=== PATIENT | male | born 1955 | race Caucasian/White ===

== ENCOUNTER → 2025-04-22 | Outpatient (CLI) | payer MEDICARE, OTHER, SELFPAY ==
--- NOTE | 2025-04-22 08:57 | RAD_ITS ---
PROCEDURE: ABDOMEN SINGLE VIEW 04/22/2025 REASON FOR EXAM: CALCULUS OF URETER TECHNIQUE: ABDOMEN SINGLE VIEW COMPARISON: No FINDINGS: Multiple pelvic calcifications favoring phleboliths. Lumbar spine degeneration. Status post left THR. Nondistended bowel. No definite renal stones. RAD/Abdomen Single View IMPRESSION: No definite renal or ureteral stones. Reading Location: [place] [address]
== END | disposition home or self-care (01) ==
PROVIDERS: Referring Provider Urology; Visit Provider Urology
DX: N20.1 Calculus of ureter (principal)
CPT/HCPCS: 74018

== ENCOUNTER 2025-05-07 09:14 | Day surgery (SDC) | payer MEDICARE, OTHER, SELFPAY ==
--- NOTE | 2025-04-25 18:10 | PAT.ANESEVAL ---
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 When Was Last Pacemaker Check QUESTION #4 FULL TEXT: You/Your Family Experience fever (hyperthermia) with Anesthesia Last Oral Intake Last Oral intake: Last Oral Intake NPO since Meds taken in AM with sips of water? Meds patient instructed to take am of surgery PONV PONV - belt loop machine operator: PONV - belt loop machine operator Female No 04/23/25 11:09 HX of Motion Sickness No 04/23/25 11:09 HX of N/V After Surgery No 04/23/25 11:09 Non-Smoker Yes 04/23/25 11:09 Duration of Surgery greater Yes 04/23/25 11:09 than 60 minutes Number of Risk Factors 2 04/23/25 11:09 PONV Score Moderate Risk 04/23/25 11:09 Respiratory Assessment Respiratory Assessment - belt loop machine operator: Respiratory Tract Infection Hx - belt loop machine operator Hx Respiratory Tract Infection No 04/23/25 11:09 STOP Sleep Apnea STOP Sleep Apnea - belt loop machine operator: STOP Sleep Apnea - belt loop machine operator Hx Hypertension Yes: CONTROLLED WITH MED 04/23/25 11:09 Hx Sleep Apnea Yes 04/23/25 11:09 CPAP Yes 04/23/25 11:09 BIPAP No 04/23/25 11:09 Do you snore loudly (louder than talking or can be heard Do you often feel tired/ fatigued/ sleepy during daytime? Has anyone observed you stop breathing during sleep? STOP Results Positive 04/23/25 11:09 QUESTION #5 FULL TEXT : Do you snore loudly (louder than talking or can be heard through closed doors)? 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 Specify any problems Hx of Preganancy in last 3 N/A 04/23/25 11:09 Months Nurse Filling Out Transfusion DSCHRIBER 04/23/25 11:09 & Questions: Date: 04/23/25 04/23/25 11:09 Time: 11:11 04/23/25 11:09 Patient unable to answer at this time (ie. confused, unrespo /Reproduction History /Reproductive History - belt loop machine operator: /Reproductive Hx- belt loop machine operator Hx Now No 04/23/25 11:09 Gestational Age (in weeks): EDC: Hx Hx Para Hx Section SAB No 04/23/25 11:09 PFSH Medical History (Updated 04/23/25 @ 11:25 by Kayla Henley) Wears glasses Cancer Depression Anxiety Alcohol use Arthritis Back pain History of diverticulitis CPAP (continuous positive airway pressure) dependence Shortness of breath on exertion Non-smoker History of pain when walking History of edema Non-Hodgkin lymphoma History of stress test Cardiology follow-up encounter Hypertension Home Medications ?Medication ?Instructions ?Recorded ?Last Taken ?Type furosemide 20 mg tablet 20 mg PO DAILY PRN edema 04/23/25 Unknown History ketorolac 10 mg tablet 10 mg PO Q8H PRN PRN pain 04/23/25 Unknown History metoprolol succinate 50 mg 50 mg PO QHS 04/23/25 Unknown History tablet,extended release 24 hr semaglutide 0.25 mg or 0.5 mg (2 0.25 mg subcut TU 04/23/25 04/15/25 History mg/1.5 mL) subcutaneous pen injector (Ozempic) simvastatin 40 mg tablet 40 mg PO QHS 04/23/25 Unknown History tamsulosin 0.4 mg capsule 0.4 mg PO QHS 04/23/25 Unknown History Allergy/AdvReac Type Severity Reaction Status Date / Time chlorhexidine Allergy Intermediate Rash Verified 04/23/25 11:03 meperidine (From Demerol) AdvReac Severe Nausea Verified 04/23/25 11:03 lisinopril AdvReac Intermediate COUGH Verified 04/23/25 11:03 Surgical History (Updated 04/23/25 @ 11:25 by Kayla Henley) Hx of oral surgery Hx of eye surgery Hx of colonoscopy History of surgery on wrist History of orchiectomy, unilateral Hx of total hip arthroplasty History of ankle surgery History of ankle surgery Social History Smoking Status: Never smoker Audit: Pertinent Findings Pertinent Findings EKG Perinent findings: May 09, 2023. Sinus rhythm?frequent ectopic ventricular beats. Stress test pertinent findings: 12/14/2022. 1. EKG normal with frequent PVCs and runs of nonsustained ventricular tachycardia during the exercise. 2. No chest pain with exercise. 3. No ST segment changes of significance at the heart rate were achieved. 4. Patient achieved a METS of 6.9. Echo (EF%) pertinent findings: 03/17/2022. Limited study for LV function due to poor quality. LV probably of normal size and contractility. Consult pertinent findings: 05/09/2023. Dr. Crenshaw. 1. Ventricular ectopy?multiforme, asymptomatic. 39% burden on Holter in December 2021. Improved with institution of treatment for sleep apnea and beta-blockade. Continuing to improve symptomatically. No change in medical treatment. 2. Hypertension?chronic. 3. Morbid obesity and sleep apnea-on treatment. Additional pertinent findings: Holter monitor. December 2021. PVC burden of 39%. Recommendation Anesthesia Recommendation Anesthesia recommendation: OPTIMIZED for anesthesia
[2025-05-07] VITALS (8 sets, daily range): BP systolic 132–157; BP diastolic 67–77; PULSE 51–65; RESP 12–20; TEMP 36–36.6; O2SAT 91–99; BMI 52.2
--- NOTE | 2025-05-07 09:27 | PCM.PRE.AN2 ---
ASA Classification* ASA Classification ASA Classification: 2 Assessment & Plan Anesthesia* Anesthesia Assessment Anesthesia Assessment: Discussed sedation and/or anesthesia options, risks, benefits, and alternatives with patient/parents/legal guardian/POA. Questions invited. The patient/parents/legal guardian/POA seems to understand and agrees to proceed with anesthesia plan. Reviewed the physical assessment, medical history, allergy history and patient home medications list prior to surgery/procedure/anesthetic and documented any changes. Performed airway and anesthesia risk assessments. 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 When Was Last Pacemaker Check QUESTION #4 FULL TEXT: You/Your Family Experience fever (hyperthermia) with Anesthesia Last Oral Intake Last Oral intake: Last Oral Intake NPO since Meds taken in AM with sips of water? 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 - fabrication inspector Female No 04/23/25 11:09 HX of Motion Sickness No 04/23/25 11:09 HX of N/V After Surgery No 04/23/25 11:09 Non-Smoker Yes 04/23/25 11:09 Duration of Surgery greater Yes 04/23/25 11:09 than 60 minutes Number of Risk Factors 2 04/23/25 11:09 PONV Score Moderate Risk 04/23/25 11:09 Respiratory Assessment Respiratory Assessment - fabrication inspector: Respiratory Tract Infection Hx - fabrication inspector Hx Respiratory Tract Infection No 04/23/25 11:09 STOP Sleep Apnea STOP Sleep Apnea - fabrication inspector: STOP Sleep Apnea - fabrication inspector Hx Hypertension Yes: CONTROLLED WITH MED 04/23/25 11:09 Hx Sleep Apnea Yes 04/23/25 11:09 CPAP Yes 04/23/25 11:09 BIPAP No 04/23/25 11:09 Do you snore loudly (louder than talking or can be heard Do you often feel tired/ fatigued/ sleepy during daytime? Has anyone observed you stop breathing during sleep? STOP Results Positive 04/23/25 11:09 QUESTION #5 FULL TEXT : Do you snore loudly (louder than talking or can be heard through closed doors)? 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 Specify any problems Hx of Preganancy in last 3 N/A 04/23/25 11:09 Months Nurse Filling Out Transfusion DSCHRIBER 04/23/25 11:09 & Questions: Date: 04/23/25 04/23/25 11:09 Time: 11:11 04/23/25 11:09 Patient unable to answer at this time (ie. confused, unrespo /Reproduction History /Reproductive History - fabrication inspector: /Reproductive Hx- fabrication inspector Hx Now No 04/23/25 11:09 Gestational Age (in weeks): EDC: Hx Hx Para Hx Section SAB No 04/23/25 11:09 Active Medications Active Medications: Current Medications Generic Name Dose Route Start Last Admin Trade Name Freq PRN Reason Stop Dose Admin Cefazolin Sodium 2 gm/ Sodium 110 mls @ 200 mls/hr 05/07/25 15:15 Chloride IV 05/07/25 15:47 INTRAOP ONE Lactated Ringer's 1,000 mls @ 15 mls/hr 05/07/25 09:30 IV .Q48H FRANK PFSH Medical History Wears glasses Cancer Depression Anxiety Alcohol use Arthritis Back pain History of diverticulitis CPAP (continuous positive airway pressure) dependence Shortness of breath on exertion Non-smoker History of pain when walking History of edema Non-Hodgkin lymphoma History of stress test Cardiology follow-up encounter Hypertension Home Medications ?Medication ?Instructions ?Recorded ?Last Taken ?Type furosemide 20 mg tablet 20 mg PO DAILY PRN edema 04/23/25 Unknown History ketorolac 10 mg tablet 10 mg PO Q8H PRN PRN pain 04/23/25 Unknown History metoprolol succinate 50 mg 50 mg PO QHS 04/23/25 Unknown History tablet,extended release 24 hr semaglutide 0.25 mg or 0.5 mg (2 0.25 mg subcut TU 04/23/25 04/15/25 History mg/1.5 mL) subcutaneous pen injector ([employer]) simvastatin 40 mg tablet 40 mg PO QHS 04/23/25 Unknown History tamsulosin 0.4 mg capsule 0.4 mg PO QHS 04/23/25 Unknown History Allergy/AdvReac Type Severity Reaction Status Date / Time chlorhexidine Allergy Intermediate Rash Verified 04/23/25 11:03 meperidine (From Demerol) AdvReac Severe Nausea Verified 04/23/25 11:03 lisinopril AdvReac Intermediate COUGH Verified 04/23/25 11:03 Surgical History Hx of oral surgery Hx of eye surgery Hx of colonoscopy History of surgery on wrist History of orchiectomy, unilateral Hx of total hip arthroplasty History of ankle surgery History of ankle surgery Social History Smoking Status: Never smoker Review of Systems (Anesthesia) ROS Narrative System reviewed and no additional complaints, except as documented.
[2025-05-07] MEDS: Lactated Ringers 1,000 ML 15 ML IV (09:52)
--- NOTE | 2025-05-07 10:43 | PCM.DC ---
Discharge Instructions DC O2, CPAP, BIPAP needs Home O2 Discharge instructions: No Dressing / Incision Discharge Activity: Return to Normal Activity and May Not Drive (while taking narcotic pain medications.) Dressing / Incision Call your doctor if you observe: Fever of 101 or Higher Follow Up Care Please Follow Up With: Jaxson Justin MD When: Call [phone] for an appointment Test Results: Test results from this visit will be discussed in further detail at your follow-up appointment, if applicable. Discharge Plan Admission Primary Reason for Your Visit: laser stone and stent Attending Provider: Jaxson Justin Primary Care Provider: FRANCISCO RUTHERFORD Instructions Print Language: Citizen Of [place] Discharge Orders/Prescriptions Prescriptions: New oxycodone 5 mg tablet 5 mg PO Q6H PRN (Reason: pain) 7 Days Qty: 20 0RF ciprofloxacin HCl 500 mg tablet 500 mg PO BID Qty: 6 0RF Continued metoprolol succinate 50 mg tablet extended release 24 hr 50 mg PO QHS simvastatin 40 mg tablet 40 mg PO QHS Ozempic 0.25 mg or 0.5 mg(2 mg/1.5 mL) pen injector 0.25 mg subcut TU Rx Instructions: for 4 weeks furosemide 20 mg tablet 20 mg PO DAILY PRN (Reason: edema) tamsulosin 0.4 mg capsule 0.4 mg PO QHS ketorolac 10 mg tablet 10 mg PO Q8H PRN PRN (Reason: pain) Referrals / Follow Up: FRANCISCO RUTHERFORD [Other] Jaxson Justin MD [Med Staff - Active Staff] - Disposition Disposition (needs filled in before D/C Order can be placed): Home, Self Care
[2025-05-07] MEDS: Lactated Ringers 1,000 ML 1000 ML IV (10:53)
[2025-05-07] MEDS: Midazolam 2 MG/2 ML Syringe IV (10:53)
--- NOTE | 2025-05-07 10:57 | RAD_ITS ---
EXAM: Fluoroscopy for ureteral stent placement. CLINICAL HISTORY: Cystoscopy for left stent placement. COMPARISON: None TECHNIQUE: Intraoperative fluoroscopy was performed for left ureteral stent placement. One fluoroscopic image was obtained. Fluoroscopy time: 12.4 seconds. Dose: 8.43 mGy. RAD/O.R. Fluoro for C-Arm IMPRESSION: Intraoperative fluoroscopy was performed for left ureteral stent placement. On e fluoroscopic image was obtained. Reading Location: [place] [address]
[2025-05-07] MEDS: Lidocaine 1% (30 ml sdv) 30 ML Vial 50 ML IV (11:00)
[2025-05-07] MEDS: Cefazolin 1 GM/5 ML Vial 2 GM IV (11:00)
[2025-05-07] MEDS: fentaNYL 100 MCG/2 ML Ampul IV (11:00)
--- NOTE | 2025-05-07 11:33 | OP.PCM_ITS ---
Operative Report (Standard) Operative Information Date of Procedure: 05/07/25 Pre-Operative Diagnosis: Obstructing left ureteral calculus Post-Operative Diagnosis: The same Surgery/Procedure Performed: Cystoscopy, balloon dilation of left ureter, left ureteroscopy laser lithotripsy of stone and stent, left retrograde pyelogram pot fluxer: No Type of Anesthesia: General RN Documented Start/Stop Times: Operation Date: 05/07/25 15:15 Case Time Into Pre-Op 05/07/25 09:21 Procedure Start Time: 11:08 Procedure Stop Time: 11:33 Select all DRAINS/GRAFTS/IMPLANTS that apply: Drains Drain details: 6 Ukrainian by 26 cm stent Estimated Blood Loss: 0 Specimen collected: No Description of surgery: This is a patient who presents to the hospital for treatment for an obstructing ureter calculi. I discussed with the patient how the surgery would be performed and we reviewed the risks and benefits of the surgery. The risk and benefits in clude the risk of failure to remove the stone completely and that the patient may need multiple procedures. We discussed the risk of an infection, the risk of bleeding. We discussed the very rare risk of serious complicated injury to the ureter. The patient understands that if the stone is not able to be removed safely that we may abort the procedure and place a stent. After full discussion and all questions address with the patient the consent form was signed the side was marked appropriately and the patient was taken back to the operating room for the procedure. The patient was taken back to the operating room. After induction of anesthesia by the anesthesiology team the patient was placed in dorsolithotomy position. The genitals were prepped and draped in usual sterile fashion. I went into the bladder with a 21 Ukrainian rigid cystourethroscope through the urethra. Upon entering the bladder I inspected the trigone the left and right ureteral orifice and the bladder itself. I then cannulated the left ureteral orifice and advanced a 0.038 Glidewire up into the kidney. Then over the Glidewire I advanced a 5 Fr Ureteral catheter and performed a retrograde pyelogram with abou t 10cc of contrast, to delineate the anatomy and identify the stone location. Then a ureteral balloon dilator was advanced over the wire and the distal ureter was balloon dilated with a 12 Fr x 5cm balloon dilator. After 3 minutes of dilating the ureter the balloon was backloaded off the 0.038 glidewire over the 0.038 guidewire I went in with the flexible 7.5fr ureteroscope. I was able to go inside with the 7.5Fr utereroscope and I pulled out the guidewire and then through the ureteroscope I engage the stone with laser lithotripsy using a 270miron laser fiber with energy setting of 6 Hertz and 0.6 J until the stone was lasered into tiny little pieces that should pass on their own. A retrograde pyelogram was performed with 10cc of contrast and no extravasation of contrast or perforation was identified in the ureter there was some mild irritation of the ureter where the stone was located. I then backed out of the ureter left the wire in place and then over the 0.038 guidewire I placed a double coiled pigtail ureteral stent. The ureteral stent was advanced over the 0.038 guidewire under direct fluoroscopic guidance and direct cystoscopic visual guidance, once the stent was in good position I pulled the wire and the stent coiled in the kidney and bladder in good position. I then drained the patient's bladder and the cystoscope was removed and the patient was taken back to the recovery room in good position. The patient was given discharge instructions to call the office for instructions on when to come to the office to have the stent removed. Surgical Findings: Stone lasered completely Complications Complications: No Admit VTE Documentation VTE Present on Admission: No VTE Mechan Device Prophylaxis: SCD's VTE Pharm Prophylaxis ordered?: No
--- NOTE | 2025-05-07 11:47 | PCM.POST.ANE ---
Anesthesia: Postop Eval I Current Vital Signs Temperature: 96.8 F Pulse Rate: 64 Blood Pressure: 132/67 Respiratory Rate: 16 Pulse Ox: 98 Oxygen Delivery Method: Nasal Cannula Oxygen Flow Rate (L/min): 2 Assessment Airway patent: Yes Spontaneous unlabored respirations: Yes Mental status: Awake and Calm nausea: No Vomiting: No Anesthesia Complication: No Fluid Hydration Crystalloid volume administer (ml): 500 Total IV fluid infused: 500 Progress Note Anesthesia document: Postop Eval 1 completed: Yes
--- NOTE | 2025-05-07 14:48 | POSTOPAN2_ITS ---
Anesthesia Postop Eval I Sum Postop Eval Completion status Anesthesia document: Postop Eval 1 completed: Yes Anesthesia Postop Eval I Summary Anesthesia Postop Eval I Summary: Anesthesia Postop Eval I: Assessment Summary Airway patent Yes 05/07/25 11:48 [email or web address] Spontaneous unlabored Yes 05/07/25 11:48 [email or web address] [email or web address] respirations Mental status Awake,Calm 05/07/25 11:48 [email or web address] nausea No 05/07/25 11:48 [email or web address] Vomiting No 05/07/25 11:48 [email or web address] [email or web address] Anesthesia Postop Eval I: Fluid Summary Crystalloid volume administer 500 05/07/25 11:48 [email or web address] (ml) Colloids volume administered ( ml) Blood Product volume administered (ml) Total IV fluid infused 500 05/07/25 11:48 [email or web address] [email or web address] Anesthesia Postop Eval I: Summary Notes Anesthesia Complication No 05/07/25 11:48 [email or web address] Anesthesia Complication Comment: Post-operative progress note Anesthesia: Postop Eval II Evaluation Mental status: Awake Pain Level: 0 nausea: No Vomiting: No
--- NOTE | 2025-05-07 14:48 | PCM.POSTANE2 ---
Anesthesia Postop Eval I Sum Postop Eval Completion status Anesthesia document: Postop Eval 1 completed: Yes Anesthesia Postop Eval I Summary Anesthesia Postop Eval I Summary: Anesthesia Postop Eval I: Assessment Summary Airway patent Yes 05/07/25 11:48 ADVERTISING [email or web address] Spontaneous unlabored Yes 05/07/25 11:48 ADVERTISING VICE PRESIDENT.[email or web address] respirations Mental status Awake,Calm 05/07/25 11:48 ADVERTISING VICE [email or web address].[email or web address] nausea No 05/07/25 11:48 ADVERTISING VICE PRESIDENT.[email or web address] Vomiting No 05/07/25 11:48 ADVERTISING VICE PRESIDENT.[email or web address] Anesthesia Postop Eval I: Fluid Summary Crystalloid volume administer 500 05/07/25 11:48 ADVERTISING VICE [email or web address].[email or web address] (ml) Colloids volume administered ( ml) Blood Product volume administered (ml) Total IV fluid infused 500 05/07/25 11:48 ADVERTISING VICE [email or web address].[email or web address] Anesthesia Postop Eval I: Summary Notes Anesthesia Complication No 05/07/25 11:48 ADVERTISING VICE PRESIDENT.[email or web address] Anesthesia Complication Comment: Post-operative progress note Anesthesia: Postop Eval II Evaluation Mental status: Awake Pain Level: 0 nausea: No Vomiting: No
== END 2025-05-07 12:57 | disposition home or self-care (01) ==
LOC: SDC 09:15 → AC 09:17
PROVIDERS: Referring Provider Urology; Visit Provider Urology
PROC: 0TJ98ZZ Inspection of Ureter, Via Natural or Artificial Opening Endoscopic (ICD-10-PCS; CPT 52352; principal; 2025-05-07 15:05)
DX: N20.1 Calculus of ureter (principal)
CPT/HCPCS: 52356; 00918; 76000; C1769; C2617; J2405

== ENCOUNTER 2025-08-23 11:01 | Emergency (ER) | payer MEDICARE, OTHER, SELFPAY ==
[2025-08-23 11:02] VITALS: BP 126/73; PULSE 73; RESP 14; TEMP 36.3; O2SAT 98; BMI 51.0
--- OUTSIDE RECORDS SUMMARY | 2025-08-23 11:36 | XMS RPT_ITS | CCD ---
Author Organization [facility]iniSyak Care Team Providers Care Food Safety Technician Name Role Phone ECONOMOUS, RAVI Unavailable WONNER, FRANCHESCA Unavailable WONNER, FRANCHESCA Unavailable WONNER, FRANCHESCA Unavailable WONNER, FRANCHESCA Unavailable ECONOMOUS, RAVI Unavailable BRYCE, BRIDGET (STATIONARY BOILER FIREMAN) Unavailable Unavailable BRYCE, BRIDGET (STATIONARY BOILER FIREMAN) Unavailable Unavailable BRYCE, BRIDGET (STATIONARY BOILER FIREMAN) Unavailable Unavailable BRYCE, BRIDGET (STATIONARY BOILER FIREMAN) Unavailable Unavailable BRYCE, BRIDGET (STATIONARY BOILER FIREMAN) Unavailable Unavailable BRYCE, BRIDGET (STATIONARY BOILER FIREMAN) Unavailable Unavailable BRYCE, BRIDGET (STATIONARY BOILER FIREMAN) Unavailable Unavailable BRYCE, BRIDGET Unavailable Unavailable BRYCE, BRIDGET Unavailable Unavailable BRYCE, BRIDGET Unavailable Unavailable BRYCE, BRIDGET Unavailable Unavailable BRYCE, BRIDGET Unavailable Unavailable IMCA Unavailable Unavailable IMCA Unavailable Unavailable BRYCE, BRIDGET Unavailable Unavailable BRYCE, BRIDGET Unavailable Unavailable IMCA Unavailable Unavailable BRYCE, BRIDGET Unavailable Unavailable BRYCE, BRIDGET Unavailable Unavailable IMCA Unavailable Unavailable BRYCE, BRIDGET Unavailable Unavailable BRYCE, BRIDGET Unavailable Unavailable OLEGARIO TOUSSAINT Unavailable Unavailable ECONOMOUS, RAVI Unavailable Unavailab le Necci, Andrew Unavailable Unavailable Necci, Andrew Unavailable Unavailable Mungo, Alissa V. Unavailable Unavailable Mungo, Alissa V. Unavailable Unavailable Mungo, Alissa V. Unavailable Unavailable [facility], [facility] Unavailable Unavail able Judy Singh Unavailable Unavailable Economous, Favio Unavailable Unavailabl e Rajat Rose Unavailable Unavailable Economous, Favio Unavailable UnavailJoie Earl Unavailable Joie Harp Primary Care Provider [phone] Joie Harp Primary Care Provider [phone] Bradley Zuñiga Primary Care Provider Bradley Zuñiga MD Primary Care Provider Katty Zuñiga MDilimarielle Primary Care Provider Katty Zuñiga MDilimarielle Primary Care Provider Yogesh HARRINGTON, Kattyilimarielle Primary Care Provider Boom Webb MD Unavailable Bradley Zuñiga MD Primary Care Provider Edmund Orozco Unavailable Bradley Zuñiga MD Primary Care Provider HILARY CRENSHAW Referring Unavailable YOGESH, VASILIKI Primary Care Unavailable YOGESH, VASILIKI Primary Care Unavailable BOOM BEE Referring Unavailable Bradley Zuñiga MD Primary Care Provider [phone] ALFONSO ADORNO Attending Unavailable ALFONSO ADORNO Attending Unavailable ALFONSO ADORNO Attending Unavailable ALFONSO ADORNO Attending Unavailable Boom Webb MD Unavailable Bradley Zuñiga MD Primary Care Provider Edmund Orozco MD Unavailable Broderick ABREU, Little Unavailable Rhonda Reyna Unavailable CORIN CARVER Admitting Unavailable CORIN CARVER Primary Care Unavailable CORIN CARVER Attending Unavailable ASIA AVILES MD Admitting Unavailable ASIA AVILES MD Primary Care Unavailable ASIA AVILES MD Attending Unavailable ASIA AVILES MD Admitting Unavailable ASIA AVILES MD Primary Care Unavailable ASIA AVILES MD Attending Unavailable COVERDANENO MIRANDA MD Admitting Unavailable COVERNENO CARBAJAL MD Primary Care Unavailable COVERDARUBEN, NENO HARRINGTON Attending Unavailable YOGESH, VASILIKI A Consulting Unavailable VAKATIA, VASILIKI A Referring Unavailable PROVIDER, UNKNOWN Consulting Unavailable YOGESH, VASILIKI Primary Care Provider Margoth HARRINGTON, Dr. Jaxson Dee Attending Provider Dr. Jaxson Justin MD Referring Provider BARB CHEN Primary Care Unavailable Jaxson Justin Attending Unavailable Jaxson Justin Referring Unavailable BARBCHEN Primary Care Unavailable Jaxson Justin Attending Unavailable Jaxson Justin Referring Unavailable NINGEGOWDA, GEORGE B Attending Unavailable NINGEGOWDA, GEORGE B Admitting Unavailable VAMVAKIS VASILIKI Primary Care Unavailable VAMVAKIS VASILIKI Primary Care Unavailable NINGEGOWDA, GEORGE B Referring Unavailable NINGEGOWDA, GEORGE B Attending Unavailable Allergies Allergy Classification Reported Allergen(s) Allergy Type Date of Onset Reaction(s) Facility Chlorhexidine / Ethanol (9 sources) Chlorhexidine / Ethanol Drug Allergy 0 Photosensitivit y, Rash [facility] Work Phone: Opioid Agonists (9 sources) Meperidine Drug Allergy 8 Nausea Only [facility] Work Phone: (4 sources) meperidine; Translations: [Demerol] Drug Allergy Nausea/Vomiting [facility] (12 sources) meperidine; Translations: [MEPERIDINE (PF)] Drug Allergy 6 GI Upset [facility] Other [place] [facility] (1 source) Meperidine Drug Allergy 8 [facility] Repository (2 sources) Meperidine Drug Allergy 7 [facility] ([place]) Repository (20 sources) Meperidine Drug Allergy 8 Nausea Only [place], [place] (13 sources) Chlorhexidine / Ethanol Drug Allergy 0 Photosensitivit y, Rash [place], [place] (11 sources) Lisinopril Drug Allergy 1 [facility] [employer] Work Phone: (12 sources) Chlorhexidine Drug Allergy 1 Rash [facility] Work Phone: (1 source) Chlorhexidine Drug Allergy 5 [facility] Repository (1 source) Lisinopril Drug Allergy [facility] Repository Medications Current Medications Medication Drug Class(es) Dates Sig (Normalized) Sig (Original) Acetaminophen (10 sources) Start: 02-25-2020 acetaminophen (TYLENOL) tablet 650 mg End: 03-16-2021 take 1 tablet by mouth every six hours as needed for pain acetaminophen (TYLENOL) 500 MG tablet Take 500 mg by mouth every 6 hours as needed for Pain 0 03/16/2021 Discontinued acetaminophen 325 mg / HYDROcodone bitartrate 5 mg oral tablet (6 sources) Opioid Agonist Start: 03-17-2021 End: 03-24-2021 HYDROcodone-acetaminophen (NORCO) 5-325 MG per tablet Indications: Post-op pain Take 1 tablet by mouth every 6 hours as needed for Pain for up to 7 days. Intended supply: 3 days. Take lowest dose possible to manage pain 28 tablet 0 03/17/2021 03/24/2021 Active Start: 02-26-2020 End: 03-04-2020 take 1 tablet by mouth every four hours as needed for pain HYDROcodone-acetaminophen (NORCO) 5-325 MG per tablet Indications: Testicular mass Take 1 tablet by mouth every 4 hours as needed for Pain for up to 10 doses. 10 tablet 0 02/26/2020 03/04/2020 Active End: 12-14-2015 take 1 tablet by mouth every six hours as needed hydrocodone-acetaminophen Oral 1 tablet( s) Every 6 hours PRN as need for pain as need for pain By Mouth Dec 14, 2015 Discontinued Course Completed acetaminophen 325 mg / oxyCODONE hydrochloride 5 mg oral tablet (5 sources) Opioid Agonist Start: 03-17-2021 End: 03-17-2021 oxyCODONE-acetaminophen (PERCOCET) 5-325 MG per tablet 1 tablet take 1 tablet by paul th every six hours as needed Acetaminophen 325 MG / Oxycodone Hydrochloride 5 MG Oral Tablet [Percocet] 1 tablet(s) 4 Times A Day PRN Orally Active acyclovir 400 mg oral tablet (9 sources) Herpesvirus Nucleoside Analog DNA Polymerase Inhibitor, Herpes Simplex Virus Nucleoside Analog DNA Polymerase Inhibitor, Herpes Zoster Virus Nucleoside Analog DNA Polymerase Inhibitor Start: 09-07-2021 take 1 tablet by mouth every twelve hours acyclovir (ZOVIRAX) 400 mg tablet Indications: Diffuse large B-cell lymphoma of lymph nodes of multiple regions (HCC) Take 1 tablet by mouth q 12 HR. 60 tablet 2 09/07/2021 Active Comment on above: Take 1 tablet by paul th q 12 HR. allopurinol 100 mg oral tablet (2 sources) Xanthine Oxidase Inhibitor take 1 tablet by mouth once daily allopurinol (ZYLOPRIM) 100 MG tablet Take 100 mg by mouth daily 0 Active amLODIPine 5 mg oral tablet (15 sources) Dihydropyridine Calcium Channel Magnus Start: 09-07-2021 take 1 tablet by mouth once daily amLODIPine (NORVASC) 5 mg tablet Take 1 tablet by mouth once daily. Hold until instructed to resume by your outpatient team. 09/07/2021 Active Start: 03-18-2021 End: 09-07-2021 take 1 tablet by mouth once daily amLODIPine (NORVASC) 5 MG tablet Indications: Essential hypertension Take 1 tablet by mouth daily 90 tablet 1 04/27/2021 Active Comment on above: Take 1 tablet by paul th once daily. Hold until instructed to resume by your outpatient team. amoxicillin 875 mg / clavulanate 125 mg oral tablet (1 source) Penicillin-class Antibacterial Start: 02-18-20 End: 02-23-20 21 take 1 tablet by mouth twice daily amoxicillin-clavulan ate (AUGMENTIN) 875-125 MG per tablet Take 1 tablet by mouth 2 times daily for 5 days 10 tablet 0 02/17/2021 02/22/2021 Active Aspirin-Acetaminophen -Caffeine (EXCEDRIN MIGRAINE PO) (4 sources) Aspirin-Acetamin ophe n-Caffeine (EXCEDRIN MIGRAINE PO) Take by mouth 0 Active atorvastatin 20 mg oral tablet (1 source) HMG-CoA Reductase Inhibitor Start: 02-26-20 20 atorvastatin (LIPITOR) tablet 20 mg baclofen 10 mg oral tablet (3 sources) gamma-Aminobutyric Acid-ergic Agonist Start: 06-02-20 take 1 tablet by mouth once daily as needed for muscle spasms baclofen (LIORESAL) 10 MG tablet Indications: Acute bilateral low back pain, unspecified whether sciatica present Take 1 tablet by mouth daily as needed (muscle spasm) 90 tablet 1 06/02/2022 Active Start: 01-27-2022 take 1 tablet by paul th once daily as needed for muscle spasms baclofen (LIORESAL) 10 MG tablet Indications: Acute bilateral low back pain, unspecified whether sciatica present Take 1 tablet by mouth daily as needed (muscle spasm) 90 tablet 1 01/27/2022 Active betamethasone 0.5 mg/ml / clotrimazole 10 mg/ml topical cream (2 sources) Azole Antifungal, Corticosteroid clotrimazole-betamet hasone (LOTRISONE) 1-0.05 % cream Apply 1 g topically 2 times daily Apply topically 2 times daily. Active ciprofloxacin 500 mg oral tablet (1 source) Quinolone Antimicrobial Star t: 0803-21 take 1 tablet by mouth twice daily Ciprofloxacin Hcl 500 mg tablet Active 500 mg PO TWICE A DAY May 07, 2025 12:00am 0.4 ml enoxaparin sodium 100 mg/ml prefilled syringe (1 source) Low Molecular Weight Heparin Star t: 01-31 inject 40 mg by subcutaneous injection once daily 40 mg, Subcutaneous, DAILY, First dose on Mon02/25/20 at 1515 ergocalciferol 1.25 mg oral capsule (1 source) Provitamin D2 Compound Star t: 08-03 take 1 capsule by mouth every week vitamin D (ERGOCALCIFEROL) 1.25 MG (03351 UT) CAPS capsule Indications: Vitamin D deficiency, unspecified Take 1 capsule by mouth once a week 12 capsule 08/29/2022 Active famotidine 20 mg oral tablet (2 sources) Histamine-2 Receptor Antagonist Star t: 10-21 take 1 tablet by mouth once daily in the evening famotidine (PEPCID) 20 MG tablet Indications: Gastroesophageal reflux disease, unspecified whether esophagitis present Take 1 tablet by mouth every evening 90 tablet 1 06/02/2022 Active Start: 01-27-2022 take 1 tablet by paul th once daily in the evening famotidine (PEPCID) 20 MG tablet Indications: Gastroesophageal reflux disease, unspecified whether esophagitis present Take 1 tablet by mouth every evening 90 tablet 1 01/27/2022 Active furosemide 20 mg oral tablet (8 sources) Loop Diuretic Start: 06-18-2025 take 1 tablet by mouth once daily furosemide (LASIX) 20 MG tablet Indications: Leg swelling Take 1 tablet by mouth daily 90 tablet 1 06/18/2025 Active Start: 04-23-2025 take 1 tablet by paul th once daily as needed for edema Furosemide 20 mg tablet Active 20 mg PO DAILY as needed for edema April 23, 2025 12:00am Start: 06-28-2023 take 1 tablet by paul th once daily furosemide (LASIX) 20 MG tablet Take 1 tablet by mouth daily 30 tablet 0 06/28/2023 Active Start: 09-02-2022 take 1 tablet by paul th once daily furosemide (LASIX) 20 MG tablet Indications: Leg swelling , Need for vaccination , Diffuse non-Hodgkin's lymphoma of testis (HCC) Take 1 tablet by mouth daily 7 tablet 0 09/02/2022 Active Start: 06-02-2022 take 1 tablet by paul th once daily furosemide (LASIX) 20 MG tablet Indications: Leg swelling Take 1 tablet by mouth daily 7 tablet 0 06/02/2022 Active Start: 02-15-2022 End: 03-17-2022 take 1 tablet by mouth once daily furosemide (LASIX) 20 MG tablet Indications: Leg swelling Take 1 tablet by mouth daily 7 tablet 0 02/15/2022 03/17/2022 Discontinued (ERROR) 1 ml hydrALAZINE hydrochloride 20 mg/ml injection (1 source) Arteriolar Vasodilator Start: 03-17-2021 hydrALAZINE (APRESOLINE) injection 5 mg hydroCHLOROthiazide 12.5 mg oral capsule (17 sources) Thiazide Diuretic Start: 10-05-2021 End: 03-17-2022 take 1 capsule by mouth once daily hydroCHLOROthiazide 12.5 mg capsule Take 1 capsule by mouth once daily. 10/05/2021 Active Start: 03-18-2021 End: 09-07-2021 take 1 capsule by mouth once daily hydroCHLOROthiazide (MICROZIDE) 12.5 MG capsule Indications: Essential hypertension Take 1 capsule by mouth daily 90 capsule 1 04/27/2021 Active Comment on above: Take 1 capsule by [facility] once daily. 1 ml HYDROmorphone hydrochloride 1 mg/ml cartridge (2 sources) Opioid Agonist Start: 03-17-2021 HYDROmorphone (DILAUDID) injection 0.5 mg Start: 03-17-2021 HYDROmorphone (DILAUDID) injection 0.25 mg ketorolac tromethamine 10 mg oral tablet (2 sources) Nonsteroidal Anti-inflammatory Drug, Cyclooxygenase Inhibitor Start: 04-23-2025 take 1 tablet by mouth every eight hours as needed for pain Ketorolac 10 mg tablet Active 10 mg PO EVERY 8 HOURS NEEDED as needed for pain April 23, 2025 12:00am labetalol hydrochloride 5 mg/ml injectable solution (1 source) beta-Adrenergic Magnus Start: 03-17-2021 labetalol (NORMODYNE;DA SILVA DATE) injection 5 mg meloxicam 7.5 mg oral tablet (20 sources) Nonsteroidal Anti-inflammatory Drug Start: 02-25-2020 take 15 mg by mouth once daily 15 mg, Oral, DAILY, First dose on Mon02/25/20 at 1530 Start: 08-27-2019 take 1 tablet by paul th once daily meloxicam (MOBIC) 15 MG tablet Take 1 tablet by mouth daily 90 tablet 3 08/27/2019 Active Start: 02-19-2019 take 1 tablet by paul th once daily meloxicam (MOBIC) 15 MG tablet Take 1 tablet by mouth daily 90 tablet 3 02/19/2019 Active Mobic Every day stopped taking stopped taking Oral Active 1 ml meperidine hydrochloride 25 mg/ml cartridge (1 source) Opioid Agonist Start: 03-17-2021 meperidine (DEMEROL) injection 12.5 mg 24 hr metoprolol succinate 50 mg extended release oral tablet (8 sources) beta-Adrenergic Magnus Start: 06-18-2025 take 1 tablet by mouth once daily metoprolol succinate (TOPROL XL) 50 MG extended release tablet Indications: Essential hypertension Take 1 tablet by mouth daily 90 tablet 1 06/18/2025 Active Start: 04-23-2025 take 1 tablet by paul th every twenty-four hours at bedtime Metoprolol Succinate 50 mg tablet extended release 24 hr Active 50 mg PO AT BEDTIME April 23, 2025 12:00am Start: 01-16-2024 take 1 tablet by mouth once da lilliana metoprolol succinate (TOPROL XL) 50 MG extended release tablet Indications: Essential hypertension Take 1 tablet by mouth daily 90 tablet 1 01/16/2024 Active Start: 12-05-2022 take 1 tablet by mouth once da [place]illiana metoprolol succinate (TOPROL XL) 50 MG extended release tablet Indications: Essential hypertension Take 1 tablet by mouth daily 90 tablet 0 12/05/2022 Active Start: 06-02-2022 take 1 tablet by mouth once da [place]illiana metoprolol succinate (TOPROL XL) 50 MG extended release tablet Indications: Essential hypertension Take 1 tablet by mouth daily 90 tablet 1 06/02/2022 Active Start: 02-16-2022 take 1 tablet by mouth once da lilliana metoprolol succinate (TOPROL XL) 25 MG extended release tablet Take 1 tablet by mouth daily 30 tablet 5 02/16/2022 Active oxyCODONE hydrochloride 5 mg oral tablet (1 source) Opioid Agonist Start: 05-07-2025 take 1 tablet by mouth every six hours as needed for pain Oxycodone 5 mg tablet Active 5 mg PO EVERY 6 HOURS as needed for pain 20 7 0 May 07, 2025 Calculus of kidney Calculus of kidney Start: 05-07-2025 take 1 tablet by paul th every six hours as needed for pain Oxycodone 5 mg tablet Active 5 mg PO EVERY 6 HOURS as needed for pain 20 7 0 May 07, 2025 Calculus of kidney Calculus of kidney pantoprazole 20 mg delayed release oral tablet (20 sources) Proton Pump Inhibitor Start: 10-05-2021 take 1 tablet by mouth once daily pantoprazole DR (PROTONIX) 20 mg tablet Take 1 tablet by mouth once daily. 30 tablet 10/05/2021 Active End: 09-22-2020 take 1 tablet by mouth once daily pantoprazole (PROTONIX) 40 MG tablet Take 40 mg by mouth daily 0 09/22/2020 Discontinued (Therapy completed) Comment on above: Take 1 tablet by paul th once daily. polyethylene glycol 3350 [id number] mg powder for oral solution (1 source) Osmotic Laxative Start: 02-25-2020 17 g, Oral, DAILY PRN, Constipation, Starting Mon02/25/20 at 1515 First line therapy for constipation 1 ml promethazine hydrochloride 25 mg/ml injection (2 sources) Phenothiazine Start: 03-17-2021 End: 03-17-2021 promethazine (PHENERGAN) injection 6.25 mg Start: 02-25-2020 promethazine ( PHENERGAN) tablet 12.5 mg 0.25 mg, 0.5 mg dose 1.5 ml semaglutide 1.34 mg/ml pen injector (2 sources) Start: 04-23-2025 Semaglutide (O zempic) 0.25 mg or 0.5 mg(2 mg/1.5 mL) pen injector Active 0.25 mg SC TU April 23, 2025 12:00am for 4 weeks Semaglutide, 1 MG/DOSE, (OZEMPIC) 4 MG/3ML SOPN sc injection (2 sources) Start: 07-01-2025 Semaglutide, 1 MG/DOSE, (OZEMPIC) 4 MG/3ML SOPN sc injection Indications: Prediabetes , TERRANCE on CPAP Inject 1 mg into the skin every 7 days 3 mL 3 07/01/2025 Active simvastatin 40 mg oral tablet (20 sources) HMG-CoA Reductase Inhibitor Start: 06-18-2025 take 1 tablet by mouth once daily simvastatin (ZOCOR) 40 MG tablet Indications: Hyperlipidemia, unspecified hyperlipidemia type Take 1 tablet by mouth nightly 90 tablet 1 06/18/2025 Active Start: 04-23-2025 take 1 tablet by paul th at bedtime Simvastatin 40 mg tablet Active 40 mg PO AT BEDTIME April 23, 2025 12:00am Start: 01-16-2024 take 1 tablet by paul th once daily simvastatin (ZOCOR) 40 MG tablet Indications: Hyperlipidemia, unspecified hyperlipidemia type Take 1 tablet by mouth nightly 90 tablet 1 01/16/2024 Active Start: 12-05-2022 take 1 tablet by paul th once daily simvastatin (ZOCOR) 40 MG tablet Indications: Hyperlipidemia, unspecified hyperlipidemia type Take 1 tablet by mouth nightly 90 tablet 0 12/05/2022 Active Start: 06-02-2022 take 1 tablet by paul th once daily simvastatin (ZOCOR) 40 MG tablet Indications: Hyperlipidemia, unspecified hyperlipidemia type Take 1 tablet by mouth nightly 90 tablet 1 06/02/2022 Active Start: 01-27-2022 take 1 tablet by paul th once daily simvastatin (ZOCOR) 40 MG tablet Indications: Hyperlipidemia, unspecified hyperlipidemia type Take 1 tablet by mouth nightly 90 tablet 1 01/27/2022 Active Start: 12-23-2021 take 1 tablet by paul th once daily simvastatin (ZOCOR) 40 MG tablet Indications: Hyperlipidemia, unspecified hyperlipidemia type Take 1 tablet by mouth nightly 90 tablet 0 12/23/2021 Active Start: 04-27-2021 take 1 tablet by paul th once daily simvastatin (ZOCOR) 40 MG tablet Indications: Hyperlipidemia, unspecified hyperlipidemia type Take 1 tablet by mouth nightly 90 tablet 1 04/27/2021 Active Start: 11-23-2020 take 1 tablet by paul th once daily simvastatin (ZOCOR) 40 MG tablet Take 1 tablet by mouth nightly 90 tablet 1 11/23/2020 Active Start: 08-27-2019 End: 07-17-2020 simvastatin (ZOCOR) 40 MG ta blet TAKE 1 TABLET NIGHTLY 90 tablet 0 09/05/2019 Active Start: 07-15-2019 simvastatin (Z OCOR) 40 MG tablet TAKE 1 TABLET NIGHTLY 90 tablet 0 07/15/2019 Active take 1 tablet by paul th once daily at bedtime simvastatin (ZOCOR) 20 mg tablet Take 20 mg by mouth daily at bedtime. Active Comment on above: Take 20 mg by mouth daily at bedtime. 5 ml sodium chloride 9 mg/ml injection (14 sources) Start: 03-17-2022 sodium chloride flush 0.9 % injection 10 mL Start: 07-19-2021 End: 10-05-2021 inject 10 mL intravenously once daily sodium chloride 0.9 %, flush, (BD POSIFLUSH) syringe Inject 10 mL intravenously once daily. BMT Patient. Flush each lumen daily. 500 mL 1 07/19/2021 10/05/2021 Discontinued Start: 07-06-2021 End: 10-05-2022 sodium chloride 0.9 % (flush ) 10 mL (BD POSIFLUSH) Start: 04-21-2021 sodium chlorid e flush 0.9 % injection 5-40 mL Start: 03-17-2021 0.9 % sodium c hloride infusion Start: 03-17-2021 sodium chlorid e flush 0.9 % injection 5-40 mL Start: 02-12-2021 0.9 % sodium c hloride infusion Start: 01-01-2021 sodium chlorid e flush 0.9 % injection 10 mL Start: 02-25-2020 10 mL, Intrave nous, EVERY 12 HOURS SCHEDULED (2 times per day), First dose on Mon02/25/20 at 2100 Start: 02-25-2020 take 10 mL intraveno us route once as needed 10 mL, Intravenous, PRN, Line Care, After every IV line use, Starting 5/26/20 at 1530 Start: 02-25-2020 sodium chlorid e flush 0.9 % injection 10 mL tamsulosin hydrochloride 0.4 mg oral capsule (2 sources) alpha-Adrenergic Magnus Start: 04-23-2025 take 1 capsule by mouth at bedtime Tamsulosin 0.4 mg capsule Active 0.4 mg PO AT BEDTIME April 23, 2025 12:00am Completed/Discontinued Medications Medication Drug Class(es) Dates Sig (Normalized) Sig (Original) Adderall (4 sources) Central Nervous System Stimulant take 25 mg by mouth every twenty-four hours Adderall 25 mg Every day stopped taking stopped taking Oral Active bacitracin 0.5 unt/mg / polymyxin b 10 unt/mg topical ointment (4 sources) Polymyxin-class Antibacterial End: 09-28-2014 bacitracin-polymyx in B Topical apply to affected area withdressing changes Sep 28, 2014 Discontinued Course Completed cephalexin 500 mg oral capsule (4 sources) Cephalosporin Antibacterial End: 12-14-2015 take 1 capsule by mouth every six hours cephalexin Oral 1 capsule(s) Every 6 hours Orally Dec 14, 2015 Discontinued Course Completed CPAP Machine MISC (20 sources) End: 02-09-2021 CPAP Machine MISC by Does not apply route 0 02/09/2021 Discontinued CPAP Machine MIS C by Does not apply route 0 Active 2 ml fentaNYL 0.05 mg/ml injection (1 source) Opioid Agonist Start: 02-26-2020 End: 02-26-2020 fentaNYL (SUBLIMAZE) injection 50 mcg 0.8 ml filgrastim-sndz 0.6 mg/ml prefilled syringe (1 source) Leukocyte Growth Factor Start: 08-06-2021 End: 09-07-2021 filgrastim biosimilar (ZARXIO) 480 mcg/0.8 mL injection Indications: Diffuse large B-cell lymphoma of lymph nodes of multiple regions (HCC) Inject 3 syringes (1,440 mcg) subcutaneously once daily for 1 day for Stem Cell Mobilization 2.4 mL 08/06/2021 09/07/2021 Discontinued fludeoxyglucose F 18 injection 15 millicurie (3 sources) Start: 06-28-2021 End: 06-28-2021 fludeoxyglucose F 18 injection 15 millicurie Start: 04-23-2021 End: 04-23-2021 fludeoxyglucose F 18 injecti on 15 millicurie Start: 03-18-2020 End: 03-18-2020 fludeoxyglucose F 18 injecti on 15 millicurie fluticasone propionate 0.05 mg/actuat metered dose nasal spray (4 sources) Corticosteroid Start: 02-10-2021 End: 03-16-2021 fluticasone (FLONASE) 50 MCG/ACT nasal spray Indications: Right acute serous otitis media, recurrence not specified 1 spray by Nasal route daily 1 Bottle 0 02/10/2021 03/16/2021 Discontinued (LIST CLEANUP) gadobenate dimeglumine (MULTIHANCE) injection 20 mL (1 source) Start: 04-21-2021 End: 04-21-2021 gadobenate dimeglumine (MULTIHANCE) injection 20 mL gadoteridol (PROHANCE) injection 20 mL (1 source) Start: 03-11-2021 End: 03-11-2021 gadoteridol (PROHANCE) injection 20 mL Handicap Placard MISC (5 sources) Start: 11-10-2020 End: 02-09-2021 Handicap Placard MISC Indications: Chronic pain of left knee by Does not apply route Patient cannot walk 200 ft without stopping to rest. Expiration 11/10/2025 1 each 0 11/10/2020 02/09/2021 Discontinued Start: 11-10-[address] MISC Indications: Chronic pain of left knee by Does not apply route Patient cannot walk 200 ft without stopping to rest. Expiration 11/10/2025 1 each 0 11/10/2020 Active hydroCHLOROthiazide 12.5 mg / lisinopril 20 mg oral tablet (9 sources) Thiazide Diuretic, Angiotensin Converting Enzyme Inhibitor Start: 01-05-2021 End: 03-16-2021 take 1 tablet by mouth once daily lisinopril-hydroCHLOROthiazide (PRINZIDE;ZESTORETIC) 20-12.5 MG per tablet Indications: Essential hypertension Take 1 tablet by mouth daily 90 tablet 1 01/05/2021 03/16/2021 Discontinued (LIST CLEANUP) Start: 12-09-2020 take 1 tablet by paul th once daily lisinopril-hydroCHLOROthiazide (PRINZIDE;ZESTORETIC) 20-12.5 MG per tablet Indications: Essential hypertension Take 1 tablet by mouth daily 30 tablet 0 12/09/2020 Active iohexol (OMNIPAQUE 240) injection 50 mL (1 source) Start: 01-01-2021 End: 01-01-2021 iohexol (OMNIPAQUE 240) injection 50 mL iopamidol (ISOVUE-370) 76 % injection 100 mL (1 source) Start: 02-25-2020 End: 02-25-2020 iopamidol (ISOVUE-370) 76 % injection 100 mL iopamidol (ISOVUE-370) 76 % injection 125 mL (1 source) Start: 01-01-2021 End: 01-01-2021 iopamidol (ISOVUE-370) 76 % injection 125 mL iopamidol (ISOVUE-370) 76 % injection 75 mL (1 source) Start: 02-17-2021 End: 02-17-2021 iopamidol (ISOVUE-370) 76 % injection 75 mL iopamidol (ISOVUE-370) 76 % injection 80 mL (1 source) Start: 04-16-2020 End: 04-16-2020 iopamidol (ISOVUE-370) 76 % injection 80 mL magnesium oxide 400 mg oral tablet (1 source) Start: 03-10-2022 End: 03-17-2022 take 1 tablet by mouth once daily magnesium oxide (MAG-OX) 400 MG tablet Take 1 tablet by mouth daily 90 tablet 3 03/10/2022 03/17/2022 Discontinued (ERROR) MEDICAL SUPPLY (1 source) Start: 07-19-2021 End: 09-07-2021 MEDICAL SUPPLY BMT Patient. Change dressing and caps weekly. Patient and caregiver to wear mask during dressing changes. 2 Each 1 07/19/2021 09/07/2021 Discontinued Sheridan-3 Fatty Acids (OMEGA-3 CF PO) (4 sources) End: 07-17-2020 Sheridan-3 Fatty Acids (OMEGA-3 CF PO) Take by mouth 0 07/17/2020 Discontinued (Therapy completed) Sheridan-3 Fatty Ac ids (OMEGA-3 CF PO) Take by mouth 0 Active ondansetron 8 mg oral tablet (20 sources) Serotonin-3 Receptor Antagonist End: 09-22-2020 take 1 tablet by mouth every eight hours as needed for nausea ondansetron (ZOFRAN) 8 MG tablet Take 8 mg by mouth every 8 hours as needed for Nausea or Vomiting 0 09/22/2020 Discontinued (Therapy completed) take 1 tablet by paul th every eight hours Ondansetron 4 MG Disintegrating Oral Tab let [Zofran] 1 tablet(s) 3 Times A Day By Mouth Active perflutren lipid microsphere s (DEFINITY) injection 1.65 mg (2 sources) Start: 03-17-2022 End: 03-17-2022 perflutren lipid microsphere s (DEFINITY) injection 1.65 mg Start: 02-14-2022 End: 03-17-2022 perflutren lipid microsphere s (DEFINITY) injection 1.65 mg perflutren lipid microspheres 1.3 mL in NaCl (PF) 0.9% 10 mL injection (DEFINITY) (3 sources) Start: 07-06-2021 End: 10-05-2022 perflutren lipid microspheres 1.3 mL in NaCl (PF) 0.9% 10 mL injection (DEFINITY) microencapsulated potassium chloride 20 meq extended release oral tablet (1 source) Start: 02-14-2022 End: 03-17-2022 take 1 tablet by mouth once daily potassium chloride (KLOR-CON M) 20 MEQ extended release tablet Take 1 tablet by mouth daily 30 tablet 5 02/14/2022 03/17/2022 Discontinued (ERROR) Problems Active Problems Problem Classification Problem Date Documented Date Episodic/Chronic Allergic reactions (2 sources) Allergy status to other drugs, medicaments and biological substances status; Translations: [Allergy status to narcotic agent status] Onset: 04-17-2025 Episodic Anxiety disorders (20 sources) Post-traumatic stress disorder, unspecified; Translations: [Generalized anxiety disorder] Onset: 07-06-2016 11-10-2020 Chronic Calculus of urinary tract (7 sources) Kidney stone; Translations: [Personal history of urinary calculi] Onset: 04-25-2016 04-25-2016 Episodic Cardiac dysrhythmias (9 sources) Ventricular premature beats; Translations: [Ventricular premature depolarization] Onset: 02-14-2022 Chronic Cardiac dysrhythmias (1 source) Bradycardia; Translations: [Bradycardia, unspecified] Episodic Conditions associated with dizziness or vertigo (1 source) Dizziness; Translations: [Dizziness and giddiness] Episodic Conduction disorders (8 sources) Right bundle branch block; Translations: [Unspecified right bundle-branch block] Onset: 02-14-2022 Chronic Deficiency and other anemia (9 sources) Acquired pancytopenia; Translations: [Antineoplastic chemotherapy induced pancytopenia] Onset: 08-18-2021 09-06-2021 Chronic Diseases of mouth; excluding dental (1 source) Mass of tongue; Translations: [Other diseases of tongue] Episodic Disorders of lipid metabolism (20 sources) Hypercholesterolemia; Translations: [Hyperlipidemia] 06-18-2014 Chronic Disorders of teeth and jaw (2 sources) Gingival abscess; Translations: [Aggressive periodontitis, localized, unspecified severity] Episodic Essential hypertension (20 sources) Essential hypertension; Translations: [Essential (primary) hypertension] Onset: 11-10-2020 11-10-2020 Chronic Genitourinary symptoms and ill-defined conditions (2 sources) Hematuria, unspecified; Translations: [Hematuria, unspecified] Onset: 04-17-2025 Episodic Hodgkin`s disease (1 source) Hodgkin lymphoma, nodular lymphocyte predominance (clinical); 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, 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 Immunizations and screening for infectious disease (2 sources) Vaccination needed; Translations: [Encounter for immunization] Episodic Mood disorders (4 sources) Mood disorders Onset: 12-14-2015 12-14-2015 Non-Hodgkin`s lymphoma (20 sources) Diffuse non-Hodgkin's lymphoma of testis; Translations: [Malignant lymphoma of lymph nodes of inguinal region AND/OR lower limb] Onset: 01-16-2024 07-17-2020 Chronic Osteoarthritis (13 sources) Arthritis; Translations: [Unilateral primary osteoarthritis, left hip] Onset: 09-27-2018 06-18-2014 Chronic Other diseases of kidney and ureters (1 source) Hydronephrosis with renal and ureteral calculous obstruction; Translations: [Hydronephrosis with renal and ureteral calculous obstruction] Onset: 04-17-2025 Episodic Other nervous system disorders (9 sources) Chronic pain; Translations: [Other chronic pain] Onset: 08-18-2021 09-06-2021 Chronic Other nervous system disorders (1 source) Other chronic pain; Translations: [Other chronic pain] Onset: 12-31-2024 Chronic Other nutritional; endocrine; and metabolic disorders (20 sources) Severe obesity; Translations: [Morbid (severe) obesity due to excess calories] Onset: 12-09-2020 12-09-2020 Chronic Other nutritional; endocrine; and metabolic disorders (10 sources) Obesity; Translations: [Obesity, unspecified] 06-23-2021 Chronic Other nutritional; endocrine; and metabolic disorders (2 sources) Body mass index 40+ - severely obese; Translations: [Body mass index (BMI) 50.0-59.9, adult] Onset: 12-11-2024 12-11-2024 Chronic Other screening for suspected conditions (not mental disorders or infectious disease) (2 sources) Electrocardiogram abnormal; Translations: [Abnormal electrocardiogram [ECG] [EKG]] Onset: 12-14-2022 Episodic Other upper respiratory disease (1 source) Mass of head; Translations: [Other diseases of pharynx] Episodic Residual codes; unclassified (20 sources) Sleep apnea; Translations: [Sleep apnea, unspecified] 02-26-2020 Chronic Residual codes; unclassified (5 sources) H/O: tissue/organ recipient; Translations: [Stem cells transplant status] Onset: 09-02-2022 Chronic Residual codes; unclassified (10 sources) Obstructive sleep apnea syndrome; Translations: [Obstructive sleep apnea (adult) (pediatric)] 06-23-2021 Chronic Residual codes; unclassified (18 sources) History of autologous bone marrow transplant; Translations: [Bone marrow transplant status] Onset: 08-18-2021 09-06-2021 Chronic Residual codes; unclassified (1 source) Patient encounter status; Translations: [Pain, unspecified] 07-18-2025 Episodic Residual codes; unclassified (2 sources) Pain, unspecified; Translations: [Pain, unspecified] Onset: 07-18-2025 Episodic Spondylosis; intervertebral disc disorders; other back problems (1 source) Neck pain; Translations: [Cervicalgia] Episodic Superficial injury; contusion (1 source) Abrasion of left forearm; Translations: [Abrasion of left forearm, initial encounter] 04-12-2024 Episodic Unclassified (4 sources) Somatization disorder Onset: 12-14-2015 12-14-2015 Chronic Unclassified (1 source) Unknown / UNK(Unknown) Onset: 07-06-2016 Unclassified (20 sources) Chronic pain of right upper limb; Translations: [Chronic right shoulder pain] Onset: 09-09-2019 09-09-2019 Unclassified (1 source) Long-term (current) use of injectable non-insulin antidiabetic drugs; Translations: [Long-term (current) use of injectable non-insulin antidiabetic drugs] Onset: 04-17-2025 Urinary tract infections (1 source) Cystitis, unspecified with hematuria; Translations: [Cystitis, unspecified with hematuria] Onset: 04-17-2025 Episodic Past or Other Problems Problem Classification Problem Date Documented Da te Episodic/Chronic Abdominal pain (1 source) Abdominal pain; Translations: [Abdominal pain, unspecified abdominal location] Episodic Anal and rectal conditions (9 sources) Rectal pain; Translations: [Other specified diseases of anus and rectum] Onset: 09-03-2021 09-06-2021 Episodic Diabetes mellitus without complication (1 source) Hyperglycemia; Translations: [Hyperglycemia] Episodic Diseases of white blood cells (7 sources) Febrile neutropenia; Translations: [Neutropenia, unspecified] Onset: 09-03-2021 Resolved: 09-06-2021 09-06-2021 Chronic Headache; including migraine (7 sources) Acute posttraumatic headache; Translations: [Acute post-traumatic headache, not intractable] Onset: 09-01-2021 Resolved: 09-02-2021 09-02-2021 Episodic Lymphadenitis (20 sources) Lymphadenopathy; Translations: [Enlarged lymph nodes, unspecified] Resolved: 11-10-2020 02-26-2020 Episodic Mood disorders (20 sources) Major depressive disorder, recurrent, moderate; Translations: [Depressive disorder] Onset: 07-06-2016 Resolved: 02-14-2022 11-10-2020 Chronic Nausea and vomiting (7 sources) Chemotherapy-induced nausea and vomiting; Translations: [Nausea with vomiting, unspecified] Onset: 08-18-2021 Resolved: 09-06-2021 09-06-2021 Episodic Open wounds of extremities (4 sources) Traumatic amputation of fingertip Onset: 09-28-2014 Resolved: 12-14-2015 12-14-2015 Chronic Other connective tissue disease (7 sources) Swelling of lower limb; Translations: [Other specified soft tissue disorders] Onset: 11-17-2021 Resolved: 09-03-2021 09-03-2021 Episodic Other gastrointestinal disorders (1 source) Mass of abdominal cavity structure; Translations: [Intraabdominal mass] Episodic Other gastrointestinal disorders (9 sources) Diarrhea; Translations: [Diarrhea, unspecified] Onset: 09-05-2021 09-06-2021 Episodic Other male genital disorders (20 sources) Testicular mass; Translations: [Other specified disorders of the male genital organs] Onset: 02-25-2020 Resolved: 11-10-2020 02-25-2020 Episodic Other nervous system disorders (14 sources) Postoperative pain ; Translations: [Other acute postprocedural pain] Onset: 03-17-2021 Resolved: 01-27-2022 Episodic Other non-traumatic joint disorders (7 sources) Knee pain; Translations: [Pain in left knee] Onset: 11-10-2020 11-10-2020 Episodic Other non-traumatic joint disorders (18 sources) Chronic pain of right upper limb; Translations: [Pain in right shoulder] Onset: 09-09-2019 Resolved: 04-27-2021 09-09-2019 Episodic Other non-traumatic joint disorders (15 sources) Pain in left knee; Translations: [Pain in joint, lower leg] Onset: 11-10-2020 Resolved: 02-14-2022 11-10-2020 Episodic Other non-traumatic joint disorders (1 source) Pain in right knee; Translations: [Pain in right knee] Onset: 12-31-2024 Episodic Poisoning by other medications and drugs (9 sources) Oral mucositis (ulcerative) due to antineoplastic therapy; Translations: [Mucositis (ulcerative) due to antineoplastic therapy] Onset: 09-02-2021 09-06-2021 Episodic Residual codes; unclassified (9 sources) At risk of healthcare associated infection; Translations: [Other specified personal risk factors, not elsewhere classified] Onset: 08-18-2021 09-06-2021 Episodic Unclassified (4 sources) Laceration of thumb Onset: 06-18-2014 Resolved: 12-14-2015 12-14-2015 Unclassified (7 sources) Onset: 01-16-2024 Resolved: 06-28-2025 01-16-2024 Unclassified (1 source) Patient encounter status 07-18-2025 Results Test Name Value Interpretation Reference Range Facility FLUORO FOR SURGICAL PROCEDUR ESon 07-18-2025 FLUORO FOR SURGICAL PROCEDURES EXAMINATION: SPOT FLUOROSCOPIC IMAGES 07/18/2025 1:38 pm TECHNIQUE: Fluoroscopy was provided by the radiology department for procedure. Radiologist was not present during examination. FLUOROSCOPY DOSE AND TYPE: Radiation Exposure Index: Kerma mGy, 7.24 9 images FLUOROSCOPY TIME: 40.9 seconds COMPARISON: None HISTORY: ORDERING SYSTEM PROVIDED HISTORY: Pain management TECHNOLOGIST PROVIDED HISTORY: Reason for exam:->BILATERAL GENICULAR NERVES BLOCK UNDER FLUOROSCOPIC GUIDANCE ++CHLORHEXIDINE Intraprocedural imaging. FINDINGS: Fluoroscopic support provided to subspecialty service for bilateral genicular nerve block. No obvious complication on the images provided. Please see subspecialty report for full details and interpretation of real time imaging. IMPRESSION: Intraprocedural fluoroscopic spot images as above. See separate procedure report for more information. Interpreted by: Alissa Perez DO Signed by: Alissa Perez DO 07/18/25 Final result Normal [facility] Comment on above: Order Comment: Reaso n for exam:->BILATERAL GENICULAR NERVES BLOCK UNDER FLUOROSCOPIC GUIDANCE ?++CHLORHEXIDINE Guidance-- during surgeryon 07-18-2025 EXAMINATION: SPOT FLUOROSCOPIC IMAGES 07/18/2025 1:38 pm TECHNIQUE: Fluoroscopy was provided by the radiology department for procedure. Radiologist was not present during examination. FLUOROSCOPY DOSE AND TYPE: Radiation Exposure Index: Kerma mGy, 7.24 9 images FLUOROSCOPY TIME: 40.9 seconds COMPARISON: None HISTORY: ORDERING SYSTEM PROVIDED HISTORY: Pain management TECHNOLOGIST PROVIDED HISTORY: Reason for exam:->BILATERAL GENICULAR NERVES BLOCK UNDER FLUOROSCOPIC GUIDANCE ++CHLORHEXIDINE Intraprocedural imaging. FINDINGS: Fluoroscopic support provided to subspecialty service for bilateral genicular nerve block. No obvious complication on the images provided. Please see subspecialty report for full details and interpretation of real time imaging. [facility] Alissa Perez DO - 07/18/2025 EXAMINATION: SPOT FLUOROSCOPIC IMAGES 07/18/2025 1:38 pm TECHNIQUE: Fluoroscopy was provided by the radiology department for procedure. Radiologist was not present during examination. FLUOROSCOPY DOSE AND TYPE: Radiation Exposure Index: Kerma mGy, 7.24 9 images FLUOROSCOPY TIME: 40.9 seconds COMPARISON: None HISTORY: ORDERING SYSTEM PROVIDED HISTORY: Pain management TECHNOLOGIST PROVIDED HISTORY: Reason for exam:->BILATERAL GENICULAR NERVES BLOCK UNDER FLUOROSCOPIC GUIDANCE ++CHLORHEXIDINE Intraprocedural imaging. FINDINGS: Fluoroscopic support provided to subspecialty service for bilateral genicular nerve block. No obvious complication on the images provided. Please see subspecialty report for full details and interpretation of real time imaging. IMPRESSION: Intraprocedural fluoroscopic spot images as above. See separate procedure report for more information. [facility] Radiology Study observation (narrative) [facility] Guidance-- during surgeryOrd ered By: Alissa Perez on 07-18-2025 [facility] Work Phone: CBC with Diffon 07-01-2025 Abs. Basophil 0.05 k/uL Normal 0.00-0.20 [facility] Comment on above: Performed By: #### C P, CBCWD, TSH, VD25, LIPR #### [place] [address] Clinical Trials Specialist: Daniel Dunaway MD Abs.Imm.Granulocyte 0.03 k/uL Normal 0.00-0.58 [facility] Comment on above: Performed By: #### C P, CBCWD, TSH, VD25, LIPR #### [address] [address] Clinical Trials Specialist: Daniel Dunaway MD Abs.Neutrophil (Seg) 5.63 k/uL Normal 1.80-7.30 [facility] Comment on above: Performed By: #### C P, CBCWD, TSH, VD25, LIPR #### [address] [address] Clinical Trials Specialist: Daniel Dunaway MD Basophils/100 WBC (Bld) 1 % Normal 0.0-2.0 [facility] Comment on above: Performed By: #### C P, CBCWD, TSH, VD25, LIPR #### [address] [place] [address] Clinical Trials Specialist: Daniel Dunaway MD Eosinophils (Bld) [#/Vol] 0.16 10*3/uL Normal 0.05-0.50 [facility] Comment on above: Performed By: #### C P, CBCWD, TSH, VD25, LIPR #### [address] [place] [address] Clinical Trials Specialist: Daniel Dunaway MD Eosinophils/100 WBC (Bld) 2 % Normal 0-6 [facility] Comment on above: Performed By: #### C P, CBCWD, TSH, VD25, LIPR #### [address] [place] [address] Clinical Trials Specialist: Daniel Dunaway MD Erythrocyte distribution width (RBC) [Ratio] 13.6 % Normal 11.5-15.0 [facility] Comment on above: Performed By: #### C P, CBCWD, TSH, VD25, LIPR #### [place] [address] Clinical Trials Specialist: Daniel Dunaway MD Hematocrit (Bld) [Volume fraction] 39.8 % Normal 37.0-54.0 [facility] Comment on above: Performed By: #### C P, CBCWD, TSH, VD25, LIPR #### [address] [place] [address] Clinical Trials Specialist: Daniel Dunaway MD Hemoglobin (Bld) [Mass/Vol] 12.4 g/dL Low 12.5-16.5 [facility] Comment on above: Performed By: #### C P, CBCWD, TSH, VD25, LIPR #### [place] [address] Clinical Trials Specialist: Daniel Dunaway MD Immature granulocytes/100 WBC (Bld) 0 % Normal 0.0-5.0 [facility] Comment on above: Performed By: #### C P, CBCWD, TSH, VD25, LIPR #### [place] [address] Clinical Trials Specialist: Daniel Dunaway MD Lymphocytes (Bld) [#/Vol] 1.71 10*3/uL Normal 1.50-4.00 [facility] Comment on above: Performed By: #### C P, CBCWD, TSH, VD25, LIPR #### [place] [address] Clinical Trials Specialist: Daniel Dunaway MD Lymphocytes/100 WBC (Bld) 20 % Normal 20.0-42.0 [facility] Comment on above: Performed By: #### C P, CBCWD, TSH, VD25, LIPR #### [place] [address] Clinical Trials Specialist: Daniel Dunaway MD MCH (RBC) [Entitic mass] 31.3 pg Normal 26.0-35.0 [facility] Comment on above: Performed By: #### C P, CBCWD, TSH, VD25, LIPR #### [place] [address] Clinical Trials Specialist: Daniel Dunaway MD MCHC (RBC) [Mass/Vol] 31.2 g/dL Low 32.0-34.5 [facility] Comment on above: Performed By: #### C P, CBCWD, TSH, VD25, LIPR #### [place] [address] Clinical Trials Specialist: Daniel Dunaway MD MCV (RBC) [Entitic vol] 100.5 fL High 80.0-99.9 [facility] Comment on above: Performed By: #### C P, CBCWD, TSH, VD25, LIPR #### [place] [id number] Clinical Trials Specialist: Daniel Dunaway MD Monocytes (Bld) [#/Vol] 0.79 10*3/uL Normal 0.10-0.95 [facility] Comment on above: Performed By: #### C P, CBCWD, TSH, VD25, LIPR #### [place] [address] Clinical Trials Specialist: Daniel Dunaway MD Monocytes/100 WBC (Bld) 9 % Normal 2.0-12.0 [facility] Comment on above: Performed By: #### C P, CBCWD, TSH, VD25, LIPR #### [place] [address] Clinical Trials Specialist: Daniel Dunaway MD Neutrophil (Seg) 67 % Normal 43.0-80.0 [facility] Comment on above: Performed By: #### C P, CBCWD, TSH, VD25, LIPR #### [place] [address] Clinical Trials Specialist: Daniel Dunaway MD Platelet mean volume (Bld) [Entitic vol] 10.7 fL Normal 7.0-12.0 [facility] Comment on above: Performed By: #### C P, CBCWD, TSH, VD25, LIPR #### [address] [address] Clinical Trials Specialist: Daniel Dunaway MD Platelets (Bld) [#/Vol] 201 10*3/uL Normal 130-450 [facility] Comment on above: Performed By: #### C P, CBCWD, TSH, VD25, LIPR #### [address] [place] [address] Clinical Trials Specialist: Daniel Dunaway MD RBC (Bld) [#/Vol] 3.96 10*6/uL Normal 3.80-5.80 [facility] Comment on above: Performed By: #### C P, CBCWD, TSH, VD25, LIPR #### [address] [place] [address] Clinical Trials Specialist: Daniel Dunaway MD WBC (Bld) [#/Vol] 8.4 10*3/uL Normal 4.5-11.5 [facility] Comment on above: Performed By: #### C P, CBCWD, TSH, VD25, LIPR #### [address] [place] [address] Clinical Trials Specialist: Daniel Dunaway MD Comp Metabolic Profon 2024 Albumin [Mass/Vol] 3.7 g/dL Normal 3.5-5.2 [facility] Comment on above: Performed By: #### C P, CBCWD, TSH, VD25, LIPR #### [address] [place] [address] Clinical Trials Specialist: Daniel Dunaway MD Alkaline Phos 113 U/L Normal 40-129 [facility] Comment on above: Performed By: #### C P, CBCWD, TSH, VD25, LIPR #### [address] [place] [id number] Clinical Trials Specialist: Daniel Dunaway MD ALT [Catalytic activity/Vol] 14 U/L Normal 0-50 [facility] Comment on above: Performed By: #### C P, CBCWD, TSH, VD25, LIPR #### [address] [place] [address] Clinical Trials Specialist: Daniel Dunaway MD Anion gap [Moles/Vol] 13 mmol/L Normal 7-16 [facility] Comment on above: Performed By: #### C P, CBCWD, TSH, VD25, LIPR #### [address] [place] [address] Clinical Trials Specialist: Daniel Dunaway MD AST [Catalytic activity/Vol] 22 U/L Normal 0-50 [facility] Comment on above: Performed By: #### C P, CBCWD, TSH, VD25, LIPR #### [address] [address] Clinical Trials Specialist: Daniel Dunaway MD Bilirubin [Mass/Vol] 0.3 mg/dL Normal 0.0-1.2 [facility] Comment on above: Performed By: #### C P, CBCWD, TSH, VD25, LIPR #### [address] [place] [address] Clinical Trials Specialist: Daniel Dunaway MD Calcium [Mass/Vol] 9.4 mg/dL Normal 8.8-10.2 [facility] Comment on above: Performed By: #### C P, CBCWD, TSH, VD25, LIPR #### [address] [place] [address] Clinical Trials Specialist: Danile Dunaway MD Chloride [Moles/Vol] 107 mmol/L Normal 98-107 [facility] Comment on above: Performed By: #### C P, CBCWD, TSH, VD25, LIPR #### [address] [address] Clinical Trials Specialist: Daniel Dunaway MD CO2 [Moles/Vol] 22 mmol/L Normal 22-29 [facility] Comment on above: Performed By: #### C P, CBCWD, TSH, VD25, LIPR #### [address] [id number] Clinical Trials Specialist: Daniel Dunaway MD Creatinine [Mass/Vol] 0.9 mg/dL Normal 0.7-1.2 [facility] Comment on above: Performed By: #### C P, CBCWD, TSH, VD25, LIPR #### [address] [address] Clinical Trials Specialist: Daniel Dunaway MD GFR/1.73 sq M.predicted among non-blacks MDRD (S/P/Bld) [Vol rate/Area] 88 mL/min/{1.73_m2} Normal >60 [facility] Comment on above: Result Comment: These results are not intended for use in patients <18 years of age. eGFR results are calculated without a race factor using the 2020 CKD-EPI equation. Careful clinical correlation is recommended, particularly when comparing to results calculated using previous equations. The CKD-EPI equation is less accurate in patients with extremes of muscle mass, extra-renal metabolism of creatine, excessive creatine ingestion, or following therapy that affects renal tubular secretion. Performed By: #### C P, CBCWD, TSH, VD25, LIPR #### [place] [address] Clinical Trials Specialist: Daniel Dunaway MD Glucose [Mass/Vol] 95 mg/dL Normal 74-99 [facility] Comment on above: Performed By: #### C P, CBCWD, TSH, VD25, LIPR #### [place] [id number] Clinical Trials Specialist: Daniel Dunaway MD Potassium [Moles/Vol] 4.4 mmol/L Normal 3.5-5.1 [facility] Comment on above: Performed By: #### C P, CBCWD, TSH, VD25, LIPR #### [address] [place] [address] Clinical Trials Specialist: Daniel Dunaway MD Protein [Mass/Vol] 6.7 g/dL Normal 6.4-8.3 [facility] Comment on above: Performed By: #### C P, CBCWD, TSH, VD25, LIPR #### [address] [address] Clinical Trials Specialist: Daniel Dunaway MD Sodium [Moles/Vol] 141 mmol/L Normal 136-145 [facility] Comment on above: Performed By: #### C P, CBCWD, TSH, VD25, LIPR #### [address] [address] Clinical Trials Specialist: Daniel Dunaway MD Urea nitrogen [Mass/Vol] 19 mg/dL Normal 8-23 [facility] Comment on above: Performed By: #### C P, CBCWD, TSH, VD25, LIPR #### [address] [address] Clinical Trials Specialist: Daniel Dunaway MD Hemoglobin A1Con 07-01-2025 HbA1c (Bld) [Mass fraction] 6.0 % High 4.0-5.6 [facility] Comment on above: Performed By: #### G LYHGB #### [address] [address] Clinical Trials Specialist: Daniel Dunaway MD Lipid Profileon 07-01-2025 Cholesterol [Mass/Vol] 206 mg/dL High <200 [facility] Comment on above: Performed By: #### C P, CBCWD, TSH, VD25, LIPR #### [address] [address] Clinical Trials Specialist: Daniel Dunaway MD Cholesterol in HDL [Mass/Vol] 55 mg/dL Normal >40 [facility] Comment on above: Performed By: #### C P, CBCWD, TSH, VD25, LIPR #### [address] [place] [address] Clinical Trials Specialist: Daniel Dunaway MD Cholesterol in LDL [Mass/Vol] 109 mg/dL High <100 [facility] Comment on above: Performed By: #### C P, CBCWD, TSH, VD25, LIPR #### [address] [place] [address] Clinical Trials Specialist: Daniel Dunaway MD Cholesterol in VLDL [Mass/Vol] 42 mg/dL Normal [facility] Comment on above: Result Comment: No n ormal range established. Performed By: #### C P, CBCWD, TSH, VD25, LIPR #### [address] [place] [address] Clinical Trials Specialist: Daniel Dunaway MD Triglyceride [Mass/Vol] 212 mg/dL High <150 [facility] Comment on above: Performed By: #### C P, CBCWD, TSH, VD25, LIPR #### [place] [address] Clinical Trials Specialist: Daniel Dunaway MD Thyroid Stim. Horm.on 2024 Thyroid Stim. Horm. 4.25 uIU/mL High 0.27-4.20 [facility] Comment on above: Performed By: #### C P, CBCWD, TSH, VD25, LIPR #### [address] [place] [address] Clinical Trials Specialist: Daniel Dunaway MD Urinalysis, Routineon 2024 Bilirubin, SemiQt,Ur Negative Normal NEG [facility] Comment on above: Performed By: #### U A #### [address] [place] [address] Clinical Trials Specialist: Daniel Dunaway MD Blood, Urine Negative Normal NEG [facility] Comment on above: Performed By: #### U A #### [address] [place] [address] Clinical Trials Specialist: Daniel Dunaway MD Clarity (U) Clear Normal CLEAR [facility] Comment on above: Performed By: #### U A #### [address] [place] [address] Clinical Trials Specialist: Daniel Dunaway MD Color (U) Yellow Normal YEL [facility] Comment on above: Performed By: #### U A #### [address] [place] [address] Clinical Trials Specialist: Daniel Dunaway MD Comment Microscopic exam not performed based on chemical results unless requested in Normal [facility] Comment on above: Result Comment: orig inal order. Performed By: #### U A #### [address] [place] [address] Clinical Trials Specialist: Daniel Dunaway MD Glucose Ql (U) Negative Normal NEG [facility] Comment on above: Performed By: #### U A #### [address] [place] [address] Clinical Trials Specialist: Daniel Dunaway MD Ketones Ql (U) Negative Normal NEG [facility] Comment on above: Performed By: #### U A #### [address] [place] [address] Clinical Trials Specialist: Daniel Dunaway MD Leukocyte esterase Test strip Ql (U) Negative Normal NEG [facility] Comment on above: Performed By: #### U A #### [address] [address] Clinical Trials Specialist: Daniel Dunaway MD Nitrite,Ur Negative Normal NEG [facility] Comment on above: Performed By: #### U A #### [address] [address] Clinical Trials Specialist: Daniel Dunaway MD PH,Ur 6.0 Normal 5.0-8.0 [facility] Comment on above: Performed By: #### U A #### [address] [address] Clinical Trials Specialist: Daniel Dunaway MD Protein Ql (U) Negative Normal NEG [facility] Comment on above: Performed By: #### U A #### [address] [address] Clinical Trials Specialist: Daniel Dunaway MD Spec. Newell,Ur 1.025 Normal 1.005-1.03 0 [facility] Comment on above: Performed By: #### U A #### [address] [address] Clinical Trials Specialist: Daniel Dunaway MD Urobilinogen,Ur 0.2 EU/dL Normal 0.0-1.0 [facility] Comment on above: Performed By: #### U A #### [address] [address] Clinical Trials Specialist: Daniel Dunaway MD Vitamin D 25 OHon 07-01-2025 Vitamin D 25 OH 22.6 ng/mL Low 30.0-100.0 [facility] Comment on above: Performed By: #### C P, CBCWD, TSH, VD25, LIPR #### [facility] [address] [place] [address] Clinical Trials Specialist: Daniel Dunaway MD Discharge Instructionon 08 Discharge Instruction [facility] Medical Records Department [address] [place] [address] Instructions for Home/Discharge Instructions 05/07/25 1043 MR#: [id number] Acct: [id number] Name: BLAKE GRIMES Rep #: [id number] : 1955 69 From: Jaxson Justin MD PCP: BRADLEY ZUÑIGA Status:REG SDC Discharge Instructions DC O2, CPAP, BIPAP needs Home O2 Discharge instructions: No Dressing / Incision Discharge Activity: Return to Normal Activity and May Not Drive (while taking narcotic pain medications.) Dressing / Incision Call your doctor if you observe: Fever of 101 or Higher Follow Up Care Please Follow Up With: Jaxson Justin MD When: Call [phone] for an appointment Test Results: Test results from this visit will be discussed in further detail at your follow-up appointment, if applicable. Discharge Plan Admission Primary Reason for Your Visit: laser stone and stent Attending Provider: Jaxson Justin Primary Care Provider: BRADLEY ZUÑIGA Instructions Print Language: Filipino Discharge Orders/Prescriptions Prescriptions: New oxycodone 5 mg tablet 5 mg PO Q6H PRN (Reason: pain) 7 Days Qty: 20 0RF ciprofloxacin HCl 500 mg tablet 500 mg PO BID Qty: 6 0RF Continued metoprolol succinate 50 mg tablet extended release 24 hr 50 mg PO QHS simvastatin 40 mg tablet 40 mg PO QHS Ozempic 0.25 mg or 0.5 mg(2 mg/1.5 mL) pen injector 0.25 mg subcut TU Rx Instructions: for 4 weeks furosemide 20 mg tablet 20 mg PO DAILY PRN (Reason: edema) tamsulosin 0.4 mg capsule 0.4 mg PO QHS ketorolac 10 mg tablet 10 mg PO Q8H PRN PRN (Reason: pain) Referrals / Follow Up: BRADLEY ZUÑIGA [Other] Jaxson Justin MD [Med Staff - Active Staff] - Disposition Disposition (needs filled in before D/C Order can be placed): Home, Self Care 05/07/25 1043 Jaxson Justin MD CC: BRADLEY ZUÑIGA Signed [facility] MR/POSTOP.ANEon 05-07-2025 MR/POSTOP.[facility] Medical Records Department [address] [place] [address] Anesthesia Postop Eval I 05/07/25 1147 MR#: [id number] Acct: [id number] Name: BLAKE GRIMES Rep #: [id number] : 1955 69 From: Osei Casanova CRNA PCP: BRADLEY ZUÑIGA Status:REG SDC Y Race: C Location: [place] [address] Anesthesia: Postop Eval I Current Vital Signs Temperature: 96.8 F Pulse Rate: 64 Blood Pressure: 132/67 Respiratory Rate: 16 Pulse Ox: 98 Oxygen Delivery Method: Nasal Cannula Oxygen Flow Rate (L/min): 2 Assessment Airway patent: Yes Spontaneous unlabored respirations: Yes Mental status: Awake and Calm nausea: No Vomiting: No Anesthesia Complication: No Fluid Hydration Crystalloid volume administer (ml): 500 Total IV fluid infused: 500 Progress Note Anesthesia document: Postop Eval 1 completed: Yes 05/07/25 1148 Date Osei Casanova CRNA Cosigner Signature: Date CC: Signed [facility] [id number] 05-07-2025 MR/POSTOPAN2 [facility] Medical Records Department [address] [place] [address] Anesthesia Postop Eval II 05/07/25 1448 MR#: [id number] Acct: [id number] Name: BLAKE GRIMES Rep #: [id number] : 1955 69 From: Saleem Goncalves MD PCP: BRADLEY ZUÑIGA Status:[facility] Y Race: C Location[place] [facility] Anesthesia Postop Eval I Sum Postop Eval Completion status Anesthesia document: Postop Eval 1 completed: Yes Anesthesia Postop Eval I Summary Anesthesia Postop Eval I Summary: Anesthesia Postop Eval I: Assessment Summary Airway patent Yes 05/07/25 11:48 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 Spontaneous unlabored Yes 05/07/25 11:48 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 respirations Mental status Awake,Calm 05/07/25 11:48 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 nausea No 05/07/25 11:48 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 Vomiting No 05/07/25 11:48 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 Anesthesia Postop Eval I: Fluid Summary Crystalloid volume administer 500 05/07/25 11:48 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 (ml) Colloids volume administered ( ml) Blood Product volume administered (ml) Total IV fluid infused 500 05/07/25 11:48 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 Fluoro for C-Олег 08-0 O.R. Fluoro for C-Arm [facility] Imaging Services [address] [place] [id number] O.R. Fluoro for C-Arm MR#: [id number] Acct: [id number] Name: BLAKE GRIMES Rep #: [id number] : 1955 M 69 From: Alissa Bay PCP: BRADLEY ZUÑIGA Status: REG [facility] Study: O.R. Fluoro for C-Arm Date of Exam: 05/07/25 Exam# [id number] Ordering Dr: Jaxson Justin MD EXAM: Fluoroscopy for ureteral stent placement. CLINICAL HISTORY: Cystoscopy for left stent placement. COMPARISON: None TECHNIQUE: Intraoperative fluoroscopy was performed for left ureteral stent placement. One fluoroscopic image was obtained. Fluoroscopy time: 12.4 seconds. Dose: 8.43 mGy. RAD/O.R. Fluoro for C-Arm IMPRESSION: Intraoperative fluoroscopy was performed for left ureteral stent placement. One fluoroscopic image was obtained. Reading Location: [place] [address] CC: Dr. Jaxson Justin MD; BRADLEY ZUÑIGA Client Support Consultant: Signed Normal [facility] Operative Reporton Operative Report [facility] Medical Records Department [address] [place] [address] Operative Report 05/07/25 1133 MR#: [id number] Acct: [id number] Name: BLAKE GRIMES Rep #: [id number] : 1955 69 From: Jaxson Justin MD PCP: BRADLEY ZUÑIGA Status:REG [facility] Location: [place] [address] Operative Report (Standard) Operative Information Date of Procedure: 05/07/25 Pre-Operative Diagnosis: Obstructing left ureteral calculus Post-Operative Diagnosis: The same Surgery/Procedure Performed: Cystoscopy, balloon dilation of left ureter, left ureteroscopy laser lithotripsy of stone and stent, left retrograde pyelogram civil engineering 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 I discussed with the patient how the surgery would be performed and we reviewed the risks and benefits of the surgery. The risk and benefits include the risk of failure to remove the stone completely and that the patient may need multiple procedures. We discussed the risk of an infection, the risk of bleeding. We discussed the very rare risk of serious complicated injury to the ureter. The patient understands that if the stone is not able to be removed safely that we may abort the procedure and place a stent. After full discussion and all questions address with the patient the consent form was signed the side was marked appropriately and the patient was taken back to the operating room for the procedure. The patient was taken back to the operating room. After induction of anesthesia by the anesthesiology team the patient was placed in dorsolithotomy position. The genitals were prepped and draped in usual sterile fashion. I went into the bladder with a 21 Spanish rigid cystourethroscope through the urethra. Upon entering the bladder I inspected the trigone the left and right ureteral orifice and the bladder itself. I then cannulated the left ureteral orifice and advanced a 0.038 Glidewire up into the kidney. Then over the Glidewire I advanced a 5 Fr Ureteral catheter and performed a retrograde pyelogram with about 10cc of contrast, to delineate the anatomy and identify the stone location. Then a ureteral balloon dilator was advanced over the wire and the distal ureter was balloon dilated with a 12 Fr x 5cm balloon dilator. After 3 minutes of dilating the ureter the balloon was backloaded off the 0.038 glidewire over the 0.038 guidewire I went in with the flexible 7.5fr ureteroscope. I was able to go inside with the 7.5Fr utereroscope and I pulled out the guidewire and then through the ureteroscope I engage the stone with laser lithotripsy using a 270miron laser fiber with energy setting of 6 Hertz and 0.6 J until the stone was lasered into tiny little pieces that should pass on their own. A retrograde pyelogram was performed with 10cc of contrast and no extravasation of contrast or perforation was identified in the ureter there was some mild irritation of the ureter where the stone was located. I then backed out of the ureter left the wire in place and then over the 0.038 guidewire I placed a double coiled pigtail ureteral stent. The ureteral stent was advanced over the 0.038 guidewire under direct fluoroscopic guidance and direct cystoscopic visual guidance, once the stent was in good position I pulled the wire and the stent coiled in the kidney and bladder in good position. I then drained the patient's bladder and the cystoscope was removed and the patient was taken back to the recovery room in good position. The patient was given discharge instructions to call the office for instructions on when to come to the office to have the stent removed. Surgical Findings: Stone lasered completely Complications Complications: No Admit VTE Documentation VTE Present on Admission: No VTE Mechan Device Prophylaxis: SCD's VTE Pharm Prophylaxis ordered?: No 05/07/25 1135 Cosigner Signature (if applicable): CC: Dr. 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 When Was Last Pacemaker Check QUESTION #4 FULL TEXT: You/Your Family Experience fever (hyperthermia) with Anesthesia Last Oral Intake Last Oral intake: Last Oral Intake NPO since Meds taken in AM with sips of water? Meds patient instructed to take am of surgery PONV PONV - bench carpenter: PONV - bench carpenter Female No 04/23/25 11:09 HX of Motion Sickness No 04/23/25 11:09 HX of N/V After Surgery No 04/23/25 11:09 Non-Smoker Yes 04/23/25 11:09 Duration of Surgery greater Yes 04/23/25 11:09 than 60 minutes Number of Risk Factors 2 04/23/25 11:09 PONV Score Moderate Risk 04/23/25 11:09 Respiratory Assessment Respiratory Assessment - bench carpenter: Respiratory Tract Infection Hx - bench carpenter Hx Respiratory Tract Infection No 04/23/25 11:09 STOP Sleep Apnea STOP Sleep Apnea - bench carpenter: STOP Sleep Apnea - bench carpenter Hx Hypertension Yes: CONTROLLED WITH MED 04/23/25 11:09 Hx Sleep Apnea Yes 04/23/25 11:09 CPAP Yes 04/23/25 11:09 BIPAP No 04/23/25 11:09 Do you snore loudly (louder than talking or can be heard Do you often feel tired/ fatigued/ sleepy during daytime? Has anyone observed you stop breathing during sleep? STOP Results Positive 04/23/25 11:09 QUESTION #5 FULL TEXT : Do you snore loudly (louder than talking or can be heard through closed doors)? 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 Specify any problems Hx of Preganancy in last 3 N/A 04/23/25 11:09 Months Nurse Filling Out Transfusion DSCHRIBER 04/23/25 11:09 Questions: Date: 04/23/25 04/23/25 11:09 Time: 11:11 04/23/25 11:09 Patient unable to answer at this time (ie. confused, unrespo /Reproduction History /Reproductive History - bench carpenter: /Reproductive Hx- bench carpenter Hx Now No 04/23/25 11:09 Gestational Age (in weeks): EDC: Hx Hx Para Hx Section SAB No 04/23/25 11:09 [facility] Medical History (Updated 04/23/25 @ 11:25 by Kayla Henley) Wears glasses Cancer Depression Anxiety Alcohol use Arthritis Back pain History of diverticulitis CPAP (continuous positive airway pressure) dependence Shortness of breath on exertion Non-smoker History of pain when walking History of edema Non-Hodgkin lymphoma History of stress test Cardiology follow-up encounter Hypertension Home Medications ???Medication ???Instructions ???Recorded ???Last Taken ???Type furosemide 20 mg tablet 20 mg PO DAILY PRN edema 04/23/25 Unknown History ketorolac 10 mg tablet 10 mg PO Q8H PRN PRN pain 04/23/25 Unknown History metoprolol succinate 50 mg 50 mg PO QHS 04/23/25 Unknown Hist ory tablet,extended release 24 hr semaglutide 0.25 mg or 0.5 mg (2 0.25 mg subcut TU 04/23/2504/15/2 5 History mg/1.5 mL) subcutaneous pen injector (Attracta) simvastatin 40 mg tablet 40 mg PO QHS 04/23/25 Unknown Hist ory tamsulosin 0.4 mg capsule 0.4 mg PO QHS 04/23/25 Unknown His tory Allergy/AdvReac Type Severity Coy (more content not included)... Normal [facility] Abdomen Single Viewon 2024 Abdomen Single View [facility] Imaging Services [address] [place] [address] Abdomen Single View MR#: [id number] Acct: [id number] Name: BLAKE GRIMES Rep #: [id number] : 1955 M 69 From: Osei Caballero MD PCP: BRADLEY ZUÑIGA Status: REG CLI Study: Abdomen Single View Date of Exam: 04/22/25 Exam# [id number] Ordering Dr: Jaxson Justin MD PROCEDURE: ABDOMEN SINGLE VIEW 04/22/2025 REASON FOR EXAM: CALCULUS OF URETER TECHNIQUE: ABDOMEN SINGLE VIEW COMPARISON: No FINDINGS: Multiple pelvic calcifications favoring phleboliths. Lumbar spine degeneration. Status post left THR. Nondistended bowel. No definite renal stones. RAD/Abdomen Single View IMPRESSION: No definite renal or ureteral stones. Reading Location: [place] [address] CC: Dr. Jaxson Justin MD; BRADLEY ZUÑIGA Client Support Consultant: Signed Normal [facility] ED MED ADMINISTRATION DETAIL on 04-22-2025 ED MED ADMINISTRATION DETAIL Certified Ophthalmic Assistant Medication Administration Record [address] [place] [address] [id number] 04/17/2025 Patient: BLAKE GRIMES Sex: Male : 1955 Age: 69y MEASUREMENTS: Wt: 152.0 kg, Ht/Dre: 68.0 in, BMI: 50.94 ALLERGIES: Demerol, chlorhexidine, lisinopril Medication Ordered Medication Administration Date/Time IV NS 0.9 % 1000 18:53 04/17 IV NS 0.9 % 1000 mL started in bag#1 1000 mL at Started mL at 125 mL/hr 125 mL/hr via Site# 1. Allergies verified and confirmed 5 rights. Via 18:53 04/17/2025 (NOW x1) IV pump. IV patency established. IV site checked: no pain, redness, Franklyn Coleman, or swelling. IV flushed thoroughly pre-medication administration. R.N. Information reviewed with patient. - 18:53 Franklyn Coleman R.N. Stopped 20:27 04/17/2025 20:27 04/17 Medication Discontinued: bag #1 infused. Total Nerissa Valentin R.N. amount infused: 1000 mL. IV patency established. IV site checked: Scanned no pain, redness, or swelling. IV flushed thoroughly post-medication administration. - 20:27 Nerissa Valentin R.N. KetorOLAC 18:53 04/17 KetorOLAC (Toradol) IVP 15 mg given via Site# 1. Given (Toradol) IVP 15 mg Medication Wastage: 15 mg wasted. - 18:54 Franklyn Coleman R.N. 18:53 04/17/2025 (NOW x1) Franklyn Coleman R.N. Scanned Zofran IVP 4 mg 18:53 04/17 Zofran IVP 4 mg given via Site# 1. Allergies verified Given (NOW x1) and confirmed 5 rights. IV patency established. IV site checked: no 18:53 04/17/2025 pain, redness, or swelling. IV flushed thoroughly pre-medication Franklyn Coleman administration. IVP given by nurse. Information reviewed with Thompson patient. - 18:53 Franklyn Coleman R.N. Scanned 1 of 2 Certified Ophthalmic Assistant Medication Ordered Medication Administration Date/Time cefTRIAXone 20:24 04/17 cefTRIAXone (Rocephin) IVPB 1gm/50ml NS 1 g Started (Rocephin) IVPB started at 100 mL/hr diluted in sodium chloride IVPB 0.9 % 20:24 04/17/2025 1gm/50ml NS 1 g Minibag+ 50 mL over 20 minute(s) via Site# 1. Allergies verified and Nerissa Valentin R.N. diluted in sodium confirmed 5 rights. IV patency established. IV site checked: no pain, Stopped chloride IVPB 0.9 % redness, or swelling. IV flushed thoroughly pre-medication 21:05 04/17/2025 Minibag+ 50 mL at administration. Information reviewed with patient including reason Dennise Calderon R.N. 100 mL/hr (NOW x1) for taking this medication. Verbalizes understanding. Completed per Scanned protocol. - 20:25 Nerissa Valentin R.N. 21:05 04/17 Medication Discontinued: IV infused. Total amount infused: 50 mL. IV patency established. IV site checked: no pain, redness, or swelling. IV flushed thoroughly post-medication administration. - 21:06 Dennise Calderon R.N. Flomax PO 0.4 mg 22:52 04/17 Flomax PO 0.4 mg given. Allergies verified and Given (NOW x1) confirmed 5 rights. Information reviewed with patient including 22:52 04/17/2025 reason for taking this medication, signs of allergic reaction and Dennise Calderon R.N. precautions. Verbalizes understanding. - 22:52 Dennise Calderon R.N. Scanned 2 of 2 Normal [facility] ED NURSES CLINICAL NOTEon ED NURSES CLINICAL NOTE Nurse Narrative Nurse Clinical Narrative [address] [place] [address] [id number] 04/17/2025 17:28:00 [id number] Sex[facility] Male : 1955 Age: 69y Disposition: Discharge to Home Disposition Decision Time: 22:33 04/17/2025 Departure Time: 23:04 04/17/2025 TRIAGE Arrived by private vehicle. Historian: (patient). Accompanied by family. Primary physician (Pari Mas). ( Hx of kidney stones). Triage time: 17:04/17/2025. Acuity: LEVEL 3. Chief Complaint: HEMATURIA. This started today. Onset. (1200). No fever or discomfort with urination. Able to void. SEPSIS SCREEN: NEGATIVE. SIRS criteria negative. No possible sources of infection. -- 17:34 04/17/25 OCTAVIA Gan R.N. 17:04/17/25. BP: 173/77 MAP: 109. HR: 68. RR: 18. O2 saturation: 98% Temperature: 98.4 F. Pain level now 10/10. -- 17:04/17/25 OCTAVIA Gan R.N. Measurements: 17:04/17/25 Wt: 152.0 kg, Ht/Dre: 68.0 in, BMI: 50.94 -- 17:04/17/25 OCTAVIA [place] R.N. Medications: Ozempic 0.25 mg or 0.5 mg (2 mg/3 mL) subcutaneous pen injector: 0.5 mg once a week. -- 17:36 04/17/25 OCTAVIA [place] R.N. 1 of 4 Nurse Narrative 17:04/17/25. Preferred Pharmacy: ([facility] -- 17:34 04/17/25 OCTAVIA [place] R.N. Allergies: lisinopril -- 17:04/17/25 OCTAVIA [place] R.N. chlorhexidine -- 17:04/17/25 OCTAVIA [place] R.N. Demerol -- 17:04/17/25 OCTAVIA [place] R.N. Problems: Osteoarthritis -- 17:04/17/25 OCTAVIA [place] R.N. Non-Hodgkin's lymphoma (clinical) -- 17:04/17/25 OCTAVIA [place] R.N. Hypertension -- 17:04/17/25 OCTAVIA Gan R.N. Edema -- 17:04/17/25 OCTAVIA Gan R.N. PTSD -- 17:04/17/25 OCTAVIA Gan R.N. Anxiety disorder -- 17:04/17/25 OCTAVIA Gan R.N. Depression -- 17:04/17/25 OCTAVIA Gan R.N. Surgeries: Ankle surgery -- 17:04/17/25 OCTAVIA Gan R.N. Wrist sugery -- 17:04/17/25 OCTAVIA Gan R.N. Hip Prosthesis -- 17:04/17/25 OCTAVIA Gan R.N. History 17:04/17/25. SOCIAL HX: Never smoker. No alcohol use or drug use. The patient has not traveled outside the [place] Infectious disease exposure: No infectious disease exposure. ABUSE ASSESSMENT: The patient answered yes to the question(s) Do you feel safe in your home? and no to the question(s) Are you afraid to go home?. SELF HARM ASSESSMENT: Self harm assessment was performed. The patient answered no to the question(s) Have you recently felt down, depressed, or hopeless? and Do you have thoughts of harming or killing yourself?. 2 of 4 Nurse Narrative FALL RISK ASSESSMENT: Fall risk assessment completed. Risk factors identified include severe pain. Fall interventions initiated. Patient placed in wheelchair. Brakes on. -- 17:34 04/17/25 OCTAVIA Gan R.N. Interventions 17:04/17/25. Advanced care plan discussed with patient. Patient does not have advanced directive. (full code). -- 17:34 04/17/25 OCTAVIA Gan R.N. PHYSICAL ASSESSMENT 18:18 04/17/25. ( Pt reports to ED c/o of left flank pain radiating down to lower abdomen. Also has bloody urine. Pt has a hx of kidney stones.). GENERAL / NEURO / PSYCH: Alert. Oriented X 4. Appears in pain. RESPIRATORY: Respirations not labored. Breath sounds within normal limits. CVS: Capillary refill less than 2 seconds. GI / : Abdomen soft. Bowel sounds within normal limits. ( Denies burning with urination.). -- 18:24 04/17/25 EDT Franklyn Coleman R.N. NURSING PROGRESS NOTES 18:23 04/17/25. Site #1 started in the right hand with a 20g angiocath with aseptic technique and good blood return; 2 attempts. Blood drawn: rainbow set tube(s). Labeled in the presence of the patient and sent to the lab. Saline lock flushed with 10 mL saline. -- 18:48 04/17/25 EDT Solomon Gan R.N. 18:25 04/17/25. Call light placed in reach. Side rails up. Bed placed in lowest position. -- 18:25 04/17/25 EDT Franklyn Coleman R.N. 18:53 04/17/25. IV NS 0.9 % 1000 mL started in bag#1 1000 mL at 125 mL/hr via Site# 1. Allergies verified and confirmed 5 rights. Via IV pump. IV patency established. IV site checked: no pain, redness, or swelling. IV flushed thoroughly pre-medication administration. Information reviewed with patient. -- 18:53 04/17/25 EDT Franklyn Coleman R.N. 18:53 04/17/25. Zofran IVP 4 mg given via Site# 1. Allergies verified and confirmed 5 rights. IV patency established. IV site checked: no pain, redness, or swelling. IV flushed thoroughly pre-medication administration. IVP given by nurse. Information reviewed with patient. -- 18:53 04/17/25 EDT Franklyn Coleman R.N. 18:53 04/17/25. KetorOLAC (Toradol) IVP 15 mg given via Site# 1. Medication Wastage: 15 mg wasted. -- 18:54 04/17/25 EDT Franklyn Coleman R.N. 19:22 04/17/25. Care da silva (more content not included)... [facility] ED ORDER SHEET (CPOE ONLY)on 04-22-2025 ED ORDER SHEET (CPOE ONLY) Order Sheet Order Sheet [address] [address] [id number] 04/17/2025 Patient: BLAKE GRIMES Sex: Male : 1955 Age: 69y MEASUREMENTS: Wt: 152.0 kg, Ht/Dre: 68.0 in, BMI: 50.94 ALLERGIES: Demerol, chlorhexidine, lisinopril MEDICATION/IV/DRIP/FLUID ORDERS Order Description Priority Entered Acknowledged Completed IV NS 0.9 %1000 mL at 125 18:34 04/17/2025 18:47 18:53 mL/hr (NOW x1) Neno Reich M.D. 04/17/2025 04/17/2025 Franklyn Cameron, Vinicio.N. R.N. KetorOLAC (Toradol) IVP15 mg 18:34 04/17/2025 18:47 18:54 (NOW x1) Neno Reich M.D. 04/17/2025 04/17/2025 Franklyn Cameron R.N. R.N. Zofran IVP4 mg (NOW x1) 18:34 04/17/2025 18:47 18:53 Neno Reich M.D. 04/17/2025 04/17/2025 Franklyn Cameron R.N. R.N. cefTRIAXone (Rocephin) IVPB 19:36 04/17/2025 20:16 20:25 1gm/50ml NS1 g diluted in Phu Steen.OValentina 04/17/2025 04/17/2025 sodium chloride IVPB 0.9 % Thompson Rojo R.N. Minibag+ 50 mL at 100 mL/hr (NOW x1) 1 of 3 Order Sheet Flomax PO0.4 mg (NOW x1) 22:28 04/17/2025 22:40 22:52 Phu Steen.OValentina 04/17/2025 04/17/2025 Thompson Rojo R.N. LAB ORDERS Order Description Priority Entered Acknowledged Collected Completed Urinalysis Stat Stat 17:43 04/17/2025 18:04 04/17/2025 18:04 04/17/2025 Franklyn Dubois Cameron Yoder, R.N. R.N. R.N. Per Protocol, Auth by: Neno Reich M.D. CBC w Diff Stat Stat 18:34 04/17/2025 18:47 04/17/2025 18:47 04/17/2025 Franklyn Sabillon Cameron Yoder, M.D. R.N. RZulema BMP Stat Stat 18:34 04/17/2025 18:47 04/17/2025 18:47 04/17/2025 Franklyn Sabillon Cameron Yoder, M.D. R.N. RZulema Urine Culture [CCL] Stat Stat 18:34 04/17/2025 18:47 04/17/2025 20:25 04/17/2025 Franklyn Sabillon Anne Rutt, R.N. M.D. R.N. Copy of CT films to go 22:55 04/17/2025 23:06 04/17/2025 with patient Gerardo Steen R.N. Order Comments: 23:06 04/17/2025: Patient did not want to wait for the films. Patient states that they will go through medical records if the film is required. Dennise Calderon R.N. DIAGNOSTIC STUDY ORDERS 2 of 3 Order Sheet Order Description Priority Entered Acknowledged Completed CT ABD/PEL wo Cont Stat Stat 22:03 04/17/2025 22:40 22:40 Alissa Beaulieu D.O. 04/17/2025 04/17/2025 Thompson Rojo R.N. Reason for Study: Abdominal Pain STAFF ORDERS Order Description Priority Entered Acknowledged Collected Completed Urine Strainer 22:32 04/17/2025 22:40 04/17/2025 22:40 04/17/2025 Gerardo Steen R.N. Anne Rutt, R.N. [Electronically signed by Neno Reich M.D. (04/17/2025 18:35 EDT)] [Electronically signed by Alissa Beaulieu D.O. (04/18/2025 03:43 EDT)] 3 of 3 [facility] ED PHYSICIAN CLINICAL REPORT on 04-22-2025 ED PHYSICIAN CLINICAL REPORT Narrative Physician Clinical Narrative [facility] [address] [facility] [place] [address] [phone] 04/17/2025 17:28:00 Patient: BLAKE GRIMES Sex: Male : 1955 Age: 69y Disposition: Discharge to Home Disposition Decision Time: 22:33 04/17/2025 Departure Time: 23:04 04/17/2025 Measurements Wt: 152.0 kg, Ht/Dre: 68.0 in, BMI: 50.94 Initial Vital Sign Measured Time BP MAP HR RR O2Sat ETCO2 Temp Pain GCS RTS 17:31 04/17/2025 173/77 109 68 18 98% 98.4 F 10 Time Seen: 19:16 04/17/2025. Arrived- By private vehicle. Historian- patient. Independent historian- family. HISTORY OF PRESENT ILLNESS Chief Complaint: FLANK PAIN. It is described as sharp and it is described as located in the left flank and radiating to the abdomen. This started today and is still present (better). At its maximum, severity described as 9 / 10. When seen in the E.D., severity described as 2 / 10. The patient has had nausea and vomiting. No loss of appetite or diarrhea. Similar symptoms previously. Patient has had similar symptoms several times. ( Has been treated for kidney stones several times in the past and this feels the same. Most recent kidney stone prior to today was last July. He was on vacation in [place] and treated for kidney stone in an ER down there.). Recent medical care: Not recently seen/assessed. Narrative REVIEW OF SYSTEMS : The patient has had difficulty with urination. No pain with urination or urinary frequency. CONSTITUTIONAL: No fever or chills. The patient has not had weight loss. EYES: No blurred vision. THROAT: No sore throat. CVS: No chest pain. RESPIRATORY: No difficulty breathing or cough. MUSCULOSKELETAL: No joint pain. The patient has had back pain. SKIN: No skin rash. NEUROLOGICAL: No headache. GI: No constipation or black stools. PAST HISTORY See nurses notes. Anxiety disorder Depression Edema Hypertension Non-Hodgkin's lymphoma (clinical) Osteoarthritis PTSD Surgeries: Ankle surgery Hip Prosthesis Wrist sugery Medications: Ozempic 0.25 mg or 0.5 mg (2 mg/3 mL) subcutaneous pen injector: 0.5 mg once a week. Allergies: chlorhexidine Demerol lisinopril SOCIAL HISTORY Never smoker. No alcohol use or drug use. 2 of 22 Narrative ADDITIONAL NOTES The nursing notes have been reviewed. PHYSICAL EXAM Appearance: Alert. Oriented X3. No acute distress. Eyes: Pupils equal, round and reactive to light. ENT: Nose normal. Dry mucous membranes present. Pharynx normal. Neck: Normal inspection. Neck supple. CVS: Normal heart rate and rhythm. Heart sounds normal. Pulses normal. Respiratory: No respiratory distress. Breath sounds normal. Chest nontender. Abdomen: Soft and nontender. Bowel sounds normal. Obese. Back: Normal inspection. Skin: Skin warm and dry. No rash. Extremities: Extremities exhibit normal ROM. No lower extremity edema. Neuro: Oriented X 3. No motor deficit. No sensory deficit. LABS, X-RAYS, AND EKG CT Abdomen - Pelvis: A single urinary calculus is present in the left proximal ureter (8 mm). There is mild obstruction. Mild dilatation of the left ureter. 8 mm obstructing calculus in the left UPJ with some minimal left hydronephrosis. No air or fluid. No dilated. No grossly thickened bowel loops. Mild colonic diverticulosis. No evidence of acute appendicitis. Lung bases are clear. Abdomen - pelvic CT performed without contrast. The study was interpreted by the radiologist. Interpretation time: 22:18 04/17/2025. Laboratory Tests: BMP with eGFR Final LENA: 04/17/2025 18:11:00 EDT MsgRcvd: 04/17/2025 19:02 EDT Lab Test Result Reference Status Received Comments BASIC 04/17/2025 BMP with eGFR Final METABOLIC 19:02 EDT PANEL 3 of 22 Narrative Lab Test Result Reference Status Received Comments 04/17/2025 SODIUM 141 mmol/l 136 - 145 Final 19:02 EDT 04/17/2025 POTASSIUM 3.8 mmol/L 3.5 - 5.1 Final 19:02 EDT 108 mmol/L 04/17/2025 CHLORIDE Above high 98 - 107 Final 19:02 EDT normal 04/17/2025 CO2 25.0 mmol/L 21.0 - 32.0 Final 19:02 EDT 04/17/2025 GLUCOSE 103 mg/dl 74 - 106 Final 19:02 EDT 20 mg/dl 04/17/2025 BUN Above high 7 - 18 Final 19:02 EDT normal 04/17/2025 CREATININE 0.98 mg/dl 0.70 - 1.30 Final 19:02 EDT 04/17/2025 CALCIUM 9.0 mg/dl 8.5 - 10.1 Final 19:02 EDT 04/17/2025 ANION GAP 12 mmol/L 10 - 20 Final 19:02 EDT 04/17/2025 AGE 69 years Final 19:02 EDT 04/17/2025 eGFR >60 ML/MINUTE 60 - 999 Final 19:02 EDT Narrative Lab Test Result Reference Status Received Comments ACCORDING TO THE NATIONAL KIDNEY DISEASE EDUCATION PROGRAM(NKDE), A NORMAL eGFR IS A VALUE GREATER THAN OR EQUAL TO 60 ML/MIN/1.73 SQ METERS. 04/17/2025 CHRON (more content not included)... [facility] ED [facility] 04-22-2025 ED [facility] [address] [place] [address] [phone] 04/17/2025 Patient: BLAKE GRIMES Sex: Male : 1955 Age: 69y Item Facility Professional Category Description Code Code Quantity Fee Total Drugs Normal Saline 647065 1 $0.00 $0.00 1000cc (063154) Nurse/E/M EMERGENCY 240454 1 $0.00 $0.00 DEPARTMENT VISIT HIGH/URGENT SEVERITY (47987-51) Nurse/IV/IM/Infusions Drip/IVPB initial 092529 1 $0.00 $0.00 (89968) Nurse/IV/IM/Infusions Hydration 906600 2 $0.00 $0.00 additional hour (46378) Nurse/IV/IM/Infusions IVP additional 246102 2 $0.00 $0.00 push (98584) Grand Total $0.00 Providers Neno Reich M.D. 1 of 2 [facility] Alissa Beaulieu D.O. Chief Complaints HEMATURIA and LEFT FLANK PAIN. FLANK PAIN. Principal Diagnoses Acute left flank pain Ureterolithiasis (single stone) in the left ureter with hydronephrosis and urinary tract infection. Acute urinary tract infection with cystitis and hematuria. ICD-10 Codes R10.9: Unspecified abdominal pain N30.91: Cystitis, unspecified with hematuria N20.1: Calculus of ureter 2 of 2 [facility] ED VISIT SUMMARYon ED VISIT SUMMARY Visit Overview Visit Overview [address] [place] [address] [phone] 04/17/2025 Patient: BLAKE GRIMES Sex: Male : 1955 Age: 69y 04/22/2025 07:52 AM EDT ED Arrival:17:28 04/17/2025 EDT Status: Recent Travel:no Language:eng Adv Directive:No Isolation Status: Ethnicity:N Fall Risk:risk Infectious Disease Exposure:no Measurements:5'8 / 172.7 Self-Harm Status:risk Sepsis Screen:negative cm 335.0 lb / 152.0 kg Chief Complaint:HEMATURIA, (1200), (Hx of kidney stones), and (Vam Vakis) ALLERGIES chlorhexidine Demerol lisinopril HOME MEDICATIONS Ozempic 0.25 mg or 0.5 mg (2 mg/3 mL) subcutaneous pen injector: 0.5 mg once a week. PAST MEDICAL HISTORY / PROBLEMS 1 of 3 Visit Overview Anxiety disorder Depression Edema Hypertension Non-Hodgkin's lymphoma (clinical) Osteoarthritis PTSD See nurses notes PAST SURGICAL HISTORY Ankle surgery Hip Prosthesis SOCIAL HISTORY Smoking status: No Alcohol use: No Drug use: No ED COURSE MEDICATIONS GIVEN IN EMERGENCY DEPARTMENT 18:53 04/17/25 IV NS 0.9 % 1000 mL 125 mL/hr 18:53 04/17/25 Zofran IVP 4 mg 18:53 04/17/25 KetorOLAC (Toradol) IVP 15 mg cefTRIAXone (Rocephin) IVPB 1gm/50ml NS 1 g diluted in sodium chloride IVPB 0.9 % 20:24 04/17/25 Minibag+ 50 mL 100 mL/hr over 20 minute(s) 22:52 04/17/25 Flomax PO 0.4 mg IV SITE INFORMATION INTAKE OUTPUT REASSESMENT (most recent) 2 of 3 Visit Overview 18:18 04/17/25. ( Pt reports to ED c/o of left flank pain radiating down to lower abdomen. Also has bloody urine. Pt has a hx of kidney stones.). GENERAL / NEURO / PSYCH: Alert. Oriented X 4. Appears in pain. RESPIRATORY: Respirations not labored. Breath sounds within normal limits. CVS: Capillary refill less than 2 seconds. GI / : Abdomen soft. Bowel sounds within normal limits. ( Denies burning with urination.). VITAL SIGNS First Vitals Last Vitals Temp 17:31 04/17/25 98.4 F Temp 23:00 04/17/25 BP 17:31 04/17/25 173/77 BP 23:00 04/17/25 149/81 HR 17:31 04/17/25 68 HR 23:00 04/17/25 71 RR 17:31 04/17/25 18 RR 23:00 04/17/25 O2 Sat 17:31 04/17/25 98% O2 Sat 23:00 04/17/25 Pain 17:31 04/17/25 10 Pain 23:00 04/17/25 ETCO2 17:31 04/17/25 ETCO2 23:00 04/17/25 GCS 17:31 04/17/25 GCS 23:00 04/17/25 RTS 17:31 04/17/25 RTS 23:00 04/17/25 PROCEDURES NURSING INTERVENTIONS LABS / STUDIES LABS / STUDIES ORDERED BMP CBC w Diff Copy of CT films to go with patient CT ABD/PEL wo Cont Urinalysis Urine Culture [CCL] CLINICAL IMPRESSION ACUTE LEFT FLANK PAIN ACUTE URINARY TRACT INFECTION WITH CYSTITIS AND HEMATURIA URETEROLITHIASIS (SINGLE STONE) IN THE LEFT URETER WITH HYDRONEPHROSIS AND URINARY TRACT INFECTION 3 of 3 Normal [facility] ED VITALS FLOW SHEETon 04-22 ED VITALS FLOW SHEET Vitals Vital Sign Flow Sheet [facility] [address] [place] [address] [phone] 04/17/2025 Patient: BLAKE GRIMES [facility]#: [id number] Sex: Male : 1955 Age: 69y Measurements Wt: 152.0 kg, Ht/Dre: 68.0 in, BMI: 50.94 Measured Time BP MAP HR RR O2Sat ETCO2 Temp Pain GCS RTS 23:00 04/17/2025 149/81 96 71 22:59 04/17/2025 71 97% 20:19 04/17/2025 67 97% 20:14 04/17/2025 69 94% 20:09 04/17/2025 66 96% 20:04 04/17/2025 67 92% 19:59 04/17/2025 70 96% 19:56 04/17/2025 140/61 90 66 19:54 04/17/2025 64 94% 19:49 04/17/2025 69 94% 19:44 04/17/2025 69 94% 19:39 04/17/2025 64 94% 19:34 04/17/2025 64 92% 19:29 04/17/2025 67 97% 19:26 04/17/2025 145/65 91 68 1 of 2 Vitals Measured Time BP MAP HR RR O2Sat ETCO2 Temp Pain GCS RTS 19:24 04/17/2025 67 96% 19:19 04/17/2025 71 97% 19:18 04/17/2025 220/89 126 69 19:14 04/17/2025 66 93% 19:09 04/17/2025 65 93% 19:04 04/17/2025 65 96% 19:02 04/17/2025 173/76 108 64 18:59 04/17/2025 56 97% 18:54 04/17/2025 62 98% 18:52 04/17/2025 172/72 105 69 18:49 04/17/2025 66 99% 18:47 04/17/2025 212/84 108 57 18:44 04/17/2025 60 97% 18:39 04/17/2025 60 95% 18:34 04/17/2025 63 97% 18:33 04/17/2025 181/79 94 61 18:29 04/17/2025 71 96% 18:24 04/17/2025 62 95% 17:31 04/17/2025 173/77 109 68 18 98% 98.4 F 10 2 of 2 [facility] URINE CULTURE [CCL]on 2024 Bacteria identified Cx Nom (U) URCUL See Results Below See Below CULTURE, URINE NORMAL UROGENITAL ELIZABETH <10,000 CFU/ml Normal urogenital elizabeth SOURCE: Urine (Nonspecific) [facility] [address] [place] [address] Saeid Truong III, M.D. [id number] SEND TO IC NO [facility] Comment on above: Performed By: #### 2 95289 #### [facility],[address] [place] [address] BMP with eGFRon 04-17-2025 AGE 69 years Normal [facility] Comment on above: Performed By: #### 2 [id number] #### [facility],[address] [place] [address] Anion gap [Moles/Vol] 12 mmol/L Normal 10 - 20 [facility] Comment on above: Performed By: #### 2 47005 #### [facility],[address] [place] [address] BMP with eGFR Normal [facility] Comment on above: Result Comment: BASI C METABOLIC PANEL Performed By: #### 2 80658 #### [facility],[address] [place] [address] Calcium [Mass/Vol] 9.0 mg/dL Normal 8.5 - 10.1 [facility] Comment on above: Performed By: #### 2 94666 #### [facility],[address] [place], [place] [phone] Chloride [Moles/Vol] 108 mmol/L High 98 - 107 [facility] Comment on above: Performed By: #### 2 52424 #### [facility],[address] [place], [place] [phone] CO2 [Moles/Vol] 25.0 mmol/L Normal 21.0 - 32.0 [facility] Comment on above: Performed By: #### 2 66715 #### [facility],[address] [place], [place] [phone] Creatinine [Mass/Vol] 0.98 mg/dL Normal 0.70 - 1.30 [facility] Comment on above: Performed By: #### 2 36528 #### [facility],[address] [place], [place] [address] GFR/1.73 sq M.predicted among non-blacks MDRD (S/P/Bld) [Vol rate/Area] mL/min/{1.73_m2} Normal 60 - 999 [facility] Comment on above: Performed By: #### 2 06250 #### [facility],[address] [place] [address] Result Comment: ACCO RDING TO THE NATIONAL KIDNEY DISEASE EDUCATION PROGRAM(NKDE), A NORMAL eGFR IS A VALUE GREATER THAN OR EQUAL TO 60 ML/MIN/1.73 SQ METERS. CHRONIC KIDNEY DISEASE: <60mL/MIN/1.73 SQ METERS KIDNEY FAILURE: <15mL/MIN/1.73 SQ METERS THIS TEST SHOULD ONLY BE USED FOR PATIENTS 18 YEARS OF AGE AND OLDER. Glucose [Mass/Vol] 103 mg/dL Normal 74 - 106 [facility] Comment on above: Performed By: #### 2 84274 #### [facility],[address] [place], [place] [phone] Potassium [Moles/Vol] 3.8 mmol/L Normal 3.5 - 5.1 [facility] Comment on above: Performed By: #### 2 81936 #### [facility],[address] [place], [place] [phone] Sodium [Moles/Vol] 141 mmol/L Normal 136 - 145 [facility] Comment on above: Performed By: #### 2 25286 #### [facility],[address] [place] [address] Urea nitrogen [Mass/Vol] 20 mg/dL High 7 - 18 [facility] Comment on above: Performed By: #### 2 84139 #### [facility],[address] [place] [address] Bacteria Ur Culton 5 Bacteria identified Cx Nom (U) ORGANISM ID: 1 <10,000 CFU/ml Normal urogenital elizabeth Normal [facility] Comment on above: Performed By: #### 6 30-4 #### [facility] CLIA [id number] [address] [place] [address] [facility] CBC + DIFFon 04-17-2025 Baso # 0.03 x10EE3/UL Normal 0.00 - 0.10 [facility] Comment on above: Performed By: #### 2 12527 #### [facility],[address] [place] [address] Basophils/100 WBC (Bld) 0.3 % Normal 0.0 - 2.0 [facility] Comment on above: Performed By: #### 2 51382 #### [address] [address] CBC + DIFF Normal [facility] Comment on above: Result Comment: CBC- COMPLETE BLOOD COUNT Performed By: #### 2 89294 #### [facility],[address] [place] [address] EO # 0.11 x10EE3/UL Normal 0.00 - 0.50 [facility] Comment on above: Performed By: #### 2 47872 #### [address] [address] Eosinophils/100 WBC (Bld) 1.1 % Normal 0.0 - 7.0 [facility] Comment on above: Performed By: #### 2 55791 #### [address] [address] Erythrocyte distribution width (RBC) [Ratio] 13.7 % Normal 12.0 - 15.6 [facility] Comment on above: Performed By: #### 2 41875 #### [facility],[address] [place] [address] Hematocrit (Bld) [Volume fraction] 39.2 % Low 40.0 - 52.0 [facility] Comment on above: Performed By: #### 2 02618 #### [facility],[address] [place] [address] Hemoglobin (Bld) [Mass/Vol] 13.3 g/dL Normal 13.0 - 17.5 [facility] Comment on above: Performed By: #### 2 14621 #### [facility],[address] [place] [address] Lymph # 1.56 x10EE3/UL Normal 0.80 - 2.80 [facility] Comment on above: Performed By: #### 2 69036 #### [facility],[address] [place] [address] Lymphocytes/100 WBC (Bld) 16.1 % Low 20.0 - 45.0 [facility] Comment on above: Performed By: #### 2 03856 #### [facility],[address] [place] [address] MANUAL DIFF N/A Normal [facility] Comment on above: Performed By: #### 2 79977 #### [facility],[address] [place], [place] [phone] MCH (RBC) [Entitic mass] 32 pg Normal 27 - 33 [facility] Comment on above: Performed By: #### 2 04157 #### [facility],[address] [place], [place] [phone] MCHC 34 X10 3 Normal 32 - 36 [facility] Comment on above: Performed By: #### 2 75879 #### [facility],[address] [place], [place] [phone] MCV (RBC) [Entitic vol] 93 fL Normal 81 - 98 [facility] Comment on above: Performed By: #### 2 72229 #### [facility],[address] [place] [address] [place] # 0.86 x10EE3/UL Normal 0.20 - 1.00 [facility] Comment on above: Performed By: #### 2 15476 #### [facility],[address] [place] [address] MONOS % 8.8 % Normal 0.0 - 10.0 [facility] Comment on above: Performed By: #### 2 76571 #### [facility],[address] [place] [address] Morphology Josr (Bld) [Interp] N/A Normal [facility] Comment on above: Performed By: #### 2 24529 #### [facility],[address] [place] [address] Neut # 7.18 x10EE3/UL High 1.50 - 7.10 [facility] Comment on above: Performed By: #### 2 91601 #### [place] [address] Neutrophils/100 WBC (Bld) 73.7 % Normal 46.0 - 76.0 [facility] Comment on above: Performed By: #### 2 51298 #### [facility],[address] [place] [address] PLATELET 213 x10EE3/UL Normal 150 - 450 [facility] Comment on above: Performed By: #### 2 57395 #### [place] [phone] Platelet mean volume (Bld) [Entitic vol] 7.6 fL Normal 6.4 - 10.5 [facility] Comment on above: Result Comment: AUTO MATED DIFFERENTIAL Performed By: #### 2 11376 #### [address],[place] [address] RBC 4.21 x 10EE6/UL Low 4.50 - 6.00 [facility] Comment on above: Performed By: #### 2 71234 #### [facility],[address] [place] [address] WBC 9.7 x 10EE3/UL Normal 4.5 - 10.8 [facility] Comment on above: Performed By: #### 2 43046 #### [facility],[address] [place] [address] ABDOMEN/PELVIS WO 04-17 CT ABDOMEN/PELVIS [place] [address] Patient: BLAKE GRIMES Phone#: : [phone] Age: 69 Gender: M Pt. Type: ER Account: [id number] Location: [facility] Ordering: ALISSA BEAULIEU Exam Date: 04/17/2025/22:10 Family Phys: JONATHON ZUÑIGA Charge Code: 120477 Physician: [place] Order #: [id number] Dose#: 28.3 mGy PROCEDURE: CT ABDOMEN/PELVIS WITHOUT CONTRAST COMPARISON: None. INDICATIONS: Left side flank pain. TECHNIQUE: CT images were created without intravenous contrast. All CT scans at this facility use dose modulation, iterative reconstruction, and/or weight based dosing when appropriate to reduce radiation dose to as low as reasonably achievable. IV CONTRAST: No IV contrast used,ml TOTAL DOSE: 28.3 CTDIvol(mGy) FINDINGS: Limited evaluation of the solid organs and soft tissues in the absence of intravenous contrast. LIVER: Low-attenuation lesion in the left lobe of the liver measuring 0.8 cm, series 2, image 27, incompletely characterized without contrast. BILIARY: Gallbladder is present. PANCREAS: Unremarkable in contour. There is fatty atrophy of the pancreas. SPLEEN: Unremarkable in contour KIDNEYS: There is an obstructing stone in the right ureteropelvic junction, measuring 0.9 x 0.7 cm, series 2, image 66. There is mild left hydronephrosis. The ureter is decompressed. The distal ureters obscured by artifact from left hip arthroplasty. No right nephrolithiasis or hydronephrosis. The distal ureters obscured by artifact from the left hip arthroplasty. ADRENALS: Normal. No mass or enlargement. AORTA/VASCULAR: No aortic aneurysm. There are scattered atherosclerotic calcifications of the aorta and branch vessels. RETROPERITONEUM: Normal. No mass or adenopathy. BOWEL/MESENTERY: No bowel obstruction or dilatation. No significant stool burden. There are a few diverticula of the descending and sigmoid colon. Portions of the sigmoid colon are obscured by artifact from left hip arthroplasty. Appendix is unremarkable in size. ABDOMINAL WALL: Normal. No mass or hernia. URINARY BLADDER: Partially obscured by left hip arthroplasty. Decompressed Continued Report - Page 2 of 2 Patient: BLAKE GRIMES Phone#: : 1955 Age: 69 Gender: M Pt. Type: ER Account: [id number] Location: [facility] Ordering: ALISSA BEAULIEU Exam Date: 04/17/2025/22:10 Family Phys: JONATHON ZUÑIGA Charge Code: 320154 Physician: Lemhi Order #: [id number] Dose#: 28.3 mGy PELVIC NODES: Normal. No adenopathy. PELVIC ORGANS: Partially obscured by artifact from left hip arthroplasty BONES: Facet arthropathy in the lower lumbar spine. Disc height loss and vacuum disc phenomena L2-3. LUNG BASES: Normal. No visible pulmonary or pleural disease. OTHER: Negative. CONCLUSION: 1. Obstructing stone at the left ureteral pelvic junction resulting in mild left hydronephrosis. Dictated by: Michelle Baxter MD on 04/18/2025 at 12:32 Approved by: Michelle Baxter MD on 04/18/2025 at 12:40 Normal [facility] URINALYSISon 04-17-2025 Amorphous NONE Normal [facility] Comment on above: Performed By: #### 2 06481 #### [facility],[address] [place] [address] Bacteria 3+ Normal [facility] Comment on above: Performed By: #### 2 86329 #### [facility],[address] [place], [place] [id number] Bilirubin Ql (U) Negative Normal NORMAL: NEGATIVE [facility] Comment on above: Performed By: #### 2 98451 #### [facility],[address] [place] [address] Casts NONE Normal [facility] Comment on above: Performed By: #### 2 97766 #### [facility],[address] [place] [address] Clarity (U) bloody Normal NORMAL: CLEAR [facility] Comment on above: Performed By: #### 2 21001 #### [facility],[address] [place] [address] Color (U) orange Normal NORMAL: YELLOW [facility] Comment on above: Performed By: #### 2 43036 #### [facility],[address] [place] [address] Crystals LM Nom (Urine sed) SEE BELOW Normal [facility] Comment on above: Performed By: #### 2 81648 #### [facility],[address] [place], [place] [id number] Epi Cells MANY Normal [facility] Comment on above: Performed By: #### 2 54742 #### [facility],[address] [place] [address] 54054 Glucose Ql (U) NORM Normal NORMAL: NORMAL [facility] Comment on above: Performed By: #### 2 69667 #### [facility],[address] [place] [address] 55961 Hemoglobin Ql (U) 250 Abnormal NORMAL: NEGATIVE [facility] Comment on above: Performed By: #### 2 76793 #### [facility],[address] [place] [address] 06936 Ketone 5 Abnormal NORMAL: NEGATIVE [facility] Comment on above: Performed By: #### 2 65096 #### [facility],[address] [place], [place] [address] Leukocytes 100 Abnormal NORMAL: NEGATIVE [facility] Comment on above: Performed By: #### 2 55496 #### [facility],[address] [place] [address] 13557 Mucous NONE Normal [facility] Comment on above: Performed By: #### 2 94811 #### [facility],[address] [place] [address] 34380 Nitrite Ql (U) Positive Normal NORMAL: NEGATIVE [facility] Comment on above: Performed By: #### 2 54462 #### [facility],[address] [place] [address] pH (U) 5 [pH] Normal NORMAL: 5.0-8.0 [facility] Comment on above: Performed By: #### 2 49579 #### [facility],[address] [place] [address] 65446 Protein Ql (U) 100 Abnormal NORMAL: NEGATIVE [facility] Comment on above: Performed By: #### 2 26364 #### [facility],[address] [place] [address] 65750 Rbc TNTC Normal 0-3/hpf [facility] Comment on above: Performed By: #### 2 83245 #### [facility],[address] [place] [address] 83627 Sp Newell 1.025 Normal NORMAL: 1.010-1.03 0 [facility] Comment on above: Performed By: #### 2 07239 #### [facility],[address] [place] [address] 30887 Specimen Type R Normal [facility] Comment on above: Performed By: #### 2 58025 #### [facility],[address] [place] [address] 86413 Uric Acid 3+ Normal NORMAL: NONE [facility] Comment on above: Performed By: #### 2 28955 #### [facility],[address] [place], [place] [address] Urinalysis dipstick W Reflex Microscopic panel (U) SEE BELOW Normal [facility] Comment on above: Result Comment: MICR OSCOPIC Performed By: #### 2 87365 #### [facility],[address] [place] [address] Urobilinog 1 Abnormal NORMAL: NORMAL [facility] Comment on above: Performed By: #### 2 04408 #### [facility],[address] [place] [address] Wbc 6-10 Normal 0-5/hpf [facility] Comment on above: Performed By: #### 2 73905 #### [facility],[address] [place] [address] Yeast NONE Normal [facility] Comment on above: Performed By: #### 2 89878 #### [facility],[address] [place] [address] XR LUMBAR SPINE (2-3 VIEWS)o n 02-23-2025 XR LUMBAR SPINE (2-3 VIEWS) EXAMINATION: 3 XRAY VIEWS OF THE LUMBAR SPINE 02/13/2025 1:53 pm COMPARISON: None. HISTORY: ORDERING SYSTEM PROVIDED HISTORY: Sciatica, unspecified laterality TECHNOLOGIST PROVIDED HISTORY: Reason for exam:->sciatica x6 weeks FINDINGS: Vertebra are normally aligned. Vertebral bodies are preserved in height. No acute fracture or bone erosion identified. Mild multilevel endplate spurring from degenerative spondylosis is noted. There is mild disc space narrowing at L2-3 and L4-5 from degenerative change. IMPRESSION: Mild degenerative changes of the lumbar spine. Interpreted by: Jared Fisher MD Signed by: Jared Fisher MD 02/23/25 Final result Normal [facility] Comment on above: Order Comment: Reaso n for exam:->sciatica x6 weeks CBC + DIFFon 12-23-2024 Baso # 0.02 x10EE3/UL Normal 0.00 - 0.10 [facility] Comment on above: Performed By: #### 2 96946 #### [facility],[address],[place] [address] Basophils/100 WBC (Bld) 0.4 % Normal 0.0 - 2.0 [facility] Comment on above: Performed By: #### 2 92032 #### [facility],[address] [place] [address] CBC + DIFF Normal [facility] Comment on above: Result Comment: CBC- COMPLETE BLOOD COUNT Performed By: #### 2 99681 #### [facility],[address] [place] [address] EO # 0.20 x10EE3/UL Normal 0.00 - 0.50 [facility] Comment on above: Performed By: #### 2 76685 #### [facility],[address] [place] [address] Eosinophils/100 WBC (Bld) 3.1 % Normal 0.0 - 7.0 [facility] Comment on above: Performed By: #### 2 38637 #### [facility],[address] [place] [address] Erythrocyte distribution width (RBC) [Ratio] 12.9 % Normal 12.0 - 15.6 [facility] Comment on above: Performed By: #### 2 27702 #### [facility],[address] [place] [address] Hematocrit (Bld) [Volume fraction] 38.3 % Low 40.0 - 52.0 [facility] Comment on above: Performed By: #### 2 57226 #### [facility],[address] [place], [place] [address] Hemoglobin (Bld) [Mass/Vol] 13.1 g/dL Normal 13.0 - 17.5 [facility] Comment on above: Performed By: #### 2 19671 #### [facility],[address] [place] [address] Lymph # 1.49 x10EE3/UL Normal 0.80 - 2.80 [facility] Comment on above: Performed By: #### 2 52705 #### [facility],[address] [place] [address] Lymphocytes/100 WBC (Bld) 23.1 % Normal 20.0 - 45.0 [facility] Comment on above: Performed By: #### 2 82800 #### [facility],[address] [place] [address] MANUAL DIFF N/A Normal [facility] Comment on above: Performed By: #### 2 03233 #### [facility],[address] [place] [address] MCH (RBC) [Entitic mass] 32 pg Normal 27 - 33 [facility] Comment on above: Performed By: #### 2 30812 #### [facility],[address] [place] [address] MCHC 34 X10 3 Normal 32 - 36 [facility] Comment on above: Performed By: #### 2 66497 #### [facility],[address] [place] [address] MCV (RBC) [Entitic vol] 95 fL Normal 81 - 98 [facility] Comment on above: Performed By: #### 2 49060 #### [facility],[address] [place] [address] [place] # 0.73 x10EE3/UL Normal 0.20 - 1.00 [facility] Comment on above: Performed By: #### 2 60641 #### [facility],[address] [place] [address] MONOS % 11.3 % High 0.0 - 10.0 [facility] Comment on above: Performed By: #### 2 35846 #### [facility],[address] [place], [place] [address] Morphology Josr (Bld) [Interp] N/A Normal [facility] Comment on above: Performed By: #### 2 52509 #### [facility],[address],[place] [address] Neut # 4.02 x10EE3/UL Normal 1.50 - 7.10 [facility] Comment on above: Performed By: #### 2 48737 #### [facility],[address] [place] [address] 23816 Neutrophils/100 WBC (Bld) 62.2 % Normal 46.0 - 76.0 [facility] Comment on above: Performed By: #### 2 65690 #### [facility],[address] [place] [address] 49976 PLATELET 184 x10EE3/UL Normal 150 - 450 [facility] Comment on above: Performed By: #### 2 35808 #### [facility],[address] [place] [address] 17996 Platelet mean volume (Bld) [Entitic vol] 6.9 fL Normal 6.4 - 10.5 [facility] Comment on above: Result Comment: AUTO MATED DIFFERENTIAL Performed By: #### 2 64788 #### [facility],[address] [place] [address] 26474 RBC 4.05 x 10EE6/UL Low 4.50 - 6.00 [facility] Comment on above: Performed By: #### 2 18652 #### [facility],[address] [place] [address] 27981 WBC 6.5 x 10EE3/UL Normal 4.5 - 10.8 [facility] Comment on above: Performed By: #### 2 17286 #### [facility],[address] [place] [address] 03982 CHEST 2 VIEWSon 12-23-2024 CHEST 2 VIEWS [place] [address] Patient: BLAKE GRIMES Phone#: : 1955 Age: 69 Gender: M Pt. Type: ER Account: [id number] Location: 052 Ordering: DR. BOOM TIRADO Exam Date: 12/23/2024/13:00 Family Phys: Charge Code: 759380 Physician: Lemhi Order #: [id number] Dose#: PROCEDURE: X-RAY CHEST 2 VIEWS COMPARISON: None. INDICATIONS: Cough. FINDINGS: LUNGS: Normal. No significant pulmonary parenchymal abnormalities. VASCULATURE: Normal. Unremarkable pulmonary vasculature. CARDIAC: Normal. No cardiac silhouette abnormality or cardiomegaly. MEDIASTINUM: Normal. No visible mass or adenopathy. PLEURA: Normal. No effusion or pleural thickening. BONES: Normal. No fracture or visible bony lesion. OTHER: Negative. CONCLUSION: No acute disease. Dictated by: Talya Brown MD on 12/23/2024 at 13:05 Approved by: Talya Brown MD on 12/23/2024 at 13:06 Normal [facility] CMP with eGFRon 12-23-2024 AGE 69 years Normal [facility] Comment on above: Performed By: #### 2 08334 ####[facility],[address] [place] [address] 07780 Albumin [Mass/Vol] 3.5 g/dL Normal 3.4 - 5.0 [facility] Comment on above: Performed By: #### 2 88940 ####[facility],[address] [place] [address] 03827 Albumin/Globulin [Mass ratio] 1.0 {ratio} Normal 0.9 - 1.6 [facility] Comment on above: Performed By: #### 2 06536 ####[facility],[address] [place] [address] 74080 ALK PHOS 113 U/L Normal 46 - 116 [facility] Comment on above: Performed By: #### 2 67048 ####[facility],[address] [place] [address] 38688 ALT [Catalytic activity/Vol] 27 U/L Normal 16 - 63 [facility] Comment on above: Performed By: #### 2 53009 ####[facility],[address] [place] [address] 98630 Anion gap [Moles/Vol] 12 mmol/L Normal 10 - 20 [facility] Comment on above: Performed By: #### 2 03277 ####[facility],[address] [place] [address] 38962 AST [Catalytic activity/Vol] 23 U/L Normal 15 - 37 [facility] Comment on above: Performed By: #### 2 22915 ####[facility],[address] [place], [place] [address] B/C RATIO 15 ratio Normal 0 - 30 [facility] Comment on above: Performed By: #### 2 50426 ####[facility],[address] [place] [address] 08155 Bilirubin [Mass/Vol] 0.4 mg/dL Normal 0.2 - 1.0 [facility] Comment on above: Performed By: #### 2 16416 ####[facility],[address] [place] [address] 10350 Calcium [Mass/Vol] 9.1 mg/dL Normal 8.5 - 10.1 [facility] Comment on above: Performed By: #### 2 49975 ####[facility],[address] [place] [address] 85556 Chloride [Moles/Vol] 104 mmol/L Normal 98 - 107 [facility] Comment on above: Performed By: #### 2 47841 ####[facility],[address] [place] [address] 60043 CMP with eGFR Normal [facility] Comment on above: Result Comment: COMP REHENSIVE METABOLIC PANEL Performed By: #### 2 61738 ####[facility],[address] [place] [address] 51321 CO2 [Moles/Vol] 28.7 mmol/L Normal 21.0 - 32.0 [facility] Comment on above: Performed By: #### 2 04958 ####[facility],[address] [place] [address] 52199 Creatinine [Mass/Vol] 1.01 mg/dL Normal 0.70 - 1.30 [facility] Comment on above: Performed By: #### 2 10368 ####[facility],[address] [place] [address] 52194 GFR/1.73 sq M.predicted among non-blacks MDRD (S/P/Bld) [Vol rate/Area] mL/min/{1.73_m2} Normal 60 - 999 [facility] Comment on above: Performed By: #### 2 44521 ####[facility],[address] [place] [address] Result Comment: ACCO RDING TO THE NATIONAL KIDNEY DISEASE EDUCATION PROGRAM(NKDE), A NORMAL eGFR IS A VALUE GREATER THAN OR EQUAL TO 60 ML/MIN/1.73 SQ METERS. CHRONIC KIDNEY DISEASE: <60mL/MIN/1.73 SQ METERS KIDNEY FAILURE: <15mL/MIN/1.73 SQ METERS THIS TEST SHOULD ONLY BE USED FOR PATIENTS 18 YEARS OF AGE AND OLDER. Globulin (S) [Mass/Vol] 3.6 g/dL Normal 1.5 - 3.8 [facility] Comment on above: Performed By: #### 2 62410 ####[facility],[address] [place] [address] 31525 Glucose [Mass/Vol] 98 mg/dL Normal 74 - 106 [facility] Comment on above: Performed By: #### 2 80778 ####[facility],[address] [place] [address] 76340 Potassium [Moles/Vol] 4.0 mmol/L Normal 3.5 - 5.1 [facility] Comment on above: Performed By: #### 2 25011 ####[facility],[address] [place] [address] 38312 Protein [Mass/Vol] 7.1 g/dL Normal 6.4 - 8.2 [facility] Comment on above: Performed By: #### 2 67254 ####[facility],[address] [place] [address] 33206 Sodium [Moles/Vol] 141 mmol/L Normal 136 - 145 [facility] Comment on above: Performed By: #### 2 88739 ####[facility],[address] [place] [address] 05212 Urea nitrogen [Mass/Vol] 15 mg/dL Normal 7 - 18 [facility] Comment on above: Performed By: #### 2 08941 ####[facility],[address] [place] [address] 59501 CORONAVIRUS (SARS) ANTIGEN T ESTon 12-23-2024 EXTERNAL QC DONE? YES Normal [facility] Comment on above: Performed By: #### 2 89233 #### [facility],[address] [place] [address] INTERNAL CONTROL PASS Normal [facility] Comment on above: Performed By: #### 2 04432 #### [facility],[address] [place] [address] 68964 SARS ANTIGEN Negative Normal NORMAL: NEGATIVE [facility] Comment on above: Performed By: #### 2 40584 #### [facility],[address] [place] [address] 94849 SEND TO ? NO Normal [facility] Comment on above: Result Comment: SARS -CoV-2 THIS TEST IS BEING USED UNDER THE FDA EUA PROCEDURE. THIS ASSAY HAS BEEN VALIDATED AT [facility] FOR USE WITH NASAL AND NASOPHARYNGEAL SWAB SPECIMENS. INTERPRETIVE DATA TEST RESULTS SHOULD ALWAYS BE CONSIDERED IN THE CONTEXT OF CLINICAL OBSERVATIONS AND EPIDEMIOLOGICAL DATA IN MAKING FINAL DIAGNOSIS AND PATIENT MANAGEMENT DECISIONS. PATIENT MANAGEMENT SHOULD FOLLOW CURRENT CDC GUIDELINES. THE DIAN SARS ANTIGEN MABLE DOES NOT DIFFERENTIATE BETWEEN SARS-CoV & SARS-CoV-2. A POSITIVE TEST RESULT INDICATES THE PRESENCE OF SARS-CoV-2 NUCLEOCAPSID PROTEIN ANTIGEN, AND THE PATIENT IS INFECTED WITH THE VIRUS AND PRESUMED TO BE CONTAGIOUS. A NEGATIVE TEST RESULT FOR THIS TEST MEANS THAT SARS-CoV-2 NUCLEOCAPSID PROTEIN ANTIGEN WAS NOT PRESENT IN THE SPECIMEN ABOVE THE LIMIT OF DETECTION. HOWEVER, A NEGATIVE RESULT DOES NOT RULE OUT COVID-19 AND SHOULD NOT BE USED THE SOLE BASIS FOR TREATMENT OR PATIENT MANAGEMENT DECISIONS. A NEGATIVE RESULT DOES NOT EXCLUDE THE POSSIBILITY OF COVID-19. NEGATIVE RESULTS, FROM PATIENTS WITH SYMPTOM ONSET BEYOND FIVE DAYS, SHOULD BE TREATED PRESUMPTIVE AND CONFIRMATION WITH A MOLECULAR ASSAY, IF NECESSARY, FOR PATIENT MANAGEMENT, MAY BE PERFORMED. WHEN DIAGNOSTIC TESTING IS NEGATIVE, THE POSSIBLILTY OF A FALSE NEGATIVE RESULT SHOULD BE CONSIDERED IN THE CONTEXT OF A PATIENT'S RECENT EXPOSURES AND THE PRESENCE OF CLINICAL SIGNS AND SYMPTOMS CONSISTENT WITH COVID-19. THE POSSIBILITY OF A FALSE NEGATIVE RESULT SHOULD ESPECIALLY BE CONSIDERED IF THE PATIENT'S RECENT EXPOSURES OR CLINICAL PRESENTATION INDICATE THAT COVID-19 IS LIKELY, AND DIAGNOSTIC TESTS FOR OTHER CAUSES OF ILLNESS (e.g., OTHER RESPIRATORY ILLNESS) ARE NEGATIVE. IF COVID-19 IS STILL SUSPECTED BASED ON EXPOSURE HISTORY TOGETHER WITH OTHER CLINICAL FINDINGS, RE-TESTING SHOULD BE CONSIDERED BY HEALTHCARE PROVIDERS IN CONSULTATION WITH PUBLIC HEALTH AUTHORITIES. Performed By: #### 2 41976 #### [place] [id number] D-DIMER, QUANTITATIVEon 12-01 D-DIMER QUANT 220 ng/ml Normal 0 - 230 [facility] Comment on above: Performed By: #### 2 37180 #### [facility],[address] [place] [address] 11613 D-DIMER, QUANTITATIVE Normal [facility] Comment on above: Result Comment: ERVIN T D-DIMER Performed By: #### 2 02091 #### [facility],[address] [place] [address] 60541 ED MED ADMINISTRATION DETAIL on 12-23-2024 ED MED ADMINISTRATION DETAIL Certified Ophthalmic Assistant [place] [address] [id number] 12/23/2024 [id number] Sex[facility] Male : 1955 Age: 69y MEASUREMENTS: Wt: 154.2 kg, Ht/Dre: 68.0 in, BMI: 51.70 ALLERGIES: Demerol, chlorhexidine, lisinopril Medication Ordered Medication Administration Date/Time Albuterol-Ipratropiu 13:12/23 Albuterol-Ipratropium (DuoNeb) 3mg/0.5mg Neb Tx 3 Given m (DuoNeb) mL given. Given by the respiratory therapist. Allergies verified and 13:12/23/2024 3mg/0.5mg Neb Tx confirmed 5 rights. - 13:07 Gopal Persaud, R.R.T. Gopal Persaud, 3 mL (NOW x1) R.R.T. Scanned 1 of 1 Normal [facility] ED NURSES CLINICAL NOTEon ED NURSES CLINICAL NOTE Nurse Narrative Nurse Clinical Narrative [address] [place] [address] [phone] 12/23/2024 Patient: BLAKE GRIMES Sex: Male : 1955 Age: 69y Primary Insurance: [facility] Policy Number: [id number] Subscriber: Other Secondary Insurance: [employer] MEDICARE SUPPLEMEN Policy Number: [id number] Group Number: . Subscriber: Other Disposition: Discharge to Home Disposition Decision Time: 14:52 12/23/2024 Departure Time: 15:11 12/23/2024 TRIAGE Arrived by private vehicle. Historian: (patient). Patient has a primary care physician. Primary physician (Pari Mas). Triage time: 12:20 12/23/2024. Acuity: LEVEL 4. Chief Complaint: COUGH and SINUS CONGESTION. Alert. Onset. (12/20). ( Side pain). SEPSIS SCREEN: NEGATIVE. SIRS criteria negative. No possible sources of infection. -- 12:12/23/24 EDT Bebo Kim R.N. 12:12/23/24. BP: 171/73 MAP: 106. HR: 82. RR: 18. O2 saturation: 95% on room air. Temperature: 97 F. Pain level now 8/10. -- 12:12/23/24 EDT Bebo Kim R.N. Measurements: 12:12/23/24 Wt: 154.2 kg, Ht/Dre: 68.0 in, BMI: 51.70 -- 12:12/23/24 T Bebo Kim R.N. 1 of 4 Nurse Narrative Medications: unable to obtain home medications -- 12:12/23/24 ARUNT Bebo Kim R.N. simvastatin 40 mg tablet: 1 tablet once a day. -- 12:12/23/24 T Bebo Kim R.N. metoprolol succinate ER 50 mg tablet,extended release 24 hr: 1 tablet once a day. -- 12:12/23/24 T Bebo Kim R.N. furosemide 20 mg tablet: 1 tablet once a day as needed. (Per pt's instructions) -- 12:12/23/24 [facility] Vinicio Mcclelland.N. 12:12/23/24. Preferred Pharmacy: ([facility]). -- 12:12/23/24 [facility] Bebo Kim R.N. Allergies: lisinopril -- 12:12/23/24 [facility] Bebo Kim R.N. chlorhexidine -- 12:12/23/24 T Bebo Kim R.N. Demerol -- 12:12/23/24 EDT Bebo Kim R.N. Problems: Non-Hodgkin's lymphoma (clinical) -- 12:12/23/24 T Bebo Kim R.N. Osteoarthritis -- 12:12/23/24 T Bebo Kim R.N. Hypertension -- 12:12/23/24 T Bebo Kim R.N. Edema -- 12:12/23/24 EDT Bebo Kim R.N. PTSD -- 12:12/23/24 T Bebo Kim R.N. Anxiety disorder -- 12:12/23/24 ARUNT Bebo Kim R.N. Depression -- 12:12/23/24 ARUNT Bebo Kim R.N. ADDITIONAL SURGERIES: Hip Prosthesis -- 12:12/23/24 ARUNT Bebo Kim R.N. Ankle surgery -- 12:12/23/24 ARUNT Bebo Kim R.N. Wrist sugery -- 12:12/23/24 EDT Bebo Kim R.N. History 12:12/23/24. SOCIAL HX: Never smoker. No alcohol use or drug use. The patient has not traveled outside the [place] 2 of 4 Nurse Narrative Infectious disease exposure: No infectious disease exposure. ABUSE ASSESSMENT: The patient answered yes to the question(s) Do you feel safe in your home? and no to the question(s) Are you afraid to go home?. SELF HARM ASSESSMENT: Self harm assessment was performed. The patient answered no to the question(s) Have you recently felt down, depressed, or hopeless? and Do you have thoughts of harming or killing yourself?. FALL RISK ASSESSMENT: Fall risk assessment completed. Risk factors identified include patient age greater than 65 years. Fall interventions initiated. Bed in low position. Brakes on. -- 12:12/23/24 OCTAVIA Kim R.N. Interventions 12:12/23/24. Identification band and allergy band on patient. Advanced care plan (Full Code). -- 12:12/23/24 EDT Bebo Kim R.N. PHYSICAL ASSESSMENT 13:12/23/24. GENERAL / NEURO / PSYCH: Alert. Oriented X 4. Appears in no acute distress. HEENT: Pupils equal, round and reactive to light. Mucous membranes are pink. RESPIRATORY: Mild respiratory distress. Decreased breath sounds. Bilateral wheezes diffusely. CVS: Normal sinus rhythm noted. Capillary refill less than 2 seconds. Pulses within normal limits. GI / : Abdomen soft and nontender and normal bowel sounds. SKIN: Skin intact. Skin is warm and dry. Normal skin turgor. -- 13:12/23/24 EDT Nerissa Valentin R.N. NURSING PROGRESS NOTES 13:12/23/24. Rounding: Pain: assessed pain level. Proximity of possessions / care items: call light within easy reach. Set expectations: advised patient of rounding protocol timing. Two patient identifiers checked. Call light placed in reach. Side rails up x 2. Bed placed in lowest position. Brakes of bed on. -- 13:12/23/24 OCTAVIA Valentin R.N. 13:07 12/23/24. Albuterol-Ipratropium (DuoNeb) 3mg/0.5mg Neb Tx 3 mL given. Given by the respiratory therapist. Allergies verified and confirmed 5 rights. -- 13:07 12/23/24 EDT Gopal Persaud R.R.T. 13:24 12/23/24. Site #1 started via IV in the left hand with a 20g angiocath with aseptic technique and good blood return; 1 attempt. Blood drawn: jayro lindo (more content not included)... [facility] ED ORDER SHEET (CPOE ONLY)on 12-23-2024 ED ORDER SHEET (CPOE ONLY) Order Sheet Order Sheet [address] [place] [address] [id number] 12/23/2024 Patient: BLAKE GRIMES Sex: Male : 1955 Age: 69y MEASUREMENTS: Wt: 154.2 kg, Ht/Dre: 68.0 in, BMI: 51.70 ALLERGIES: Demerol, chlorhexidine, lisinopril MEDICATION/IV/DRIP/FLUID ORDERS Order Description Priority Entered Acknowledged Completed Albuterol-Ipratropium (DuoNeb) 12:42 12/23/2024 13:06 13:07 3mg/0.5mg Neb Tx3 mL (NOW Boom Tirado D.O. 12/23/2024 12/23/2024 x1) Thompson Rojo R.R.T. LAB ORDERS Order Description Priority Entered Acknowledged Collected Completed CBC w Diff Stat Stat 12:42 12/23/2024 13:06 12/23/2024 13:43 12/23/2024 Nerissa Nguyen R.N. Anne Rutt, R.N. D.O. CMP Stat Stat 12:42 12/23/2024 13:06 12/23/2024 13:43 12/23/2024 Nerissa Nguyen R.N. Anne Rutt, R.N. D.OValentina D-Dimer Stat Stat 12:42 12/23/2024 13:06 12/23/2024 13:43 12/23/2024 Nerissa Nguyen R.N. Anne Rutt, R.N. 1 of 3 Order Sheet D.O. Troponin-I Stat Stat 12:42 12/23/2024 13:06 12/23/2024 13:43 12/23/2024 Nerissa Nguyen R.N. Anne Rutt, R.N. D.OValentina COVID PCR Stat Stat 12:45 12/23/2024 13:06 12/23/2024 13:08 12/23/2024 Nerissa Nguyen R.N. Anne Rutt, R.N. D.O. Flu Swab (Influenzae Stat 12:45 12/23/2024 13:06 12/23/2024 13:08 12/23/2024 AAg) Stat Nerissa Nguyen R.N. Anne Rutt, R.N. D.OValentina Rapid COVID (SARS) Stat 13:36 12/23/2024 13:43 12/23/2024 13:43 12/23/2024 ANTIGEN TEST Stat Nerissa Nguyen R.N. Anne Rutt, R.N. D.OValentina DIAGNOSTIC STUDY ORDERS Order Description Priority Entered Acknowledged Completed Chest 2V Stat Stat 12:42 12/23/2024 13:06 13:07 Boom Tirado D.O. 12/23/2024 12/23/2024 Thompson Rojo, R.N. Reason for Study: Cough STAFF ORDERS Order Description Priority Entered Acknowledged Collected Completed IV Saline Lock 12:42 12/23/2024 13:06 12/23/2024 13:43 12/23/2024 Nerissa Nguyen R.N. Anne Rutt, R.N. D.OValentina 2 of 3 Order Sheet [Electronically signed by Boom Tirado D.O. (12/23/2024 18:13 EDT)] 3 of 3 [facility] ED PHYSICIAN CLINICAL REPORT on 12-23-2024 ED PHYSICIAN CLINICAL REPORT Narrative Physician Clinical Narrative [address] [place] [address] [phone] 12/23/2024 [id number] Sex: Male : 1955 Age: 69y Primary Insurance: [facility]IC[facility] Policy Number: [id number] Subscriber: Other Secondary Insurance: [employer] Policy Number: [id number] Group Number: . Subscriber: Other Disposition: Discharge to Home Disposition Decision Time: 14:52 12/23/2024 Departure Time: 15:11 12/23/2024 Measurements Wt: 154.2 kg, Ht/Dre: 68.0 in, BMI: 51.70 Initial Vital Sign Measured Time BP MAP HR RR O2Sat ETCO2 Temp Pain GCS RTS 12:22 12/23/2024 171/73 106 82 18 95% RA 97.0 F 8 Time Seen: 12:27 12/23/2024. Arrived- By private vehicle. Historian- patient. HISTORY OF PRESENT ILLNESS Chief Complaint: COUGH. (this 69-year-old male presents to ER complaining of a nonproductive cough with congestion since last Monday or Monday with symptoms getting worse over time. He also complains of some pain in the right chest area with deep inspiration or cough. Denies any trauma to the area. Patient is a nonsmoker. Not on blood thinners. Denies any vomiting, diarrhea, sore throat, otalgia.). The patient has had a cough, difficulty breathing and nasal congestion. No sputum production, fever, muscle aches, chills or sore throat. No hoarseness, nasal discharge, sinus pressure or sinus drainage. The patient has had chest discomfort (Right rib pain worse with cough or inspiration.). 1 of 14 Narrative Similar symptoms previously. None. Recent medical care: Not recently seen/assessed. REVIEW OF SYSTEMS NEUROLOGICAL: No headache. EYES: No eye discomfort. GI: No nausea, vomiting, diarrhea or abdominal pain. PAST HISTORY Anxiety disorder Depression Edema Hypertension Non-Hodgkin's lymphoma (clinical) Osteoarthritis PTSD Surgeries: Ankle surgery Hip Prosthesis Wrist sugery Medications: unable to obtain home medications Allergies: chlorhexidine Demerol lisinopril SOCIAL HISTORY Never smoker. ADDITIONAL NOTES 2 of 14 Narrative The nursing notes have been reviewed. PHYSICAL EXAM Vital Signs: Have been reviewed. Appearance: Alert. No acute distress. Eyes: Pupils equal, round and reactive to light. Eyes normal inspection. ENT: Ears normal. Nose normal. Pharynx normal. Uvula midline. Neck: Normal inspection. Neck supple. CVS: Normal heart rate and rhythm. Heart sounds normal. Pulses normal. Respiratory: No respiratory distress. Expiratory mild bilateral wheezes present. Rhonchi present. Abdomen: Soft and nontender. No organomegaly. Skin: Skin warm. Normal skin color. No rash. Neuro: Oriented X 3. LABS, X-RAYS, AND EKG Chest X-ray: No acute disease. No infiltrate. Laboratory Tests: CBC + DIFF Final LENA: 12/23/2024 13:23:00 EDT MsgRcvd: 12/23/2024 13:48 EDT Lab Test Result Reference Status Received Comments 12/23/2024 13:48 CBC-COMPLETE CBC + DIFF Final EDT BLOOD COUNT 12/23/2024 13:48 WBC 6.5 x 10/UL 4.5 - 10.8 Final EDT 4.05 x 10/UL 12/23/2024 13:48 RBC 4.50 - 6.00 Final Below low normal EDT 12/23/2024 13:48 HEMOGLOBIN 13.1 g/dl 13.0 - 17.5 Final EDT 3 of 14 Narrative Lab Test Result Reference Status Received Comments 38.3 % 12/23/2024 13:48 HEMATOCRIT 40.0 - 52.0 Final Below low normal EDT 12/23/2024 13:48 MCV 95 fl 81 - 98 Final EDT 12/23/2024 13:48 MCH 32 pg 27 - 33 Final EDT 12/23/2024 13:48 MCHC 34 X10 3 32 - 36 Final EDT 12/23/2024 13:48 RDW/CV 12.9 % 12.0 - 15.6 Final EDT 12/23/2024 13:48 PLATELET 184 x10/UL 150 - 450 Final EDT 12/23/2024 13:48 AUTOMATED MPV 6.9 fl 6.4 - 10.5 Final EDT DIFFERENTIAL 12/23/2024 13:48 NEUT % 62.2 % 46.0 - 76.0 Final EDT 12/23/2024 13:48 LYMPH % 23.1 % 20.0 - 45.0 Final EDT 11.3 % 12/23/2024 13:48 MONOS % 0.0 - 10.0 Final Above high normal EDT 12/23/2024 13:48 EO % 3.1 % 0.0 - 7.0 Final EDT 12/23/2024 13:48 BASO % 0.4 % 0.0 - 2.0 Final EDT 12/23/2024 13:48 Lymph # 1.49 x10/UL 0.80 - 2.80 Final EDT 4 of 14 Narrative Lab Test Result Reference Status Received Comments 12/23/2024 13:48 Neut # 4.02 x10/UL 1.50 - 7.10 Final EDT 12/23/2024 13:48 [place] # 0.73 x10/UL 0.20 - 1.00 Final EDT 12/23/2024 13:48 EO # 0.20 x10/UL 0.00 - 0.50 Final EDT 12/23/2024 13:48 Baso # 0.02 x10/UL 0.00 - 0.10 Final EDT 12/23/2024 13:48 MANUAL DIFF N/A New Order EDT 12/23/2024 13:48 MORPHOLOGY N/A New Order EDT CMP with eGFR Final LENA: 12/23/2024 13:23:00 EDT MsgRcvd: 12/23/2024 14:02 EDT Lab Test Result Reference Status Received Comments COMPREHENSIVE 12/23/2024 CMP with eGFR Final METABOLIC 14:02 EDT PANEL 03/ (more content not included)... [facility] ED SUPER BILLon 12-23-[address] [place] [address] [id number] 12/23/2024 Patient: BLAKE GRIMES Sex: Male : 1955 Age: 69y Item Professional Category Description Facility Code Code Quantity Fee Total Nurse/E/M EMERGENCY 423393 1 $0.00 $0.00 DEPARTMENT VISIT MODERATE SEVERITY (64007-14) Nurse/Procedures Respiratory 380883 1 $0.00 $0.00 therapy - inhalation (27618) Grand Total $0.00 Providers Boom Tirado D.O. Chief Complaint COUGH. Principal Diagnosis 1 of 2 Superbill Acute bacterial bronchitis associated with bronchospasm. Bronchopneumonia. ICD-10 Codes J20.9: Acute bronchitis, unspecified J18.0: Bronchopneumonia, unspecified organism 2 of 2 [facility] ED VISIT SUMMARYon ED VISIT SUMMARY Visit Overview Visit Overview [place] [address] [place] [address] [phone] 12/23/2024 Patient: BLAKE GRIMES Sex: Male : 1955 Age: 69y 12/23/2024 06:13 PM EDT ED Arrival:12:14 12/23/2024 EDT Status: Recent Travel:no Language:eng Adv Directive: Isolation Status: Ethnicity:N Fall Risk:risk Infectious Disease Exposure:no Measurements:5'8 / 172.7 Self-Harm Status:risk Sepsis Screen:negative cm 340.0 lb / 154.2 kg Chief Complaint:COUGH, SINUS CONGESTION, (12/20), (Side pain), and (Vam Vakis) ALLERGIES chlorhexidine Demerol lisinopril HOME MEDICATIONS Unable To Obtain PAST MEDICAL HISTORY / PROBLEMS 1 of 3 Visit Overview Anxiety disorder Depression Edema Hypertension Non-Hodgkin's lymphoma (clinical) Osteoarthritis PTSD PAST SURGICAL HISTORY Ankle surgery Hip Prosthesis SOCIAL HISTORY Smoking status: No Alcohol use: No Drug use: No ED COURSE MEDICATIONS GIVEN IN EMERGENCY DEPARTMENT 13:07 12/23/24 Albuterol-Ipratropium (DuoNeb) 3mg/0.5mg Neb Tx 3 mL IV SITE INFORMATION INTAKE OUTPUT REASSESMENT (most recent) 14:41 12/23/24. ( PATIENT RECIEVED HOME MDI INSTRUCTION WITH SPACER.). VITAL SIGNS First Vitals Last Vitals Temp 12:22 12/23/24 97.0 F Temp 15:07 12/23/24 BP 12:22 12/23/24 171/73 BP 15:07 12/23/24 124/49 HR 12:22 12/23/24 82 HR 15:07 12/23/24 75 2 of 3 Visit Overview First Vitals Last Vitals RR 12:22 12/23/24 18 RR 15:07 12/23/24 O2 Sat 12:12/23/24 95% RA O2 Sat 15:07 12/23/24 Pain 12:22 12/23/24 8 Pain 15:07 12/23/24 ETCO2 12:22 12/23/24 ETCO2 15:07 12/23/24 GCS 12:22 12/23/24 GCS 15:07 12/23/24 RTS 12:22 12/23/24 RTS 15:07 12/23/24 PROCEDURES NURSING INTERVENTIONS Respiratory therapy LABS / STUDIES LABS / STUDIES ORDERED CBC w Diff Chest 2V CMP COVID PCR D-Dimer Flu Swab (Influenzae AAg) Rapid COVID (SARS) ANTIGEN TEST Troponin-I CLINICAL IMPRESSION ACUTE BACTERIAL BRONCHITIS ASSOCIATED WITH BRONCHOSPASM BRONCHOPNEUMONIA 3 of 3 [facility] ED VITALS FLOW SHEETon 12-23 ED VITALS FLOW SHEET Vitals Vital Sign Flow Sheet [address] [address] [id number] 12/23/2024 Patient: BLAKE GRIMES Sex: Male : 1955 Age: 69y Measurements Wt: 154.2 kg, Ht/Dre: 68.0 in, BMI: 51.70 Measured Time BP MAP HR RR O2Sat ETCO2 Temp Pain GCS RTS 15:07 12/23/2024 124/49 84 75 15:05 12/23/2024 74 100% 15:00 12/23/2024 67 98% 14:55 12/23/2024 80 99% 14:50 12/23/2024 84 98% 14:48 12/23/2024 145/57 86 77 14:45 12/23/2024 77 97% 14:40 12/23/2024 79 97% 14:35 12/23/2024 85 95% 14:30 12/23/2024 83 94% 14:28 12/23/2024 136/71 96 87 14:25 12/23/2024 82 97% 14:20 12/23/2024 69 96% 14:15 12/23/2024 72 95% 14:10 12/23/2024 70 95% 1 of 3 Vitals Measured Time BP MAP HR RR O2Sat ETCO2 Temp Pain GCS RTS 14:08 12/23/2024 140/65 90 75 14:05 12/23/2024 70 97% 14:00 12/23/2024 72 96% 13:55 12/23/2024 73 97% 13:50 12/23/2024 75 97% 13:48 12/23/2024 142/64 85 74 13:45 12/23/2024 71 96% 13:40 12/23/2024 76 94% 13:35 12/23/2024 80 96% 13:33 12/23/2024 77/57 63 76 13:30 12/23/2024 76 95% 13:25 12/23/2024 78 96% 13:20 12/23/2024 74 96% 13:15 12/23/2024 80 97% 13:14 12/23/2024 71 18 95% RA 13:10 12/23/2024 73 98% 13:08 12/23/2024 68 18 95% RA 13:05 12/23/2024 73 96% 13:03 12/23/2024 144/62 89 70 12:55 12/23/2024 77 94% 12:50 12/23/2024 77 95% 12:45 12/23/2024 74 95% 12:40 12/23/2024 74 95% 12:35 12/23/2024 83 96% 12:22 12/23/2024 171/73 106 82 18 95% RA 97.0 F 8 2 of 3 Vitals 3 of 3 [facility] INFLUENZA VIRUS RAPID A/Bon 12-23-2024 INFLUENZA VIRUS RAPID A/B INFLUENZA A NEGATIVE INFLUENZA B NEGATIVE INTERNAL NEG QC PASS INTERNAL POS QC PASS EXTERNAL QC DONE? YES SEND TO IC? NO A NEGATIVE TEST RESULT DOES NOT EXCLUDE INFECTION WITH INFLUENZA A OR B. THEREFORE, THE RESULTS OBTAINED FROM THIS FLU TEST SHOULD BE USED IN CONJUCTION WITH CLINICAL FINDINGS TO MAKE AN ACCURATE DIAGNOSIS. A POSITIVE RESULT DOES NOT RULE OUT CO-INFECTIONS WITH OTHER PATHOGENS OR IDENTIFY ANY SPECIFIC INFLUENZA A VIRUS SUBTYPE.CO-INFECTION WITH INFLUENZA A AND B IS RARE. IT IS RECOMMENDED THAT DUAL POSITIVE RESULTS BE CONFIRMED BY VIRAL CULTURE OR AN FDA-CLEARED INFLUENZA A AND B MOLECULAR ASSAY. INDIVIDUALS WHO HAVE RECEIVED NASALLY ADMINISTERED INFLUENZA A VACCINE MAY TEST POSITIVE IN COMMERCIALLY AVAILABLE INFLUENZA RAPID DIAGNOSTIC TESTS FOR UP TO THREE DAYS. RESULT CRITICAL? NO [facility] Comment on above: Performed By: #### [id number] ####[facility],[address] [place] [id number] TROPONINon 12-23-2024 HS TROPONIN 6.6 pg/mL Normal 0.0 - 76.2 [facility] Comment on above: Performed By: #### 2 [id number] #### [facility],[address] [place] [id number] XR HIP 2-3 VW W PELVIS LEFTo n 11-28-2024 XR HIP 2-3 VW W PELVIS LEFT ADDENDUM: The body and impression of the report should state: Total left hip arthroplasty with no gross hardware abnormalities. Electronically Signed by: ALISSA HUSSEIN on MonNov 28, 2024 3:17:33 PM EST EXAMINATION: ONE XRAY VIEW OF THE PELVIS AND TWO XRAY VIEWS LEFT HIP 11/21/2024 3:39 pm COMPARISON: None. HISTORY: ORDERING SYSTEM PROVIDED HISTORY: Left hip pain TECHNOLOGIST PROVIDED HISTORY: Reason for exam:->left hip pain FINDINGS: The hip demonstrates normal alignment. No evidence of acute fracture. No focal osseus lesion. Pelvis is intact. Total left hip arthroplasty with gross hardware abnormalities. IMPRESSION: Total left hip arthroplasty with gross hardware abnormalities. No acute abnormality of the hip. Interpreted by: Alissa Hussein MD Signed by: Alissa Hussein MD 11/28/24 Edited Result - FINAL [facility] Comment on above: Order Comment: Reaso n for exam:->left hip pain XR KNEE RIGHT (MIN 4 VIEWS)o n 10-26-2024 XR KNEE RIGHT (MIN 4 VIEWS) EXAMINATION: XR upright right knee 4 views 10/25/2024 2:14 pm COMPARISON: 12/26/2022 TECHNIQUE: Upright AP and PA views of both knees, upright lateral and sunrise views of right knee HISTORY: ORDERING SYSTEM PROVIDED HISTORY: Primary osteoarthritis of right knee TECHNOLOGIST PROVIDED HISTORY: Reason for exam:->right knee pain and arthritis, FINDINGS: No acute fracture, dislocation, lytic process or periosteal reaction is seen in the visualized bones and joints. No erosive type of arthritis. No periarticular soft tissue calcification. The right knee shows osteoarthritis with severe medial compartment narrowing. No large joint effusion. The left knee is evaluated separately. IMPRESSION: No acute skeletal abnormality is seen. . Severe right knee osteoarthritis. Interpreted by: Festus Smith MD Signed by: Festus Smith MD 10/26/24 Final result [facility] Comment on above: Order Comment: Reaso n for exam:->right knee pain and arthritis XR KNEE LEFT (MIN 4 VIEWS)on 10-25-2024 XR KNEE LEFT (MIN 4 VIEWS) EXAMINATION: FOUR XRAY VIEWS OF THE LEFT KNEE 10/25/2024 2:14 pm COMPARISON: 12/26/2022 HISTORY: ORDERING SYSTEM PROVIDED HISTORY: Primary osteoarthritis of left knee TECHNOLOGIST PROVIDED HISTORY: Reason for exam:->left knee pain and arthritis FINDINGS: No evidence of acute fracture or dislocation. No focal osseous lesion. No evidence of joint effusion. No focal soft tissue abnormality. Tri compartment degenerative changes. IMPRESSION: Tricompartment degenerative changes. Interpreted by: Alissa Hussein MD Signed by: Alissa Hussein MD 10/25/24 Final result [facility] Comment on above: Order Comment: Reaso n for exam:->left knee pain and arthritis XR Radius and Ulna - left 2 Viewson 04-12-2024 No fracture or acute osseous abnormality. No radiopaque foreign body. [facility] EXAMINATION: TWO XRAY VIEWS OF THE LEFT FOREARM 04/12/2024 9:40 am COMPARISON: None. HISTORY: ORDERING SYSTEM PROVIDED HISTORY: lacertaion TECHNOLOGIST PROVIDED HISTORY: Reason for exam:->lacertaion FINDINGS: No fracture or dislocation. No radiopaque foreign body and no suspicious gas collections. Hypertrophic spur of the olecranon process of the ulna at the triceps insertion. [facility] Chucky Hood MD - 04/12/2024 EXAMINATION: TWO XRAY VIEWS OF THE LEFT FOREARM 04/12/2024 9:40 am COMPARISON: None. HISTORY: ORDERING SYSTEM PROVIDED HISTORY: lacertaion TECHNOLOGIST PROVIDED HISTORY: Reason for exam:->lacertaion FINDINGS: No fracture or dislocation. No radiopaque foreign body and no suspicious gas collections. Hypertrophic spur of the olecranon process of the ulna at the triceps insertion. IMPRESSION: No fracture or acute osseous abnormality. No radiopaque foreign body. [facility] Radiology Study observation (narrative) [facility] XR Radius and Ulna - left 2 ViewsOrdered By: Chucky Hood on 04-12-2024 RIMA [employer] Work Phone: CT Abdomen and Pelvis W ольга dickens Soumya 05-25-2023 IMPRESSION: 1. No evidence of splenomegaly or intra-abdominal/intrapel pb lymphadenopathy. 2. Scattered colonic diverticulosis without evidence of diverticulitis. Transcribe Date/Time: May 25 2023 12:06P Dictated by: ISABELLE CHONG MD This examination was interpreted and the report reviewed and electronically signed by: ISABELLE CHONG MD on May 25 2023 12:37PM EST Thank you for allowing us to participate in the care of your patient. Should there be any questions regarding this interpretation, please call [phone]. If you are unable to reach us at the number above, please feel free to contact [facility] at [phone]. DIVISION OF RADIOLOGY * * *Final Report* * * DATE OF EXAM: May 25 2023 11:19AM [facility] 0530 - CT ABD/PEL W IVCON / PROCEDURE REASON: DIFFUSE LG B CELL LYMPHOMA, LYMPH NODES OF MULTI SITES * * * * Physician Interpretation * * * * RESULT: EXAMINATION: CT ABDOMEN AND PELVIS WITH IV CONTRAST CLINICAL HISTORY: Diffuse large B-cell lymphoma follow-up TECHNIQUE: CT of the abdomen and pelvis was performed using standard technique, scanning from just above the dome of the diaphragm to the symphysis pubis. MQ: CTAP_3 Contrast: IV: 100 ml of Omnipaque 350 Oral: 12.5 ml of Omni 240 10-25ml diluted with water CT Radiation dose: Integrated Dose-length product (DLP) for this visit = 1439.94 mGy*cm. CT Dose Reduction Employed: Automated exposure control (AEC) COMPARISON: PET/CT scan dated 09/20/22; CT abdomen/pelvis dated 01/01/21. RESULT: Liver: No mass. Subcentimeter left hepatic cyst (6:32), stable. Biliary: No bile duct dilation. Gallbladder is unremarkable. Spleen: No mass. No splenomegaly. Pancreas: No mass or duct dilation. Adrenals: No mass. Kidneys: 1.3 cm cystic focus in the left kidney, stable. No hydronephrosis or suspicious enhancing renal mass. GI tract: No dilation or wall thickening. Scattered colonic diverticulosis is noted without evidence of diverticulitis. Lymph nodes: No abdominal or pelvic lymphadenopathy. Mesentery/Peritoneum: No ascites or mass. Retroperitoneum: No mass. Vasculature: - Abdominal aorta and iliac arteries: Atherosclerotic calcifications without aneurysm. - Celiac and SMA: Patent without stenosis. - Portal venous system (SMV, splenic vein, portal vein and branches): Patent. - Hepatic veins: Patent. Pelvis: Streak artifact from the left hip arthroplasty of the portions of the urinary bladder and pelvis. Visualized pelvis demonstrates no mass, ascites or fluid collection. Bones/Soft Tissues: Left hip arthroplasty. No new osseous abnormalities. Lower thorax: A chest CT performed will be reported separately. Frame Maker (topogram) images: No additional findings. DIVISION OF RADIOLOGY Provider, [facility] - 05/25/2023 * * *Final Report* * * DATE OF EXAM: May 25 2023 11:19AM [facility] 0530 - CT ABD/PEL W IVCON / PROCEDURE REASON: DIFFUSE LG B CELL LYMPHOMA, LYMPH NODES OF MULTI SITES * * * * Physician Interpretation * * * * RESULT: EXAMINATION: CT ABDOMEN AND PELVIS WITH IV CONTRAST CLINICAL HISTORY: Diffuse large B-cell lymphoma follow-up TECHNIQUE: CT of the abdomen and pelvis was performed using standard technique, scanning from just above the dome of the diaphragm to the symphysis pubis. MQ: CTAP_3 Contrast: IV: 100 ml of Omnipaque 350 Oral: 12.5 ml of Omni 240 10-25ml diluted with water CT Radiation dose: Integrated Dose-length product (DLP) for this visit = 1439.94 mGy*cm. CT Dose Reduction Employed: Automated exposure control (AEC) COMPARISON: PET/CT scan dated 09/20/22; CT abdomen/pelvis dated 01/01/21. RESULT: Liver: No mass. Subcentimeter left hepatic cyst (6:32), stable. Biliary: No bile duct dilation. Gallbladder is unremarkable. Spleen: No mass. No splenomegaly. Pancreas: No mass or duct dilation. Adrenals: No mass. Kidneys: 1.3 cm cystic focus in the left kidney, stable. No hydronephrosis or suspicious enhancing renal mass. GI tract: No dilation or wall thickening. Scattered colonic diverticulosis is noted without evidence of diverticulitis. Lymph nodes: No abdominal or pelvic lymphadenopathy. Mesentery/Peritoneum: No ascites or mass. Retroperitoneum: No mass. Vasculature: - Abdominal aorta and iliac arteries: Atherosclerotic calcifications without aneurysm. - Celiac and SMA: Patent without stenosis. - Portal venous system (SMV, splenic vein, portal vein and branches): Patent. - Hepatic veins: Patent. Pelvis: Streak artifact from the left hip arthroplasty of the portions of the urinary bladder and pelvis. Visualized pelvis demonstrates no mass, ascites or fluid collection. Bones/Soft Tissues: Left hip arthroplasty. No new osseous abnormalities. Lower thorax: A chest CT performed will be reported separately. Frame Maker (topogram) images: No additional findings. IMPRESSION IMPRESSION: 1. No evidence of splenomegaly or intra-abdominal/intrapel pb lymphadenopathy. 2. Scattered colonic diverticulosis without evidence of diverticulitis. Transcribe Date/Time: May 25 2023 12:06P Dictated by: ISABELLE CHONG MD This examination was interpreted and the report reviewed and electronically signed by: ISABELLE CHONG MD on May 25 2023 12:37PM EST Thank you for allowing us to participate in the care of your patient. Should there be any questions regarding this interpretation, please call [phone]. If you are unable to reach us at the number above, please feel free to contact [facility] at [phone]. [facility] CT Abdomen and Pelvis W cont rast IVOrdered By: Ccf Provider on 05-25-2023 [facility] CT CHEST W CONTRASTon 2022 IMPRESSION: 1. No evidence of intrathoracic lymphadenopathy. 2. More conspicuous mild subpleural reticular nodular opacities in the right upper lobe most likely infectious/inflammatory in etiology. Transcribe Date/Time: May 25 2023 11:50A Dictated by: ISABELLE CHONG MD This examination was interpreted and the report reviewed and electronically signed by: ISABELLE CHONG MD on May 25 2023 12:36PM EST Thank you for allowing us to participate in the care of your patient. Should there be any questions regarding this interpretation, please call [phone]. If you are unable to reach us at the number above, please feel free to contact [facility] at [phone]. OTHER * * *Final Report* * * DATE OF EXAM: May 25 2023 11:19AM [facility] 0347 - CT CHEST W IVCON / PROCEDURE REASON: DIFFUSE LG B CELL LYMPHOMA, LYMPH NODES OF MULTI SITES * * * * Physician Interpretation * * * * RESULT: EXAMINATION: CHEST CT WITH CONTRAST Indication: DIFFUSE LG B CELL LYMPHOMA, LYMPH NODES OF MULTI SITES Technique: Spiral CT acquisition of the chest from the thoracic inlet to the upper abdomen following IV contrast. M: CTCW_4 Contrast: 100 mL Omnipaque [address] Dose-Length Product: 1439.94 mGy*cm CT Dose Reduction Employed: Automated exposure control (AEC) Comparison: PET/CT scan dated 09/20/22; CT chest dated 01/01/21 RESULT: Limitations: None. Lines, tubes, and devices: Left-sided Port-A-Cath. Lung parenchyma and pleura: More conspicuous mild subpleural reticulonodular opacities in the right upper lobe (4:75). No pleural effusion. Central airways are patent. Thoracic inlet, heart, and mediastinum: No lymphadenopathy in the axillary, mediastinal, or hilar regions. The thoracic aorta and main pulmonary artery are normal in caliber. The cardiac chambers are normal in size. Atherosclerotic coronary artery calcifications are noted. No pericardial effusion or thickening. Bones and soft tissues: No new osseous abnormalities. Upper abdomen: Please refer to the abdomen CT scan report for the abdomen findings. . OTHER [facility] No Panel Informationon 05-25 Radiology Study observation (narrative) [facility] Exercise stress test studyon 12-14-2022 Chris Bill MD 12/14/2022 2:07 PM [facility] [place] [address] Exercise Stress Study Name: [facility] : 1955 Sex: male Date of Study: 12/14/2022 Height: 5' 8 (172.7 cm) Weight: (!) 302 lb (137 kg) Ordering Provider: Hilary Crenshaw MD PCP: Bradley Zuñiga MD Computer Operations Specialist: none Interpreting Physician: Chris Bill MD Indication: Detecting the presence and location of coronary artery disease Clinical History: Patient has no known history of coronary artery disease. Resting ECG: Normal sinus rhythm and frequent, polymorphic PVCs. Exercise: The patient exercised using a Antonio protocol, completing 4:01 minutes and reaching an estimated work load of 6.9 metabolic equivalents (METS). Resting HR was 83. Peak exercise heart rate was 160 ( 104% of maximum predicted heart rate for age). Baseline BP 142/80. Peak exercise BP 160/70. The blood pressure response to exercise was normal Exercise was terminated due to Dyspnea The patient experienced no chest pain with exercise. Pulse oximetry was used to monitor oxygen saturation during the stress test. The study was performed on Room Air. The resting pulse oximeter was 96%. The post stress O2 saturation seen during exercise was 97 %. Exercise ECG: The patient demonstrated frequent PVCs with runs of non sustained ventricular tachycardia during exercise. With exercise, there were no ST segment changes of significance at the heart rate achieved. Impression: Exercise EKG was normal. Frequent PVCs/ Episodes of NSVT on stress as above. The patient experienced no chest pain with exercise. Luna treadmill score was 4 implying intermediate risk of acute ischemic events. Exercise capacity was below average. Thank you for sending your patient to this [facility] Nationally Accredited Facility. [facility] Exercise stress test studyOr dered By: Chris Bill on 12-14-2022 [employer] Phone: MR Brain WO and W contrast I Ho 11-17-2022 IMPRESSION: 1. Negative contrast enhanced MRI of the brain. No findings to explain clinical symptoms. No evidence for SPIRITUAL CARE COORDINATOR involvement by lymphoma. Transcribe Date/Time: Nov 17 2022 10:01A Dictated by: JUDY BUNN MD This examination was interpreted and the report reviewed and electronically signed by: JUDY BUNN MD on Nov 17 2022 10:06AM EST Thank you for allowing us to participate in the care of your patient. Should there be any questions regarding this interpretation, please call [phone]. If you are unable to reach us at the number above, please feel free to contact [facility] at [phone]. DIVISION OF RADIOLOGY * * *Final Report* * * DATE OF EXAM: Nov 16 2022 6:36PM [facility] 0295 - MRI BRAIN O CONTRAST / PROCEDURE REASON: DIFFUSE LG B CELL LYMPHOMA, LYMPH NODES MULTI SITES * * * * Physician Interpretation * * * * RESULT: MRI BRAIN WITHOUT/WITH INTRAVENOUS CONTRAST COMPARISON: 04/21/2021. HISTORY: Diffuse large B-cell lymphoma. Involuntary mouth movements. TECHNIQUE: Multi-planar, multi-sequential MR images of the brain were obtained prior to and following the intravenous administration of contrast material. MR Contrast: Dotarem/ Contrast Dose (ml): 20 Route of Administration: Intravenous RESULT: Brain volume is age appropriate. The ventricles and basal cisterns are patent and midline. No mass effect or midline shift identified. Negative for extra-axial fluid collection. No restricted diffusion is identified within the brain parenchyma to suggest acute infarction. Gradient echo images show no evidence for intracranial hemorrhage. After the administration of intravenous contrast material, there is no pathologic parenchymal or meningeal enhancement. Normal arterial intracranial flow voids are seen about the [place]. Nonspecific mastoid fluid is noted on the left. No obstruction is seen in the nasopharynx. Mild mucosal thickening bilateral ethmoid sinuses. Orbits unremarkable after bilateral cataract surgery. The extracranial soft tissues are unremarkable. Cerebellar tonsils are normal in position. Calvarial signal is within normal limits. DIVISION OF RADIOLOGY Provider, [facility] - 11/17/2022 * * *Final Report* * * DATE OF EXAM: Nov 16 2022 6:36PM [facility] 0295 - MRI BRAIN [facility] CONTRAST / PROCEDURE REASON: DIFFUSE LG B CELL LYMPHOMA, LYMPH NODES MULTI SITES * * * * Physician Interpretation * * * * RESULT: MRI BRAIN WITHOUT/WITH INTRAVENOUS CONTRAST COMPARISON: 04/21/2021. HISTORY: Diffuse large B-cell lymphoma. Involuntary mouth movements. TECHNIQUE: Multi-planar, multi-sequential MR images of the brain were obtained prior to and following the intravenous administration of contrast material. MR Contrast: Dotarem/ Contrast Dose (ml): 20 Route of Administration: Intravenous RESULT: Brain volume is age appropriate. The ventricles and basal cisterns are patent and midline. No mass effect or midline shift identified. Negative for extra-axial fluid collection. No restricted diffusion is identified within the brain parenchyma to suggest acute infarction. Gradient echo images show no evidence for intracranial hemorrhage. After the administration of intravenous contrast material, there is no pathologic parenchymal or meningeal enhancement. Normal arterial intracranial flow voids are seen about the [place]. Nonspecific mastoid fluid is noted on the left. No obstruction is seen in the nasopharynx. Mild mucosal thickening bilateral ethmoid sinuses. Orbits unremarkable after bilateral cataract surgery. The extracranial soft tissues are unremarkable. Cerebellar tonsils are normal in position. Calvarial signal is within normal limits. IMPRESSION IMPRESSION: 1. Negative contrast enhanced MRI of the brain. No findings to explain clinical symptoms. No evidence for SPIRITUAL CARE COORDINATOR involvement by lymphoma. Transcribe Date/Time: Nov 17 2022 10:01A Dictated by: JUDY BUNN MD This examination was interpreted and the report reviewed and electronically signed by: JUDY BUNN MD on Nov 17 2022 10:06AM EST Thank you for allowing us to participate in the care of your patient. Should there be any questions regarding this interpretation, please call [phone]. If you are unable to reach us at the number above, please feel free to contact [facility] eRadiology at [phone]. [facility] MR Brain WO and W contrast I VOrdered By: Ccf Provider on 11-17-2022 [facility] MR Brain WO and W contrast I Von 11-16-2022 Radiology Study observation (narrative) [facility] PET+CT Guidance for localiza tion of tumor of Skull base to mid-thigh-- W 18F-FDG Soumya 09-20-2022 IMPRESSION: 1. NECK: * No FDG avid neoplastic process. 2. CHEST: * No FDG avid neoplastic process. 3. ABDOMEN/PELVIS: * No FDG avid neoplastic process. 4. EXTREMITIES/SKELETON: * No suspicious FDG avid osseous lesion. Deauville score: Score 1: No uptake above the background Transcribe Date/Time: Sep 20 2022 10:09A Dictated by: SUZI BRAVO MD This examination was interpreted and the report reviewed and electronically signed by: SERGIO PAGE MD on Sep 20 2022 1:03PM EST Thank you for allowing us to participate in the care of your patient. Should there be any questions regarding this interpretation, please call [phone]. If you are unable to reach us at the number above, please feel free to contact [facility] eRadiology at [phone]. 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 INDICATION: Study performed for subsequent treatment strategy. TECHNIQUE: F18-FDG administered IV was followed about 60 minutes later by PET imaging from eyes to proximal thighs. Free breathing low dose CT was performed without contrast for attenuation correction and anatomic localization. FDG radionuclide dose: 19.[address] Dose-Length Product (DLP): 955 mGy*cm. CT Dose Reduction Employed: Yes COMPARISON: PET/CT 03/05/2022 CORRELATION: CT chest, abdomen and pelvis 01/01/2021 RESULT: Frame Maker (topogram) images: Non-diagnostic. - Mediastinum blood pool activity: Max SUV: 2.6 - Background liver activity: Max SUV: 3.7 HEAD AND NECK: Physiologic uptake seen in the visualized brain, extraocular muscles, parapharyngeal soft tissues and salivary glands. No FDG avid cervical lymphadenopathy or mass. No FDG avid thyroid lesion. CHEST: Left chest wall port catheter with tip in the cavoatrial junction. Lungs and tracheobronchial tree: No FDG avid consolidation or FDG avid pulmonary nodule. Note that PET/CT is not sensitive for pulmonary nodules less than 8 mm. Pleura: No FDG avid pleural effusion or pleural mass. Mediastinum and Lymph nodes: No FDG avid mediastinal mass, mediastinal or hilar lymphadenopathy. Heart and great vessels: Physiologic uptake in the heart. Chest wall and axilla: No FDG avid axillary lymphadenopathy. ABDOMEN AND PELVIS: Physiologic uptake seen in the and GI tracts. Liver: No FDG avid lesion. Biliary: Gallbladder is unremarkable. Spleen: No FDG avid lesion. No splenomegaly. Pancreas: No FDG avid lesion. Adrenals: No FDG avid lesion. Kidneys: No stones, hydronephrosis, or FDG avid lesions. GI tract: No dilation or focal suspicious FDG avid lesion. Lymph nodes: No FDG avid abdominal or pelvic lymphadenopathy. Mesentery/Peritoneum: No ascites or FDG avid mass. Vasculature: Vascular patency cannot be assessed due to lack of IV contrast. Atherosclerotic calcifications of the abdominal aorta and iliac vessels without aneurysm. Pelvis: No ascites, fluid collection or FDG avid process. BONES AND EXTREMITIES: No suspicious FDG avid osseous lesion. Left total hip arthroplasty. The imaged portions of the skeleton demonstrates age-related degenerative changes. No destructive osseous lesions. Focal FDG activity near the superior aspect of right iliac crest, likely inflammation related to tendinopathy. 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 INDICATION: Study performed for subsequent treatment strategy. TECHNIQUE: F18-FDG administered IV was followed about 60 minutes later by PET imaging from eyes to proximal thighs. Free breathing low dose CT was performed without contrast for attenuation correction and anatomic localization. FDG radionuclide dose: 19.[address] Dose-Length Product (DLP): 955 mGy*cm. CT Dose Reduction Employed: Yes COMPARISON: PET/CT 03/05/2022 CORRELATION: CT chest, abdomen and pelvis 01/01/2021 RESULT: Frame Maker (topogram) images: Non-diagnostic. - Mediastinum blood pool activity: Max SUV: 2.6 - Background liver activity: Max SUV: 3.7 HEAD AND NECK: Physiologic uptake seen in the visualized brain, extraocular muscles, parapharyngeal soft tissues and salivary glands. No FDG avid cervical lymphadenopathy or mass. No FDG avid thyroid lesion. CHEST: Left chest wall port catheter with tip in the cavoatrial junction. Lungs and tracheobronchial tree: No FDG avid consolidation or FDG avid pulmonary nodule. Note that PET/CT is not sensitive for pulmonary nodules less than 8 mm. Pleura: No FDG avid pleural effusion or pleural mass. Mediastinum and Lymph nodes: No FDG avid mediastinal mass, mediastinal or hilar lymphadenopathy. Heart and great vessels: Physiologic uptake in the heart. Chest wall and axilla: No FDG avid axillary lymphadenopathy. ABDOMEN AND PELVIS: Physiologic uptake seen in the and GI tracts. Liver: No FDG avid lesion. Biliary: Gallbladder is unremarkable. Spleen: No FDG avid lesion. No splenomegaly. Pancreas: No FDG avid lesion. Adrenals: No FDG avid lesion. Kidneys: No stones, hydronephrosis, or FDG avid lesions. GI tract: No dilation or focal suspicious FDG avid lesion. Lymph nodes: No FDG avid abdominal or pelvic lymphadenopathy. Mesentery/Peritoneum: No ascites or FDG avid mass. Vasculature: Vascular patency cannot be assessed due to lack of IV contrast. Atherosclerotic calcifications of the abdominal aorta and iliac vessels without aneurysm. Pelvis: No ascites, fluid collection or FDG avid process. BONES AND EXTREMITIES: No suspicious FDG avid osseous lesion. Left total hip arthroplasty. The imaged portions of the skeleton demonstrates age-related degenerative changes. No destructive osseous lesions. Focal FDG activity near the superior aspect of right iliac crest, likely inflammation related to tendinopathy. IMPRESSION IMPRESSION: 1. NECK: * No FDG avid neoplastic process. 2. CHEST: * No FDG avid neoplastic process. 3. ABDOMEN/PELVIS: * No FDG avid neoplastic process. 4. EXTREMITIES/SKELETON: * No suspicious FDG avid osseous lesion. Deauville score: Score 1: No uptake above the background Transcribe Date/Time: Sep 20 2022 10:09A Dictated by: SUZI BRAVO MD This examination was interpreted and the report reviewed and electronically signed by: SERGIO PAGE MD on Sep 20 2022 1:03PM EST Thank you for allowing us to participate in the care of your patient. Should there be any questions regarding this interpretation, please call [phone]. If you are unable to reach us at the number above, please feel free to contact [facility] eRadiology at [phone]. [facility] Radiology Study observation (narrative) [facility] PET+CT Guidance for localiza tion of tumor of Skull base to mid-thigh-- W 18F-FDG IVOrdered By: Ccf Provider on 09-20-2022 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 Procedure Date Date: 03/17/2022 Start: 10:27 AM Study Location: Echo Lab Technical Quality: Limited visualization due to body habitus. Indications:LV function. Patient Status: Routine Contrast Medium: Definity. Height: 68 inches Weight: 311 pounds BSA: 2.47 m^2 BMI: 47.29 kg/m^2 BP: 140/60 mmHg Findings Left Ventricle Left ventricle was not well visualized. Micro-bubble contrast injected to enhance left ventricular visualization. No evidence of left ventricular mass or thrombus noted. Grossly normal left ventricle size. No gross regional wall motion abnormality. Indeterminate diastolic function. Ejection fraction is visually estimated at 55%. Right Ventricle Normal right ventricle structure and function. Left Atrium Normal left atrium. Right Atrium Normal right atrium. Mitral Valve Structurally normal mitral valve. Tricuspid Valve Normal tricuspid valve structure Aortic Valve Aortic valve opens well. Pulmonic Valve The pulmonic valve was not well visualized. Pericardial Effusion No evidence for hemodynamically significant pericardial effusion. Aorta Aorta was not clearly visualized. Miscellaneous Inferior Vena Cava not well visualized. Conclusions Summary Limited study for LV function poor quality 2-D and Definity study LV probably of normal size and contractility Signature M-Mode/2D Measurements & Calculations LV Diastolic LV Systolic Dimension: 5.1 cm LA Dimension: 5.4 cm Dimension: 7.4 cm LV Volume Diastolic: 166.6 ml LV FS:31.1 % LV Volume Systolic: 69.1 ml LV PW Diastolic: LV EDV/LV EDV Index: 166.6 ml/67 0.7 cm ml/m^2LV ESV/LV ESV Index: 69.1 LV PW Systolic: ml/28ml/ m^2 1.3 cm EF Calculated: 58.5 % Septum Diastolic: LV Mass Index: 93 l/min*m^2 LA volume/Index: 0.7 cm LV Length: 7.9 cm 135.1 ml /55ml/m^2 Septum Systolic: 1.3 cm LV Mass: 230.44 g Doppler Measurements & Calculations MV Peak E-Wave: 1.11 m/s MV Peak A-Wave: 0.63 m/s MV E/A Ratio: 1.77 MV Deceleration Time: 171.3 msec MV E' Septal Velocity: 0.08 m/s MV E' Lateral Velocity: 10 m/s [id number]%3d%3d [facility] Boom Rivera MD - 03/17/2022 Transthoracic Echocardiography Report (TTE) Demographics Patient Name CORNELIO JONES Gender Male P Medical Record [id number] Room Number Number Procedure Date 03/17/2022 Corporate ID Ordering Physician Boom Bee MD Accession Number [id number] Referring Physician Bradley Zuñiga MD Date of 1955 Senior Fire Protection 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 Procedure Date Date: 03/17/2022 Start: 10:27 AM Study Location: Echo Lab Technical Quality: Limited visualization due to body habitus. Indications:LV function. Patient Status: Routine Contrast Medium: Definity. Height: 68 inches Weight: 311 pounds BSA: 2.47 m^2 BMI: 47.29 kg/m^2 BP: 140/60 mmHg Findings Left Ventricle Left ventricle was not well visualized. Micro-bubble contrast injected to enhance left ventricular visualization. No evidence of left ventricular mass or thrombus noted. Grossly normal left ventricle size. No gross regional wall motion abnormality. Indeterminate diastolic function. Ejection fraction is visually estimated at 55%. Right Ventricle Normal right ventricle structure and function. Left Atrium Normal left atrium. Right Atrium Normal right atrium. Mitral Valve Structurally normal mitral valve. Tricuspid Valve Normal tricuspid valve structure Aortic Valve Aortic valve opens well. Pulmonic Valve The pulmonic valve was not well visualized. Pericardial Effusion No evidence for hemodynamically significant pericardial effusion. Aorta Aorta was not clearly visualized. Miscellaneous Inferior Vena Cava not well visualized. Conclusions Summary Limited study for LV function poor quality 2-D and Definity study LV probably of normal size and contractility Signature M-Mode/2D Measurements & Calculations LV Diastolic LV Systolic Dimension: 5.1 cm LA Dimension: 5.4 cm Dimension: 7.4 cm LV Volume Diastolic: 166.6 ml LV FS:31.1 % LV Volume Systolic: 69.1 ml LV PW Diastolic: LV EDV/LV EDV Index: 166.6 ml/67 0.7 cm ml/m^2LV ESV/LV ESV Index: 69.1 LV PW Systolic: ml/28ml/ m^2 1.3 cm EF Calculated: 58.5 % Septum Diastolic: LV Mass Index: 93 l/min*m^2 LA volume/Index: 0.7 cm LV Length: 7.9 cm 135.1 ml /55ml/m^2 Septum Systolic: 1.3 cm LV Mass: 230.44 g Doppler Measurements & Calculations MV Peak E-Wave: 1.11 m/s MV Peak A-Wave: 0.63 m/s MV E/A Ratio: 1.77 MV Deceleration Time: 171.3 msec MV E' Septal Velocity: 0.08 m/s MV E' Lateral Velocity: 10 m/s [id number]%3d%3d [facility] [employer] Phone: [facility] [employer] Phone: PET+CT Guidance for localiza tion of tumor of Skull base to mid-thigh-- W 18F-FDG Soumya 03-07-2022 IMPRESSION: 1. Neck: No suspicious hypermetabolic foci 2. Chest: No evidence of FDG avid neoplastic process 3. Abdomen and pelvis: No evidence of FDG avid neoplastic process 4. Skeleton: No hypermetabolic osseous lesions Deauville criteria score: 1 Transcribe Date/Time: Mar 06 2022 8:09P Dictated by: KASEY RUDD MD This examination was interpreted and the report reviewed and electronically signed by: KASEY RUDD MD on Mar 07 2022 7:25AM EST Thank you for allowing us to participate in the care of your patient. Should there be any questions regarding this interpretation, please call [phone]. If you are unable to reach us at the number above, please feel free to contact [facility] at [phone]. [email or web address] E_DIVISION OF RADIOLOGY * * *Final Report* * * DATE OF EXAM: Mar 05 2022 10:21AM BMN [id number] - NM PET/CT SKULL-THIGH SUBQ / PROCEDURE REASON: DIFFUSE LG B CELL LYMPHOMA, LYMPH NODES OF MULTI SITES * * * * Physician Interpretation * * * * RESULT: FDG PET/CT SCAN: CLINICAL HISTORY: Lymphoma. INDICATION: Subsequent treatment strategy. TECHNIQUE: 20 mCi 18-FDG IV, followed about 1 hour later by PET imaging from base of the skull to proximal femur. Non contrast CT was performed for attenuation correction and anatomic localization purposes. CT Dose-Length Product (DLP): 865 mGy*cm. CT Dose Reduction Employed: Yes Comparison: Prior PET CT dated 06/28/2021. RESULT: Reference mediastinal blood pool SUV 2.6, liver SUV 4 NECK: Likely physiological activity in the oral cavity, tonsillar regions, salivary glands. No suspicious hypermetabolic foci. There is no hypermetabolic cervical lymphadenopathy. CHEST: Left-sided chest port. There is no hypermetabolic hilar or mediastinal lymphadenopathy. There is no hypermetabolic axillary lymphadenopathy. There are no hypermetabolic foci in the lungs. ABDOMEN AND PELVIS: The liver is slightly heterogeneous activity but no focal lesions are identified. There are no hypermetabolic foci in the liver, spleen, adrenals. There is no hypermetabolic abdominal or pelvic lymphadenopathy. Physiologic activity is noted in the liver, renal collecting system, bladder and bowel. Diffuse activity in the colorectal region can be inflammatory. Left hip prosthesis. SKELETON: There are no hypermetabolic osseous lesions. Frame Maker (topogram) images:No additional findings. [email or web address] E_DIVISION OF RADIOLOGY ProviderVaughn - 03/07/2022 * * *Final Report* * * DATE OF EXAM: Mar 05 2022 10:21AM BMN [id number] - NM PET/CT SKULL-THIGH SUBQ / PROCEDURE REASON: DIFFUSE LG B CELL LYMPHOMA, LYMPH NODES OF MULTI SITES * * * * Physician Interpretation * * * * RESULT: FDG PET/CT SCAN: CLINICAL HISTORY: Lymphoma. INDICATION: Subsequent treatment strategy. TECHNIQUE: 20 mCi 18-FDG IV, followed about 1 hour later by PET imaging from base of the skull to proximal femur. Non contrast CT was performed for attenuation correction and anatomic localization purposes. CT Dose-Length Product (DLP): 865 mGy*cm. CT Dose Reduction Employed: Yes Comparison: Prior PET CT dated 06/28/2021. RESULT: Reference mediastinal blood pool SUV 2.6, liver SUV 4 NECK: Likely physiological activity in the oral cavity, tonsillar regions, salivary glands. No suspicious hypermetabolic foci. There is no hypermetabolic cervical lymphadenopathy. CHEST: Left-sided chest port. There is no hypermetabolic hilar or mediastinal lymphadenopathy. There is no hypermetabolic axillary lymphadenopathy. There are no hypermetabolic foci in the lungs. ABDOMEN AND PELVIS: The liver is slightly heterogeneous activity but no focal lesions are identified. There are no hypermetabolic foci in the liver, spleen, adrenals. There is no hypermetabolic abdominal or pelvic lymphadenopathy. Physiologic activity is noted in the liver, renal collecting system, bladder and bowel. Diffuse activity in the colorectal region can be inflammatory. Left hip prosthesis. SKELETON: There are no hypermetabolic osseous lesions. Frame Maker (topogram) images:No additional findings. IMPRESSION IMPRESSION: 1. Neck: No suspicious hypermetabolic foci 2. Chest: No evidence of FDG avid neoplastic process 3. Abdomen and pelvis: No evidence of FDG avid neoplastic process 4. Skeleton: No hypermetabolic osseous lesions Deauville criteria score: 1 Transcribe Date/Time: Mar 06 2022 8:09P Dictated by: KASEY RUDD MD This examination was interpreted and the report reviewed and electronically signed by: KASEY RUDD MD on Mar 07 2022 7:25AM EST Thank you for allowing us to participate in the care of your patient. Should there be any questions regarding this interpretation, please call [phone]. If you are unable to reach us at the number above, please feel free to contact [facility] eRadiology at [phone]. [facility] PET+CT Guidance for localiza tion of tumor of Skull base to mid-thigh-- W 18F-FDG IVOrdered By: Ccf Provider on 03-07-2022 [facility] PET+CT Guidance for localiza tion of tumor of Skull base to mid-thigh-- W 18F-FDG Soumya 03-05-2022 Radiology Study observation (narrative) [facility] Brain Natriuretic Peptideon 01-04-2022 Interpretation and review of laboratory results Abnormal [facility] Natriuretic peptide B (Bld) [Mass/Vol] 544 pg/mL High 0 - 125 pg/mL [facility] CBC with Auto Differentialon 01-04-2022 Basophils (Bld) [#/Vol] 0.04 10*3/uL [facility] Basophils/100 WBC (Bld) 0.6 % 0.0 - 2.0 % [facility] Eosinophils Absolute 0.10 [facility] Eosinophils/100 WBC (Bld) 1.6 % 0.0 - 6.0 % [facility] Hematocrit (Bld) [Volume fraction] 34.8 % Low 37.0 - 54.0 % [facility] Hemoglobin.gastrointest inal spec 1 Ql (Stl) 11.0 g/dL Low 12.5 - 16.5 g/dL [facility] Immature Granulocytes # 0.04 E9/L [facility] Immature granulocytes/100 WBC (Bld) 0.6 % 0.0 - 5.0 % [facility] Lymphocytes Absolute 1.30 Low [facility] Lymphocytes/100 WBC (Bld) 20.8 % 20.0 - 42.0 % [facility] MCH (RBC) [Entitic mass] 29.7 pg 26.0 - 35.0 pg [facility] MCHC (RBC) [Mass/Vol] 31.6 % Low 32.0 - 34.5 % [facility] MCV (RBC) [Entitic vol] 94.1 fL 80.0 - 99.9 fL [facility] Monocytes Absolute 0.95 [facility] Monocytes/100 WBC (Bld) 15.2 % High 2.0 - 12.0 % [facility] Neutrophils Absolute 3.[address] [facility] Neutrophils/100 WBC (Bld) 61.2 % 43.0 - 80.0 % [employer] Platelet distribution width (Bld) [Ratio] 15.3 fL High 11.5 - 15.0 fL [employer] Platelet mean volume (Bld) [Entitic vol] 9.8 fL 7.0 - 12.0 fL [employer] Platelets (Bld) [#/Vol] 214 10*3/uL [employer] RBC (Bld) [#/Vol] 3.70 10*6/uL [facility] WBC (Bld) [#/Vol] 6.2 10*3/uL [employer] Comprehensive Metabolic Pane l w/ Reflex to MGon 01-04-2022 Albumin [Mass/Vol] 3.8 g/dL 3.5 - 5.2 g/dL [employer] ALP (Bld) [Catalytic activity/Vol] 104 U/L 40 - 129 U/L [employer] ALT [Catalytic activity/Vol] 14 U/L 0 - 40 U/L [employer] Anion gap [Moles/Vol] 13 mmol/L 7 - 16 mmol/L [employer] AST [Catalytic activity/Vol] 17 U/L 0 - 39 U/L [employer] Bilirubin [Mass/Vol] 0.2 mg/dL 0.0 - 1 .2 mg/dL [employer] Calcium [Mass/Vol] 9.1 mg/dL 8.6 - 10. 2 mg/dL [employer] Chloride [Moles/Vol] 107 mmol/L 98 - 10 7 mmol/L [employer] CO2 [Moles/Vol] 24 mmol/L 22 - 29 mmol/L [employer] Creatinine [Mass/Vol] 0.9 mg/dL 0.7 - 1.2 mg/dL [employer] Free PSA/Total PSA [Mass fraction] 6.7 g/dL 6.4 - 8.3 g/dL [employer] GFR >60 [employer] GFR Non- >60 >=60 mL/min/1.7 3 [employer] Comment on above: Chronic Kidney Disea se: less than 60 ml/min/1.73 sq.m. Kidney Failure: less than 15 ml/min/1.73 sq.m. Results valid for patients 18 years and older. Glucose [Mass/Vol] 100 mg/dL High 74 - 99 mg/dL [employer] Potassium [Moles/Vol] 3.7 mmol/L 3.5 - 5.0 mmol/L [facility] Sodium [Moles/Vol] 144 mmol/L 132 - 146 mmol/L [facility] Urea nitrogen (BldV) [Mass/Vol] 12 mg/dL 6 - 23 mg/dL [facility] No Panel Informationon 01-04 [facility] Interpretation and review of laboratory results Abnormal [facility] Troponinon 01-04-2022 Troponin, High Sensitivity 11 ng/L 0 - 11 ng/L [facility] Comment on above: High Sensitivity Tro ponin values cannot be compared with other Troponin methodologies. Patients with high levels of Biotin oral intake (i.e. >5 mg/day) may have falsely decreased Troponin levels. Samples collected within 8 hours of biotin intake may require additional information for diagnosis. Urinalysis with Microscopico n 01-04-2022 Bacteria, UA NONE SEEN None Seen /HPF [facility] Bilirubin Urine Negative Negative [facility] Blood, Urine Negative Negative [facility] Clarity, UA Clear Clear [facility] Color, UA Yellow Straw/Cedar ow [facility] Glucose, Ur Negative Negative mg/dL [facility] Interpretation and review of laboratory results Abnormal [facility] Ketones Ql (U) Negative Negative mg/dL [facility] Leukocyte esterase Test strip Ql (U) Negative Negative [facility] Mucus, UA Present Abnormal None Seen /LPF [facility] Nitrite, Urine Negative Negative [facility] th pH, UA 5.5 [facility] Protein, UA Negative Negative mg/dL [facility] RBC (U) [#/Vol] 0 /uL [facility] Specific Newell, UA 1.[address] [facility] Urobilinogen, Urine 0.2 <2.0 E.U./dL [facility] WBC, UA 0-1 [facility] XR CHEST PORTABLEon 01-05-20 No acute process. [facility] EXAMINATION: ONE XRAY VIEW OF THE CHEST 01/04/2022 12:41 pm COMPARISON: None. HISTORY: ORDERING SYSTEM PROVIDED HISTORY: episodic dizziness; episodoic bradycardia TECHNOLOGIST PROVIDED HISTORY: Reason for exam:->episodic dizziness; episodoic bradycardia FINDINGS: The lungs are without acute focal process. There is no effusion or pneumothorax. The cardiomediastinal silhouette is without acute process. The osseous structures are without acute process. [facility] Marr, Dustin N, MD - 01/04/2022 EXAMINATION: ONE XRAY VIEW OF THE CHEST 01/04/2022 12:41 pm COMPARISON: None. HISTORY: ORDERING SYSTEM PROVIDED HISTORY: episodic dizziness; episodoic bradycardia TECHNOLOGIST PROVIDED HISTORY: Reason for exam:->episodic dizziness; episodoic bradycardia FINDINGS: The lungs are without acute focal process. There is no effusion or pneumothorax. The cardiomediastinal silhouette is without acute process. The osseous structures are without acute process. IMPRESSION: No acute process. [employer] Phone: Radiology Study observation (narrative) [employer] Phone: XR CHEST PORTABLEOrdered By: Dustin Marr on 01-04-2022 [employer] Phone: CT Neck W contrast Soumya 11-1 IMPRESSION: Resolution of masslike abnormality involving the right sublingual gland, right mylohyoid and genioglossus muscles as well as likely right lingual tonsillar tissue. No residual mass nor pathologic enhancement. No pathologic adenopathy. Transcribe Date/Time: Aug 18 2021 8:17A Dictated by: BRYCE FIERRO MD This examination was interpreted and the report reviewed and electronically signed by: BRYCE FIERRO MD on Aug 18 2021 9:15AM EST Thank you for allowing us to participate in the care of your patient. Should there be any questions regarding this interpretation, please call [phone]. If you are unable to reach us at the number above, please feel free to contact [facility] eRadiology at [phone]. DIVISION OF RADIOLOGY * * *Final Report* * * DATE OF EXAM: Aug 17 2021 3:14PM [facility] 0013 - CT NECK SOFT TISSUE W IVCON / PROCEDURE REASON: DIFFUSE LARGE B-CELL LYMPHOMA, RELAPSE/REFRACTORY DISEASE * * * * Physician Interpretation * * * * RESULT: EXAMINATION: CT NECK SOFT TISSUE W IVCON HISTORY: Follow-up 2.5 x 2.2 mildly enhancing masslike lesion along the right tongue base. DIFFUSE LARGE B-CELL LYMPHOMA, RELAPSE/REFRACTORY DISEASE Technique: CT of the soft tissues of the neck with IV contrast. A series of contiguous helical scans were performed from the skull base to the aortic arch. M: CTNW_1 Contrast: 100 mL Omnip[address] Dose-Length Product (DLP): 729.08 mGy*cm CT Dose Reduction Employed: Automated exposure control (AEC) COMPARISON: CT soft tissue neck 02/17/2021, report MRI soft tissue neck 04/21/2021 and PET/CT 04/23/2021 RESULT: Postoperative change: None apparent. Suprahyoid Neck: Nasopharynx and oropharynx appear normal. Parapharyngeal tissue planes are preserved. Oral cavity and floor of mouth appear normal within constraints of artifact from dental amalgam. Specifically, previously demonstrated enlargement of the right sublingual gland, masslike enlargement of the right mylohyoid muscle and right genioglossus muscle as well as likely enlargement of right lingual tonsillar tissue have resolved. There are some secretions in the left piriform sinus. Parotid and submandibular spaces are normal. [employer] spaces appear normal. Infrahyoid Neck: Hypopharynx, larynx, and imaged infraglottic trachea appear normal. Imaged upper esophagus is unremarkable. Thyroid gland is homogeneous without evidence of discrete nodule. Lymph Nodes: No cervical lymphadenopathy by size criteria. Carotid Space: No masses. Patent extracranial carotid systems and internal jugular veins bilaterally. Orbits, Face and Skull Base: Orbital soft tissue planes are preserved. . Paranasal sinuses are clear. . Mastoid air cells and middle ear cavities are clear. . No evidence of an osteolytic or osteoblastic process in the skull base. . . Imaged intracranial contents: No enhancement, no mass effect, and no hydrocephalus. Cervical spine and remaining osseous structures: Alignment is normal. No discrete osteolytic or osteoblastic process. Vuzy-ul-hdtxdaio spondylotic changes demonstrated in the visualized spine most notably at C5-6 and C6-7. Lung apices: No mass and no focal consolidation in imaged lung apices. Other: Not applicable. Frame Maker (topogram) images: No additional findings. DIVISION OF RADIOLOGY [facility], [facility] * * *Final Report* * * DATE OF EXAM: Aug 17 2021 3:14PM [facility] 0013 - CT NECK SOFT TISSUE W IVCON / PROCEDURE REASON: DIFFUSE LARGE B-CELL LYMPHOMA, RELAPSE/REFRACTORY DISEASE * * * * Physician Interpretation * * * * RESULT: EXAMINATION: CT NECK SOFT TISSUE W IVCON HISTORY: Follow-up 2.5 x 2.2 mildly enhancing masslike lesion along the right tongue base. DIFFUSE LARGE B-CELL LYMPHOMA, RELAPSE/REFRACTORY DISEASE Technique: CT of the soft tissues of the neck with IV contrast. A series of contiguous helical scans were performed from the skull base to the aortic arch. M: CTNW_1 Contrast: 100 mL Omnipaque [address] Dose-Length Product (DLP): 729.08 mGy*cm CT Dose Reduction Employed: Automated exposure control (AEC) COMPARISON: CT soft tissue neck 02/17/2021, report MRI soft tissue neck 04/21/2021 and PET/CT 04/23/2021 RESULT: Postoperative change: None apparent. Suprahyoid Neck: Nasopharynx and oropharynx appear normal. Parapharyngeal tissue planes are preserved. Oral cavity and floor of mouth appear normal within constraints of artifact from dental amalgam. Specifically, previously demonstrated enlargement of the right sublingual gland, masslike enlargement of the right mylohyoid muscle and right genioglossus muscle as well as likely enlargement of right lingual tonsillar tissue have resolved. There are some secretions in the left piriform sinus. Parotid and submandibular spaces are normal. Geothermal Installer spaces appear normal. Infrahyoid Neck: Hypopharynx, larynx, and imaged infraglottic trachea appear normal. Imaged upper esophagus is unremarkable. Thyroid gland is homogeneous without evidence of discrete nodule. Lymph Nodes: No cervical lymphadenopathy by size criteria. Carotid Space: No masses. Patent extracranial carotid systems and internal jugular veins bilaterally. Orbits, Face and Skull Base: Orbital soft tissue planes are preserved. . Paranasal sinuses are clear. . Mastoid air cells and middle ear cavities are clear. . No evidence of an osteolytic or osteoblastic process in the skull base. . . Imaged intracranial contents: No enhancement, no mass effect, and no hydrocephalus. Cervical spine and remaining osseous structures: Alignment is normal. No discrete osteolytic or osteoblastic process. Vyrc-df-dsfeustu spondylotic changes demonstrated in the visualized spine most notably at C5-6 and C6-7. Lung apices: No mass and no focal consolidation in imaged lung apices. Other: Not applicable. Frame Maker (topogram) images: No additional findings. IMPRESSION IMPRESSION: Resolution of masslike abnormality involving the right sublingual gland, right mylohyoid and genioglossus muscles as well as likely right lingual tonsillar tissue. No residual mass nor pathologic enhancement. No pathologic adenopathy. Transcribe Date/Time: Aug 18 2021 8:17A Dictated by: BRYCE FIERRO MD This examination was interpreted and the report reviewed and electronically signed by: BRYCE FIERRO MD on Aug 18 2021 9:15AM EST Thank you for allowing us to participate in the care of your patient. Should there be any questions regarding this interpretation, please call [phone]. If you are unable to reach us at the number above, please feel free to contact [facility] eRadiology at [phone]. [facility] CT Neck W contrast IVOrdered By: Ccf Provider on 08-18-2021 [facility] CT Neck W contrast Soumya - Radiology Study observation (narrative) [facility] PET CT SKULL BASE TO MID [facility] GHOrdered By: Edmund Orozco on 06-28-2021 Significant reductio n in activity at the floor of the mouth and right submandibular region as compared to prior exam dated 04/23/2021, compatible with at least partial treatment response. Residual activity can be due to post treatment inflammation; residual disease cannot be excluded. Continued attention on follow-up suggested. Diffuse bone marrow activity, which can be seen in the setting of recent chemotherapy, colony-stimulating factor usage, or anemia. [employer] Work Phone: EXAMINATION: Skull b ase to [facility] PET/CT 06/28/2021 TECHNIQUE: Following IV injection of 17.4 mCi of F 18 -FDG, PET tumor imaging was acquired from the base of the skull to the mid thighs. Computed tomography was used for purposes of attenuation correction and anatomic localization. Fusion imaging was utilized for interpretation. Uptake time 60 mins. Glucose level 111 mg/dl. 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 No discrete hypermetabolic adenopathy. Physiologic activity is favored at the vocal cords. CHEST: Port is seen in the left chest wall. Calcification of the thoracic aorta. Small hiatal hernia. Within the mediastinum, no jose activity markedly greater than mediastinal background. No axillary adenopathy. Scattered ground-glass opacity, likely atelectasis. No pneumothorax or pleural effusion. ABDOMEN/PELVIS: Excretion of activity is seen from bilateral kidneys and activity is seen within the urinary bladder. Bowel activity is seen which can be physiologically variable. The discrete prostatic hypermetabolism seen on prior study is not appreciated on current. Streak artifact is seen from left hip arthroplasty. Diverticulosis. Fluid is seen within the right inguinal canal. BONES/SOFT TISSUE: Diffuse activity is seen throughout regional bone marrow. [employer] Work Phone: Alek, y Incoming Radiant Results From [employer] - 06/28/2021 9:41 AM EDT EXAMINATION: Skull base to midthigh PET/CT 06/28/2021 TECHNIQUE: Following IV injection of 17.4 mCi of F 18 -FDG, PET tumor imaging was acquired from the base of the skull to the mid thighs. Computed tomography was used for purposes of attenuation correction and anatomic localization. Fusion imaging was utilized for interpretation. Uptake time 60 mins. Glucose level 111 mg/dl. 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 No discrete hypermetabolic adenopathy. Physiologic activity is favored at the vocal cords. CHEST: Port is seen in the left chest wall. Calcification of the thoracic aorta. Small hiatal hernia. Within the mediastinum, no jose activity markedly greater than mediastinal background. No axillary adenopathy. Scattered ground-glass opacity, likely atelectasis. No pneumothorax or pleural effusion. ABDOMEN/PELVIS: Excretion of activity is seen from bilateral kidneys and activity is seen within the urinary bladder. Bowel activity is seen which can be physiologically variable. The discrete prostatic hypermetabolism seen on prior study is not appreciated on current. Streak artifact is seen from left hip arthroplasty. Diverticulosis. Fluid is seen within the right inguinal canal. BONES/SOFT TISSUE: Diffuse activity is seen throughout regional bone marrow. IMPRESSION: Significant reduction in activity at the floor of the mouth and right submandibular region as compared to prior exam dated 04/23/2021, compatible with at least partial treatment response. Residual activity can be due to post treatment inflammation; residual disease cannot be excluded. Continued attention on follow-up suggested. Diffuse bone marrow activity, which can be seen in the setting of recent chemotherapy, colony-stimulating factor usage, or anemia. [employer] Phone: [employer] Phone: POCT GlucoseOrdered By: Sophia Orozco on 06-28-2021 Glucose [Mass/Vol] 111 mg/dL High 74 - 99 mg/dL [employer] Phone: Interpretation and review of laboratory results Abnormal [employer] Phone: [employer] Phone: PET CT SKULL BASE TO MID THI GHOrdered By: Edmund Orozco on 04-23-2021 Intense hypermetabol ism at the right tongue/floor of mouth, which can reflect head neck carcinoma or given patient history, lymphoma. Findings are concerning for involvement of the right submandibular gland and right level II lymph nodes. Focal activity at the inferior prostate, for which both benign and malignant (prostate carcinoma) conditions are possibilities. Suggest correlation with PSA and urologic history. No findings of FDG avid disease within the chest. [employer] Phone: EXAMINATION: Skull b ase to midthigh PET/CT 04/23/2021 TECHNIQUE: Following IV injection of 17.3 mCi of F 18 -FDG, PET tumor imaging was acquired from the base of the skull to the mid thighs. Computed tomography was used for purposes of attenuation correction and anatomic localization. Fusion imaging was utilized for interpretation. Uptake time 60 mins. Glucose level 97 mg/dl. COMPARISON: CT dated 01/01/2021, MR neck dated 03/11/2021 PET dated 03/18/2020 HISTORY: History of diffuse non-Hodgkin's lymphoma. Restaging FINDINGS: HEAD/NECK: Focal intense asymmetric activity is seen at the floor of the mouth/tongue at the midline and to the right of midline, SUV maximum 51.2, corresponding to asymmetric masslike soft tissue thickening on CT. This activity is confluent with the right submandibular gland and with right level II lymph nodes. Activity extends to the pre glottic soft tissues. Physiologic activity favored at the vocal cords. CHEST: Calcification of the thoracic aorta. Port is seen in the left chest wall. Within the mediastinum, no jose activity markedly greater than mediastinal background. No axillary adenopathy. Soft tissue activity about the shoulders bilaterally, likely inflammatory. Punctate right pulmonary nodules are seen which are too small to characterize though not significantly changed as compared to prior. Scattered ground-glass opacity, likely atelectasis. No pneumothorax or pleural effusion. ABDOMEN/PELVIS: Excretion of activity is seen from bilateral kidneys and activity is seen within the ureters and urinary bladder. Bowel activity is seen which can be physiologically variable. Focal activity is demonstrated within the anterior aspect of the inferior prostate, SUV maximum 8.6. 7 mm low-density lesion within the left hepatic lobe is too small to characterize. Streak artifact from left hip arthroplasty. Diverticulosis. [employer] Work Phone: Alek, Mhy Incoming Radiant Results From [employer] - 04/23/2021 2:52 PM EDT EXAMINATION: Skull base to midthigh PET/CT 04/23/2021 TECHNIQUE: Following IV injection of 17.3 mCi of F 18 -FDG, PET tumor imaging was acquired from the base of the skull to the mid thighs. Computed tomography was used for purposes of attenuation correction and anatomic localization. Fusion imaging was utilized for interpretation. Uptake time 60 mins. Glucose level 97 mg/dl. COMPARISON: CT dated 01/01/2021, MR neck dated 03/11/2021 PET dated 03/18/2020 HISTORY: History of diffuse non-Hodgkin's lymphoma. [employer] FINDINGS: HEAD/NECK: Focal intense asymmetric activity is seen at the floor of the mouth/tongue at the midline and to the right of midline, SUV maximum 51.2, corresponding to asymmetric masslike soft tissue thickening on CT. This activity is confluent with the right submandibular gland and with right level II lymph nodes. Activity extends to the pre glottic soft tissues. Physiologic activity favored at the vocal cords. CHEST: Calcification of the thoracic aorta. Port is seen in the left chest wall. Within the mediastinum, no jose activity markedly greater than mediastinal background. No axillary adenopathy. Soft tissue activity about the shoulders bilaterally, likely inflammatory. Punctate right pulmonary nodules are seen which are too small to characterize though not significantly changed as compared to prior. Scattered ground-glass opacity, likely atelectasis. No pneumothorax or pleural effusion. ABDOMEN/PELVIS: Excretion of activity is seen from bilateral kidneys and activity is seen within the ureters and urinary bladder. Bowel activity is seen which can be physiologically variable. Focal activity is demonstrated within the anterior aspect of the inferior prostate, SUV maximum 8.6. 7 mm low-density lesion within the left hepatic lobe is too small to characterize. Streak artifact from left hip arthroplasty. Diverticulosis. IMPRESSION: Intense hypermetabolism at the right tongue/floor of mouth, which can reflect head neck carcinoma or given patient history, lymphoma. Findings are concerning for involvement of the right submandibular gland and right level II lymph nodes. Focal activity at the inferior prostate, for which both benign and malignant (prostate carcinoma) conditions are possibilities. Suggest correlation with PSA and urologic history. No findings of FDG avid disease within the chest. [employer] Phone: [employer] Phone: POCT GlucoseOrdered By: Sophia Orozco on 04-23-2021 Glucose [Mass/Vol] 97 mg/dL 74 - 99 mg/dL [employer] Phone: [employer] Phone: MRI BRAIN W WO CONTRASTOrder ed By: Edmund Orozco on 04-21-2021 1. Unremarkable pre and post contrast enhanced MRI of the brain. 2. No evidence of lymphoma or metastatic disease. [employer] Phone: EXAMINATION: MRI OF THE BRAIN WITHOUT AND WITH CONTRAST 04/21/2021 9:42 am TECHNIQUE: Multiplanar multisequence MRI of the head/brain was performed without and with the administration of intravenous contrast. COMPARISON: None. HISTORY: ORDERING SYSTEM PROVIDED HISTORY: Diffuse large B-cell lymphoma of lymph nodes of multiple regions (HCC) FINDINGS: INTRACRANIAL STRUCTURES/VENTRICLES: There is no acute infarct. No mass, mass effect, edema or hemorrhage is seen. The brain is grossly normal in volume. A few scattered T2 hyperintense foci may represent manifestation of microvascular ischemic changes, the extent of which is less than is typical for this age. No abnormal intracranial enhancement is seen. No hydrocephalus or extra-axial fluid is seen. ORBITS: Prosthetic lenses are seen in the globes bilaterally. The orbits are otherwise grossly unremarkable. SINUSES: Minimal mucosal thickening in the ethmoid and maxillary sinuses. Minimal fluid in the left mastoid air cells. BONES/SOFT TISSUES: The bone marrow signal intensity appears normal. The soft tissues demonstrate no acute abnormality. [employer] Phone: Alek, Mhy Incoming Radiant Results From [employer] - 04/21/2021 12:24 PM EDT EXAMINATION: MRI OF THE BRAIN WITHOUT AND WITH CONTRAST 04/21/2021 9:42 am TECHNIQUE: Multiplanar multisequence MRI of the head/brain was performed without and with the administration of intravenous contrast. COMPARISON: None. HISTORY: ORDERING SYSTEM PROVIDED HISTORY: Diffuse large B-cell lymphoma of lymph nodes of multiple regions (HCC) FINDINGS: INTRACRANIAL STRUCTURES/VENTRICLES: There is no acute infarct. No mass, mass effect, edema or hemorrhage is seen. The brain is grossly normal in volume. A few scattered T2 hyperintense foci may represent manifestation of microvascular ischemic changes, the extent of which is less than is typical for this age. No abnormal intracranial enhancement is seen. No hydrocephalus or extra-axial fluid is seen. ORBITS: Prosthetic lenses are seen in the globes bilaterally. The orbits are otherwise grossly unremarkable. SINUSES: Minimal mucosal thickening in the ethmoid and maxillary sinuses. Minimal fluid in the left mastoid air cells. BONES/SOFT TISSUES: The bone marrow signal intensity appears normal. The soft tissues demonstrate no acute abnormality. IMPRESSION: 1. Unremarkable pre and post contrast enhanced MRI of the brain. 2. No evidence of lymphoma or metastatic disease. [employer] Phone: [employer] Phone: CBCOrdered By: Cristofer england on 03-17-2021 Hematocrit (Bld) [Volume fraction] 36.5 % Low 37.0 - 54.0 % [employer] Phone: Hemoglobin.gastrointest inal spec 1 Ql (Stl) 12.1 g/dL Low 12.5 - 16.5 g/dL [employer] Phone: Interpretation and review of laboratory results Abnormal [employer] Phone: MCH (RBC) [Entitic mass] 30.7 pg 26.0 - 35.0 pg [employer] Phone: MCHC (RBC) [Mass/Vol] 33.2 % 32.0 - 34.5 % [employer] Phone: MCV (RBC) [Entitic vol] 92.6 fL 80.0 - 99.9 fL [employer] Phone: Platelet distribution width (Bld) [Ratio] 15.0 fL 11.5 - 15.0 fL [employer] Phone: Platelet mean volume (Bld) [Entitic vol] 9.6 fL 7.0 - 12.0 fL [employer] Phone: Platelets (Bld) [#/Vol] 211 10*3/uL [employer] Phone: RBC (Bld) [#/Vol] 3.94 10*6/uL [employer] Phone: WBC (Bld) [#/Vol] 6.5 10*3/uL [employer] Phone: [employer] Phone: MRI NECK SOFT TISSUE W WO CO NTRASTOrdered By: Sayra Bah on 03-11-2021 1. 2.5 x 2.2 cm mildly-enhancing, masslike lesion along the base of tongue on the right. A malignant etiology cannot be excluded. Biopsy is recommended. 2. No evidence of lymphadenopathy or other metastatic disease in the neck. [employer] Phone: EXAMINATION: MRI OF THE NECK WITH AND WITHOUT CONTRAST 03/11/2021 8:17 am: TECHNIQUE: Multiplanar multisequence MRI of the neck was performed with and without the administration of intravenous contrast. COMPARISON: CT of the neck with contrast, 02/17/2021 HISTORY: ORDERING SYSTEM PROVIDED HISTORY: Neck pain TECHNOLOGIST PROVIDED HISTORY: Reason for exam:->tongue pain/mass, oropharyngeal asymetry, hx of NHL What reading provider will be dictating this exam?->CRC FINDINGS: PHARYNX/LARYNX: Best appreciated on the axial T2 weighted images (series 8, image 20) there is a 2.5 x 2.2 cm mildly enhancing masslike lesion along the base of tongue on the right. This region was obscured by dental artifact on the previous CT of the neck from 02/17/2021. The palatine tonsils are normal in appearance. The valleculae, epiglottis, aryepiglottic folds and pyriform sinuses appear unremarkable. The true and false vocal cords are normal in appearance. No mass or abscess is seen. SALIVARY GLANDS/THYROID: The parotid and submandibular glands appear unremarkable. The thyroid gland appears unremarkable. LYMPH NODES: No cervical or supraclavicular lymphadenopathy is seen. SOFT TISSUES: No appreciable soft tissue swelling or mass is seen. BRAIN/ORBITS/SINUSES: The visualized portion of the intracranial contents appear unremarkable. The visualized portion of the orbits, paranasal sinuses and mastoid air cells demonstrate no acute abnormality. BONES: No acute osseous abnormality is seen. [employer] Phone: Alek, Mhy Incoming Radiant Results From [facility] - 03/11/2021 10:30 AM EDT EXAMINATION: MRI OF THE NECK WITH AND WITHOUT CONTRAST 03/11/2021 8:17 am: TECHNIQUE: Multiplanar multisequence MRI of the neck was performed with and without the administration of intravenous contrast. COMPARISON: CT of the neck with contrast, 02/17/2021 HISTORY: ORDERING SYSTEM PROVIDED HISTORY: Neck pain TECHNOLOGIST PROVIDED HISTORY: Reason for exam:->tongue pain/mass, oropharyngeal asymetry, hx of NHL What reading provider will be dictating this exam?->CRC FINDINGS: PHARYNX/LARYNX: Best appreciated on the axial T2 weighted images (series 8, image 20) there is a 2.5 x 2.2 cm mildly enhancing masslike lesion along the base of tongue on the right. This region was obscured by dental artifact on the previous CT of the neck from 02/17/2021. The palatine tonsils are normal in appearance. The valleculae, epiglottis, aryepiglottic folds and pyriform sinuses appear unremarkable. The true and false vocal cords are normal in appearance. No mass or abscess is seen. SALIVARY GLANDS/THYROID: The parotid and submandibular glands appear unremarkable. The thyroid gland appears unremarkable. LYMPH NODES: No cervical or supraclavicular lymphadenopathy is seen. SOFT TISSUES: No appreciable soft tissue swelling or mass is seen. BRAIN/ORBITS/SINUSES: The visualized portion of the intracranial contents appear unremarkable. The visualized portion of the orbits, paranasal sinuses and mastoid air cells demonstrate no acute abnormality. BONES: No acute osseous abnormality is seen. IMPRESSION: 1. 2.5 x 2.2 cm mildly-enhancing, masslike lesion along the base of tongue on the right. A malignant etiology cannot be excluded. Biopsy is recommended. 2. No evidence of lymphadenopathy or other metastatic disease in the neck. [employer] Phone: [employer] Phone: CBC Auto DifferentialOrdered By: Raina Serrano on 02-17-2021 Basophils (Bld) [#/Vol] 0.05 10*3/uL [employer] Phone: Basophils/100 WBC (Bld) 0.6 % 0.0 - 2.0 % [employer] Phone: Eosinophils Absolute 0.10 [employer] Phone: Eosinophils/100 WBC (Bld) 1.2 % 0.0 - 6.0 % [employer] Phone: Hematocrit (Bld) [Volume fraction] 36.8 % Low 37.0 - 54.0 % [facility] Phone: Hemoglobin.gastrointest inal spec 1 Ql (Stl) 11.9 g/dL Low 12.5 - 16.5 g/dL [facility] Phone: Immature Granulocytes # 0.03 E9/L [facility] Phone: Immature granulocytes/100 WBC (Bld) 0.4 % 0.0 - 5.0 % [facility] Phone: Interpretation and review of laboratory results Abnormal [facility] Phone: Lymphocytes Absolute 0.75 Low [facility] Phone: Lymphocytes/100 WBC (Bld) 9.2 % Low 20.0 - 42.0 % [employer] Phone: MCH (RBC) [Entitic mass] 30.2 pg 26.0 - 35.0 pg [facility] Phone: MCHC (RBC) [Mass/Vol] 32.3 % 32.0 - 34.5 % [facility] Phone: MCV (RBC) [Entitic vol] 93.4 fL 80.0 - 99.9 fL [facility] Phone: Monocytes Absolute 0.84 [facility] Phone: Monocytes/100 WBC (Bld) 10.3 % 2.0 - 12.0 % [facility] Phone: Neutrophils Absolute 6.42 [employer] Phone: Neutrophils/100 WBC (Bld) 78.3 % 43.0 - 80.0 % [facility] Phone: Platelet distribution width (Bld) [Ratio] 14.8 fL 11.5 - 15.0 fL [employer] Phone: Platelet mean volume (Bld) [Entitic vol] 9.7 fL 7.0 - 12.0 fL [employer] Phone: Platelets (Bld) [#/Vol] 211 10*3/uL [employer] Phone: RBC (Bld) [#/Vol] 3.94 10*6/uL [employer] Phone: WBC (Bld) [#/Vol] 8.2 10*3/uL [employer] Phone: [employer] Phone: CT SOFT TISSUE NECK W CONTRA STOrdered By: Raina Serrano on 02-17-2021 1. Status post extraction of right mandibular 3rd molar. 2. Subtle loculated gas and fluid collection is associated with gingiva overlying right mandibular molar dentition suggestive of gingival abscess. [employer] Phone: EXAMINATION: CT OF T HE NECK SOFT TISSUE WITH CONTRAST 02/17/2021 TECHNIQUE: CT of the neck was performed with the administration of intravenous contrast. Multiplanar reformatted images are provided for review. Dose modulation, iterative reconstruction, and/or weight based adjustment of the mA/kV was utilized to reduce the radiation dose to as low as reasonably achievable. COMPARISON: January 01, 2021 HISTORY: ORDERING SYSTEM PROVIDED HISTORY: pain, right side concern for dental abscess TECHNOLOGIST PROVIDED HISTORY: Reason for exam:->pain, right side concern for dental abscess Decision Support Exception - unselect if not a suspected or confirmed emergency medical condition->Emergency Medical Condition (MA) FINDINGS: Status post extraction of right mandibular 3rd molar. Subtle loculated fluid and gas collection is associated with gingiva overlying right mandibular molar dentition measuring approximately 1.3 cm in length and measuring 4 mm in thickness as seen on axial image number 76. Limited visualization of oral cavity due to metallic artifact from prior dental procedure. Normal appearance of the floor of the mouth. Submandibular glands are normal. Parotid glands are normal. No cervical lymphadenopathy. Nasopharynx, oropharynx, and hypopharynx are unremarkable. Vocal folds are symmetric. Thyroid gland is unremarkable. [employer] Phone: Alek, Mhy Incoming Radiant Results From [facility] - 02/17/2021 9:23 PM EDT EXAMINATION: CT OF THE NECK SOFT TISSUE WITH CONTRAST 02/17/2021 TECHNIQUE: CT of the neck was performed with the administration of intravenous contrast. Multiplanar reformatted images are provided for review. Dose modulation, iterative reconstruction, and/or weight based adjustment of the mA/kV was utilized to reduce the radiation dose to as low as reasonably achievable. COMPARISON: January 01, 2021 HISTORY: ORDERING SYSTEM PROVIDED HISTORY: pain, right side concern for dental abscess TECHNOLOGIST PROVIDED HISTORY: Reason for exam:->pain, right side concern for dental abscess Decision Support Exception - unselect if not a suspected or confirmed emergency medical condition->Emergency Medical Condition (MA) FINDINGS: Status post extraction of right mandibular 3rd molar. Subtle loculated fluid and gas collection is associated with gingiva overlying right mandibular molar dentition measuring approximately 1.3 cm in length and measuring 4 mm in thickness as seen on axial image number 76. Limited visualization of oral cavity due to metallic artifact from prior dental procedure. Normal appearance of the floor of the mouth. Submandibular glands are normal. Parotid glands are normal. No cervical lymphadenopathy. Nasopharynx, oropharynx, and hypopharynx are unremarkable. Vocal folds are symmetric. Thyroid gland is unremarkable. IMPRESSION: 1. Status post extraction of right mandibular 3rd molar. 2. Subtle loculated gas and fluid collection is associated with gingiva overlying right mandibular molar dentition suggestive of gingival abscess. [employer] Phone: [employer] Phone: Comprehensive Metabolic Pane lOrdered By: Raina Serrano on 02-17-2021 Albumin [Mass/Vol] 4.1 g/dL 3.5 - 5.2 g/dL [employer] Phone: ALP (Bld) [Catalytic activity/Vol] 97 U/L 40 - 129 U/L [employer] Phone: ALT [Catalytic activity/Vol] 24 U/L 0 - 40 U/L [employer] Phone: Anion gap [Moles/Vol] 12 mmol/L 7 - 16 mmol/L [employer] Phone: AST [Catalytic activity/Vol] 22 U/L 0 - 39 U/L [employer] Phone: Bilirubin [Mass/Vol] 0.2 mg/dL 0.0 - 1 .2 mg/dL [employer] Phone: Calcium [Mass/Vol] 9.5 mg/dL 8.6 - 10. 2 mg/dL [employer] Phone: Chloride [Moles/Vol] 107 mmol/L 98 - 10 7 mmol/L [employer] Phone: CO2 [Moles/Vol] 25 mmol/L 22 - 29 mmol/L [employer] Phone: Creatinine [Mass/Vol] 1.2 mg/dL 0.7 - 1.2 mg/dL [employer] Phone: Free PSA/Total PSA [Mass fraction] 6.8 g/dL 6.4 - 8.3 g/dL [employer] Phone: GFR >60 [facility] Phone: GFR Non- >60 >=60 mL/min/1.7 3 [employer] Phone: Comment on above: Chronic Kidney Disea se: less than 60 ml/min/1.73 sq.m. Kidney Failure: less than 15 ml/min/1.73 sq.m. Results valid for patients 18 years and older. Glucose [Mass/Vol] 115 mg/dL High 74 - 99 mg/dL [employer] Phone: Interpretation and review of laboratory results Abnormal [employer] Phone: Potassium [Moles/Vol] 4.0 mmol/L 3.5 - 5.0 mmol/L [employer] Phone: Sodium [Moles/Vol] 144 mmol/L 132 - 146 mmol/L [employer] Phone: Urea nitrogen (BldV) [Mass/Vol] 26 mg/dL High 6 - 23 mg/dL [employer] Phone: [employer] Phone: Covid-19 AmbulatoryOrdered B y: Anh Torres on 02-09-2021 Source OP swab [employer] Phone: Laboratory - Microbiology an d Antimicrobial susceptibilityOrdered By: Anh Torres on 02-09-2021 SARS-CoV-2 (COVID-19) RNA DOUGLAS+probe Ql (Unsp spec) Not detected Not Detected [employer] Phone: Comment on above: This nucleic acid am plification test was developed and its performance characteristics determined by [employer]. Nucleic acid amplification tests include RT-PCR and TMA. This test has not been FDA cleared or approved. This test has been authorized by FDA under an Emergency Use Authorization (EUA). This test is only authorized for the duration of time the declaration that circumstances exist justifying the authorization of the emergency use of in vitro diagnostic tests for detection of SARS-CoV-2 virus and/or diagnosis of COVID-19 infection under section 564(b)(1) of the Act, 21 U.S.C. 360bbb-3(b) (1), unless the authorization is terminated or revoked sooner. When diagnostic testing is negative, the possibility of a false negative result should be considered in the context of a patient's recent exposures and the presence of clinical signs and symptoms consistent with COVID-19. An individual without symptoms of COVID-19 and who is not shedding SARS-CoV-2 virus would expect to have a negative (not detected) result in this assay. Performed at: [address] [id number] Clinical Trials Specialist: Gilbert Pacheco PhD, Phone: [phone] CT ABDOMEN PELVIS W IV CONTR AST Additional Contrast? Oralon 01-01-2021 No indication for recurrence of malignancy in the intraperitoneal retroperitoneal spaces of the abdomen and pelvis. [employer] Phone: EXAMINATION: CT OF T AUDRA ABDOMEN AND PELVIS WITH CONTRAST 01/01/2021 8:28 am TECHNIQUE: CT of the abdomen and pelvis was performed with the administration of intravenous contrast. Multiplanar reformatted images are provided for review. Dose modulation, iterative reconstruction, and/or weight based adjustment of the mA/kV was utilized to reduce the radiation dose to as low as reasonably achievable. COMPARISON: Reviewed the previous CT abdomen February 25, 2020, PET-CT scan of a March 18, 2020 and June 24, 2020, previous CT neck of April 16, 2020. HISTORY: ORDERING SYSTEM PROVIDED HISTORY: Non-Hodgkin's lymphoma, unspecified body region, unspecified non-Hodgkin lymphoma type (HCC) TECHNOLOGIST PROVIDED HISTORY: Additional Contrast?->Oral FINDINGS: No indication for recurrence of a retroperitoneal mass or malignancy. There is no obstructive uropathy. The kidneys are preserved size and preserved cortical enhancement. There is no signs for obstruction. The ureters are visualized and appear unremarkable. The strong streaking artifacts are seen in the pelvic floor cavity by the left hip prosthesis. These obscures detail at the level of the base of the bladder and prostate gland. Prostate does not appears to be enlarged. Seminal vesicles symmetrical size. The bladder appear otherwise unremarkable. There are some lymph nodes in the pelvic sidewalls following the external iliac lymphatic chain they were seen previously on the study of February 25, 2020. They were also seen on the PET-CT scan of June 24, 2020 without indication for increased metabolic activity at that time. There is no midline retro peritoneal adenopathy in the periaortic spaces. There are normal size enhancement for the liver, spleen and pancreas. Gallbladder is normally distended. The biliary tree and pancreatic duct systems are not dilated. Adrenals not enlarged. Aorta appears unremarkable with minimal atherosclerotic changes. There is no indication for bowel obstruction. There is no stranding of the fat planes around the colon. The oral contrast has reached the left-sided colon. There is no indication for bowel obstruction. There is no mesenteric adenopathy. No conspicuous inguinal adenopathy seen bilaterally. Degenerative changes are seen in the thoracolumbar spine predominant in the thoracic spine. Degenerative changes are seen in the facet joints of L4-5, and L5-S1. The as mention patient has a left hip prosthesis. The right hip appears unremarkable. [employer] Phone: Alek, Mhy Incoming Radiant Results From [facility] - 01/01/2021 10:21 AM EDT EXAMINATION: CT OF THE ABDOMEN AND PELVIS WITH CONTRAST 01/01/2021 8:28 am TECHNIQUE: CT of the abdomen and pelvis was performed with the administration of intravenous contrast. Multiplanar reformatted images are provided for review. Dose modulation, iterative reconstruction, and/or weight based adjustment of the mA/kV was utilized to reduce the radiation dose to as low as reasonably achievable. COMPARISON: Reviewed the previous CT abdomen February 25, 2020, PET-CT scan of a March 18, 2020 and June 24, 2020, previous CT neck of April 16, 2020. HISTORY: ORDERING SYSTEM PROVIDED HISTORY: Non-Hodgkin's lymphoma, unspecified body region, unspecified non-Hodgkin lymphoma type (HCC) TECHNOLOGIST PROVIDED HISTORY: Additional Contrast?->Oral FINDINGS: No indication for recurrence of a retroperitoneal mass or malignancy. There is no obstructive uropathy. The kidneys are preserved size and preserved cortical enhancement. There is no signs for obstruction. The ureters are visualized and appear unremarkable. The strong streaking artifacts are seen in the pelvic floor cavity by the left hip prosthesis. These obscures detail at the level of the base of the bladder and prostate gland. Prostate does not appears to be enlarged. Seminal vesicles symmetrical size. The bladder appear otherwise unremarkable. There are some lymph nodes in the pelvic sidewalls following the external iliac lymphatic chain they were seen previously on the study of February 25, 2020. They were also seen on the PET-CT scan of June 24, 2020 without indication for increased metabolic activity at that time. There is no midline retro peritoneal adenopathy in the periaortic spaces. There are normal size enhancement for the liver, spleen and pancreas. Gallbladder is normally distended. The biliary tree and pancreatic duct systems are not dilated. Adrenals not enlarged. Aorta appears unremarkable with minimal atherosclerotic changes. There is no indication for bowel obstruction. There is no stranding of the fat planes around the colon. The oral contrast has reached the left-sided colon. There is no indication for bowel obstruction. There is no mesenteric adenopathy. No conspicuous inguinal adenopathy seen bilaterally. Degenerative changes are seen in the thoracolumbar spine predominant in the thoracic spine. Degenerative changes are seen in the facet joints of L4-5, and L5-S1. The as mention patient has a left hip prosthesis. The right hip appears unremarkable. Delete IMPRESSION: No indication for recurrence of malignancy in the intraperitoneal retroperitoneal spaces of the abdomen and pelvis. [employer] Phone: CT CHEST W CONTRASTon 2020 Lymphocytes (Bld) [#/Vol] No indication for malignancy in the chest. No indication for lymphomatous involvement in the chest. No indication for acute the pulmonary process. [employer] Phone: EXAMINATION: CT OF T HE CHEST WITH CONTRAST 01/01/2021 8:28 am TECHNIQUE: CT of the chest was performed with the administration of intravenous contrast. Multiplanar reformatted images are provided for review. Dose modulation, iterative reconstruction, and/or weight based adjustment of the mA/kV was utilized to reduce the radiation dose to as low as reasonably achievable. COMPARISON: Reviewed the previous CT abdomen February 25, 2020, PET-CT scan of a March 18, 2020 and June 24, 2020, previous CT neck of April 16, 2020. HISTORY: ORDERING SYSTEM PROVIDED HISTORY: Non-Hodgkin's lymphoma, unspecified body region, unspecified non-Hodgkin lymphoma type (HCC) FINDINGS: There is no evidence for adenopathy in the supraclavicular regions, right and left axillar areas or in the mediastinum. Heart is normal size. Discrete calcifications are seen coronary arteries. The there is no pericardial effusion. Lungs are normally expanded. No pulmonary masses or nodules or infiltrates or consolidations are seen. There is no pleural effusions. For findings in the neck see report CT scan of the neck performed same location. The for findings in the abdomen pelvis see report CT abdomen pelvis performed same location. Degenerative changes are seen in the thoracic spine as observed previously. [employer] Phone: Alek, Mhy Incoming Radiant Results From [facility] - 01/01/2021 10:03 AM EDT EXAMINATION: CT OF THE CHEST WITH CONTRAST 01/01/2021 8:28 am TECHNIQUE: CT of the chest was performed with the administration of intravenous contrast. Multiplanar reformatted images are provided for review. Dose modulation, iterative reconstruction, and/or weight based adjustment of the mA/kV was utilized to reduce the radiation dose to as low as reasonably achievable. COMPARISON: Reviewed the previous CT abdomen February 25, 2020, PET-CT scan of a March 18, 2020 and June 24, 2020, previous CT neck of April 16, 2020. HISTORY: ORDERING SYSTEM PROVIDED HISTORY: Non-Hodgkin's lymphoma, unspecified body region, unspecified non-Hodgkin lymphoma type (HCC) FINDINGS: There is no evidence for adenopathy in the supraclavicular regions, right and left axillar areas or in the mediastinum. Heart is normal size. Discrete calcifications are seen coronary arteries. The there is no pericardial effusion. Lungs are normally expanded. No pulmonary masses or nodules or infiltrates or consolidations are seen. There is no pleural effusions. For findings in the neck see report CT scan of the neck performed same location. The for findings in the abdomen pelvis see report CT abdomen pelvis performed same location. Degenerative changes are seen in the thoracic spine as observed previously. IMPRESSION: No indication for malignancy in the chest. No indication for lymphomatous involvement in the chest. No indication for acute the pulmonary process. [employer] Phone: CT SOFT TISSUE NECK W BELLA Trevizo 01-01-2021 No indication for recurrence of malignancy in the neck. [employer] Phone: EXAMINATION: CT OF T HE NECK SOFT TISSUE WITH CONTRAST 01/01/2021 TECHNIQUE: CT of the neck was performed with the administration of intravenous contrast. Multiplanar reformatted images are provided for review. Dose modulation, iterative reconstruction, and/or weight based adjustment of the mA/kV was utilized to reduce the radiation dose to as low as reasonably achievable. COMPARISON: Reviewed the previous CT abdomen February 25, 2020, PET-CT scan of a March 18, 2020 and June 24, 2020, previous CT neck of April 16, 2020. HISTORY: ORDERING SYSTEM PROVIDED HISTORY: Non-Hodgkin's lymphoma, unspecified body region, unspecified non-Hodgkin lymphoma type (HCC) FINDINGS: Parotid glands and the submandibular glands appear unremarkable. The thyroid gland has normal size. The streak artifacts are present from the shoulders. No conspicuous focal lesions are seen in the thyroid gland which has uniform contrast enhancement. No conspicuous cervical adenopathy seen. The small lymph node that was seen with positive uptake on the original PET CT scan study of March 2020 is difficult to be separate from other ones of smaller low subcentimeter size range. No conspicuous adenopathy seen in the retromandibular space new or in the carotid spaces. There is no retro carotid the adenopathy. Paranasal sinus have unremarkable appearance. Visualized intraorbital structures appear unremarkable. Some degenerative changes relate with spondylosis in [id number] degree are seen in the cervical spine. [employer] Phone: Alek, Mhy Incoming Radiant Results From [employer] - 01/01/2021 10:33 AM EDT EXAMINATION: CT OF THE NECK SOFT TISSUE WITH CONTRAST 01/01/2021 TECHNIQUE: CT of the neck was performed with the administration of intravenous contrast. Multiplanar reformatted images are provided for review. Dose modulation, iterative reconstruction, and/or weight based adjustment of the mA/kV was utilized to reduce the radiation dose to as low as reasonably achievable. COMPARISON: Reviewed the previous CT abdomen February 25, 2020, PET-CT scan of a March 18, 2020 and June 24, 2020, previous CT neck of April 16, 2020. HISTORY: ORDERING SYSTEM PROVIDED HISTORY: Non-Hodgkin's lymphoma, unspecified body region, unspecified non-Hodgkin lymphoma type (HCC) FINDINGS: Parotid glands and the submandibular glands appear unremarkable. The thyroid gland has normal size. The streak artifacts are present from the shoulders. No conspicuous focal lesions are seen in the thyroid gland which has uniform contrast enhancement. No conspicuous cervical adenopathy seen. The small lymph node that was seen with positive uptake on the original PET CT scan study of March 2020 is difficult to be separate from other ones of smaller low subcentimeter size range. No conspicuous adenopathy seen in the retromandibular space new or in the carotid spaces. There is no retro carotid the adenopathy. Paranasal sinus have unremarkable appearance. Visualized intraorbital structures appear unremarkable. Some degenerative changes relate with spondylosis in [id number] degree are seen in the cervical spine. IMPRESSION: No indication for recurrence of malignancy in the neck. [employer] Phone: CT SOFT TISSUE NECK W BELLA Trevizo 04-16-2020 When comparing to th e previous PET/CT there is a lymph node in the left neck seen, measuring 0.6 x 0.5 cm. This does not meet the CT criteria for adenopathy, however is FDG avid on the previous study. 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 Automated exposure control, 2. Adjustment of MA and or KV according to patient's size or 3. Use of iterative reconstruction. The larynx appears unremarkable The soft tissues appear unremarkable. Scattered lymph nodes are visualized which do not meet the CT criteria for adenopathy. On image #35 there is a lymph node measuring less than 1 cm in size, approximately 0.6 x 0.5 cm. This appears to correspond with the region of FDG avid tracer uptake in the left neck. 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 Automated exposure control, 2. Adjustment of MA and or KV according to patient's size or 3. Use of iterative reconstruction. The larynx appears unremarkable The soft tissues appear unremarkable. Scattered lymph nodes are visualized which do not meet the CT criteria for adenopathy. On image #35 there is a lymph node measuring less than 1 cm in size, approximately 0.6 x 0.5 cm. This appears to correspond with the region of FDG avid tracer uptake in the left neck. There is a 6 mm low density region in the right lobe of thyroid IMPRESSION: When comparing to the previous PET/CT there is a lymph node in the left neck seen, measuring 0.6 x 0.5 cm. This does not meet the CT criteria for adenopathy, however is FDG avid on the previous study. 6 mm low density lesion in the right lobe of thyroid, this however does not appear to be FDG avid on the previous PET/CT [place], [place] PET CT SKULL BASE TO MID THI on 03-18-2020 1. 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 2. Focal intense uptake within the oral cavity adjacent to the left maxillary molar is nonspecific but could be due to periodontal disease. A borderline enlarged left level 2 cervical lymph node is intensely hypermetabolic. While this could be due to lymphoma, it could also be metastatic from a head/neck malignancy. Suggest contrast-enhanced neck CT to further evaluate these findings. [place], [place] EXAMINATION: WHOLE B JULIAN PET/CT 03/18/2020 TECHNIQUE: Following IV injection of 14.1 mCi of F18-FDG, PET imaging was acquired from the base of the skull to the mid thighs. Computed tomography was used for purposes of attenuation correction and anatomic localization. Fusion imaging was utilized for interpretation. Uptake time 61 mins. Glucose level 95 mg/dl. 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 FINDINGS: HEAD/NECK: A 1.0 x 0.8 cm left level 2 cervical lymph node demonstrates maximum SUV of 13.0. Focal intense uptake within the oral cavity adjacent to the left maxillary molar demonstrates SUV of 8.0. CHEST: No abnormal uptake within the lungs. No hypermetabolic lymph nodes. ABDOMEN/PELVIS: No abnormal uptake within the solid abdominal organs. A left retroperitoneal lymph node measuring 3.8 x 3.0 cm demonstrates maximum SUV 28.1 and additional smaller left retroperitoneal lymph nodes noted. Postsurgical changes with associated mild uptake from left inguinal lymph node excision. No hypermetabolic inguinal lymph nodes. BONES/SOFT TISSUE: No suspicious FDG uptake. INCIDENTAL CT FINDINGS: Left chest MediPort. Mild cardiomegaly. Atherosclerotic disease of the abdominal aorta without aneurysm. Colonic diverticulosis. Left hip arthroplasty. [place], [place] Alek, Mhy Incoming Radiant Results From [facility] - 03/18/2020 2:13 PM EDT EXAMINATION: WHOLE BODY PET/CT 03/18/2020 TECHNIQUE: Following IV injection of 14.1 mCi of F18-FDG, PET imaging was acquired from the base of the skull to the mid thighs. Computed tomography was used for purposes of attenuation correction and anatomic localization. Fusion imaging was utilized for interpretation. Uptake time 61 mins. Glucose level 95 mg/dl. 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 FINDINGS: HEAD/NECK: A 1.0 x 0.8 cm left level 2 cervical lymph node demonstrates maximum SUV of 13.0. Focal intense uptake within the oral cavity adjacent to the left maxillary molar demonstrates SUV of 8.0. CHEST: No abnormal uptake within the lungs. No hypermetabolic lymph nodes. ABDOMEN/PELVIS: No abnormal uptake within the solid abdominal organs. A left retroperitoneal lymph node measuring 3.8 x 3.0 cm demonstrates maximum SUV 28.1 and additional smaller left retroperitoneal lymph nodes noted. Postsurgical changes with associated mild uptake from left inguinal lymph node excision. No hypermetabolic inguinal lymph nodes. BONES/SOFT TISSUE: No suspicious FDG uptake. INCIDENTAL CT FINDINGS: Left chest MediPort. Mild cardiomegaly. Atherosclerotic disease of the abdominal aorta without aneurysm. Colonic diverticulosis. Left hip arthroplasty. IMPRESSION: 1. 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 2. Focal intense uptake within the oral cavity adjacent to the left maxillary molar is nonspecific but could be due to periodontal disease. A borderline enlarged left level 2 cervical lymph node is intensely hypermetabolic. While this could be due to lymphoma, it could also be metastatic from a head/neck malignancy. Suggest contrast-enhanced neck CT to further evaluate these findings. [place], [place] Basic metabolic panelon 01-31 Anion gap [Moles/Vol] 11 mmol/L 7 - 16 mmol/L [place] Calcium [Mass/Vol] 8.9 mg/dL 8.6 - 10. 2 mg/dL [place] Chloride [Moles/Vol] 105 mmol/L 98 - 10 7 mmol/L [place] CO2 [Moles/Vol] 24 mmol/L 22 - 29 mmol/L [place] Creatinine [Mass/Vol] 0.9 mg/dL 0.7 - 1.2 mg/dL [place] GFR >60 [place] GFR Non- >60 >=60 mL/min/1.7 3 [place] Comment on above: Chronic Kidney Disea se: less than 60 ml/min/1.73 sq.m. Kidney Failure: less than 15 ml/min/1.73 sq.m. Results valid for patients 18 years and older. Glucose [Mass/Vol] 140 mg/dL High 74 - 99 mg/dL [place] Interpretation and review of laboratory results Abnormal [place] Potassium [Moles/Vol] 4.1 mmol/L 3.5 - 5 mmol/L [place] Sodium [Moles/Vol] 140 mmol/L 132 - 146 mmol/L [place] Urea nitrogen [Mass/Vol] 17 mg/dL 8 - 23 mg/dL [place] CBC WITH AUTO DIFFERENTIALon 02-26-2020 Basophils (Bld) [#/Vol] 0.03 10*3/uL [place] Basophils/100 WBC (Bld) 0.3 % 0 - 2 % M [place] Eosinophils (Bld) [#/Vol] 0.01 10*3/uL Low [place] Eosinophils/100 WBC (Bld) 0.1 % 0 - 6 % [place] Erythrocyte distribution width (RBC) [Ratio] 12.6 fL 11.5 - 15 fL [place] Hematocrit (Bld) [Volume fraction] 41.8 % 37 - 54 % [place] Hemoglobin (Bld) [Mass/Vol] 13.5 g/dL 12.5 - 16.5 g/dL [place] Immature granulocytes (Bld) [#/Vol] 0.04 10*3/uL E9/L [place] Immature granulocytes/100 WBC (Bld) 0.4 % 0 - 5 % [place] Interpretation and review of laboratory results Abnormal [place] Lymphocytes (Bld) [#/Vol] 0.43 10*3/uL Low [place] Lymphocytes/100 WBC (Bld) 4.0 % Low 20 - 42 % [place] MCH (RBC) [Entitic mass] 30.4 pg 26 - 35 pg [place] MCHC (RBC) [Mass/Vol] 32.3 % 32 - 3 4.5 % [place] MCV (RBC) [Entitic vol] 94.1 fL 80 - 99.9 fL [place] Monocytes (Bld) [#/Vol] 0.19 10*3/uL [place] Monocytes/100 WBC (Bld) 1.8 % Low 2 - 12 % [place] Neutrophils Absolute 10.06 [place] Neutrophils/100 WBC (Bld) 93.4 % High 43 - 80 % [place] Platelet mean volume (Bld) [Entitic vol] 9.8 fL 7 - 12 fL [place] Platelets (Bld) [#/Vol] 250 10*3/uL [place] RBC (Bld) [#/Vol] 4.44 10*6/uL [place] WBC (Bld) [#/Vol] 10.8 10*3/uL [place] HCG, SERUM, QUALITATIVEon hCG Qual Negative NEGATIVE [place] Comment on above: Test results should always be evaluated with all available clinical data. SPECIMEN REJECTIONon 020 Reason for Rejection see below [place], [place] Comment on above: Unable to perform te sting; specimen grossly hemolyzed. To perform testing the specimen will need to be recollected. Hemolyz Rejected Test BMP, CBC [place], [place] CALL [place] H1AB tel. , Rejected Test Name/Called to LOIS Brink, 02/26/2020 07:50, by NICA [place], [place] CBC Auto Differentialon 01-31 Basophils (Bld) [#/Vol] 0.05 10*3/uL [place] Basophils/100 WBC (Bld) 0.9 % 0 - 2 % [place] Eosinophils (Bld) [#/Vol] 0.16 10*3/uL [place] Eosinophils/100 WBC (Bld) 2.8 % 0 - 6 % [place] Erythrocyte distribution width (RBC) [Ratio] 12.7 fL 11.5 - 15 fL [place] Hematocrit (Bld) [Volume fraction] 41.1 % 37 - 54 % [place] Hemoglobin (Bld) [Mass/Vol] 13.1 g/dL 12.5 - 16.5 g/dL [place] Immature granulocytes (Bld) [#/Vol] 0.02 10*3/uL E9/L [place] Immature granulocytes/100 WBC (Bld) 0.3 % 0 - 5 % [place] Interpretation and review of laboratory results Abnormal [place] Lymphocytes (Bld) [#/Vol] 0.87 10*3/uL Low [place] Lymphocytes/100 WBC (Bld) 15.0 % Low 20 - 42 % [place] MCH (RBC) [Entitic mass] 29.7 pg 26 - 35 pg [place] MCHC (RBC) [Mass/Vol] 31.9 % Low 32 - 3 4.5 % [place] MCV (RBC) [Entitic vol] 93.2 fL 80 - 99.9 fL [place] Monocytes (Bld) [#/Vol] 0.72 10*3/uL [place] Monocytes/100 WBC (Bld) 12.4 % High 2 - 12 % [place] Neutrophils Absolute 3.98 [place] Neutrophils/100 WBC (Bld) 68.6 % 43 - 80 % [place] Platelet mean volume (Bld) [Entitic vol] 10.0 fL 7 - 12 fL [place] Platelets (Bld) [#/Vol] 251 10*3/uL [place] RBC (Bld) [#/Vol] 4.41 10*6/uL [place] WBC (Bld) [#/Vol] 5.8 10*3/uL [place] ABDOMEN PELVIS W IV CONTR AST Additional Contrast? Noneon 02-25-2020 1. Soft tissue jacquie s in the left retroperitoneum, along the left spermatic cord, and with abnormal left periaortic lymphadenopathy. This raises the question of metastatic testicular cancer. 2. Slightly prominent left testicle and a very small right testicle. No hydrocele. 3. 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 [place] Patient 2 : 1955 Age: 64 years Gender: Male Order Date: 02/25/2020 9:45 AM EXAM: CT ABDOMEN PELVIS W IV CONTRAST INDICATION: lower abdominal tenderness. Patient states left groin pain and swelling for 4 weeks. TECHNIQUE: Axial images from the lung bases to the pubic symphysis with IV contrast, without oral contrast. Axial, sagittal and coronal 2-D reconstructions with soft tissue windows. Limited axial lung windows. Dose reduction techniques were used. Contrast is 100 mL Isovue-370 IV. Dose is total DLP 2301.0 MG Y CM. COMPARISON: None FINDINGS: Lung bases: Clear. Heart size within normal. No effusions. No hiatal hernia. ABDOMEN: Positive for left retroperitoneal and left periaortic lymphadenopathy. The largest mass is inferior and medial to the left kidney margin measuring approximately 4.8 cm long by 3.3 cm x 3.0 cm diameter. This has slightly indistinct margins with hazy penetration of the fat anterior to the left psoas muscle below the kidney. In addition a cluster of left periaortic lymph nodes measuring 2 cm, 2.6 cm, 2 cm and several smaller lymph nodes. The kidneys have normal size and appearance and are excreting contrast. Contrast could obscure a small stone. No hydronephrosis or perinephric stranding. Normal appearance of the renal vessels. Aorta shows minimal calcination at the bifurcation and has normal size, no aneurysm or dissection. Normal IVC, no thrombosis. Mild fatty change in the liver. A 5 mm probable cyst at the inferior margin of the medial segment left hepatic lobe. No obvious liver masses or bile duct dilatation. The gallbladder has normal size and appearance with no calcified stones or wall thickening. The common bile duct is very tiny. Normal size of the pancreas and spleen. Normal adrenal glands. No ascites. No hiatal hernia. Nondistended stomach and proximal small bowel loops. Mid small bowel loops show minimal scattered amounts of gas, no obstruction. Pelvis: Minimal strandy haziness of the left lower quadrant pelvic fat anterior to the left psoas muscle and extending down to the left groin. This surrounds the gonadal vessels. A 1.5 cm lymph node just above the left inguinal ligament. A 2.4 cm x 2.4 cm x 2.7 cm soft tissue density nodular mass along the proximal left spermatic cord. The left testicle looks slightly plump, 0.1 cm x 5.1 cm x 3.7 cm. The right testicle is very small in size, with low density and a 5 mm calcification. Recommend scrotal and left groin ultrasound. No hydrocele. This patient have a history of testicular cancer? No inguinal hernia. No bowel obstruction. No diverticulosis or diverticulitis. Minimal residual stool in the proximal and sigmoid colon. Normal appendix in the right lower quadrant anterior to the iliac crest. Distal small bowel has normal appearance. Urinary bladder was slightly full at the time of exam. There is streak artifact from left hip prosthesis. No obvious stones or wall thickening. Distal ureters are not dilated. Bones: No compression fracture. Large hypertrophic spurs in the lower thoracic and upper lumbar spine. At L2/3, there is moderate loss of disc height, moderate vacuum degeneration, a minimal retrolisthesis and moderate central stenosis. At L3/4, there is a mild disc bulge, right more than left facet degeneration and a moderate to severe central stenosis. At L4/5, there is a mild disc bulge, severe facet degeneration and a moderate to severe central stenosis. Facet degeneration is prominent in the lower 3 lumbar levels without subluxation. A total left hip prosthesis without dislocation. Intact right hip. Mild hypertrophic spurring at the pubic symphysis. No evidence to suggest bony metastatic disease. [facility]- [place], [place] Alek, Mhy Incoming Radiant Results From [facility] - 02/25/2020 12:03 PM EDT Patient : 1955 Age: 64 years Gender: Male Order Date: 02/25/2020 9:45 AM EXAM: CT ABDOMEN PELVIS W IV CONTRAST INDICATION: lower abdominal tenderness. Patient states left groin pain and swelling for 4 weeks. TECHNIQUE: Axial images from the lung bases to the pubic symphysis with IV contrast, without oral contrast. Axial, sagittal and coronal 2-D reconstructions with soft tissue windows. Limited axial lung windows. Dose reduction techniques were used. Contrast is 100 mL Isovue-370 IV. Dose is total DLP 2301.0 MG Y CM. COMPARISON: None FINDINGS: Lung bases: Clear. Heart size within normal. No effusions. No hiatal hernia. ABDOMEN: Positive for left retroperitoneal and left periaortic lymphadenopathy. The largest mass is inferior and medial to the left kidney margin measuring approximately 4.8 cm long by 3.3 cm x 3.0 cm diameter. This has slightly indistinct margins with hazy penetration of the fat anterior to the left psoas muscle below the kidney. In addition a cluster of left periaortic lymph nodes measuring 2 cm, 2.6 cm, 2 cm and several smaller lymph nodes. The kidneys have normal size and appearance and are excreting contrast. Contrast could obscure a small stone. No hydronephrosis or perinephric stranding. Normal appearance of the renal vessels. Aorta shows minimal calcination at the bifurcation and has normal size, no aneurysm or dissection. Normal IVC, no thrombosis. Mild fatty change in the liver. A 5 mm probable cyst at the inferior margin of the medial segment left hepatic lobe. No obvious liver masses or bile duct dilatation. The gallbladder has normal size and appearance with no calcified stones or wall thickening. The common bile duct is very tiny. Normal size of the pancreas and spleen. Normal adrenal glands. No ascites. No hiatal hernia. Nondistended stomach and proximal small bowel loops. Mid small bowel loops show minimal scattered amounts of gas, no obstruction. Pelvis: Minimal strandy haziness of the left lower quadrant pelvic fat anterior to the left psoas muscle and extending down to the left groin. This surrounds the gonadal vessels. A 1.5 cm lymph node just above the left inguinal ligament. A 2.4 cm x 2.4 cm x 2.7 cm soft tissue density nodular mass along the proximal left spermatic cord. The left testicle looks slightly plump, 0.1 cm x 5.1 cm x 3.7 cm. The right testicle is very small in size, with low density and a 5 mm calcification. Recommend scrotal and left groin ultrasound. No hydrocele. This patient have a history of testicular cancer? No inguinal hernia. No bowel obstruction. No diverticulosis or diverticulitis. Minimal residual stool in the proximal and sigmoid colon. Normal appendix in the right lower quadrant anterior to the iliac crest. Distal small bowel has normal appearance. Urinary bladder was slightly full at the time of exam. There is streak artifact from left hip prosthesis. No obvious stones or wall thickening. Distal ureters are not dilated. Bones: No compression fracture. Large hypertrophic spurs in the lower thoracic and upper lumbar spine. At L2/3, there is moderate loss of disc height, moderate vacuum degeneration, a minimal retrolisthesis and moderate central stenosis. At L3/4, there is a mild disc bulge, right more than left facet degeneration and a moderate to severe central stenosis. At L4/5, there is a mild disc bulge, severe facet degeneration and a moderate to severe central stenosis. Facet degeneration is prominent in the lower 3 lumbar levels without subluxation. A total left hip prosthesis without dislocation. Intact right hip. Mild hypertrophic spurring at the pubic symphysis. No evidence to suggest bony metastatic disease. IMPRESSION: 1. Soft tissue masses in the left retroperitoneum, along the left spermatic cord, and with abnormal left periaortic lymphadenopathy. This raises the question of metastatic testicular cancer. 2. Slightly prominent left testicle and a very small right testicle. No hydrocele. 3. 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 [place] Comprehensive Metabolic Pane l w/ Reflex to on 02-25-2020 Albumin [Mass/Vol] 4.4 g/dL 3.5 - 5.2 g/dL [place] ALP [Catalytic activity/Vol] 98 U/L 40 - 129 U/L [place] ALT [Catalytic activity/Vol] 18 U/L 0 - 40 U/L [place] Anion gap [Moles/Vol] 9 mmol/L 7 - 16 mmol/L [place] AST [Catalytic activity/Vol] 27 U/L 0 - 39 U/L [place] Bilirubin Ql (U) 0.4 mg/dL 0 - 1.2 mg/dL [place] Calcium [Mass/Vol] 9.3 mg/dL 8.6 - 10. 2 mg/dL [place] [place] Chloride [Moles/Vol] 106 mmol/L 98 - 10 7 mmol/L [place] CO2 [Moles/Vol] 24 mmol/L 22 - 29 mmol/L [place] Creatinine [Mass/Vol] 1 mg/dL 0.7 - 1.2 mg/dL [place] GFR >60 [place] GFR Non- >60 >=60 mL/min/1.7 3 [place] Comment on above: Chronic Kidney Disea se: less than 60 ml/min/1.73 sq.m. Kidney Failure: less than 15 ml/min/1.73 sq.m. Results valid for patients 18 years and older. Glucose [Mass/Vol] 135 mg/dL High 74 - 99 mg/dL [place] Interpretation and review of laboratory results Abnormal [place] Potassium [Moles/Vol] 4.0 mmol/L 3.5 - 5 mmol/L [place] Protein [Mass/Vol] 7.9 g/dL 6.4 - 8.3 g/dL [place] Sodium [Moles/Vol] 139 mmol/L 132 - 146 mmol/L [place] Urea nitrogen [Mass/Vol] 26 mg/dL High 8 - 23 mg/dL [place] LACTATE DEHYDROGENASEon 01-31 Interpretation and review of laboratory results Abnormal [place] LD 247 U/L High 135 - 225 U/L [place] Comment on above: Specimen is slightly Hemolyzed. Result may be artificially increased. Lipaseon 02-25-2020 Lipase [Catalytic activity/Vol] 19 U/L 13 - 60 U/L [place] Otheron 02-25-2020 Patient 2 : 1955 Age: 64 years Gender: Male Order Date: 02/25/2020 3:45 PM Exam: US SCROTUM AND TESTICLES, US DUP ABD PEL RETRO SCROT COMPLETE Number of Images: 85 views Indication: scrotal mass scrotal mass Comparison: None. Findings: Ultrasound examination of the testicles demonstrate the left testis is enlarged with heterogeneous lesion with increased color flow Doppler. The right testes normal size with normal echotexture with no mass seen.. The right testicle measures 2.2 x 2.7 x 1.4 cm and the left testicle measures 5.2 x 4.3 x 3.2 cm. The right testes in the right epididymis has normal color flow Doppler. Homogenous echo pattern is seen throughout. The right epididymis appears to be normal. The left epididymis is not visualized. No hydrocele is noted. There is a left inguinal lymph node which appears to be enlarged measuring 2.8 x 2.7 x 2.4 cm. [employer], [employer] Alek, Mhy Incoming Radiant Results From [facility] - 02/25/2020 4:20 PM EDT Patient : 1955 Age: 64 years Gender: Male Order Date: 02/25/2020 3:45 PM Exam: US SCROTUM AND TESTICLES, US DUP ABD PEL RETRO SCROT COMPLETE Number of Images: 85 views Indication: scrotal mass scrotal mass Comparison: None. Findings: Ultrasound examination of the testicles demonstrate the left testis is enlarged with heterogeneous lesion with increased color flow Doppler. The right testes normal size with normal echotexture with no mass seen.. The right testicle measures 2.2 x 2.7 x 1.4 cm and the left testicle measures 5.2 x 4.3 x 3.2 cm. The right testes in the right epididymis has normal color flow Doppler. Homogenous echo pattern is seen throughout. The right epididymis appears to be normal. The left epididymis is not visualized. No hydrocele is noted. There is a left inguinal lymph node which appears to be enlarged measuring 2.8 x 2.7 x 2.4 cm. IMPRESSION: The left testes enlarged and has a masslike appearance with color flow Doppler. This is suspicion for possible underlying malignancy. There is associated left inguinal lymph node which appears to be abnormal in appearance measuring 2.8 x 2.7 x 2.4 cm.. [employer], [place] The left testes enla rged and has a masslike appearance with color flow Doppler. This is suspicion for possible underlying malignancy. There is associated left inguinal lymph node which appears to be abnormal in appearance measuring 2.8 x 2.7 x 2.4 cm.. [place] Urinalysis with Microscopico n 02-25-2020 Bacteria, UA RARE Abnormal None Seen /HPF [place] Bilirubin Urine Negative Negative [place] Blood, Urine Negative Negative [place] Clarity, UA Clear Clear [place] Color, UA Yellow Straw/Cedar ow [place] Epithelial Cells, UA FEW /HPF [place] Glucose, Ur Negative Negative mg/dL [place] Interpretation and review of laboratory results Abnormal [place] Ketones Ql (U) Negative Negative mg/dL [place] Leukocyte esterase Test strip Ql (U) Negative Negative [place] Nitrite, Urine Negative Negative [place] pH, UA 5.0 [place] Protein (U) [Mass/Vol] Negative Negat kiran mg/dL [place] RBC (U) [#/Vol] NONE [place] Specific [place], UA 1.025 [place] Urobilinogen, Urine 0.2 <2.0 E.U./dL [place] WBC, UA 0-1 [place] Comprehensive Metabolic Pane torres 08-13-2019 Albumin [Mass/Vol] 4.4 g/dL 3.5 - 5.2 g/dL [place] ALP [Catalytic activity/Vol] 97 U/L 40 - 129 U/L [place] ALT [Catalytic activity/Vol] 24 U/L 0 - 40 U/L [place] Anion gap [Moles/Vol] 14 mmol/L 7 - 16 mmol/L [place] AST [Catalytic activity/Vol] 24 U/L 0 - 39 U/L [place] Bilirubin Ql (U) 0.4 mg/dL 0 - 1.2 mg/dL [place] Calcium [Mass/Vol] 9.3 mg/dL 8.6 - 10. 2 mg/dL [place] Chloride [Moles/Vol] 102 mmol/L 98 - 10 7 mmol/L [place] CO2 [Moles/Vol] 26 mmol/L 22 - 29 mmol/L [place] Creatinine [Mass/Vol] 0.9 mg/dL 0.7 - 1.2 mg/dL [place] GFR >60 [place] GFR Non- >60 >=60 mL/min/1.7 3 [place] Comment on above: Chronic Kidney Disea se: less than 60 ml/min/1.73 sq.m. Kidney Failure: less than 15 ml/min/1.73 sq.m. Results valid for patients 18 years and older. Glucose [Mass/Vol] 102 mg/dL High 74 - 99 mg/dL [place] Potassium [Moles/Vol] 5.0 mmol/L 3.5 - 5 mmol/L [place] Protein [Mass/Vol] 7.7 g/dL 6.4 - 8.3 g/dL [place] Sodium [Moles/Vol] 142 mmol/L 132 - 146 mmol/L [place] Urea nitrogen [Mass/Vol] 17 mg/dL 8 - 23 mg/dL [place] Hemoglobin A1Con 08-13-2019 HbA1c (Bld) [Mass fraction] 5.8 % High 4 - 5.6 % [place] Interpretation and review of laboratory results Abnormal [place] Lipid Panelon 08-13-2019 Cholesterol [Mass/Vol] 216 mg/dL High 0 - 1 99 mg/dL [place] Cholesterol in HDL [Mass/Vol] 50 mg/dL >40 [place] Cholesterol in LDL [Mass/Vol] 133 mg/dL High 0 - 99 mg/dL [place] Triglyceride [Mass/Vol] 167 mg/dL High 0 - 149 mg/dL [place] VLDL Cholesterol Calculated 33 mg/dL [place] Otheron 08-13-2019 Interpretation and review of laboratory results Abnormal [place] TSH without Reflexon 019 Interpretation and review of laboratory results Abnormal [facility] [place], [place] TSH Qn 5.030 m[IU]/L High [facility], [place] CBC W Auto Diff [place] 2018 Basophils #/vol (Bld) 0.0 10*3/uL Normal 0.00-0.20 [facility] ([place]) Comment on above: Performed By: #### 5 7021-8 #### [address] [address] Basophils/100 WBC (Bld) 0.6 % Normal 0.0-1.5 [facility] ([place]) Comment on above: Performed By: #### 5 7021-8 #### [address] [address] Eosinophils #/vol (Bld) 0.2 10*3/uL Normal 0.00-0.33 [facility] ([place]) Comment on above: Performed By: #### 5 7021-8 #### [address] [address] Eosinophils/100 WBC (Bld) 3.1 % High 0.0-3.0 [facility] ([place]) Comment on above: Performed By: #### 5 7021-8 #### [address] [address] Erythrocyte distribution width Ratio (RBC) 14.2 % Normal 10.9-14.3 [facility] ([place]) Comment on above: Performed By: #### 5 7021-8 #### [address] [address] Hematocrit Volume Fraction (Bld) 40.7 % Low 41.0-50.0 [facility] ([place] Comment on above: Performed By: #### 5 7021-8 #### [address] [address] Hemoglobin mass conc (Bld) 13.8 g/dL Normal 13.5-16.5 [facility] ([place]) Comment on above: Performed By: #### 5 7021-8 #### [facility] [address] [place] [address] Lymphocytes Auto #/vol (Unsp spec) 1.8 10*3/uL Normal 1.10-4.80 [facility] ([place]) Comment on above: Performed By: #### 5 7021-8 #### [facility] [address] [place] [address] Lymphocytes/100 WBC (Bld) 25.0 % Normal 24.0-44.0 [facility] ([place] Comment on above: Performed By: #### 5 7021-8 #### [facility] [address] [place] [address] MCH Entitic mass (RBC) 30.0 pg Normal 28.0-34.0 [facility] ([place]) Comment on above: Performed By: #### 5 7021-8 #### [facility] [address] [place] [address] MCH Entitic mass (RBC) 33.9 g/dL Normal 33.0-37.0 [facility] ([place]) Comment on above: Performed By: #### 5 7021-8 #### [facility] [address] [place] [address] MCV Entitic volume (RBC) 88.6 fL Normal 80.0-100.0 [facility] ([place] Comment on above: Performed By: #### 5 7021-8 #### [facility] [address] [place] [address] Monocytes #/vol (Bld) 0.7 10*3/uL Normal 0.20-0.70 [facility] ([place]) Comment on above: Performed By: #### 5 7021-8 #### [address] [address] Monocytes/100 WBC (Bld) 10.0 % High 3.4-9.0 [facility] ([place]) Comment on above: Performed By: #### 5 7021-8 #### [address] [address] Neutrophils #/vol (Bld) 4.4 10*3/uL Normal 1.83-8.70 [facility] ([place] Comment on above: Performed By: #### 5 7021-8 #### [address] [address] Neutrophils/100 WBC (Bld) 61.3 % Normal 40.0-74.0 [facility] ([place] Comment on above: Performed By: #### 5 7021-8 #### [address] [address] Platelet mean volume Entitic volume (Bld) 8.1 fL Normal 7.4-10.4 [facility] ([place] Comment on above: Performed By: #### 5 7021-8 #### [address] [address] Platelets #/vol (Bld) 249 10*3/uL Normal 150-450 [facility] ([place]) Comment on above: Performed By: #### 5 7021-8 #### [address] [address] RBC #/vol (Bld) 4.60 10*6/uL Normal 4.50-5.50 [facility] ([place] Comment on above: Performed By: #### 5 7021-8 #### [address] [address] WBC #/vol (Bld) 7.1 10*3/uL Normal 4.5-11.0 [facility] ([place] Comment on above: Performed By: #### 5 7021-8 #### [address] [address] Comprehensive Metabolic Pane torres 05-15-2019 Albumin mass conc 4.1 g/dL Normal 3.4-4.8 [facility] ([place] Comment on above: Performed By: #### L IPID, CMP #### [facility] [address] [place] [address] Albumin/Globulin mass ratio 1.1 {ratio} Normal 1.1-2.2 [facility] ([place] Comment on above: Performed By: #### L IPID, CMP #### [facility] [address] [place] [address] ALP enzyme act/vol 101 U/L Normal 42-121 [facility] ([place] Comment on above: Performed By: #### L IPID, CMP #### [facility] [address] [place] [address] ALT enzyme act/vol 25 U/L Normal 10-63 [facility] ([place] Comment on above: Performed By: #### L IPID, CMP #### [facility] [address] [place] [address] Anion gap molar conc 7.0 mmol/L Normal 3-11 [facility] ([place]) Comment on above: Performed By: #### L IPID, CMP #### [facility] [address] [place] [address] AST enzyme act/vol 26 U/L Normal 10-41 [facility] ([place] Comment on above: Performed By: #### L IPID, CMP #### [facility] [address] [place] [address] Bilirubin mass conc 1.0 mg/dL Normal 0.3-1.5 [facility] ([place] Comment on above: Performed By: #### L IPID, CMP #### [facility] [address] [place] [address] Calcium mass conc 8.9 mg/dL Normal 8.5-10.5 [facility] ([place] Comment on above: Performed By: #### L IPID, CMP #### [facility] [address] [place] [address] Chloride molar conc 105 mmol/L Normal 98-107 [facility] ([place] Comment on above: Performed By: #### L IPID, CMP #### [facility] [address] [place] [address] CO2 molar conc 27 mmol/L Normal 21-31 [facility] ([place] Comment on above: Performed By: #### L IPID, CMP #### [facility] [address] [place] [address] Creatinine molar conc 0.9 mg/dL Normal 0.6-1.3 [facility] ([place]) Comment on above: Performed By: #### L IPID, CMP #### [facility] [address] [place] [address] GFR/1.73 sq M predicted among blacks MDRD vol rate/area (S/P/Bld) 103 mL/min/{1.73_m2} Normal >60 [facility] ([place] Comment on above: Performed By: #### L IPID, CMP #### [facility] [address] [place] [address] GFR/1.73 sq M predicted among non-blacks MDRD vol rate/area (S/P/Bld) 85 mL/min/{1.73_m2} Normal >60 [facility] ([place]) Comment on above: Performed By: #### L IPID, CMP #### [facility] [address] [place] [address] Globulin mass conc (S) 3.6 g/dL Normal 1.9-3.9 [facility] ([place]) Comment on above: Performed By: #### L IPID, CMP #### [facility] [address] [place] [address] Glucose mass conc 107 mg/dL High 70-99 [facility] ([place] Comment on above: Performed By: #### L IPID, CMP #### [facility] [address] [place] [address] Potassium molar conc 4.6 mmol/L Normal 3.6-5.0 [facility] ([place]) Comment on above: Performed By: #### L IPID, CMP #### [facility] [address] [place] [address] Protein mass conc 7.7 g/dL Normal 5.9-7.8 [facility] ([place] Comment on above: Performed By: #### L IPID, CMP #### [facility] [address] [place] [address] Sodium molar conc 139 mmol/L Normal 135-145 [facility] ([place] Comment on above: Performed By: #### L IPID, CMP #### [facility] [address] [place] [address] Urea nitrogen mass conc 22 mg/dL High 6-20 [facility] ([place]) Comment on above: Performed By: #### L IPID, CMP #### [facility] [address] [place] [address] Lipid Panelon 02-13-2019 Cholesterol in HDL mass conc 49 mg/dL Normal 29-71 [facility] ([place] Comment on above: Performed By: #### L IPID, CMP #### [facility] [address] [place] [address] Cholesterol in LDL mass conc 124 mg/dL Normal <129 [facility] ([place] Comment on above: Performed By: #### L IPID, CMP #### [facility] [address] [place] [address] Cholesterol in LDL/Cholesterol in HDL mass ratio 2.5 ratio Normal [facility] ([place] Comment on above: Result Comment: MEN WOMEN 1/2 Average Risk 1.00 1.47 Average Risk 3.55 3.22 2X Average Risk 6.25 5.03 3X Average Risk 7.99 6.14 Performed By: #### L IPID, CMP #### [facility] [address] [place] [address] Cholesterol mass conc 185 mg/dL Normal 140-200 [facility] ([place]) Comment on above: Performed By: #### L IPID, CMP #### [facility] [address] [place] [address] Triglyceride mass conc 143 mg/dL Normal 41-189 [facility] ([place]) Comment on above: Performed By: #### L IPID, CMP #### [facility] [address] [place] [address] Echocardiogram, Adulton 07-03 Echocardiogram, Adult Normal [facility] ([place]) ED.PDOCon 06-09-2018 ED.PDOC BLAKE GRIMES Male [id number] provider: [facility] ER ER [id number],Jo hn A 1955 62 DOS: 06/09/18Hx/Exam- History of Present IllnessChief Complaint: WOUND BLEEDINGLocation: left hipSymptom Duration: 2 daysSymptom Duration: Day(s)Onset of Symptoms: noted some drainage under his wound bandageIntensity: mildQuality: drainageEpisode Frequency: intermittantEpisode Duration: DaysRadiations: as abovePatient/Family Denies: numbness/tingling, abd pain, CP, SOB, new falls/trauma,F?c/r- Review of SystemsAll Other Systems: Pertinent Positives in HPI, All Other Systems NegativeConstitutional: Denies: Fever, ChillsEyes: Denies: Pain, Blurred VisionRespiratory: Denies: Cough, Dry, Shortness of Breath, Sputum, WheezingCardiovascular: Denies: Chest Pain, Palpitations, OrthopneaGastrointestina l: Denies: Nausea, Vomiting, Abdominal Pain, DiarrheaGenitourinary: Denies: DysuriaMusculoskeletal: Hip Pain. Denies: Neck Pain, Back Pain, Shoulder Pain, ArmPain, Elbow Pain,Wrist Pain, Hand Pain, Finger Pain, Leg Pain, Knee Pain, Ankle Pain, Foot Pain,Toe Pain, Body AchesSkin: Denies: RashNeurological: Denies: Headache, Weakness, Numbness, Incoordination, Change inSpeech, Confusion,Seizures- Past Medical HistoryGeneral History: No Anemia, No Angina, Yes Anxiety, Yes Arthritis (LEFT HIP ANDKNEE), No Asthma,No CAD, No Cancer, No CHF, No COPD, No TIA, Yes Depression, No Diabetes, NoDialysis, Yes GERD, NoGI Bleed, Yes HTN (borderline; no meds), No Hypothyroidism, No PE- Past Surgical HistorySurgical History: No Hx Coronary StentComments: left hip surgery- Social HistorySmoking Status: Unknown if ever smokedHx Alcohol Use: Yes (rare)Living Conditions: Family- Family HistoryFamily/Social History Related to Chief Complaint: Denies- Physical ExamGeneral Appearance: awake, alert, no apparent distressEyes: PERRL, EOMIHead, Ears, Nose, and Throat: atraumaticNeck: supple, non-tender, no stridor, no bony tenderness, full ROM, no meningeal signs, no cervicallymphadenopathyR espiratory: lungs clear, no wheezes/rhonchi/rales, no respiratory distressCardiovascular: regular rate, rhythm, no murmur, no gallopAbdomen/GI: non tender, soft, non-distended, normal bowel sounds, noorganomegaly, no pulsatile mass, no peritoneal signsBack: no CVA tenderness, no vertebral tenderness, normal ROM, non tenderExtremity: normal range of motion, no pedal edema, no calf tenderness, other(left hip wound cleanand intact, mild amount of serous drainage from wound; lane intact; nocreptius/induration/fl uctuance noted; FROM knee and ankle)Pulses: Radial: 2+, Posterior Tibial: 2+, Dorsalis Pedis: 2+Neurologic: no motor/sensory deficits, normal strength, normal sensation, speech clear/fluent,other (knee/ankle reflexes 2+ B/L LE)Psychiatric: oriented x3, calmSkin Exam: warm/dryLymphatic: no adenopathy- Source of HistorySource of History: Nursing Notes/Vital Signs/Triage Reviewed and AgreeNote(s)- Physician NotesAdditional Notes:06/09/18 12:[age] yo M presents from home, notes some leakage of fulid around his post opdressing left hip.Pt is s/p left hip replacement with DR. Weinstein this past week (dischargedWe).De nies any F/c/R. Deneis rash. NO back/flank pain. Denies any chest pain or SOB.Wound was examined, no creptius/induration/fluc tuance.A replacement identical post operative adhesive bandage was obtained, and thiswas replaced afterthorough wound evaluation under sterile procedure bedside.I d/w Dr. Weinstein regarding patient, he is OK with plan and has outpt follow upscheduled withpatient.Discussed with patient, comfortable with plan, close follow up and returnprecautions. 18:25This note completed at this point due to the busyness of the ED at time ofpatient encounter.EKG- EKGEKG Interpretation: Not ApplicableDischarge Screen- DischargeDischarge Problem: Visit for wound checkDisposition: HOME/SELF CAREAdditional Instructions:Please take your medication as prescribed and follow up closely with yourprimary care doctor andOrthopedic doctor.If the symptoms worsen or new symptoms develop return to the EmergencyDepartment (ED) immediately. Call your doctor for additional questions. ED Supisqdhz: GoodInstructions: How to Care for a Surgical WoundReferrals:Favio Mccray [Primary Care Provider] - 2-3 DaysAlissa Weinstein V. [ACTIVE] - 2-3 Days Dictated By: Judy Singh M.D.Dictated Date/Time:06/09/18 1217Electronically Signed Date/Time: 06/09/18 1827 Normal [facility] HGB HCTon 06-06-2018 Hematocrit Auto Volume Fraction (Bld) 33.8 % Low 41.0-53.0 [facility] Comment on above: Performed By: #### H H ####[facility] [place] [address] Hemoglobin mass conc (Bld) 11.3 g/dL Low 14.0-18.0 [facility] Comment on above: Performed By: #### H H ####[facility] [place] [address] MRPNon 06-06-2018 [facility] Patient Name:BLAKE GRIMES MR #: [id number]: 3WA Acc#: [id number] [id number] Admit: 06/05/18DOB: 1955 Age: 62 Sex: MDictated By: Jennifer Rose Physician: Alissa Weinstein V.DICTATED BY: Sharonda Ojeda-IGNEVIN PHYSICIAN:DATE OF SERVICE: 06/06/2018Attending physician: Alissa Weinstein M.D.SUBJECTIVE: The patient is sitting comfortably in his bed, has been up walkingto the restroom,urinating well on his own. Pain is well controlled. He is eating and drinkingwell on his own.Denies any shortness of breath, chest pain, lightheadedness, or dizziness. Hesays that hisdressing was changed 1 time due to saturation.OBJECTIVE: His vital signs are stable. Dressing is clean, dry, and intact tohis left hip withjust less than 50% saturation. Musculoskeletally and neurovascularly intact toleft lowerextremity.Hemoglobi n 11.3 this morning.ASSESSMENT: He is status post left total hip arthroplasty, postoperative day#1.PLAN: Continue with pain control, DVT prophylaxis, and out of bed physicaltherapy. He is plannedfor discharge home today after he passes therapy and is cleared by thehospitalist. He will bedischarged home on home medications plus Aspirin, changed from Xarelto per DrMungo due to bleeding, for DVT prophylaxis, hydrocodone for pain management, and meloxicam as ananti-inflammatory. Heis instructed to follow our postoperative care instruction sheet and to call the office withquestions or concerns. Follow up in 10 to 12 days.CHRISBO/PIDD: 06/06/18 @ 08:20DT: 06/06/18 @ 09:00# [id number] ____ Pranay Rose P.A.-C Electronically Signed Date/Time: 06/06/18 1339 Electronically Signed Date/Time: 06/06/[address] [facility] HIP W/PEL 2 OR 3 VIEW-LEFTon 06-05-2018 HIP W/PEL 2 OR 3 VIEW-LEFT BLAKE GRIM[place] Male [id number] physician: Alissa Weinstein V. LOC: [id number] physician: Alissa Weinstein V. 1955 62 DOS: 06/05/18 Acc#: [id number]/Proc: HIP W/PEL 2 OR 3 VIEW-LEFTDept: RADIOLOGYINDICATION: Post-op left total hip. TECHNIQUE: AP view of pelvis and one view(s) of the left hip. COMPARISON: None Available. FINDINGS: The total hip arthroplasty is in anatomic alignment. There is no displacedfrature. There is noevidence of orthopedic hardware complications. Surgical clips and soft tissuestranding arerepresenting recent postsurgical status of the patient. IMPRESSION: Left total hip arthroplasty is seen in place. Signed by Janelle Perera MDREPORT SIGNATURE ON FILEElectronically Signed Date/Time: 06/05/18 1234Dictated Date/time: 06/05/18 1234CC: [facility] MR CONSULTon 06-05-2018 MR CONSULT Patient name: BLAKE GRIMES MR#: [id number]: Acc#: [id number] Date: 06/05/18DOB: 1955 Age: 62 Sex: MDictated By: Dr. Reza Cochranignevin Physician:DICTATED BY: Reza Jason M.D.SIGNING PHYSICIAN:DATE OF SERVICE: 06/05/2018IDENTIFICATION : He is a 62-year-old male. The patient is seen and evaluated.Has left total hiparthroplasty.HISTORY OF PRESENT ILLNESS: This 62-year-old male has past medical history ofarthritis, sleepapnea, dyslipidemia, morbidly obese. He is brought in with worsening hiparthritis. Eventually,left total hip arthroplasty was done by Dr. Weinstein. Seen in his room. Has noacute distress, chestpain, shortness of breath, cough, or phlegm. Discussed about his treatmentplan.PAST MEDICAL HISTORY: Significant for obstructive sleep apnea, hyperlipidemia,obesity, arthritis,and history of depression and anxiety.PAST SURGICAL HISTORY: Both feet repair and right wrist repair.FAMILY HISTORY: Brother due to diabetes and two half-sisters havediabetes. Mother andfather due to unknown reasons.SOCIAL HISTORY: Denies smoking. Drinks alcohol occasionally. 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 daily, ibuprofen 600 mg mg p.o. t.i.d., Xarelto 10 mg p.o. daily, meloxicam 7.5 mg p.o. daily,and Percocet 1-2 tablets 4-6 hours p.r.n.REVIEW OF SYSTEMS: Reviewed 10 systems, no other positive symptoms.PHYSICAL EXAMINATION:VITAL SIGNS: Temperature 36.8, pulse 78, respirations 14, blood duxjqdzi504/77, and oxygensaturation 100% on room air.LUNGS: Clinically clear. No rhonchi, rub, or rales.CARDIOVASCULAR: S1, S2 normal. No murmur, rub, or gallop.ABDOMEN: Soft.EXTREMITIES: No edema.CENTRAL NERVOUS SYSTEM: No deficit.LABORATORY DATA: No new laboratory work today.ASSESSMENT AND PLAN:1. Continue with CPAP at night per home setting.2. Dyslipidemia. Continue with statin.3. Deep venous thrombosis prophylaxis and pain medication as per Dr. Weinstein.CPT code 20300.ITZEL/PIDD: 06/05/18 @ 13:21DT: 06/05/18 @ 15:20# [id number] ____ Reza Jason M.D. Electronically Signed Date/Time: 06/06/18951 Electronically Signed Date/Time: 06/06/18951 [facility] 06-05-2018 MR OP Patient name: BLAKE GRIMES MR#: [id number]: 3WA Acc#: [id number] Date: 06/05/18DOB: 1955 Age: 62 Sex: MDictated By: Alissa Weinstein V.Signing Physician: Alissa Weinstein V.DICTATED BY: Alissa Weinstein M.D. SIGNING PHYSICIAN: DATE OF SERVICE: 06/05/2018 ATTENDING SURGEON: Alissa Weinstein M.D. PHOTOGRAMMETRIC TECHNICIAN: Pranay Rose PA-C. PREOPERATIVE DIAGNOSIS: Left hip degenerative joint disease. POSTOPERATIVE DIAGNOSIS: Left hip degenerative joint disease. PROCEDURE: Left total hip arthroplasty. INDICATIONS: A 62-year-old gentleman with left hip DJD, failed injectionstherpy attempts atfurther weight loss, he has lost some. Risks, benefits, and potentialcomplications were reviewedwith him and informed consent was obtained. DESCRIPTION OF PROCEDURE: The patient was taken to the operating room, placedn supine position. Given general anesthetic. Once he was asleep he was positioned onto hisrightide. Thepegboard was used to stabilize the pelvis and for positioning. Left hip andlower extremity wasprepped and draped in usual sterile fashion. Bony anatomy drawn out on theskin. There wasadditional degrees of difficulty due to his large size. I used a largerincision than normal. Theposterior approach was used. I used MIS incision finer but extended it in bothdirections.Cautery was used to dissect down to the gluteal fascia, which was split in linewith the skinincision. I used the deep Charnley hip retractors. Short external rotatorswere released distalto the piriformis tendon, which was left intact. The capsule was opened up inan L-shaped fashion. I was able to dislocate the head. The oscillating saw was used to make the ne cut. Head wasremoved. 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 Part of the capsule was incised, labrum was excised.Reaming was done froma 45 up to a 55 reamer. Size 56 R3 acetabular shell from Partida and Nephew wasimpacted. No screwholes were used. The central hole cover was placed. The 20 degree lip linerwith cross-linkedpoly was impacted. The lip was posterior inferior. Attention was then directed to the proximalfemur. The box guide was used to make the starting position. The rat-tail rasp was used to raspout medially and laterally. I had to use a different femoral neck retractor due to the large sizealso. Pneumatic broach system was used to broach up to a 7. I was able to getan 8 down though bybimanual broaching. A size 8 anthology high offset femoral stem was impacted.I trialed off that. Ended up using a +4 neck length with a 40 mm Oxinium femoral head. Head wasiacted. Hip wasgiven a final reduction after trialing and very stable through range of motion. Leg lengthsappeared grossly equal to the knees. Capsule was injected with Marcaine withepinephrine.Pulsatil e antibiotic irrigation was used throughout the procedure and to prepare for closure. Agram of vancomycin powder was placed in the joint for prophylaxis. Capsule wasrepaired with #1Vicryl suture. Interrupted #1 in the IT band and running 0 Vicryl in a glutealfascia, two layersin the subcu with both #1 and 2-[address] on skin. Sterile bandage wasapplied. The patientwas awoken from anesthesia and taken to recovery room in satisfactory condition. There were nocomplications. PA was integral in performance of the procedure, participated in all aspectsinluding helpingwith exposure, helped to dislocate and relocate the hip during trialing. It was articularlydifficult for him also given the large size of the leg. Case did take a littlebit longer thannormal. CAYETANO/RAE @ 10:33 @ 21:40 # [id number] ____ Alissa Weinstein M.D. Electronically Signed Date/Time: 06/06/18906 Electronically Signed Date/Time: 06/06/18906 [facility] 06-05-2018 PD.VICTOR MBLAKE SANDRA Male [id number] physician: ADM IN [facility] [id number] physician: Alissa Weinstein V. 1955 62 DOS: Anesthesia Assessment- ProcedureNPO since: MNPreProcedure Diagnosis: LEFT HIP OSTEOARTHRITISSurgeon: MUNGOProcedure to be Performed: TOTAL LEFT HIP ARTHROPLASTY- Anesthesia HistoryHx Anesthesia Reactions: NoHx Post Operative Nausea and/or Vomiting: NoDelayed Emergence: NoDifficulty with Intubation: NoResistant to medications: No- Surgical HistoryName of Surgery/Procedure: renzo heel surgery; R wrist, prostate- Cardiovascular HistoryHx Cardiac Disorders: YesHx DE: NoHx Angina: NoHx Congestive Heart Failure: NoHx Cardiac Surgery: NoHx Cardiac Catherization: NoHx Pacemaker/Implantable Defibrillator: NoHx Anticoagulant Therapy: NoHx Stress Test: NoHx Irregular Heartbeat: NoHx Hypertension: Yes (borderline; no meds)- Endocrine/ HistoryHx Endocrine Disorders: NoHx Diabetes: NoHx Hyperthyroidism: NoHx Hypothyroidism: NoHx Genitourinary: NoHx Renal Disease: NoHx Hypercholesterolemia: YesBody Mass Index (BMI): 52.6- Respiratory HistoryHx Respiratory Disorders: YesHx Chronic Obstructive Pulmonary Disease (COPD): NoHx Asthma: NoHx Emphysema: NoHx Sleep Apnea: Yes (CPAP)- Stop Bang AssessmentDo you snore loudly?: YesDo you often feel tired, fatigued, or sleepy during the dayt: YesDo you have or are you being treated for high blood pressure: YesAre you obese/overweight-BMI more than 35kg?: YesIs your neck circumference greater than 16 inches?: YesAre you a male?: YesAre you over 50 years old?: YesHas anyone observed you stop breathing during your sleep?: YesStop Bang Score: 8- GI Medical HistoryHx Gastrointestinal Disorders: NoHx GERD: No- Musculoskelatal DisordersHx Musculoskeletal Disorders: YesHx Arthritis: Yes (LEFT HIP AND KNEE)Hx Rheumatoid Arthritis: NoHx Back Pain: NoHx Fibromyalgia: No- Neurological DisordersHx Neurological Disorders: NoHx Cerebrovascular Accident: NoHx Transient Ischemic Attacks (TIA): NoHx Dementia: NoHx Seizures: NoHx Migraines: No- Psych Medical HistoryHx Psychiatric Problems: Yes (PTSD)Hx Depression: YesHx Anxiety: Yes- Heme Medical HistoryHx Blood Disorders: NoHx Anemia: No- Other Medical HistoryHx Hospitalization: Yes (1976)Hx Cancer: NoHx Blood Transfusions: NoHx Blood Transfusion Reaction: NoSmoking Status: Never SmokerHx Alcohol Use: Yes (rare)Recent URI: No- AssessmentHeart Sounds: S1 B6Ecfeeb Sounds: ClearAirway Maintained: YesPain Score: 4Temperature (celsius): 36.7 CPulse Rate: 68Respiratory Rate: 18O2 Sat by Pulse Oximetry: 97Blood Pressure: 153/77Height: 1.73 mWeight (kg): 157 kgEKG Reviewed: YesLabs Reviewed: Yes- AirwayMAL: 2TMD: Greater than 3Condition of Teeth: Capped Teeth, No Dental ProblemsROM neck: Limited- Anesthesia Plan of CareASA Class: ASA 3Anesthesia Type: GETAVAP: If any of the above risk factors are selected Hi-Lo Endotracheal Tubes will be considered andpreoperative oral care will be completed.Arterial Line: NoCentral Line: NoType of Block Anesthesia: NonePost Op Pain Control: Parental IM/IV- Anesthesia NotesAnesthesia Notes: YesAnesthesia Consult: CompleteActive Medications:Bupivacaine HCl (Marcaine 0.5% Pf) 30 ml LOCAL PRN PRN PRN Reason: PAIN Stop: 06/07/18 00:59Bupivacaine HCl/Epinephrine Bitart (Sensorcaine W/Epinephrine) 30 ml LOCAL PRNPRN PRN Reason: PAIN Stop: 06/07/18 00:59Dexamethasone Sodium Phosphate (Decadron) 10 mg IV PUSH PRN PRN PRN Reason: SURGERY Stop: 06/07/18 00:59Gelatin (Gelfoam 100) 1 each T PRN PRN PRN Reason: SURGERY Stop: 06/07/18 00:59Polymyxin B Sulfate 0.5 mil. (units/ Gentamicin Sulfate) 3,002 mls @ 3,000mls/hr IRR .Q1H1M PRN PRN Reason: IRRIGATION Stop: 06/07/18 00:59Lactated Ringer's (Lr) 1,000 mls @ 10 mls/hr IV CONTINUOUS FRANK Stop: 06/07/18 05:59 Last Admin: 06/05/18 07:52 Dose: 10 mls/hrNon-Formulary Medication (Nozin) 1 ea T TID-9-1-9 FRANK Stop: 07/05/18 08:59Sodium Chloride (0.9% Nacl Irrigation) 1,000 ml IRR CONTINUOUS PRN PRN Reason: PRN Stop: 06/07/18 00:59Sterile Water (Sterile Water Irrigation) 1,000 ml IRR CONTINUOUS PRN PRN Reason: PRN Stop: 06/07/18 00:59Thrombin (Thrombinar) 10,000 units T PRN PRN PRN Reason: CHANTELLE Stop: 06/07/18 00:59Vancomycin HCl (Vancomycin) 1 gm T PRN PRN PRN Reason: CHANTELLE Stop: 06/07/18 00:59Laboratory Results: 05/14/18 05/14/18 07:56 08:05Hgb 14.1Hct 42.0Plt Count 225Potassium 4.0Creatinine 1.00Est GFR (Non-Af Amer) > 60.0Home Medications:Ibuprofen [Advil *] 600 mg PO TID PRN PRN 02/05/18 [Confirmed 06/05/18]Simvastatin 1 tab PO DAILY 05/14/18 [Confirmed 06/05/18]Meloxicam 15 mg PO DAILY 06/05/18 [Confirmed 06/05/18]Allergies:Meper idine [From Demerol HCl] Adverse Reaction (Severe, Verified 05/08/18 07:49) Tgwpbm63/04/18 0819Dictated By: Jocelyn Pickens Electronically Signed Date/Time: 06/05/[address] [facility] POST.ANon 06-05-2018 POST.BLAKE CONNOR Male [id number] physician: ADM IN [facility] [id number] physician: Alissa Weinstein V. 1955 62 DOS: Anesthesia Postop Note- Post AnesthesiaComplications: NoPatient Orientation: Person, Place, Time, Location/SituationCardio pulmonary Status stable?: Yes06/05/18 1524Dictated By: Jocelyn Pickens Electronically Signed Date/Time: 06/05/18 1525 Normal [facility] CBC with AUTO DIFFon 018 BAS0 % 0.80 % Normal 0-2 [facility] Comment on above: Performed By: #### C BC ####[address] [place] [address] Basophils Auto #/vol (Bld) 0.1 10*3/uL Normal 0-0.1 [facility] Comment on above: Performed By: #### C BC ####[address] [place] [address] Eosinophils Auto #/vol (Bld) 0.2 10*3/uL Normal 0.0-1.80 [facility] Comment on above: Performed By: #### C BC ####[address] [place] [address] Eosinophils/100 WBC Auto (Bld) 2.9 % Normal 0-8 [facility] Comment on above: Performed By: #### C BC ####[address] [place] [address] GRAN # 5.2 K/uL Normal 2.2-9.1 [facility] Comment on above: Performed By: #### C BC ####[address] [place] [address] GRAN % 64.2 % Normal 42-80 [facility] Comment on above: Performed By: #### C BC ####[address] [place] [address] Hematocrit Auto Volume Fraction (Bld) 42.0 % Normal 41.0-53.0 [facility] Comment on above: Performed By: #### C BC ####[address] [place] [address] Hemoglobin mass conc (Bld) 14.1 g/dL Normal 14.0-18.0 [facility] Comment on above: Performed By: #### C BC ####[address] [place] [address] Lymphocytes Auto #/vol (Bld) 1.9 10*3/uL Normal 1.0-4.0 [facility] Comment on above: Performed By: #### C BC ####[address] [place] [address] Lymphocytes/100 WBC Auto (Bld) 23.1 % Normal 16-48 [facility] Comment on above: Performed By: #### C BC ####[address] [place] [address] MCH Auto Entitic mass (RBC) 33.7 g/dL Normal 31.0-36.0 [facility] Comment on above: Performed By: #### C BC ####[address] [place] [address] MCV Auto Entitic volume (RBC) 90.6 fL Normal 80-97 [facility] Comment on above: Performed By: #### C BC ####[address] [place] [address] MEAN CORPUSCULAR HGB 30.5 pg Normal 26.0-32.0 [facility] Comment on above: Performed By: #### C BC ####[address] [place] [address] Monocytes Auto #/vol (Bld) 0.7 10*3/uL Normal 0.1-1.7 [facility] Comment on above: Performed By: #### C BC ####[address] [place] [address] Monocytes/100 WBC Auto (Bld) 9.0 % Normal 3-9 [facility] Comment on above: Performed By: #### C BC ####[address] [place] [address] Platelet mean volume Auto Entitic volume (Bld) 7.6 fL Normal 6.4-10.5 [facility] Comment on above: Performed By: #### C BC ####[address] [place] [address] Platelets Auto #/vol (Bld) 225 10*3/uL Normal 140-450 [facility] Comment on above: Performed By: #### C BC ####[address] [place] [address] RBC Auto #/vol (Bld) 4.63 10*6/uL Normal 4.40-6.30 [facility] Comment on above: Performed By: #### C BC ####[place] [address] [place] [address] RED CELL DISTRI WIDTH 13.9 % Normal 11.0-15.5 [facility] Comment on above: Performed By: #### C BC ####[address] [place] [address] WBC Auto #/vol (Bld) 8.1 10*3/uL Normal 4.0-11.0 [facility] Comment on above: Performed By: #### C BC ####[address] [place] [address] COMPREHENSIVE METABOLIC PANE Torres 05-14-2018 Albumin mass conc 3.4 g/dL Normal 3.0-5.0 [facility] Comment on above: Performed By: #### M N ####[address] [place] [address] Albumin/Globulin mass ratio 0.9 {ratio} Low 1.1-1.8 [facility] Comment on above: Performed By: #### M N ####[address] [place] [address] ALP enzyme act/vol 85 U/L Normal 45-117 [facility] Comment on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 today, as he finds hisconcentration wanes after 45-60 min, and he needs to take a break to relaxand be able to refocus. At home he reports he needs to take breaks every45 minutes as well, from cleaning or other chores, as he finds he hastrouble maintaining his focus and concentration, and is unable to persist.He continues to use exercise at the gym as an outlet for stress and sharedthat he is exercising up to 90 minutes several days/week with curated.by.PSYCHIATRIC REVIEW OF SYMPTOMS:Depression: + Depressed mood, + Sleep disturbance , + Decreased Interests,+ Guilt, + Decreased energy, + Decreased Concentration, + Crying spellsand + Hopelessness with passive thoughts of /suicide, but no intentor planGAD: Excessive worry more than not, Difficulty controlling worry, Restless/ Keyed up, Fatigued, Trouble concentrating and Sleep disturbancePanic Attacks: 2 since last visitPast/Fam/Soc HxScblayne Grimes currently is disabled. He shared that he and his areadapting to life with their son back home. He shared [facility]. Mr. Grimes discussed howhis son's viewpoints have changed and he now believes in past lives, whichhas been difficult for Mr. Grimes to adapt to. Mr. Grimes shared that hissense of normalcy in the home has been altered since his son's return, sonny didn't sleep for the first week his son returned, and now struggleswith terminal insomnia. He reports fretting about his son's welfare andgetting caught up in future worries about his son's capacity to survive.While stressed, Mr. Grimes shared that he does better when his isaround to help him remain calm and to help with redirecting his anxiousthoughts.No past medical history on file.No family history on file.Social History Marital status: Spouse name: Years of education: Number of children:Social History Main Topics Smoking status: Never SmokerGeneral ObservationsAppearance:N eatly groomedDemeanor:Cooperat iveActivity:NormalEye Contact:FairSpeechRate:R apidVolume:NormalArticul ation:ClearCoherent: YesSpontaneous:YesLangua geNaming:IntactRepetitio n:IntactMood AND AffectDepression:mild moderateAnxiety:Moderate Anger:NoneAnhedonia;Mild Euphoria:NoneAffect:Blun tedAssociations:Tangenti alProcess:NormalKnowledg e: GoodDelusion: NoHallucination: NoSuicidal Ideation:Thoughts of , but not suicide. No suicidalideation, intent or planHomicidal Ideation:No homicidal ideation, intent or plan.Judgement::Automati cInsight:IntellectualOri entation:Person, Place, Time and SituationGait and Station: Steady, StraightMuscle Strength AND Tone:Muscle:NormalStreng th:NormalTone: Strong3 or > Vital Signs: There were no vitals taken for this visit.Memory:IntactAtten tion:FairConcentration:F airReview Of Systems:Sleep:difficulty staying asleep, endorsing terminal insomnia, averages 4-6hours per night.Headache: NoWeakness:NoStiffness: NoTremor:NoGastrointesti nal:Appetite:GoodNausea: NoBowel movements: NormalSkin rash: NoStressors: son returning homeCondition: DeterioratedDiagnosis:1. Major depressive disorder, recurrent episode, moderate (HCC) - ICD9:296.32, ICD10: F33.1 (primary diagnosis)2. PTSD (post-traumatic stress disorder) - ICD9: 309.81, ICD10: F43.103. ROSA (generalized anxiety disorder) - ICD9: 300.02, ICD10: F41.1Therapy/ Treatment Plan:- Follow Up Therapy: Recommend continuing to work with current therapist,Safia Hannah, to establish rapport and begin address coping skills forcurrent issues. Reviewed present moment focus and ways to ground himselfin the present.- 38 minutes or more of psychotherapy was provided as part of the session(+[id number])- Psychotherapy was provided as part of session, Plan discussed includingrisks, benefits, and side effects of medications (ongoing discussion) andpatient agreeable to plan,- Follow Up: in 4 weeks.- Medication Management: Patient reports minimal benefit from Buspar andhad noted problems with tinnitus with higher doses. He endorses past useof Citalopram but c/o headaches with it. Will trial Remeron 15 mg QHS totarget current symptoms.Medication orders placed this encounter mirtazapine (REMERON) 15 mg tablet Sig: Take 1 tablet by mouth daily at bedtime. Dispense: 30 tablet Refill: 0Case reviewed by MD Brandt.Bridget Wu, CNPTime Out:: 11:00AM Normal [facility] PROGRESSon 06-22-2017 PROGRESS HNO ID: [id number] Author: Marianela Giordano Service: (none) Author Type: (none) Type: Progress Notes Filed: 06/22/2017 12:06 PM Note Text: The patient did not show for this appointment. Marianela Giordano [facility] Vital Signs Date Time Vital Sign Value Performing Clinician Facility 07-18-2025 14:00-0400 Body temperature 97.7 [degF] George Sebastian MD Work Phone: [facility] 07-18-2025 14:00-0400 Diastolic blood pressure 67 mm[Hg] George Sebastian MD Work Phone: [facility] 07-18-2025 14:00-0400 Heart rate 66 /min George Sebastian MD Work Phone: [facility] 07-18-2025 14:00-0400 Respiratory rate 18 /min George Sebastian MD Work Phone: [facility] 07-18-2025 14:00-0400 SaO2% (BldA) [Mass fraction] 98 % George Sebastian MD Work Phone: [facility] 07-18-2025 14:00-0400 Systolic blood pressure 129 mm[Hg] George Sebastian MD Work Phone: [facility] 07-15-2025 13:20-0400 Body height 172.7 cm George Sebastian MD Work Phone: [facility] 07-15-2025 13:20-0400 Body mass index (BMI) [Ratio] 50.94 kg/m2 George Sebastian MD Work Phone: [facility] 07-15-2025 13:20-0400 Body weight 151.96 kg George Sebastian MD Work Phone: [facility] 05-07-2025 12:15-0400 Body temperature 97.7 [degF] BRADLEY ZUÑIGA Work Phone: [facility] 05-07-2025 12:15-0400 Diastolic blood pressure 77 mm[Hg] BRADLEY MCKEONAKIS Work Phone: [facility] 05-07-2025 12:15-0400 Heart rate 51 /min VASILIKI MIKEAKIS Work Phone: [facility] 05-07-2025 12:15-0400 Respiratory rate 12 /min VASILIKI MIKEAKIS Work Phone: [facility] 05-07-2025 12:15-0400 SaO2% (BldA) [Mass fraction] 99 % VASBRANDIE MCKEONAKIS Work Phone: [facility] 05-07-2025 12:15-0400 Systolic blood pressure 157 mm[Hg] VASILIKI YOGESH Work Phone: [facility] 05-07-2025 11:48-0400 Inhaled oxygen flow rate 2 L/min BRADLEY ZUÑIGA Work Phone: [facility] 05-07-2025 09:43-0400 Body height 172.72 cm BRADLEY ZUÑIGA Work Phone: [facility] 05-07-2025 09:43-0400 Body mass index (BMI) [Ratio] 52.2 kg/m2 BRADLEY ZUÑIGA Work Phone: [facility] 05-07-2025 09:43-0400 Body weight 156 kg BRADLEY ZUÑIGA Work Phone: [facility] 04-12-2024 09:45-0400 Body height 172.7 cm Bradley Zuñiga MD Work Phone: [facility] 04-12-2024 09:45-0400 Body mass index (BMI) [Ratio] 46.22 kg/m2 Bradley Zuñiga MD [facility] 04-12-2024 09:45-0400 Body temperature 98.1 [degF] Bradley Zuñiga MD [facility] 04-12-2024 09:45-0400 Body weight 137.89 kg Bradley Zuñiga MD Work Phone: [facility] [employer] 04-12-2024 09:45-0400 Diastolic blood pressure 86 mm[Hg] Bradley Zuñiga MD Work Phone[facility] 04-12-2024 09:45-0400 Heart rate 60 /min Bradley Zuñiga MD Work Phone[facility] 04-12-2024 09:45-0400 Respiratory rate 14 /min Bradley Zuñiga MD Work Phone: [facility] 04-12-2024 09:45-0400 SaO2% (BldA) [Mass fraction] 98 % Bradley Zuñiga MD Work Phone: [employer] 04-12-2024 09:45-0400 Systolic blood pressure 142 mm[Hg] Bradley Zuñiga MD Work Phone: [facility] [employer] 12-14-2022 11:01-0400 Diastolic blood pressure 80 mm[Hg] Se[facility] 1 [facility] [employer] 12-14-2022 11:01-0400 Heart rate 62 /min [facility] [employer] 12-14-2022 11:01-0400 Respiratory rate 20 /min Se[facility] 1 [facility] [employer] 12-14-2022 11:01-0400 Systolic blood pressure 142 mm[Hg] Se[facility] 1 [facility] 12-14-2022 10:43-0400 Body height 172.7 cm Se[facility] 1 [facility] 12-14-2022 10:43-0400 Body mass index (BMI) [Ratio] 45.92 kg/m2 Se[facility] 1 [facility] 12-14-2022 10:43-0400 Body weight 136.99 kg Sehc 1 [facility] [employer] 01-04-2022 15:08-0400 Diastolic blood pressure 68 mm[Hg] Dasha Paul MD Work Phone: [employer] 01-04-2022 15:08-0400 Heart rate 67 /min Dasha Paul MD Work Phone: [employer] 01-04-2022 15:08-0400 Respiratory rate 16 /min Dasha Paul MD Work Phone: [employer] 01-04-2022 15:08-0400 SaO2% (BldA) [Mass fraction] 99 % Dasha Paul MD Work Phone: [employer] 01-04-2022 15:08-0400 Systolic blood pressure 142 mm[Hg] Dasha Paul MD Work Phone: [employer] 01-04-2022 11:31-0400 Body height 172.7 cm Dasha Paul MD Work Phone: [employer] 01-04-2022 11:31-0400 Body mass index (BMI) [Ratio] 48.66 kg/m2 Dasha Paul MD Work Phone: [employer] 01-04-2022 11:31-0400 Body temperature 97.39 [degF] Dasha Paul MD Work Phone: [employer] 01-04-2022 11:31-0400 Body weight 145.15 kg Dasha Paul MD Work Phone: [employer] 03-17-2021 16:00-0400 Body temperature 97.9 [degF] Chon Martinez MD Work Phone: [employer] Work Phone: 03-17-2021 16:00-0400 Diastolic blood pressure 80 mm[Hg] Chon Martinez MD Work Phone: [employer] Work Phone: 03-17-2021 16:00-0400 Heart rate 72 /min Chon Martinez MD Work Phone: [employer] Work Phone: 03-17-2021 16:00-0400 Respiratory rate 17 /min Chon Martinez MD Work Phone: [employer] Work Phone: 03-17-2021 16:00-0400 Systolic blood pressure 174 mm[Hg] Chon Martinez MD Work Phone: [employer] Work Phone: 03-17-2021 15:40-0400 SaO2% (BldA) [Mass fraction] 97 % Chon Martinez MD Work Phone: [employer] Work Phone: 03-17-2021 12:04-0400 Body height 172.7 cm Chon Martinez MD Work Phone: [employer] Work Phone: 03-17-2021 12:04-0400 Body mass index (BMI) [Ratio] 46.07 kg/m2 Chon Martinez MD Work Phone: [employer] Work Phone: 03-17-2021 12:04-0400 Body weight 137.44 kg Chon Martinez MD Work Phone: [employer] Work Phone: 02-17-2021 19:22-0400 Body height 172.7 cm Bradley Zuñiga MD Work Phone: [employer] Work Phone: 02-17-2021 19:22-0400 Body mass index (BMI) [Ratio] 46.53 kg/m2 Bradley Zuñiga MD Work Phone: [employer] Work Phone: 02-17-2021 19:22-0400 Body weight 138.8 kg Bradley Zuñiga MD Work Phone: [employer] Work Phone: 02-17-2021 19:20-0400 Body temperature 97.39 [degF] Bradley Zuñiga MD Work Phone: [employer] Work Phone: 02-17-2021 19:20-0400 Diastolic blood pressure 73 mm[Hg] Bradley Zuñiga MD Work Phone: [employer] Work Phone: 02-17-2021 19:20-0400 Heart rate 99 /min Bradley Zuñiga MD Work Phone: [employer] Work Phone: 02-17-2021 19:20-0400 Respiratory rate 17 /min Bradley Zuñiga MD Work Phone: [employer] Work Phone: 02-17-2021 19:20-0400 SaO2% (BldA) [Mass fraction] 96 % Bradley Zuñiga MD Work Phone: [employer] Work Phone: 02-17-2021 19:20-0400 Systolic blood pressure 167 mm[Hg] Bradley Zuñiga MD Work Phone: [employer] Work Phone: 02-12-2021 08:45-0400 Diastolic blood pressure 56 mm[Hg] Anh Torres MD Work Phone: [employer] Work Phone: 02-12-2021 08:45-0400 Heart rate 57 /min Anh Torres MD Work Phone: [employer] Work Phone: 02-12-2021 08:45-0400 Respiratory rate 16 /min Anh Torres MD Work Phone: [employer] Work Phone: 02-12-2021 08:45-0400 SaO2% (BldA) [Mass fraction] 98 % Anh Torres MD Work Phone: [employer] Work Phone: 02-12-2021 08:45-0400 Systolic blood pressure 110 mm[Hg] Anh Torres MD Work Phone: [employer] Work Phone: 02-09-2021 08:56-0400 Body height 172.7 cm Anh Torres MD Work Phone: [employer] Work Phone: 02-09-2021 08:56-0400 Body mass index (BMI) [Ratio] 45.46 kg/m2 Anh Torres MD Work Phone: [employer] Work Phone: 02-09-2021 08:56-0400 Body weight 135.63 kg Anh Torres MD Work Phone: [employer] Work Phone: 01-18-2021 09:59-0400 Body mass index (BMI) [Ratio] 46.6 kg/m2 Mark Pickering MD Work Phone: [employer] Work Phone: 01-18-2021 09:59-0400 Body temperature 98.1 [degF] Mark Pickering MD Work Phone: [employer] Work Phone: 01-18-2021 09:59-0400 Body weight 139.03 kg Mark Pickering MD Work Phone: [employer] Work Phone: 01-18-2021 09:59-0400 Diastolic blood pressure 74 mm[Hg] Mark Pickering MD Work Phone: [employer] Work Phone: 01-18-2021 09:59-0400 Heart rate 82 /min Mark Pickering MD Work Phone: [employer] Work Phone: 01-18-2021 09:59-0400 Respiratory rate 18 /min Mark Pickering MD Work Phone: [employer] Work Phone: 01-18-2021 09:59-0400 SaO2% (BldA) [Mass fraction] 98 % Mark Pickering MD Work Phone: [employer] Work Phone: 01-18-2021 09:59-0400 Systolic blood pressure 142 mm[Hg] Mark Pickering MD Work Phone: [employer] Work Phone: 09-22-2020 09:05-0500 BP Diastolic 80 mm[Hg] [facility] [place] 09-22-2020 09:05-0500 BP Systolic 146 mm[Hg] [facility] [place] 09-22-2020 08:57-0500 BMI (Body Mass Index) 52.15 kg/m2 [facility] [place] 09-22-2020 08:57-0500 Body Temperature 97.11 [degF] [facility] [place] 09-22-2020 08:57-0500 Body weight 155.58 kg [facility] , [place] 09-22-2020 08:57-0500 Pulse (Heart Rate) 68 /min [facility], [place] 09-22-2020 08:57-0500 Pulse Oximetry 97 % [facility] , [place] 09-22-2020 08:57-0500 Respiratory Rate 18 /min [facility], [place] 08-11-2020 10:27-0500 BMI (Body Mass Index) 52.97 kg/m2 [facility] [place] 08-11-2020 10:27-0500 Body Temperature 98.2 [degF] [facility] [place] 08-11-2020 10:27-0500 Body weight 158.02 kg [facility] , [place] 08-11-2020 10:27-0500 BP Diastolic 78 mm[Hg] [facility] , [place] 08-11-2020 10:27-0500 BP Systolic 148 mm[Hg] [facility] , [place] 08-11-2020 10:27-0500 Pulse (Heart Rate) 70 /min [facility], [place] 08-11-2020 10:27-0500 Pulse Oximetry 98 % [facility] , [place] 08-11-2020 10:27-0500 Respiratory Rate 18 /min [facility], [place] 08-04-2020 10:23-0500 BMI (Body Mass Index) 52.91 kg/m2 [facility] [place] 08-04-2020 10:23-0500 Body Temperature 97.81 [degF] [facility] [place] 08-04-2020 10:23-0500 Body weight 157.85 kg [facility] [place] 08-04-2020 10:23-0500 BP Diastolic 78 mm[Hg] [facility] , [place] 08-04-2020 10:23-0500 BP Systolic 148 mm[Hg] [facility] [place] 08-04-2020 10:23-0500 Pulse (Heart Rate) 76 /min [facility] [place] 08-04-2020 10:23-0500 Pulse Oxim[facility] 98 % [facility] [place] 08-04-2020 10:23-0500 Respiratory Rate 18 /min [facility] [place] 07-29-2020 10:36-0400 BMI (Body Mass Index) 52.61 kg/m2 [facility] [place] [place] 07-29-2020 10:36-0400 Body Temperature 97.9 [degF] [facility] [place] 07-29-2020 10:36-0400 Body weight 156.94 kg [facility] [place] 07-29-2020 10:36-0400 BP Diastolic 76 mm[Hg] [facility] , [place] 07-29-2020 10:36-0400 BP Systolic 152 mm[Hg] [facility] , [place] 07-29-2020 10:36-0400 Pulse (Heart Rate) 64 /min [facility], [place] 07-29-2020 10:36-0400 Pulse Oximetry 99 % [facility] [place] 07-29-2020 10:36-0400 Respiratory Rate 18 /min [facility], [place] 07-17-2020 08:59-0400 BMI (Body Mass Index) 53.07 kg/m2 [facility], [place] 07-17-2020 08:59-0400 Body Temperature 97.7 [degF] [facility] [place] 07-17-2020 08:59-0400 Body weight 158.31 kg [facility] , [place] 07-17-2020 08:59-0400 BP Diastolic 56 mm[Hg] [facility] , [place] 07-17-2020 08:59-0400 BP Systolic 154 mm[Hg] [facility] , [place] 07-17-2020 08:59-0400 Pulse (Heart Rate) 78 /min [facility], [place] 07-17-2020 08:59-0400 Pulse Oximetry 97 % [facility] , [place] 07-17-2020 08:59-0400 Respiratory Rate 18 /min [facility] [place] 02-27-2020 07:35-0400 Body Temperature 97.59 [degF] [facility], [place] 02-27-2020 07:35-0400 BP Diastolic 64 mm[Hg] [facility] , [place] 02-27-2020 07:35-0400 BP Systolic 142 mm[Hg] [facility] , [place] 02-27-2020 07:35-0400 Pulse (Heart Rate) 76 /min [facility], [place] 02-27-2020 07:35-0400 Pulse Oximetry 97 % [facility] , [place] 02-27-2020 07:35-0400 Respiratory Rate 18 /min [facility], [place] 02-27-2020 05:53-0400 BMI (Body Mass Index) 55.98 kg/m2 Chon Sarahi Ponce [facility], [place] 02-27-2020 05:53-0400 Body weight 167.01 kg [place], [place] 02-26-2020 07:45-0400 Height 172.7 cm Chon Bolotin [facility] [place] , [place] Encounters Encounter Date Encounter Type Care Provider Facility Start: 07-18-2025 End: 07-18-2025 ambulatory GEORGE SEBASTIAN [facility] Start: 07-18-2025 End: 07-18-2025 Subsequent hospital visit by physician George Sebastian MD Work Phone: [facility] Start: 07-18-2025 End: 07-20-2025 ambulatory VASILIKI VAMVAKIS [facility] Start: 07-18-2025 End: 07-20-2025 Subsequent hospital visit by physician George Sebastian MD Work Phone: [facility] Radiology Comment on above: Pain management Start: 05-07-2025 End: 05-07-2025 Admission to same day surgery center Dr. Jaxson Justin MD [facility] Start: 05-07-2025 End: 05-07-2025 ambulatory VASILIKI VAMVAKIS Work Phone: [facility] Start: 04-22-2025 End: 04-22-2025 ambulatory VASILIKI VAMVAKIS Work Phone: -Radiology [facility] Start: 04-22-2025 End: 04-22-[address] Jaxson Justin MD -Radiology [facility] Work Phone: Start: 04-22-2025 End: 04-22-2025 ambulatory CHEN DAY Facility:[facility] Start: 04-17-2025 End: 04-17-2025 Emergency department patient visit NENO REICH [facility] Start: 12-31-2024 End: 01-21-2025 ambulatory ASIA HARRINGTON [facility] Start: 12-23-2024 End: 12-23-2024 Emergency department patient visit OCRIN CARVER [facility] Start: 10-28-2024 End: 12-30-2024 ambulatory ASIA HARRINGTON [facility] Start: 05-03-2024 End: 05-03-2024 ambulatory ALFONSO ADORNO Not Available Start: 04-12-2024 End: 04-12-2024 Emergency department patient visit Bradley Zuñiga MD Work Phone: [facility] Emergency Department Comment on above: Abrasion of left for earm, initial encounter (Primary Dx) Start: 02-23-2024 End: 02-23-2024 ambulatory ALFONSO ADORNO Not Available Start: 01-24-2024 End: 01-24-2024 ambulatory ALFONSO ADORNO Not Available Start: 01-12-2024 End: 01-12-2024 ambulatory ALFONSO ADORNO Not Available Start: 05-25-2023 End: 05-25-2023 Subsequent hospital visit by physician Mirza Clark [place] Work Phone: Radiology Start: 12-14-2022 End: 12-15-2022 ambulatory [facility] Start: 12-14-2022 End: 12-14-2022 Subsequent hospital visit by physician Davin Malagon Stress Rm 1 [facility] Comment on above: Abnormal EKG Start: 11-16-2022 End: 11-16-2022 Subsequent hospital visit by physician Jai Lacey (1.5t) Work Phone: Radiology Start: 11-07-2022 End: 11-07-2022 Nursing evaluation of patient and report Nurse Everett Main Work Phone: Infectious Disease Comment on above: Need for prophylacti c vaccination with combined vaccine (Primary Dx) Start: 11-01-2022 ambulatory Elyssa contreras MD Work Phone: Infectious Disease Comment on above: Immunizations Start: 09-20-2022 End: 09-20-2022 Subsequent hospital visit by physician [facility] Work Phone: [facility] Start: 07-13-2022 End: 07-13-2022 Subsequent hospital visit by physician [facility] Bedroom 1 [facility] Comment on above: Class 3 severe obesi ty due to excess calories with serious comorbidity and body mass index (BMI) of 45.0 to 49.9 in adult (HCC); Frequent PVCs; Sleep apnea, unspecified type Start: 03-17-2022 End: 03-18-2022 ambulatory BRADLEY BLACKWOODKATIA [facility] Start: 03-17-2022 End: 03-17-2022 Subsequent hospital visit by physician Davin Simmons Echo Rm 1 [facility] Comment on above: Frequent PVCs; RBBB Start: 03-05-2022 End: 03-05-2022 Subsequent hospital visit by physician [facility] Work Phone: [facility] Start: 01-04-2022 End: 01-04-2022 Emergency department patient visit Dasha Paul MD Work Phone: [facility] Emergency Department Comment on above: Dizziness (Primary D x); Bradycardia Start: 08-17-2021 End: 08-17-2021 Subsequent hospital visit by physician Mirza [place] Work Phone: Radiology Start: 06-28-2021 End: 06-30-2021 Subsequent hospital visit by physician Anthony Pet Scan [facility] PET Scan Comment on above: Arrived 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 ([facility]) Start: 04-23-2021 End: 04-25-2021 Subsequent hospital visit by physician Anthony Pet Scan [facility] PET Scan Comment on above: Arrived Start: 04-21-2021 End: 04-23-2021 Subsequent hospital visit by physician Anthony Vergara [facility] MRI Comment on above: Diffuse large B-cell lymphoma of lymph nodes of multiple regions (HCC); 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) Start: 03-17-2021 End: 03-17-2021 Patient encounter status Chon Martinez MD Work Phone: [facility] Start: 03-17-2021 End: 03-17-2021 Subsequent hospital visit by physician Chon Martinez MD Work Phone: [facility] Comment on above: Preop testing (Prima ry Dx); Post-op pain Start: 03-11-2021 End: 03-13-2021 Subsequent hospital visit by physician Jai Jin [facility] MRI Comment on above: Neck pain; Jaw pain; Oropharyngeal mass; Tongue mass Start: 02-17-2021 End: 02-17-2021 Emergency department patient visit Bradley Zuñiga MD Work Phone: [facility] Emergency Department Comment on above: Gingival abscess (Pr imary Dx) Start: 02-12-2021 End: 02-12-2021 Patient encounter status Anh Torres MD Work Phone: [facility] Start: 02-12-2021 End: 02-12-2021 Subsequent hospital visit by physician Anh Torres MD Work Phone: [facility] Comment on above: Preop testing (Prima ry Dx) Start: 02-08-2021 End: 02-10-2021 Patient encounter status Bradley Zuñiga MD Work Phone: [facility] Start: 02-08-2021 End: 02-10-2021 Subsequent hospital visit by physician Bradley Zuñiga MD Work Phone: [facility] Comment on above: Preop testing Start: 01-18-2021 End: 01-18-2021 Office outpatient visit 15 minutes Mark Pickering MD Work Phone: [facility] Comment on above: 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); S/P radiation therapy > 12 wks ago Start: 01-01-2021 End: 01-03-2021 Subsequent hospital visit by physician Anthony Ct 1-Bd [facility] CT Scan Comment on above: Non-Hodgkin's lympho ma, unspecified body region, unspecified non-Hodgkin lymphoma type (HCC); 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) Start: 01-01-2021 End: 01-03-2021 Subsequent hospital visit by physician Anthony Ct 1-Bd [facility] CT Scan Comment on above: Non-Hodgkin's lympho ma, unspecified body region, unspecified non-Hodgkin lymphoma type (HCC); 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) Start: 09-22-2020 End: 09-22-2020 Subsequent hospital visit by physician Mark [employer] Work Phone: [facility] Comment on above: 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) Start: 08-17-2020 End: 08-17-2020 Subsequent hospital visit by physician Mark [employer] Work Phone: [facility] Start: 08-14-2020 End: 08-14-2020 Subsequent hospital visit by physician Mark [employer] Work Phone: [facility] Start: 08-13-2020 End: 08-13-2020 Subsequent hospital visit by physician Mark [employer] Work Phone: [facility] Start: 08-12-2020 End: 08-12-2020 Subsequent hospital visit by physician Mark [employer] Work Phone: [facility] Start: 08-11-2020 End: 08-11-2020 Subsequent hospital visit by physician Well Done Phone: [facility] Comment on above: Lymphoma of lymph no jennifer of inguinal region, unspecified lymphoma type (HCC) (Primary Dx) Start: 08-11-2020 End: 08-11-2020 Subsequent hospital visit by physician Mark [employer] Work Phone: [facility] Start: 08-10-2020 End: 08-10-2020 Subsequent hospital visit by physician [employer] Work Phone: [facility] Start: 08-07-2020 End: 08-07-2020 Subsequent hospital visit by physician [employer] Work Phone: [facility] Start: 08-06-2020 End: 08-06-2020 Subsequent hospital visit by physician [employer] Work Phone: [facility] Start: 08-05-2020 End: 08-05-2020 Subsequent hospital visit by physician [employer] Work Phone: [facility] Start: 08-04-2020 End: 08-04-2020 Subsequent hospital visit by physician Mark Pickering Work Phone: [facility] Comment on above: 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) Start: 08-03-2020 End: 08-03-2020 Subsequent hospital visit by physician Mark Pickering Work Phone: [facility] Start: 07-30-2020 End: 07-30-2020 Subsequent hospital visit by physician Mark Pickering Work Phone: [facility] Start: 07-29-2020 End: 07-29-2020 Subsequent hospital visit by physician Mark Pickering Work Phone: [facility] Comment on above: 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) Start: 07-28-2020 End: 07-28-2020 Subsequent hospital visit by physician Mark Pickering Work Phone: [facility] Start: 07-27-2020 End: 07-27-2020 Subsequent hospital visit by physician Mark Pickering Work Phone: [facility] Start: 07-22-2020 End: 07-22-2020 Subsequent hospital visit by physician Mark Pickering Work Phone: [facility] Start: 07-17-2020 End: 07-17-2020 Subsequent hospital visit by physician Mark Pickering Work Phone: [facility] Comment on above: 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) Start: 04-16-2020 End: 04-18-2020 Subsequent hospital visit by physician Anthony Sands2 [facility] CT Scan Comment on above: 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) Start: 03-18-2020 End: 03-18-2020 Subsequent hospital visit by physician Jose Miguel Pet [facility] Nuclear Medicine Comment on above: Nodular lymphocyte p redominant Hodgkin lymphoma, unspecified body region (HCC) Start: 02-25-2020 End: 02-27-2020 Evaluation and management of inpatient Chno S Bolotin Work Phone: [facility] Surg Comment on above: Testicular mass (Shyanne ricki Dx); Intraabdominal mass; Abdominal pain, unspecified abdominal location Start: 08-13-2019 End: 08-15-2019 Subsequent hospital visit by physician Joie Harp [facility] Comment on above: Mixed hyperlipidemia ; Hyperglycemia Start: 02-13-2019 End: 02-13-2019 Patient encounter procedure Joie Harp Facility[facility] Start: 09-27-2018 End: 09-28-2018 Patient encounter procedure Rajat Rose Facility:[facility] Start: 07-27-2018 End: 07-28-2018 Patient encounter OLEGARIO NORBERT Facility:[facility] Start: 06-09-2018 End: 06-09-2018 Emergency department patient visit Judy Singh Facility:[facility] Start: 06-05-2018 End: 06-06-2018 Evaluation and management of inpatient Alissa Weinstein Facility:[facility] Start: 05-24-2018 Ambulatory [facility] Facility:[facility] Start: 02-28-2018 End: 02-28-2018 Ambulatory [facility] Start: 02-05-2018 End: 02-05-2018 Patient encounter procedure Enio Barros Facility:[facility] Start: 01-25-2018 Ambulatory [facility] Facility:[facility] Start: 11-28-2017 End: 11-28-2017 [facility] ([facility] Start: 09-19-2017 End: 09-19-2017 [facility] ([facility] Start: 08-15-2017 [facility] ([facility]) [facility] Procedures Date Procedure Procedure Detail Performing Clinician Start: 07-18-2025 Fluoroscopy during operation George Sebastian MD Work Phone: Start: 05-07-2025 Cystoscopy and retro grade pyelography BRADLEY ZUÑIGA Work Phone: Start: 05-07-2025 Fluoroscopic guidance V WILLOW ZUÑIGA Work Phone: Start: 04-22-2025 Plain X-ray abdomen KATTY ZUÑIGA Work Phone: Start: 04-17-2025 Urinalysis CORIN MCDERMOTT Comment on above: Result Comment: URIN ALYSIS Performed By: #### [id number] #### [facility],[id number] [facility] [id number] Start: 04-12-2024 Radex forearm 2 views R obin Smail [employer] Work Phone: Start: 05-25-2023 Ct abdomen & pelvis w/contrast material [facility] Provider Start: 05-25-2023 CT CHEST W CONTRAST [facility] Provider Start: 02-14-2023 Lipid 1996 panel - S ashleigh or Plasma Ct Deepthi Work Phone: Start: 12-14-2022 Cv strs tst xers&/or rx cont ecg w/o i&r HILARY CRENSHAW Start: 12-14-2022 Cv strs tst xers&/or rx cont ecg trcg only Hilary Crenshaw MD Work Phone: Start: 11-16-2022 Mri brain brain stem w/o w/contrast material [facility] Provider Start: 09-20-[address] atten uation skull base mid-thigh [facility] Provider Start: 03-17-2022 Echo transthorc r-t 2d w/wo m-mode rec f-up/lmtd HILARY CRENSHAW Start: 03-17-2022 Echocardiography Boom Bee MD Work Phone: Start: 03-05-[address] atten uation skull base mid-thigh [facility] Provider Start: 01-04-2022 Radiologic exam ches t single view Soraya Virk DO Work Phone: Start: 01-04-2022 Natriuretic peptide Pb asadrehana Virk DO Work Phone: Start: 01-04-2022 Urnls dip stick/tabl et reagent auto microscopy Soraya Virk DO Work Phone: Start: 01-04-2022 Ecg routine ecg w/le ast 12 lds w/i&r Soraya Virk DO Work Phone: Start: 08-17-2021 Ct soft tissue neck w/contrast material Boom Webb MD Work Phone: Start: 06-28-[address] atten uation skull base mid-thigh Edmund Orozco MD Work Phone: Start: 06-28-2021 Gluc bld gluc mntr d ev cleared fda spec home use Edmund Orozco MD Work Phone: Start: 04-23-[address] atten uation skull base mid-thigh Edmund Orozco MD Work Phone: Start: 04-23-2021 Gluc bld gluc mntr d ev cleared fda spec home use Edmund Orozco MD Work Phone: Start: 04-21-2021 Mri brain brain stem w/o w/contrast material Edmund Orozco MD Work Phone: Start: 03-17-2021 Blood count complete automated Cristofer Vallecillo DO Work Phone: Start: 03-11-2021 Mri orbit face & nec k w/o & w/contrast matrl Sayra Bah DO Work Phone: Start: 02-17-2021 Ct soft tissue neck w/contrast material Raina Serrano [employer] Start: 02-17-2021 Comprehensive metabo lic panel Raina Serrano [employer] Start: 02-12-2021 Colonoscopy Dasha gilbert MD Work Phone: Start: 02-08-2021 COVID-19 AMBULATORY Ana Paula Torres MD Work Phone: Start: 01-01-2021 Ct soft tissue neck w/contrast material Edmund Orozco Work Phone: Start: 01-01-2021 Ct thorax w/contrast material Sergeyllmacy Orozco Work Phone: Start: 01-01-2021 Ct abdomen & pelvis w/contrast material Edmund Orozco Work Phone: Start: 04-16-2020 Ct soft tissue neck w/contrast material Edmund Farmerd Work Phone: Start: 03-18-[address] atten uation skull base mid-thigh Edmund Farmerd Work Phone: Start: 02-26-2020 Basic metabolic pane l calcium total Kit Hric Work Phone: Start: 02-26-2020 Blood count complete auto&auto difrntl wbc Kit Hric Work Phone: Start: 02-26-2020 End: 02-26-2020 Orchiectomy radical tumor inguinal approach Joshua Pillai Daquan Work Phone: Start: 02-26-2020 Gonadotropin chorion ic qualitative Joshua Pillai Daquan Work Phone: Start: 02-26-2020 SPECIMEN REJECTION [employer] Work Phone: Start: 02-25-2020 Us scrotum & contents R mc R Junior Work Phone: Start: 02-25-2020 Dup-scan artl lara abdl/pel/scrot&/rpr orgn com Boom R Junior Work Phone: Start: 02-25-2020 Lactate dehydrogenase ldh Saran U Bhaskar Work Phone: Start: 02-25-2020 Ct abdomen & pelvis w/contrast material Saran U Bhaskar Work Phone: Start: 02-25-2020 Assay of lipase Saran U R ehman Work Phone: Start: 02-25-2020 Blood count complete auto&auto difrntl wbc Saran U Bhaskar Work Phone: Start: 02-25-2020 Urnls dip stick/tabl et reagent auto microscopy Saran U Bhaskar Work Phone: Start: 08-13-2019 Assay of thyroid stimulating hormone tsh Joie Harp Work Phone: Start: 08-13-2019 Comprehensive metabo lic panel Joie Harp Work Phone: Start: 08-13-2019 Hemoglobin glycosylated a1c Joie Harp Work Phone: Start: 08-13-2019 Lipid panel Joie moore Work Phone: History of radiation therapy S/P radiation therapy > 12 wks ago Mark Pickering MD Work Phone: Plan of Treatment Date Care Activity Detail Author Start: 11-07-2032 DTaP/Tdap/Td vaccine (7 - Td or Tdap) DTaP/Tdap/Td vaccine (7 - Td or Tdap) [facility] Start: 11-07-2032 Urine microalbumin profile [facility] Start: 06-02-2032 DTaP/Tdap/Td vaccine (5 - Td or Tdap) DTaP/Tdap/Td vaccine (5 - Td or Tdap) [facility] Start: 02-16-2032 DTaP/Tdap/Td vaccine (4 - Td or Tdap) DTaP/Tdap/Td vaccine (4 - Td or Tdap) [facility] Start: 06-25-2031 DTaP/Tdap/Td vaccine (3 - Td or Tdap) DTaP/Tdap/Td vaccine (3 - Td or Tdap) [facility] Start: 06-25-2031 Urine microalbumin profile DTAP,TDAP,TD (3 - Td or Tdap) [facility] Start: 02-12-2031 Screening for malignant neoplasm of colon [facility] Start: 02-12-2029 Screening for malignant neoplasm of colon Colon cancer screen colonoscopy [facility] Work Phone: Start: 02-15-2028 Lipid panel Lipid Screening [facility] Start: 02-13-2028 Screening for malignant neoplasm of colon [facility] Start: 07-07-2026 End: 07-07-2026 Patient encounter procedure 07/07/2026 10:30 AM EDT Office Visit [facility] Critical access hospitalGladis ERAZO [address] [place] [address] [phone] Bradley Zuñiga MD [address] [place] [phone] awv [facility] Comment on above: awv Start: 07-02-2026 Annual Wellness Visit (Medicare) Annual Wellness Visit (Medicare) [facility] Start: 07-01-2026 Hemoglobin A1c measurement A1C test (Diabetic or Prediabetic) [facility] Start: 07-01-2026 [facility] Start: 06-28-2026 Depression Screen Depression Screen [facility] Start: 04-22-2026 Diabetes Screening Diabetes Screening [facility] Start: 12-31-2025 End: 12-31-2025 Patient encounter procedure 12/31/2025 10:00 AM EDT Office Visit [facility] [address] [place] [address] Bradley Zuñiga MD [address] [place] [phone] 6 month [facility] Comment on above: 6 month Start: 12-15-2025 End: 12-15-2025 Patient encounter procedure 12/15/2025 1:00 PM EDT Procedure visit [facility] [address] [place] [address] Asia Aviles MD [address] [place] [address] [facility] Comment on above: myles gelsoksana Start: 12-08-2025 End: 12-08-2025 Patient encounter procedure 12/08/2025 1:00 PM EDT Procedure visit [facility] [address] [place] [address] Asia Aviles MD [address] [place] [phone] bl gelsyn [facility] Comment on above: bl gelsoksana Start: 12-01-2025 End: 12-01-2025 Patient encounter procedure 12/01/2025 1:00 PM EST Procedure visit [facility] [address] [place] [address] Asia Aviles MD [address] [place] [address] bl gelsyn knee injections [facility] Comment on above: bl gelsyn knee injections Start: 09-01-2025 DTaP/Tdap/Td vaccine (2 - Td or Tdap) DTaP/Tdap/Td vaccine (2 - Td or Tdap) [facility] Work Phone: Start: 09-01-2025 DTaP/Tdap/Td vaccine (2 - Td) DTaP/Tdap/Td vaccine (2 - Td) [place] Start: 08-29-2025 DIABETES SCREEN DIABETES SCREEN [facility] Start: 08-04-2025 End: 08-04-2025 Patient encounter procedure 08/04/2025 2:00 PM EST Office Visit [facility] [address] [place] [address] George Sebastian MD [address] [place] [address] [address] NB follow up [facility] Comment on above: Genicular NB follow up Start: 07-18-2025 End: 07-18-2025 Injection aa&/strd genicular nrv branches w/img BLOCK PAIN Osteoarthritis of both knees, unspecified osteoarthritis type 07/18/2025 1:12 PM EDT [facility] Start: 06-02-2025 COVID-19 Vaccine ( season) COVID-19 Vaccine ( season) [facility] Start: 05-07-2025 Ambulation without limitation [facility] Start: 05-07-2025 Medication education [facility] Start: 05-07-2025 Taking patient vital signs [facility] Start: 05-07-2025 [facility] Start: 05-07-2025 Medical regimen orders management [facility] Start: 05-07-2025 End: 05-07-2025 Patient discharge [facility] Start: 01-12-2025 Depression Screen Depression Screen [facility] Start: 06-02-2024 Covid-19 Vaccine () Covid-19 Vaccine () [facility] Start: 06-02-2024 Covid-19 Vaccine () Covid-19 Vaccine () [facility] Start: 06-02-2024 Influenza vaccination Influenza Vaccine (#1) [facility] Start: 05-22-2024 End: 05-22-2024 Patient encounter procedure 05/22/2024 8:45 AM EDT Office Visit [facility] [address] [place] [address] Bradley Zuñiga MD [address] [place] [address] [phone] awv// 4 month follow up [facility] Comment on above: awv// 4 month follow up Start: 05-02-2024 Influenza vaccination Flu vaccine (#1) [facility] Start: 02-15-2024 Hemoglobin A1c measurement A1C test (Diabetic or Prediabetic) [facility] Start: 02-15-2024 Lipid panel [facility] Start: 11-24-2023 End: 11-24-2023 Patient encounter procedure 11/24/2023 Office Visit Family Medicine Bradley Zuñiga MD [address] [facility] [place] [address] [facility] Start: 11-23-2023 Annual Wellness Visit (AWV) Annual Wellness Visit (AWV) [facility] Start: 11-23-2023 Annual Wellness Visit (Medicare) Annual Wellness Visit (Medicare) [facility] [employer] Start: 11-22-2023 Depression Monitoring Depression Monitoring [facility] [employer] Start: 10-02-2023 Advance Directive Discussion Advance Directive Discussion [facility] Start: 08-29-2023 Hemoglobin A1c measurement A1C test (Diabetic or Prediabetic) [facility] Start: 08-29-2023 Lipid panel Lipids [facility] Start: 06-02-2023 COVID-19 Vaccine () COVID-19 Vaccine () [facility] Start: 06-02-2023 Depression Monitoring Depression Monitoring [facility] Start: 06-02-2023 Hemoglobin A1c measurement A1C test (Diabetic or Prediabetic) [facility] Start: 06-02-2023 Pneumococcal 65+ years Vaccine (2 - PPSV23 or PCV20) Pneumococcal 65+ years Vaccine (2 - PPSV23 or PCV20) [facility] Start: 03-23-2023 End: 03-23-2023 Patient encounter procedure 03/23/2023 Office Visit Family Medicine Bradley Zuñiga MD [address] [place] [address] [facility] Start: 03-01-2023 Pneumococcal 65+ years Vaccine (2 - PPSV23 or PCV20) Pneumococcal 65+ years Vaccine (2 - PPSV23 or PCV20) [facility] Start: 02-08-2023 Lipid panel Lipids [facility] Start: 01-25-2023 End: 01-25-2023 Patient encounter procedure 01/25/2023 Office Visit Cardiac Electrophysiology Hilary Crenshaw MD [address] [address] [facility] Start: 01-04-2023 Creatinine measurement Creatinine [facility] Start: 01-04-2023 Potassium monitoring Potassium monitoring [facility] Start: 12-05-2022 Polio vaccine (2 of 3 - Adult catch-up series) Polio vaccine (2 of 3 - Adult catch-up series) [facility] Start: 11-22-2022 End: 11-22-2022 Patient encounter procedure 11/22/2022 Office Visit Family Medicine Bradley Zuñiga MD [address] [place] [address] [facility] Start: 11-18-2022 Annual Wellness Visit (AWV) Annual Wellness Visit (AWV) [facility] Start: 11-17-2022 Depression Monitoring Depression Monitoring [facility] Start: 10-02-2022 ADVANCE DIRECTIVE DISCUSSION ADVANCE DIRECTIVE DISCUSSION [facility] Start: 09-02-2022 End: 09-02-2022 Patient encounter procedure 09/02/2022 Office Visit Family Medicine Bradley Zuñiga MD [address] [place] [address] [facility] Start: 06-02-2022 Influenza vaccination Flu vaccine (Season Ended) [facility] Start: 05-03-2022 End: 05-03-2022 Patient encounter procedure 05/03/2022 Office Visit Family Bradley Abel MD [address] [facility] [place] [address] [facility] Start: 05-02-2022 COVID-19 Vaccine (5 - Booster) COVID-19 Vaccine (5 - Booster) [facility] Start: 05-02-2022 Influenza vaccination Flu vaccine (#1) [facility] Start: 04-14-2022 End: 04-14-2022 Patient encounter procedure 04/14/2022 Office Visit Cardiac Electrophysiology Hilary Crenshaw MD [address] [place] [address] [facility] Start: 02-25-2022 COVID-19 VACCINE (5 - Booster) COVID-19 VACCINE (5 - Booster) [facility] Start: 02-17-2022 Creatinine measurement Creatinine monitoring [employer] Phone: Start: 02-17-2022 Potassium monitoring Potassium monitoring [employer] Phone: Start: 02-12-2022 Colonoscopy COLONOSCOPY [facility] Start: 02-12-2022 COLORECTAL CANCER SCREENING COLORECTAL CANCER SCREENING [facility] Start: 02-12-2022 Screening for malignant neoplasm of colon [facility] Start: 01-27-2022 End: 01-27-2022 Patient encounter procedure 01/27/2022 Office Visit Family Medicine Bradley Zuñiga MD [address] [place] [address] [facility] Start: 12-24-2021 Creatinine measurement Creatinine monitoring [employer] Phone: Start: 12-24-2021 Potassium monitoring Potassium monitoring [employer] Phone: Start: 11-17-2021 End: 11-17-2021 Office Visit 11/17/2021 Office Visit Family Bradley Abel MD [address] [place], [place] [phone] [facility] Start: 11-11-2021 Annual Wellness Visit (AWV) Annual Wellness Visit (AWV) [employer] Phone: Start: 11-10-2021 HbA1c (Bld) [Mass fraction] A1C test (Diabetic or Prediabetic) [employer] Phone: Start: 11-10-2021 Hemoglobin A1c measurement A1C test (Diabetic or Prediabetic) [employer] Start: 11-10-2021 Lipid panel Lipid screen [employer] Start: 09-02-2021 End: 09-02-2021 Patient encounter procedure 09/02/2021 Office Visit Family Bradley Abel MD [address] [place] [address] [phone] [facility] Start: 06-02-2021 Influenza vaccination Flu vaccine (#1) [facility] Work Phone: Start: 06-02-2021 End: 06-02-2021 Patient encounter procedure 06/02/2021 Office Visit Family Medicine Bradley Zuñiga MD [address] [place] [address] [phone] [facility] Start: 05-13-2021 End: 05-13-2021 Patient encounter procedure 05/13/2021 Office Visit Family Medicine Bradley Zuñiga MD [facility] [place] [address] [phone] [facility] Start: 04-27-2021 End: 04-27-2021 Patient encounter procedure 04/27/2021 Office Visit Family Medicine Bradley Zuñiga MD [facility] [place] [address] [phone] [facility] Start: 03-25-2021 End: 03-25-2021 Patient encounter procedure 03/25/2021 Office Visit Otolaryngology Chon Martinez MD [address] [place] [address] [phone] [facility] Start: 03-17-2021 End: 03-17-2021 Admission to same day surgery center 03/17/2021 Surgery IP Unit Chon Martinez MD [address] [place] [address] [phone] BRONCHOSCOPY , DIRECT LARYNGOSCOPY, ESOPHAGOSCOPY [facility] Comment on above: BRONCHOSCOPY , DIRECT LARYNGOSCOPY, ESOP HAGOSCOPY Start: 03-17-2021 Subsequent hospital visit by physician 03/17/2021 Hospital Encounter IP Unit Chon Martinez MD [address] [place] [address] [phone] [facility] Start: 02-24-2021 End: 02-24-2021 Patient encounter procedure 02/24/2021 Office Visit Orthopedic Surgery Jaun Tsai MD [address] [place] [address] [facility] Orth[facility] Start: 02-12-2021 End: 02-12-2021 Admission to same day surgery center 02/12/2021 Surgery Endoscopy Anh Torres MD [address] [address] COLORECTAL CANCER SCREENING, NOT HIGH RISK [facility] Comment on above: COLORECTAL CANCER SCREENING, NOT HIGH RI SK Start: 02-12-2021 Subsequent hospital visit by physician 02/12/2021 Hospital Encounter Endoscopy Anh Torres MD [address] [address] Preop testing (Primary Dx) [facility] Comment on above: Preop testing (Primary Dx) Start: 02-10-2021 End: 02-10-2021 Office Visit 02/10/2021 Office Visit Family Medicine Bradley Zuñiga MD [address] [place] [address] [facility] Start: 01-30-2021 Colon cancer screen colonoscopy Colon cancer screen colonoscopy [place] Start: 01-30-2021 Screening for malignant neoplasm of colon Colon cancer screen colonoscopy [place] Start: 01-21-2021 End: 01-21-2021 Patient encounter procedure 01/21/2021 Office Visit General Surgery Anh Torres MD [address] [address] [facility] General Surgery Start: 01-19-2021 End: 01-19-2021 Appointment 01/19/2021 Appointment Radiation Oncology Mark Pickering MD [address] [place] [phone] Shabana Bee [employer] [address] [place] [address] [phone] [facility] Start: 01-13-2021 COVID-19 Vaccine (3 - Pfizer risk 3-dose series) COVID-19 Vaccine (3 - Pfizer risk 3-dose series) [facility] Work Phone: Start: 01-13-2021 COVID-19 Vaccine (3 - Pfizer risk 4-dose series) COVID-19 Vaccine (3 - Pfizer risk 4-dose series) [facility] Start: 01-05-2021 End: 01-05-2021 Office Visit 01/05/2021 Office Visit Family Medicine Bradley Zuñiga MD [address] [place] [address] [phone] [facility] Start: 2020 Pneumococcal 65+ yrs at Risk Vaccine (1 of 2 - PCV13) Pneumococcal 65+ yrs at Risk Vaccine (1 of 2 - PCV13) [facility] Start: 11-10-2020 End: 11-10-2020 Office Visit 11/10/2020 Office Visit Family Medicine Bradley Zuñiga MD [address] [place] [address] [phone] [facility] Start: 10-06-2020 End: 10-06-2020 Appointment 10/06/2020 Appointment Radiation Oncology Mark Pickering MD [address] [place] [address] [place] [phone] Shabana Bee, [employer] - [employer] [address] [place] [address] [phone] [facility] Start: 09-29-2020 End: 09-29-2020 Appointment 09/29/2020 Appointment Radiation Oncology Mark Pickering MD [address] [facility] [place] [phone] [facility] Start: 08-21-2020 End: 08-21-2020 Nurse Only 08/21/2020 Nurse Only Family Medicine [facility] Start: 08-17-2020 End: 08-17-2020 Appointment 08/17/2020 Appointment Radiation Oncology Mark Pickering MD [address] [place] [address] [place] [phone] [facility] Start: 08-14-2020 End: 08-14-2020 Appointment 08/14/2020 Appointment Radiation Oncology Mark Pickering MD [address] [place] [address] [place] [phone] [facility] Start: 08-13-2020 HbA1c (Bld) [Mass fraction] A1C test (Diabetic or Prediabetic) [place] Start: 08-13-2020 Lipid panel Lipid screen [place] Start: 08-13-2020 End: 08-13-2020 Appointment 08/13/2020 Appointment Radiation Oncology Mark Pickering MD [address] [place], [place] [address] [place] [phone] [facility] Start: 08-12-2020 End: 08-12-2020 Appointment 08/12/2020 Appointment Radiation Oncology Mark Pickering MD [address] [place] [address] [place] [phone] [facility] Start: 08-11-2020 End: 08-11-2020 Appointment [facility] Start: 08-10-2020 End: 08-10-2020 Appointment 08/10/2020 Appointment Radiation Oncology Mark Pickering MD [address] [place] [address] [place] [phone] [facility] Start: 08-07-2020 End: 08-07-2020 Appointment 08/07/2020 Appointment Radiation Oncology Mark Pickering MD [address] [place] [phone] [facility] Start: 08-06-2020 End: 08-06-2020 Appointment 08/06/2020 Appointment Radiation Oncology Mark Pickering MD [address] [place] [phone] [facility] Start: 08-05-2020 End: 08-05-2020 Appointment 08/05/2020 Appointment Radiation Oncology Mark Pickering MD [address] [place] [phone] [facility] Start: 08-04-2020 End: 08-04-2020 Appointment [facility] Start: 08-03-2020 End: 08-03-2020 Appointment 08/03/2020 Appointment Radiation Oncology Mark Pickering MD [address] [place] [phone] [facility] Start: 07-31-2020 End: 07-31-2020 Appointment 07/31/2020 Appointment Radiation Oncology Mark Pickering MD [address] [place] [phone] [facility] Start: 07-30-2020 End: 07-30-2020 Appointment 07/30/2020 Appointment Radiation Oncology Mark Pickering MD [address] [place] [phone] [facility] Start: 07-29-2020 End: 07-29-2020 Appointment 07/29/2020 Appointment Radiation Oncology Mark Pickering MD [address] [place] [phone] [facility] Start: 07-28-2020 End: 07-28-2020 Appointment 07/28/2020 Appointment Radiation Oncology Mark Pickering MD [address] [facility] [place] [address] [facility] Start: 07-22-2020 End: 07-22-2020 Appointment 07/22/2020 Appointment Radiation Oncology Mark Pickering MD [address] [place] [address] [facility] Start: 06-02-2020 Influenza vaccination Flu vaccine (#1) [place] Start: 03-23-2020 End: 03-23-2020 Appointment 03/23/2020 Appointment Radiology [facility] Start: 02-25-2020 Annual Wellness Visit (AWV) Annual Wellness Visit (AWV) [place] Start: 02-14-2020 Lipid screen Lipid screen [place] Start: 08-27-2019 End: 08-27-2019 Office Visit 08/27/2019 Office Visit Family Medicine Joie Harp MD [address] [facility] [address] [place] [address] [phone] [facility] Start: 06-02-2019 Influenza vaccination Flu vaccine (#1) [place] Start: 2015 Respiratory Syncytial Virus (RSV) or age 60 yrs+ (1 - 1-dose 60+ series) Respiratory Syncytial Virus (RSV) or age 60 yrs+ (1 - 1-dose 60+ series) [facility] Start: 2015 Respiratory Syncytial Virus (RSV) or age 60 yrs+ (1 - Risk 60-74 years 1-dose series) Respiratory Syncytial Virus (RSV) or age 60 yrs+ (1 - Risk 60-74 years 1-dose series) [facility] Start: 2015 RSV Vaccine (1 - 1-dose 60+ series) RSV Vaccine (1 - 1-dose 60+ series) [facility] Start: 2015 RSV Vaccine (1 - Risk 60-74 years 1-dose series) RSV Vaccine (1 - Risk 60-74 years 1-dose series) [facility] Start: 2010 PROSTATE CANCER SCREENING DISCUSSION PROSTATE CANCER SCREENING DISCUSSION [facility] Start: 2010 Prostate specific antigen measurement Prostate Cancer Screening Discussion [facility] Start: 2005 Shingles Vaccine (1 of 2) Shingles Vaccine (1 of 2) [facility] Start: 2000 COLOGUARD (FIT-DNA) COLOGUARD (FIT-DNA) [facility] Start: [address] COLONOGRAPHY [facility] Start: 2000 FECAL OCCULT BLOOD FECAL OCCULT BLOOD [facility] Start: 2000 Screening for malignant neoplasm of colon [facility] Start: 2000 SIGMOIDOSCOPY SIGMOIDOSCOPY [facility] Start: 1995 Prostate specific antigen measurement Prostate Specific Antigen (PSA) Screening or Monitoring [facility] Start: 1990 LIPID SCREEN LIPID SCREEN [facility] Start: 1974 Shingles vaccine (1 of 2) Shingles vaccine (1 of 2) [facility] Start: 1974 SHINGRIX VACCINE (1 of 2) SHINGRIX VACCINE (1 of 2) [facility] Start: 1973 ANNUAL PCP TEAM CHRONIC DISEASE VISIT ANNUAL PCP TEAM CHRONIC DISEASE VISIT [facility] Start: 1973 BP CONTROLLED (<130/80) BP CONTROLLED (<130/80) [facility] Start: 1973 HEPATITIS C SCREENING HEPATITIS C SCREENING [facility] Start: 1970 HIV screen HIV screen [place] Start: 1970 HIV screening HIV screen [place] Start: 1965 A1C test (Diabetic or Prediabetic) A1C test (Diabetic or Prediabetic) [place] Start: 1961 Pneumococcal 0-64 years Vaccine (1 of 3 - PCV13) Pneumococcal 0-64 years Vaccine (1 of 3 - PCV13) [place] Start: 1961 PNEUMOCOCCAL: 65+ (1 - PCV) PNEUMOCOCCAL: 65+ (1 - PCV) [facility] Start: 1955 Hepatitis C screen Hepatitis C screen [place] Start: 1955 Hepatitis C screening Hepatitis C screen [place] End: 02-25-2020 AFP TUMOR MARKER AFP TUMOR MARKER Lab Routine One Time for 1 Occurrences starting 02/25/2020 until 02/25/2020 [place] Comment on above: One Time for 1 Occurrences starting 01/31 until 02/25/2020 End: 02-26-2020 AFP tumor marker AFP tumor marker Lab Routine One Time for 1 Occurrences starting 02/26/2020 until 02/26/2020 [place] Comment on above: One Time for 1 Occurrences starting 01/31 until 02/26/2020 AFP TUMOR MARKER [place] End: 07-13-2022 Baseline Diagnostic Sleep Study Baseline Diagnostic Sleep Study Sleep Center Routine Class 3 severe obesity due to excess calories with serious comorbidity and body mass index (BMI) of 45.0 to 49.9 in adult (HCC) Frequent PVCs Sleep apnea, unspecified type 1 Occurrences starting 07/13/2022 until 07/13/2022 RIMA MIRANDA [facility] [employer] Work Phone: Comment on above: 1 Occurrences starting 07/13/2022 until 07/13/2022 EKG 12 Lead EKG 12 Lead ECG STAT 01/04/2022 11:42 AM Formerly [facility] [employer] Work Phone: End: 02-25-2020 HCG, Tumor Marker HCG, Tumor Marker Lab Routine One Time for 1 Occurrences starting 02/25/2020 until 02/25/2020 [place], [place] Comment on above: One Time for 1 Occurrences starting 01/31 until 02/25/2020 HCG, Tumor Marker HCG, Tumor Mar ker Lab Routine 02/25/2020 5:41 PM EDT [place] Hepatitis a & b vaccine hepa-hepb adult im HEPA/HEPB VACCINE ADULT IM Immunization/Injection Routine H/O autologous stem cell transplant (HCC) Need for vaccination Ordered: 11/01/2022 [facility] Work Phone: Comment on above: Ordered: 11/01/2022 Hib prp-omp vaccine 3 dose schedule im use HIB VACCINE, PRP-OMP, IM Immunization/Injection Routine H/O autologous stem cell transplant (HCC) Need for vaccination Ordered: 11/01/2022 [facility] Work Phone: Comment on above: Ordered: 11/01/2022 Initiate Oxygen Therapy Protocol Initiate Oxygen Therapy Protocol Respiratory Care Routine Daily until discontinued starting 02/25/[address] [facility] Comment on above: Daily until discontinued starting 2019 Oxygen therapy [Minimum Data Set] Initiate Oxygen Therapy Protocol Respiratory Care Routine Daily until discontinued starting 03/17/2021 [employer] Phone: Comment on above: Daily until discontinued starting 2020 Phase I & II - metered glucose Phase I & II - metered glucose Point of Care Testing Routine As Needed until discontinued starting 03/17/2021 [employer] Phone: Comment on above: As Needed until discontinued starting Pneumococcal vaccination PNEUMOCOCCAL VACCINE (PREVNAR 20) Immunization/Injection Routine H/O autologous stem cell transplant (HCC) Need for vaccination Ordered: 11/01/2022 [facility] Work Phone: Comment on above: Ordered: 11/01/2022 Poliovirus vaccine inactivated subq/im POLIOMYELITIS IMMUNIZATN,IM/SQ Immunization/Injection Routine H/O autologous stem cell transplant (HCC) Need for vaccination Ordered: 11/01/2022 [facility] Work Phone: Comment on above: Ordered: 11/01/2022 [facility] Comment on above: Release Upon Ordering for 1 Occurrences starting 02/26/2020 Release Upon Orderin g for 1 Occurrences starting 03/17/2021 End: 02-26-2020 Surgical Pathology Surgical Pathology Lab Routine Once for 1 Occurrences starting 02/26/2020 until 02/26/[address] [facility] Comment on above: Once for 1 Occurrences starting 02/26/20 20 until 02/26/2020 Tdap vaccine 7 yrs/> im TDAP VACCINE AGE 7+ IM Immunization/Injection Routine H/O autologous stem cell transplant (HCC) Need for vaccination Ordered: 11/01/2022 [facility] Work Phone: Comment on above: Ordered: 11/01/2022 [facility] Immunizations Immunization Date Immunization Notes Care Provider [facility] 07-01-2025 Seasonal trivalent influenza vaccine, adjuvanted, preservative free George Sebastian MD Work Phone: [facility] 06-26-2024 Seasonal trivalent influenza vaccine, adjuvanted, preservative free George Sebastian MD Work Phone: [facility] 06-28-2023 Influenza, FLUAD, (a ge 65 y+), Adjuvanted, 0.5mL Bradley Zuñiga MD Work Phone: [facility] 11-07-2022 haemophilus influenz ae type b vaccine, PRP-OMP conjugate Nurse Main Work Phone: [facility] 11-07-2022 hepatitis A and hepatitis B vaccine Nurse Main Work Phone: [facility] 11-07-2022 pneumococcal (PCV20) vaccine, 20 valent (PREVNAR 20) Nurse Main Work Phone: [facility] 11-07-2022 poliovirus vaccine, inactivated Nurse Main Work Phone: [facility] 11-07-2022 tetanus toxoid, reduced diphtheria toxoid, and acellular pertussis vaccine, adsorbed Nurse Main Work Phone: [facility] 09-02-2022 Influenza, FLUAD, (a ge 65 y+), Adjuvanted, 0.5mL Se[facility] 1 [facility] Work Phone: 09-02-2022 pneumococcal conjuga te vaccine, 13 valent Sehc 1 [facility] Work Phone: 09-02-2022 tetanus and diphther ia toxoids, adsorbed, preservative free, for adult use (2 Lf of tetanus toxoid and 2 Lf of diphtheria toxoid) Sehc 1 [facility] Work Phone: 09-02-2022 influenza virus vaccine, unspecified formulation [facility] Work Phone: [phone] [place] [address] 06-02-2022 hepatitis A vaccine, adult dosage [facility] 06-02-2022 hepatitis B vaccine, adult dosage Anthony 1 [facility] [employer] [facility] Phone: 06-02-2022 pneumococcal conjuga te vaccine, 13 valent Anthony 1 [facility] [employer] 06-02-2022 tetanus and diphther ia toxoids, adsorbed, preservative free, for adult use (2 Lf of tetanus toxoid and 2 Lf of diphtheria toxoid) Anthony 1 [facility] Phone: 05-17-2022 haemophilus influenz ae type b vaccine, conjugate unspecified formulation Sehc 1 [facility] [employer] [facility] Phone: 03-29-2022 haemophilus influenz ae type b vaccine, conjugate unspecified formulation Sehc 1 [facility] [employer] Phone: 03-01-2022 pneumococcal conjuga te vaccine, 13 valent Sehc 1 [facility] [employer] 02-22-2022 haemophilus influenz ae type b vaccine, conjugate unspecified formulation Sehc 1 [facility] [employer] 02-15-2022 hepatitis A vaccine, adult dosage Se[facility] [address] [facility] Phone: 02-15-2022 hepatitis B vaccine, adult dosage Se[facility] [address] [facility] Phone: 02-15-2022 tetanus toxoid, reduced diphtheria toxoid, and acellular pertussis vaccine, adsorbed Sehc 1 [facility] [employer] 12-31-2021 COVID-19, Moderna, Primary or Immunocompromised, PF, 100mcg/0.5mL Sehc 1 [facility] [employer] 12-08-2021 COVID-19, Moderna, Primary or Immunocompromised, PF, 100mcg/0.5mL Sehc 1 [facility] [employer] [facility] Phone: 06-25-2021 tetanus toxoid, reduced diphtheria toxoid, and acellular pertussis vaccine, adsorbed Anthony [facility] 12-16-2020 COVID-19, Pfizer, PF , 30mcg/0.3mL Anthony [address] [place] [address] 11-24-2020 COVID-19, Pfizer, PF , 30mcg/0.3mL Anthony 1[facility] 08-21-2020 influenza, injectabl e, quadrivalent, preservative free [facility] 08-27-2019 influenza, injectabl e, quadrivalent, preservative free [facility] 07-25-2019 influenza virus vaccine, unspecified formulation Dasha Paul MD Work Phone: [facility] Work Phone: 08-27-2018 influenza, injectabl e, quadrivalent, preservative free [facility] 09-05-2017 influenza virus vaccine, unspecified formulation Anthony 1[facility] Work Phone: 09-05-2017 influenza, seasonal, injectable Elyssa Robin MD Work Phone: [facility] 09-01-2015 tetanus toxoid, reduced diphtheria toxoid, and acellular pertussis vaccine, adsorbed [facility] Work Phone: 06-05-2014 influenza virus vaccine, unspecified formulation Anthony 1[facility] Work Phone: 06-05-2014 influenza, seasonal, injectable Elyssa Robin MD Work Phone: [facility] 07-24-2013 influenza virus vaccine, unspecified formulation Anthony 1[facility] Work Phone: 07-24-2013 influenza, seasonal, injectable Elyssa Robin MD Work Phone: [facility] 06-21-2012 influenza virus vaccine, unspecified formulation Anthony 1[facility] Work Phone: 06-21-2012 influenza, seasonal, injectable Elyssa Robin MD Work Phone: [facility] Payers Date Payer Category Payer Private Health Insurance [id number] 2020 Private Health Insurance CLI [id number] 2019 Medicare [id number] 2019 Medicare AETNA MEDICARE A ETNA MEDICARE ADVANTAGE HMO [id number] 2019-Present [address] [place] [address] Medicare [id number] 2018 Medicare MEDICARE MEDICAR E A AND B [id number] 2018-Present [phone] [address] [address] [place] [address] Medicare [id number] 2018 Unknown [id number] 2018 Medicare [id number] 2018 Self-pay 2018 Unknown [id number] 2016 Unknown [id number] 1955 Unknown [id number] 2.16.840.1.229483.3.579.2. 627 1955 Unknown [id number] 2.16.840.1.807715.3.579.2. 204 1955 Unknown [id number] 2.16.840.1.890129.3.579.2. 204 1955 Unknown [id number] 2.16.840.1.602583.3.579.2. 1259 1955 Unknown [id number] 2.16.840.1.253928.3.579.2. 1259 1955 Unknown [id number] 2.16.840.1.141745.3.579.2. 1259 1955 Unknown [id number] 2.16.840.1.454150.3.579.2. 1259 1955 Unknown [id number] 2.16.840.1.136537.3.579.2. 651 1955 Unknown [id number] 2.16.840.1.085220.3.579.2. 651 1955 Unknown [id number] 2.16.840.1.702817.3.579.2. 651 1955 Unknown [id number] 2.16.840.1.753342.3.579.2. 651 1955 Unknown [id number] 2.16.840.1.353594.3.579.2. 204 1955 Unknown [id number] 2.16.840.1.403706.3.579.2. 204 Medicare [id number] Unknown [id number] 2.16.840.1.850944.3.579.2. 630 Unknown [id number] 2.16.840.1.725636.3.579.2. 630 Unknown [id number] 2.16.840.1.475001.3.579.2. 630 Unknown [id number] 2.16.840.1.810909.3.579.2. 630 Unknown [id number] 2.16.840.1.579653.3.579.2. 921 Unknown [id number] 2.16.840.1.180509.3.579.2. 462 Unknown [id number] 2.16.840.1.065024.3.579.2. 462 Social History Date Type Detail Facility Unknown if ever smoked [facility] Start: 07-17-2020 End: 06-02-2022 Tobacco smoking status NHIS Never smoker [place], [place] Start: 07-17-2020 End: 06-02-2022 Tobacco use and exposure Never used [employer] [employer] [place], [place] Start: 07-17-2020 End: 07-18-2025 Alcohol intake Current drink[facility] of alcohol (finding) [facility] [place] Start: 09-09-2019 Alcohol Comment rare [facility] [place] Sex Assigned At Not on file [facility] [employer] [place] Start: 08-21-2018 Alcohol Comment seldom [facility] [place] Exposure to SARS-CoV -2 (event) Unable to assess [employer] [place] Start: 1955 Sex Assigned At Male [employer] Phone: Start: 07-17-2021 End: 03-10-2022 Exposure to SARS-CoV-2 (event) Not sure [employer] Start: 02-10-2021 End: 11-22-2022 History SDOH Financial 5 [employer] Phone: Start: 02-10-2021 End: 11-22-2022 History SDOH Food Worry 1 [employer] Phone: Start: 02-10-2021 End: 11-22-2022 History SDOH Transport Med 2 [employer] Phone: Start: 11-17-2021 End: 11-22-2022 History SDOH Physical Activity DPW 3 [employer] Phone: Start: 07-19-2021 End: 10-05-2021 Alcohol intake Ex-drinker (finding) [facility] Start: 10-05-2021 End: 07-15-2025 Alcohol intake [employer] Start: 04-22-2023 End: 07-15-2025 Alcohol Use Disorder Identification Test - Consumption [AUDIT-C] [employer] How often to you hav e a drink containing alcohol? Never [employer] How many standard dr inks containing alcohol do you have on a typical day? Patient does not drink [employer] (I/We) worried wheth er (my/our) food would run out before (I/we) got money to buy more. Never true [facility] At any time in the p ast 12 months, were you homeless or living in residential [including now]? No [employer] Start: 01-12-2021 Gender identity Identifies as male gender (finding) [employer] Start: 01-12-2021 Sexual orientation Heterosexual (finding) [employer] How often to you hav e a drink containing alcohol? Monthly or less [employer] How many standard dr inks containing alcohol do you have on a typical day? 1 or 2 [employer] Start: 11-10-2012 Sex Male (finding) [employer] Mental Status Date Assessment Result Facility 05-07-2025 Cognitive function Voice/Name [facility] Work Phone: Clinical Notes 01-18-2021 to 07-18-2025 Oxana Whitley RN - 07/18/2025 2:10 PM EDOxana Ross RN - 07/18/2025 2:00 PM Oxana Prather RN - 07/18/2025 1:37 PM EDTGiovanni Phan RN - 07/15/2025 1:24 PM EDT Note Date & Type Note Facility 07-18-2025 Note Intraprocedural fluo roscopic spot images as above. See separate procedure report for more information. [facility] 07-18-2025 History of Present illness Narrative Pt refused wheelchair, ambulatory to exit with this nurse. Discharge instructions gone over, follow up discussed. Pt verbalized understanding of discharge instructions, all questions answered. As well as post anesthesia instructions. Pt states has a ride home and responsible adult there. Patient returned from epidural injection. VSS, family at bedside. No needs at this time. [facility] PAIN MANAGEMENT INSTRUCTIONS .............................. .............................. .............................. .............................. ................... [x] Parking the day of Surgery is located in the Main Entrance lot. 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 Omer Ireland Post-Pain Block/Radiofrequency Home Going Instructions 1-Go home, rest for the remainder of the day 2-Please do not lift over 20 pounds the day of the injection 3-If you received sedation No: alcohol, driving, operating lawn mowers, plows, tractors or other dangerous equipment until next morning. Do not make important decisions or sign legal documents for 24 hours. You may experience light headedness, dizziness, nausea or sleepiness after sedation. Do not stay alone. A responsible adult must be with you for 24 hours. You could be nauseated from the medications you have received. Your IV site may be sore and bruised. 4-No dietary restrictions 5-Resume all medications the same day, blood thinners to be resumed 24 hours after injection if you were instructed to stop any. 6-Keep the surgical site clean and dry, you may shower the next morning and remove the dressing. 7- No sitz baths, tub baths or hot tubs/swimming for 24 hours. 8- If you have any pain at the injection site(s), application of an ice pack to the area should be helpful, 20 minutes on/20 minutes off for next 48 hours. 9- Call [facility] Pain Management immediately at if you develop. Fever greater than 100.4 F Have bleeding or drainage from the puncture site Have progressive Leg/arm numbness and or weakness Loss of control of bowel and or bladder (wet/soil yourself) Severe headache with inability to lift head 10-You may return to work the next day documented in this encounter [facility] 06-05-2025 Note Ultrasound guided pr ocedure images. Please see procedure note for further details. Final result [facility] Comment on above: Order Comment: Reaso n for exam:->bilateral knee CHOU injections 05-29-2025 Note Ultrasound guided pr ocedure images. Please see procedure note for further details. Final result [facility] Comment on above: Order Comment: Reaso n for exam:->bilateral CHOU injections 05-20-2025 Note Ultrasound guided pr ocedure images. Please see procedure note for further details. Final result [facility] Comment on above: Order Comment: Reaso n for exam:->bilateral gel injections 05-07-2025 Discharge summary Note Date/Time May 07, 2025 10:43am [facility] Medical Records Department [address] [facility] [place] [address] Instructions for Home/Discharge Instructions 05/07/25 1043 MR#: [id number] Acct: [id number] Name: BLAKE GRIMES Rep #:[id number] : 1955 69 From: Jaxson Justin MD PCP: BRADLEY ZUÑIGA Status:[facility] Discharge Instructions DC O2, CPAP, BIPAP needs Home O2 Discharge instructions: No Dressing / Incision Discharge Activity: Return to Normal Activity and May Not Drive (while taking narcotic pain medications.) Dressing / Incision Call your doctor if you observe: Fever of 101 or Higher Follow Up Care Please Follow Up With: Jaxson Justin MD When: Call [phone] for an appointment Test Results: Test results from this visit will be discussed in further detail at your follow-up appointment, if applicable. Discharge Plan Admission Primary Reason for Your Visit: laser stone and stent Attending Provider: Jaxson Justin Primary Care Provider: BRADLEY ZUÑIGA Instructions Print Language: Filipino Discharge Orders/Prescriptions Prescriptions: New oxycodone 5 mg tablet 5 mg PO Q6H PRN (Reason: pain) 7 Days Qty: 20 0RF ciprofloxacin HCl 500 mg tablet 500 mg PO BID Qty: 6 0RF Continued metoprolol succinate 50 mg tablet extended release 24 hr 50 mg PO QHS simvastatin 40 mg tablet 40 mg PO QHS Ozempic 0.25 mg or 0.5 mg(2 mg/1.5 mL) pen injector 0.25 mg subcut TU Rx Instructions: for 4 weeks furosemide 20 mg tablet 20 mg PO DAILY PRN (Reason: edema) tamsulosin 0.4 mg capsule 0.4 mg PO QHS ketorolac 10 mg tablet 10 mg PO Q8H PRN PRN (Reason: pain) Referrals / Follow Up: BRADLEY ZUÑIGA [Other] Jaxson Justin MD [Med Staff - Active Staff] - Disposition Disposition (needs filled in before D/C Order can be placed): Home, Self Care 05/07/25 1043<Electronically signed by Jaxson Justin MD>Jaxson Justin MD CC: BRADLEY ZUÑIGA ~ Signed [facility] Work Phone: 1(393) 374-919208-06-2025 Radiology Diagnostic study note [facility] Imaging Services [address] [place], [place] [address] O.R. Fluoro for C-Arm MR#: [id number] Acct: [id number] Name: BLAKE GRIMES Rep #: [id number] 7 : 1955 M 69 From: Binh Baldwin MD PCP: BRADLEY ZUÑIGA Status: [facility] Study:O.R. Fluoro for C-Arm Date of Exam: 05/07/25 Exam# [id number] Ordering Dr: Iain Justin MD EXAM: Fluoroscopy for ureteral stent placement. CLINICAL HISTORY: Cystoscopy for left stent placement. COMPARISON: None TECHNIQUE: Intraoperative fluoroscopy was performed for left ureteral stent placement. Onefluoroscopic image was obtained. Fluoroscopy time: 12.4 seconds. Dose: 8.43 mGy. RAD/O.R. Fluoro for C-Arm IMPRESSION: Intraoperative fluoroscopy was performed for left ureteral stent placement. Onefluoroscopic image was obtained. Reading Location: [place] [address] CC: Dr. Jaxson Justin MD; BRADLEY ZUÑIGA ~ Client Support Consultant: Signed [facility]08-06-2025 Consult note [facility] Medical Records Department [address] [place] [address] Anesthesia Postop Eval I 05/07/25 1147 MR#: [id number] Acct: [id number] Name: BLAKE GRIMES Rep #:[id number] 6 : 1955 69 From: Osei Casanova CRNA PCP: BRADLEY ZUÑIGA Status:[facility] Y Race: C Location: [place] [address] Anesthesia: Postop Eval I Current Vital Signs Temperature: 96.8 F Pulse Rate: 64 Blood Pressure: 132/67 Respiratory Rate: 16 Pulse Ox: 98 Oxygen Delivery Method: Nasal Cannula Oxygen Flow Rate (L/min): 2 Assessment Airway patent: Yes Spontaneous unlabored respirations: Yes Mental status: Awake and Calm nausea: No Vomiting: No Anesthesia Complication: No Fluid Hydration Crystalloid volume administer (ml): 500 Total IV fluid infused: 500 Progress Note Anesthesia document: Postop Eval 1 completed: Yes 05/07/25 1148 y 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 Medical Records Department [address] [place] [address] Operative Report 05/07/25 1133 MR#: [id number] Acct: [id number] Name: BLAKE GRIMES Rep #:[id number] 4 : 1955 69 From: Jaxson Justin MD PCP: BRADLEY ZUÑIGA Status:[facility] Location: [place] [address] Operative Report (Standard) Operative Information Date of Procedure: 05/07/25 Pre-Operative Diagnosis: Obstructing left ureteral calculus Post-Operative Diagnosis: The same Surgery/Procedure Performed: Cystoscopy, balloon dilation of left ureter, left ureteroscopy laser lithotripsy of stone and stent, left retrograde pyelogram civil engineering 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 I discussed with the patient how the surgery would be performedand we reviewed the risks and benefits of the surgery. The risk and benefits include the risk of failure to remove the stone completely and that the patient may need multiple procedures. We discussed the risk of an infection, the risk of bleeding. We discussed the very rare risk of serious complicated injury to the ureter. The patient understands that if the stone is not able to be removedsafely that we may abort the procedure and placea stent. After full discussionand all questions address with the patient the consent form was signed the side was marked appropriately and the patient was taken back to the operating room for the procedure. The patient was taken back to the operating room. After induction of anesthesiaby the anesthesiology team the patient was placed in dorsolithotomy position. The genitals were prepped and draped in usual sterile fashion. I went into the bladder with a 21 Spanish rigid cystourethroscope through the urethra. Upon entering the bladder I inspected the trigone the left and right ureteral orificeand the bladder itself. I then cannulated the left ureteral orifice and advanced a 0.038 Glidewire up into the kidney. Then over the Glidewire I advanced a 5 Fr Ureteral catheter and performed a retrograde pyelogram with about 10cc of contrast, to delineate the anatomy and identify the stone location. Then a ureteral balloon dilator was advanced over the wire and the distal ureter was balloon dilated witha 12 Fr x 5cm balloon dilator. After 3 minutes of dilating the ureter the balloon was backloaded off the 0.038 glidewire over the 0.038 guidewire I went in with the flexible 7.5fr ureteroscope. I wasable to go inside with the 7.5Fr utereroscope and I pulled out the guidewire and then through the ureteroscope I engage the stone with laser lithotripsy using a 270miron laser fiber with energy setting of 6 Hertz and 0.6 J until the stone was lasered into tiny little pieces that should pass on their own. A retrograde pyelogram was performed with 10cc of contrast and noextravasation of contrast orperforation was identified in the ureter there was some mild irritation of the ureter where the stone was located. I then backed out of the ureter left the wire in place and then over the 0.038 guidewire I placed a double coiled pigtail ureteral stent. The ureteral stent was advanced over the 0.038guidewire under direct fluoroscopic guidance and direct cystoscopic visual guidance, once the stentwas in good position I pulled the wire and the stent coiled in the kidney and bladder in good position. I then drained the patient's bladder and the cystoscope was removed and the patient wastaken back to the recovery room in good position. The patient was given discharge instructions to call the office for instructions on when to come to the office to have the stent removed. Surgical Findings: Stone lasered completely Complications Complications: No Admit VTE Documentation VTE Present on Admission: No VTE Mechan Device Prophylaxis: SCD's VTE Pharm Prophylaxis ordered?: No 05/07/25 5965 Cosigner Signature (if applicable): CC: Dr. Jaxson Justin MD; BRADLEY ZUÑIGA~ Signed [facility]08-06-2025 Consult note Author Saleem Goncalves [facility] Note Date/Time May 07, 2025 9:2 7am [facility] Medical Records Department [address] [place] [address] Pre-Anesthesia Evaluation 05/07/25 0927 MR#: [id number] Acct: [id number] Name: BLAKE GRIMES Rep #:[id number] : 1955 69 From: Saleem Goncalves MD PCP: BRADLEY ZUÑIGA Status:REG SDC Y Race: C Location: [place] [address] ASA Classification* ASA Classification ASA Classification: 2 Assessment & Plan Anesthesia* Anesthesia Assessment Anesthesia Assessment: Discussed sedation and/or anesthesia options, risks, benefits, and alternatives with patient/parents/legal guardian/POA. Questions invited. The patient/parents/legal guardian/POA seems to understand and agrees to proceedwith anesthesia plan. Reviewed the physical assessment, medical history, allergy history and patient home medications list prior to surgery/procedure/anesthetic and documented any changes. Performed airway and anesthesia risk assessments. 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 When Was Last Pacemaker Check QUESTION #4 FULL TEXT: You/Your Family Experience fever (hyperthermia) with Anesthesia Last Oral Intake Last Oral intake: Last Oral Intake NPO since Meds taken in AM with sips of water? Meds patient instructed to take am of surgery PONV PONV - bench carpenter: PONV - bench carpenter Female No 04/23/25 11:09 HX of Motion Sickness No 04/23/25 11:09 HX of N/V After Surgery No 04/23/25 11:09 Non-Smoker Yes 04/23/25 11:09 Duration of Surgery greater Yes 04/23/25 11:09 than 60 minutes Number of Risk Factors 2 04/23/25 11:09 PONV Score Moderate Risk 04/23/25 11:09 Respiratory Assessment Respiratory Assessment - bench carpenter: Respiratory Tract Infection Hx - bench carpenter Hx Respiratory Tract Infection No 04/23/25 11:09 STOP Sleep Apnea STOP Sleep Apnea - bench carpenter: STOP Sleep Apnea - bench carpenter Hx Hypertension Yes: CONTROLLED WITH MED 04/23/25 11:09 Hx Sleep Apnea Yes 04/23/25 11:09 CPAP Yes 04/23/25 11:09 BIPAP No 04/23/25 11:09 Do you snore loudly (louder than talking or can be heard Do you often feel tired/ fatigued/ sleepy during daytime? Has anyone observed you stop breathing during sleep? STOP Results Positive 04/23/25 11:09 QUESTION #5 FULL TEXT : Do you snore loudly (louder than talking or can be heard through closed doors)? 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 Specify any problems Hx of Preganancy in last 3 N/A 04/23/25 11:09 Months Nurse Filling Out Transfusion DSCHRIBER 04/23/25 11:09 & Questions: Date: 04/23/25 04/23/25 11:09 Time: 11:11 04/23/25 11:09 Patient unable to answer at this time (ie. confused, unrespo /Reproduction History /Reproductive History - bench carpenter: /Reproductive Hx- bench carpenter Hx Now No 04/23/25 11:09 Gestational Age (in weeks): EDC: Hx Hx Para Hx Section SAB No 04/23/25 11:09 Active Medications Active Medications: Current Medications Generic Name Dose Route Start Last Admin Trade Name Freq PRN Reason Stop Dose Admin Cefazolin Sodium 2 gm/ Sodium 110 mls @ 200 mls/hr 05/07/25 15:15 Chloride IV 05/07/25 15:47 INTRAOP ONE Lactated Ringer's 1,000 mls @ 15 mls/hr 05/07/25 09:30 IV .Q48H FRANK PFSH Medical History Wears glasses Cancer Depression Anxiety Alcohol use Arthritis Back pain History of diverticulitis CPAP (continuous positive airway pressure) dependence Shortness of breath on exertion Non-smoker History of pain when walking History of edema Non-Hodgkin lymphoma History of stress test Cardiology follow-up encounter Hypertension Home Medications ?Medication ?Instructions ?Recorded ?Last Taken ?Type furosemide 20 mg tablet 20 mg PO DAILY PRN edema Unknown History ketorolac 10 mg tablet 10 mg PO Q8H PRN PRN pain Unknown History metoprolol succinate 50 mg 50 mg PO QHS 04/23/25 Unkno wn History tablet,extended release 24 hr semaglutide 0.25 mg or 0.5 mg (2 0.25 mg subcut TU 04/15/25 History mg/1.5 mL) subcutaneous pen injector (Ozempic) simvastatin 40 mg tablet 40 mg PO QHS 04/23/25 Unknow n History tamsulosin 0.4 mg capsule 0.4 mg PO QHS 04/23/25 Unkno wn History Allergy/AdvReac Type Severity Reaction Status Date / Time chlorhexidine Allergy Intermediate Rash Verified 04/23/25 11:03 meperidine (From Demerol) AdvReac Severe Nausea Verified 04/23/25 11:03 lisinopril AdvReac Intermediate COUGH Verified 04/23/25 11:03 Surgical History Hx of oral surgery Hx of eye surgery Hx of colonoscopy History of surgery on wrist History of orchiectomy, unilateral Hx of total hip arthroplasty History of ankle surgery History of ankle surgery Social History Smoking Status: Never smoker Review of Systems (Anesthesia) ROS Narrative System reviewed and no additional complaints, except as documented. 05/07/25926 <Electronically signed by Saleem Goncalves MD > Date _ Saleem Goncalves MD Cosigner Signature: Date CC: ~ Signed [facility] Work Phone: [phone] 871-317408-06-2025 Discharge summary [facility] Medical Records Department [address] [place] [address] Instructions for Home/Discharge Instructions 05/07/25 1043 MR#: [id number] Acct: [id number] Name: CORNELIOBLKAE DUSTIN Rep #:[id number] : 1955 69 From: Jaxson Justin MD PCP: BRADLEY ZUÑIGA Status:REG SDC Discharge Instructions DC O2, CPAP, BIPAP needs Home O2 Discharge instructions: No Dressing / Incision Discharge Activity: Return to Normal Activity and May Not Drive (while taking narcotic pain medications.) Dressing / Incision Call your doctor if you observe: Fever of 101 or Higher Follow Up Care Please Follow Up With: Jaxson Justin MD When: Call [phone] for an appointment Test Results: Test results from this visit will be discussed in further detail at your follow- up appointment, if applicable. Discharge Plan Admission Primary Reason for Your Visit: laser stone and stent Attending Provider: Jaxson Justin Primary Care Provider: BRADLEY ZUÑIGA Instructions Print Language: Filipino Discharge Orders/Prescriptions Prescriptions: New oxycodone 5 mg tablet 5 mg PO Q6H PRN (Reason: pain) 7 Days Qty: 20 0RF ciprofloxacin HCl 500 mg tablet 500 mg PO BID Qty: 6 0RF Continued metoprolol succinate 50 mg tablet extended release 24 hr 50 mg PO QHS simvastatin 40 mg tablet 40 mg PO QHS Ozempic 0.25 mg or 0.5 mg(2 mg/1.5 mL) pen injector 0.25 mg subcut TU Rx Instructions: for 4 weeks furosemide 20 mg tablet 20 mg PO DAILY PRN (Reason: edema) tamsulosin 0.4 mg capsule 0.4 mg PO QHS ketorolac 10 mg tablet 10 mg PO Q8H PRN PRN (Reason: pain) Referrals / Follow Up: BRADLEY ZÑUIGA [Other] Jaxson Justin MD [Med Staff - Active Staff] - Disposition Disposition (needs filled in before D/C Order can be placed): Home, Self Care 05/07/25 1043Jaxson Justin MD CC: BRADLEY ZUÑIGA ~ Signed [facility]08-06-2025 Consult note [facility] Medical Records Department [address] [place] [address] Pre-Anesthesia Evaluation 05/07/2527 MR#: [id number] Acct: [id number] Name: BLAKE GRIMES Rep #:[id number] : 1955 69 From: Saleme Goncalves MD PCP: BRADLEY ZUÑIGA Status:REG SDC Y Race: C Location: [place] [address] ASA Classification* ASA Classification ASA Classification: 2 Assessment & Plan Anesthesia* Anesthesia Assessment Anesthesia Assessment: Discussed sedation and/or anesthesia options, risks, benefits, and alternatives with patient/parents/legal guardian/POA. Questions invited. The patient/parents/legal guardian/POA seems to understand and agrees to proceedwith anesthesia plan. Reviewed the physical assessment, medical history, allergy history and patient home medications list prior to surgery/procedure/anesthetic and documented any changes. Performed airway and anesthesia risk assessments. 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 When Was Last Pacemaker Check QUESTION #4 FULL TEXT: You/Your Family Experience fever (hyperthermia) with Anesthesia Last Oral Intake Last Oral intake: Last Oral Intake NPO since Meds taken in AM with sips of water? Meds patient instructed to take am of surgery PONV PONV - bench carpenter: PONV - bench carpenter Female No 04/23/25 11:09 HX of Motion Sickness No 04/23/25 11:09 HX of N/V After Surgery No 04/23/25 11:09 Non-Smoker Yes 04/23/25 11:09 Duration of Surgery greater Yes 04/23/25 11:09 than 60 minutes Number of Risk Factors 2 04/23/25 11:09 PONV Score Moderate Risk 04/23/25 11:09 Respiratory Assessment Respiratory Assessment - bench carpenter: Respiratory Tract Infection Hx - bench carpenter Hx Respiratory Tract Infection No 04/23/25 11:09 STOP Sleep Apnea STOP Sleep Apnea - bench carpenter: STOP Sleep Apnea - bench carpenter Hx Hypertension Yes: CONTROLLED WITH MED 04/23/25 11:09 Hx Sleep Apnea Yes 04/23/25 11:09 CPAP Yes 04/23/25 11:09 BIPAP No 04/23/25 11:09 Do you snore loudly (louder than talking or can be heard Do you often feel tired/ fatigued/ sleepy during daytime? Has anyone observed you stop breathing during sleep? STOP Results Positive 04/23/25 11:09 QUESTION #5 FULL TEXT : Do you snore loudly (louder than talking or can be heard through closeddoors)? 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 Specify any problems Hx of Preganancy in last 3 N/A 04/23/25 11:09 Months Nurse Filling Out Transfusion DSCHRIBER 04/23/25 11:09 & Questions: Date: 04/23/25 04/23/25 11:09 Time: 11:11 04/23/25 11:09 Patient unable to answer at this time (ie. confused, unrespo /Reproduction History /Reproductive History - bench carpenter: /Reproductive Hx- bench carpenter Hx Now No 04/23/25 11:09 Gestational Age (in weeks): EDC: Hx Hx Para Hx Section SAB No 04/23/25 11:09 Active Medications Active Medications: Current Medications Generic Name Dose Route Start Last Admin Trade Name Freq PRN Reason Stop Dose Admin Cefazolin Sodium 2 gm/ Sodium 110 mls @ 200 mls/hr 05/07/25 15:15 Chloride IV 05/07/25 15:47 INTRAOP ONE Lactated Ringer's 1,000 mls @ 15 mls/hr 05/07/25 09:30 IV .Q48H FRANK PFSH Medical History Wears glasses Cancer Depression Anxiety Alcohol use Arthritis Back pain History of diverticulitis CPAP (continuous positive airway pressure) dependence Shortness of breath on exertion Non-smoker History of pain when walking History of edema Non-Hodgkin lymphoma History of stress test Cardiology follow-up encounter Hypertension Home Medications ?Medication ?Instructions ?Recorded ?Last Taken ?Type furosemide 20 mg tablet 20 mg PO DAILY PRN edema Unknown History ketorolac 10 mg tablet 10 mg PO Q8H PRN PRN pain Unknown History metoprolol succinate 50 mg 50 mg PO QHS 04/23/25 Unkno wn History tablet,extended release 24 hr semaglutide 0.25 mg or 0.5 mg (2 0.25 mg subcut TU 04/15/25 History mg/1.5 mL) subcutaneous pen injector (Ozempic) simvastatin 40 mg tablet 40 mg PO QHS 04/23/25 Unknow n History tamsulosin 0.4 mg capsule 0.4 mg PO QHS 04/23/25 Unkno wn History Allergy/AdvReac Type Severity Reaction Status Date / Time chlorhexidine Allergy Intermediate Rash Verified 04/23/25 11:03 meperidine (From Demerol) AdvReac Severe Nausea Verified 04/23/25 11:03 lisinopril AdvReac Intermediate COUGH Verified 04/23/25 11:03 Surgical History Hx of oral surgery Hx of eye surgery Hx of colonoscopy History of surgery on wrist History of orchiectomy, unilateral Hx of total hip arthroplasty History of ankle surgery History of ankle surgery Social History Smoking Status: Never smoker Review of Systems (Anesthesia) ROS Narrative System reviewed and no additional complaints, except as documented. 05/07/25926 > Date _ Saleem Goncalves MD Cosigner Signature: Date CC: ~ Signed [facility]07-23-2025 Radiology Diagnostic study note [facility] Imaging Services [address], [place] [id number] Abdomen Single View MR#: [id number] Acct: [id number] Name: BLAKE GRIMES Rep #: [id number] : 1955 M 69 From: Darlin Caballero MD PCP: BRADLEY ZUÑIGA Status: REG CLI Study:Abdomen Single View Date of Exam: 04/22/25 Exam# [id number] Ordering Dr: Iain Justin MD PROCEDURE: ABDOMEN SINGLE VIEW 04/22/2025 REASON FOR EXAM: CALCULUS OF URETER TECHNIQUE: ABDOMEN SINGLE VIEW COMPARISON: No FINDINGS: Multiple pelvic calcifications favoring phleboliths. Lumbar spine degeneration. Status post left THR. Nondistended bowel. No definite renal stones. RAD/Abdomen Single View IMPRESSION: No definite renal or ureteral stones. Reading Location: [place] [address] CC: Dr. Jaxson Justin MD; BRADLEY ZUÑIGA ~ Client Support Consultant: Signed [facility]03-24-2025 NoteDischarge Instructions Discharge Summary [address] [address] [id number] 12/23/2024 Patient: BLAKE GRIMES Sex: Male : 1955 Age: 69y Thank you for visiting [facility]. You have been evaluated today by Boom Tirado D.O. for the following condition(s): Principal Diagnosis Acute bacterial bronchitis associated with bronchospasm. Bronchopneumonia. INSTRUCTIONS (take Z-Michele (Zithromax) as directed for bronchitis. Use albuterol inhaler as directed for wheezing/shortness of breath. Use cough medication as directed. May also take Tylenol or Motrin every 6 hours as needed for fever and aches. Rest and avoid exertion. Follow up with the family doctor in a few days for recheck return if problems.). Warnings: GENERAL WARNINGS: Return or contact your physician immediately if your condition worsens or changes unexpectedly, if not improving as expected, or if other problems arise. Prescription Medications: Z-Michele, albuterol inhaler, Robitussin. Zithromax Z-Michele tablet (azithromycin): Take 2 tablet to mouth once a day for 5 days, dispense 6 tablet. Refills 0. Notes 2 tablets 1st day 2 tablets p.o. 1st day then 1 tablet p.o. q.day x4 days. Dispense 6 tablets. Pharmacy: [facility] [id number] [place] [address]. 1 of 6 Discharge Instructions albuterol sulfate HFA 90 mcg/actuation aerosol inhaler: Inhale 2 puff using inhaler four times a day as needed for 10 days, dispense 8 gram. Refills 0. Pharmacy: [facility] [id number] [place] [address]. Follow-up: Follow up with your doctor in two days. Call for an appointment. You have been given the following additional information: Pneumonia (Adult) Patient Signature Facility Cancer Spec Date/Time General Instructions with ExitWriter [facility] [address] [place] [address] [id number] 12/23/2024 Patient: BLAKE GRIMES Sex: Male : 1955 Age: 69y Thank you for visiting [facility]. You have been evaluated today by Boom Tirado D.O. for the following condition(s): Principal Diagnosis Acute bacterial bronchitis associated with bronchospasm. Bronchopneumonia. 2 of 6 Discharge Instructions INSTRUCTIONS (take Z-Michele (Zithromax) as directed for bronchitis. Use albuterol inhaler as directed for wheezing/shortness of breath. Use cough medication as directed. May also take Tylenol or Motrin every 6 hours as needed for fever and aches. Rest and avoid exertion. Follow up with the family doctor in a few days for recheck return if problems.). Warnings: GENERAL WARNINGS: Return or contact your physician immediately if your condition worsens or changes unexpectedly, if not improving as expected, or if other problems arise. Prescription Medications: Z-Michele, albuterol inhaler, Robitussin. Zithromax Z-Michele tablet (azithromycin): Take 2 tablet to mouth once a day for 5 days, dispense 6 tablet. Refills 0. Notes 2 tablets 1st day 2 tablets p.o. 1st day then 1 tablet p.o. q.day x4 days. Dispense 6 tablets. Pharmacy: [facility] [id number] [place] [address]. albuterol sulfate HFA 90 mcg/actuation aerosol inhaler: Inhale 2 puff using inhaler four times a day as needed for 10 days, dispense 8 gram. Refills 0. Pharmacy: [facility] [id number] [place] [address]. Follow-up: Follow up with your doctor in two days. Call for an appointment. ADDITIONAL INFORMATION Pneumonia (Adult) Pneumonia is an infection deep in the lungs. It is in the small air sacs (alveoli). It may be caused by a virus, fungus, or bacteria. Pneumonia caused by bacteria is often treated with an antibiotic. Severe casesmay need to be treated in the hospital. Milder cases can be treated at home. Pneumonia symptoms are a lot like flu symptoms. 3 of 6 Discharge Instructions They include fever, cough (dry or with phlegm), headache, muscle weakness, and pain. These symptomsoften get worse in the first 2 days. But they often start to get better in the first week of treatment. Home care Follow these guidelines when caring for yourself at home: Get plenty of rest. Don't let yourself get overly tired when you go back to your activities. Participate in activities as directed by your healthcare provider. Stop smoking. This is the most important step you can take to help treat pneumonia. If you need help stopping smoking, talk with your healthcare provider. Stay away from smoke and other irritants. Stay away from secondhand smoke. Don't let anyone smoke in your home. 4 of 6 Discharge Instructions (more content not included)...[facility]02-27-2025 Note Ultrasound guided procedure images. Please see procedure note for further details. [facility] above:Order Comment: Reason for exam:->right knee gel [id number] NoteUltrasound guided procedure images. Please see procedure note for further details. [facility] on above:Order Comment: Reason for exam:->right knee gel [id number] NoteUltrasound guided procedure images. Please see procedure note for further details. [facility] on above:Order Comment: Reason for exam:->bilateral gelsyn [id number] NoteUltrasound guided procedure images. Please see procedure note for further details. [facility] on above:Order Comment: Reason for exam:->bilateral CHOU [id number] NoteUltrasound guided procedure images. Please see procedure note for further details. Final resultSaint [facility] CenterComment on above:Order Comment: Reason for exam:->bilateral CHOU [id number] Hospital Discharge instructions* Discharge Instructions* Harry Rodriguez APRN - CNP - 04/12/2024 10:32 AM EDT XR RADIUS ULNA LEFT (2 VIEWS) Final Result No fracture or acute osseous abnormality. No radiopaque foreign body. * Attachments The following attachments cannot be sent through Care Everywhere. * Abrasions (Filipino) * Skin Tears (Filipino) [facility] History of Present illness Narrative* Maria D Ivey - 05/25/2023 11:00 AM EDT Radiology Service Progress Note DATE OF SERVICE: May 25, 2023 TIME: 11:01 AM PATIENT IDENTITY VERIFICATION COMPLETED USING TWO (2) STANDARD IDENTIFIERS: Name and Date of confirmed by patient verbally. FALL SCREENING: Has the patient had 2 falls in the last year or 1 fall with injury or currently using an Ambulatory Assistive Device (Walker, Cane, Wheelchair, Crutches, etc.)? No PATIENT GENDER DATA: Male PATIENT RELEVANT IMPLANT DATA REVIEWED: Not Applicable ALLERGIES: Reviewed and unchanged CONTRAST ALLERGY: NO. EXAM: CT -CONTRAST INDUCED NEPHROPATHY RISK FACTORS: Patient age > 60 years CREATININE: Creatinine Date Value Ref Range Status 10/05/2021 0.76 0.73 - 1.22 mg/dL Final 09/07/2021 1.17 0.73 - 1.22 mg/dL Final 09/06/2021 0.84 0.73 - 1.22 mg/dL Final eGFR-All Other Races Date Value Ref Range Status 10/05/2021 >60 . Final Comment: eGFR (Estimated GFR) Units of measure: mL/min/1.73 meters squared eGFR is derived from the reexpressed MDRD Study equation using the following parameters: serum creatinine, age, gender and race. The creatinine assay has been calibrated to be traceable to IDMS. An eGFR <60 mL/min/1.73m2 for >3 months is consistent with chronic kidney disease. Refer to KDOQI guidelines for clinical interpretation. In patients with unstable renal function, e.g. those with acute kidney injury, the eGFR may not accurately reflect actual GFR. Note: On 11/27/2021, the eGFR calculation will be updated to the NKF-ASN Task Force recommended 2020 CKD-EPI creatinine equation which does not include a race variable. For more information or to access a 2020 CKD-EPI calculator, visit the National Kidney Foundation website at kidney.org/professionals/kdoqi/gfr_calculator. eGFR- Date Value Ref Range Status 10/05/2021 >60 Final P.O.C.T. RESULTS: Outside Creatinine: 0.9 mg/dl, Calculated GFR > 60, Date 04-22-23 May 25, 2023 TREATMENT: N/A PERIPHERAL IV DATA: Ambulatory: A peripheral IV was started in the Left antecubital site with a Angio cath/Butterfly: 22 gauge. RADIOLOGY DEPARTMENT: CT; Exam(s) Completed: Chest Abdomen Pelvis SIGNATURE: Maria D Sands PATIENT NAME: Blake Grimes DATE: May 25, 2023 TIME: 11:01 AM documented in this encounterOhiohealth [facility] History of Present illness Narrative* Maribel Padron Tech - 11/16/2022 5:40 PM EST Radiology Service Progress Note DATE OF SERVICE: November 16, 2022 TIME: 6:11 PM PATIENT IDENTITY VERIFICATION COMPLETED USING TWO (2) STANDARD IDENTIFIERS: Name and Date of confirmed by patient verbally. FALL SCREENING: Has the patient had 2 falls in the last year or 1 fall with injury or currently using an Ambulatory Assistive Device (Walker, Cane, Wheelchair, Crutches, etc.)? No PATIENT GENDER DATA: Male PATIENT RELEVANT IMPLANT DATA REVIEWED: Yes ALLERGIES: Reviewed and unchanged CONTRAST ALLERGY: NO. EXAM: MRI - CONTRAST TYPE: GROUP II PERIPHERAL IV DATA: Ambulatory: A peripheral IV was started in the Left hand with a Butterfly: 23 gauge. RADIOLOGY DEPARTMENT: MR; Exam(s) Completed: Head: Routine Brain SIGNATURE: Richard Silvestre PATIENT NAME: Blake Grimes DATE: November 16, 2022 TIME: 6:11 PM documented in this encounterOhiohealth Arthur [facility]02-06-2023 History of Present illness Narrative* Tonya Ortez RN - 11/07/2022 10:32 AM EST Patient identified by name and . Vaccines administered. documented in this encounterOhiohealth Arthur [facility]01-31-2023 History of Present illness Narrative* Elyssa Robin MD - 11/01/2022 1:36 PM EST Patient just arranging first visit for post transplant vaccines. Have ordered the following highlighted in bold. Had 2 primary covid vaccines. Date of HSCT: 08/27/2021 Months from HSCT 3 6 8 10 12 24 Approximate month & year End of NovApril Inactivated influenza vaccine every Fall Autologous COVID-191 Prevnar 202 Hib3 Tdap4 Twinrix5 Polio Polio Hib Td8 Twinrix Polio Hib Td Rjefgzje46 Sxlkmwvze38 Twinrix Shingrix +/-MMR13 =/_Varivax14 1Administer 3-dose primary mRNA COVID-19 vaccine series; Pfizer: 0, 21 days, 49 days or Moderna: 0,28 days, 56 days. Follow 3-dose primary mRNA COVID-19 vaccine series with 6 month booster dose. Elyssa Robin MD documented in this encounterOhiohealth Arthur [facility]12-20-2022 History of Present illness Narrative* Ricki Guajardo - 09/20/2022 8:00 AM EST RADIOLOGY SERVICE PROGRESS NOTE SERVICE DATE: 09/20/2022 SERVICE TIME: 8:19 AM PATIENT IDENTITY VERIFICATION COMPLETED USING TWO (2) STANDARD IDENTIFIERS: Name and Date of confirmed by patient verbally FALL SCREENING: Has the patient had 2 falls in the last year or 1 fall with injury or currently using an Ambulatory Assistive Device (Walker, Cane, Wheelchair, Crutches, etc.)? No PATIENT GENDER DATA: .male : No ALLERGIES: Reviewed and unchanged MEDICATIONS REVIEWED: No PATIENT RELEVANT IMPLANT DATA REVIEWED: Not Applicable CREATININE: Creatinine Date Value Ref Range Status 10/05/2021 0.76 0.73 - 1.22 mg/dL Final 09/07/2021 1.17 0.73 - 1.22 mg/dL Final 09/06/2021 0.84 0.73 - 1.22 mg/dL Final eGFR-All Other Races Date Value Ref Range Status 10/05/2021 >60 . Final Comment: eGFR (Estimated GFR) Units of measure: mL/min/1.73 meters squared eGFR is derived from the reexpressed MDRD Study equation using the following parameters: serum creatinine, age, gender and race. The creatinine assay has been calibrated to be traceable to IDMS. An eGFR <60 mL/min/1.73m2 for >3 months is consistent with chronic kidney disease. Refer to KDOQI guidelines for clinical interpretation. In patients with unstable renal function, e.g. those with acute kidney injury, the eGFR may not accurately reflect actual GFR. Note: On 11/27/2021, the eGFR calculation will be updated to the NKF-ASN Task Force recommended 2020 CKD-EPI creatinine equation which does not include a race variable. For more information or to access a 2020 CKD-EPI calculator, visit the National Kidney Foundation website at kidney.org/professionals/kdoqi/gfr_calculator. eGFR- Date Value Ref Range Status 10/05/2021 >60 Final P.O.C.T. RESULTS: N/A September 20, [address] PERFORMED: No IV SITE: DE only - not applicable, oral or physician administered agents given to patient POST EXAM PIV STATUS: Discontinued PROCEDURE TYPE: NM INJECT: PET/CT BODY SCAN. 19.4 mCi F18 FDG. No other medications given.. ADMINISTRATION TIME: 0803 PATIENT DISCHARGED TO: Ambulatory patient, left [place] department area. A Diagnostic radioactive procedure has taken place, with no further precautions necessary other than routine body substance precautions. More information regarding radiation safety can be found usingthis link: [email or web address]%20Nuclear%20Medicine%20Procedures.[email or web address] SIGNATURE: Ricki Gandhi PATIENT NAME: Blake Grimes DATE: September 20, 2022 TIME: 8:19 AM PAGER/CONTACT #: documented in this encounterOhiohealth Arthur [facility]06-04-2022 History of Present illness Narrative* Ricki Guajardo - 03/05/2022 10:00 AM EDT RADIOLOGY SERVICE PROGRESS NOTE SERVICE DATE: 03/05/2022 SERVICE TIME: 9:13 AM PATIENT IDENTITY VERIFICATION COMPLETED USING TWO (2) STANDARD IDENTIFIERS: Name and Date of confirmed by patient verbally FALL SCREENING: Has the patient had 2 falls in the last year or 1 fall with injury or currently using an Ambulatory Assistive Device (Walker, Cane, Wheelchair, Crutches, etc.)? No PATIENT GENDER DATA: .male : No ALLERGIES: Reviewed and unchanged MEDICATIONS REVIEWED: Not applicable PATIENT RELEVANT IMPLANT DATA REVIEWED: Not Applicable CREATININE: Creatinine Date Value Ref Range Status 10/05/2021 0.76 0.73 - 1.22 mg/dL Final 09/07/2021 1.17 0.73 - 1.22 mg/dL Final 09/06/2021 0.84 0.73 - 1.22 mg/dL Final eGFR-All Other Races Date Value Ref Range Status 10/05/2021 >60 . Final Comment: eGFR (Estimated GFR) Units of measure: mL/min/1.73 meters squared eGFR is derived from the reexpressed MDRD Study equation using the following parameters: serum creatinine, age, gender and race. The creatinine assay has been calibrated to be traceable to IDMS. An eGFR <60 mL/min/1.73m2 for >3 months is consistent with chronic kidney disease. Refer to KDOQI guidelines for clinical interpretation. In patients with unstable renal function, e.g. those with acute kidney injury, the eGFR may not accurately reflect actual GFR. Note: On 11/27/2021, the eGFR calculation will be updated to the NKF-ASN Task Force recommended 2020 CKD-EPI creatinine equation which does not include a race variable. For more information or to access a 2020 CKD-EPI calculator, visit the National Kidney Foundation website at kidney.org/professionals/kdoqi/gfr_calculator. eGFR- Date Value Ref Range Status 10/05/2021 >60 Final P.O.C.T. RESULTS: N/A March 05, [address] PERFORMED: No IV SITE: NM only - not applicable, oral or physician administered agents given to patient POST EXAM PIV STATUS: Discontinued PROCEDURE TYPE: NM INJECT: PET/CT BODY SCAN. 20.0 mCi F18 FDG. No other medications given.. ADMINISTRATION TIME: 902 PATIENT DISCHARGED TO: Ambulatory patient, left [place] department area. A Diagnostic radioactive procedure has taken place, with no further precautions necessary other than routine body substance precautions. More information regarding radiation safety can be found usingGlintss link: [email or web address] 20Diagnostic%20Nuclear%20Medicine%20Procedures.pdf SIGNATURE: Ricki Tatiannatom Oksana PATIENT NAME: Blake Grimes DATE: March 05, 2022 TIME: 9:13 AM PAGER/CONTACT #: documented in this encounterOhiohealth Arthur [facility]12-03-2021 History of Past illness Narrative* Problem Noted Date Resolved Date Neutropenic fever 09/03/2021 09/06/2021 Overview: Tmax 38.2C -infectious wkup- NGTD -zosyn (08/31-09/05) Acute post-traumatic headache, not intractable 1 11/02/2020 09/02/2021 Overview: 09/01: reporting CHOU and appears to have large bruise on ride side forehead Plan: -CT brain negative 09/01 -CHOU resolved 09/02 Chemotherapy induced nausea and vomiting 021 09/06/2021 Overview: Zofran and Zyprexa scheduled with chemotherapy Compazine and Ativan PRN Leg swelling 08/18/2021 09/03/2021 Overview: Bilateral lower leg swelling, L>R. Started a few days prior to admission. >BLE US 08/18 = negative Plan: Monitor Encourage elevation of legs and ambulation 40mg IV lasix 08/27 Improved documented as of this encounter (statuses as of 11/01/2022) [facility] History of Past illness Narrative* Problem Noted Date Resolved Date Neutropenic fever 09/03/2021 09/06/2021 Overview: Tmax 38.2C -infectious wkup- NGTD -zosyn (08/31-09/05) Acute post-traumatic headache, not intractable 1 11/02/2020 09/02/2021 Overview: 09/01: reporting CHOU and appears to have large bruise on ride side forehead Plan: -CT brain negative 09/01 -CHOU resolved 09/02 Chemotherapy induced nausea and vomiting 021 09/06/2021 Overview: Zofran and Zyprexa scheduled with chemotherapy Compazine and Ativan PRN Leg swelling 08/18/2021 09/03/2021 Overview: Bilateral lower leg swelling, L>R. Started a few days prior to admission. >BLE US 08/18 = negative Plan: Monitor Encourage elevation of legs and ambulation 40mg IV lasix 08/27 Improved documented as of this encounter (statuses as of 11/07/2022) [facility]11-16-[facility] History of Present illness Narrative* Ivis Hatfield CT - 08/17/2021 3:00 PM EST Radiology Service Progress Note DATE OF SERVICE: August 17, 2021 TIME: 3:16 PM PATIENT IDENTITY VERIFICATION COMPLETED USING TWO (2) STANDARD IDENTIFIERS: Name and Date of confirmed by patient verbally. FALL SCREENING: Has the patient had 2 falls in the last year or 1 fall with injury or currently using an Ambulatory Assistive Device (Walker, Cane, Wheelchair, Crutches, etc.)? No PATIENT GENDER DATA: Male PATIENT RELEVANT IMPLANT DATA REVIEWED: Yes ALLERGIES: Reviewed and unchanged CONTRAST ALLERGY: NO. EXAM: CT -CONTRAST INDUCED NEPHROPATHY RISK FACTORS: Patient age > 60 years and History of Kidney surgery, Kidney neoplasm, Liver disease, and/or any recent Nephrotoxic Chemotherapy or other Nephrotoxicmedications CREATININE: Creatinine Date Value Ref Range Status 08/12/2021 0.91 0.73 - 1.22 mg/dL Final 08/10/2021 0.82 0.73 - 1.22 mg/dL Final 08/04/2021 0.77 0.73 - 1.22 mg/dL Final eGFR-All Other Races Date Value Ref Range Status 08/12/2021 >60 . Final Comment: eGFR (Estimated GFR) Units of measure: mL/min/1.73 meters squared eGFR is derived from the reexpressed MDRD Study equation using the following parameters: serum creatinine, age, gender and race. The creatinine assay has been calibrated to be traceable to IDMS. An eGFR <60 mL/min/1.73m2 for >3 months is consistent with chronic kidney disease. Refer to KDOQI guidelines for clinical interpretation. In patients with unstable renal function, e.g. those with acute kidney injury, the eGFR may not accurately reflect actual GFR. eGFR- Date Value Ref Range Status 08/12/2021 >60 Final P.O.C.T. RESULTS: POC done: Yes, See Lab Tab August 17, 2021 TREATMENT: N/A PERIPHERAL IV DATA: Ambulatory: A peripheral IV was started in the Left antecubital site with a Angio cath/Butterfly: 22 gauge. RADIOLOGY DEPARTMENT: CT; Exam(s) Completed: Neck SIGNATURE: MIRZA Albert PATIENT NAME: Blake Grimes DATE: August 17, 2021 TIME: 3:16 PM documented in this encounterOhiohealth Arthur [facility]06-16-2021 History of Present illness Narrative* Kamar Estrada RN - 03/17/2021 4:03 PM EDT Discharge instructions reviewed with patient.patient verbalized understanding,no questions regarding instructions. * Kamar Estrada RN - 03/17/2021 3:28 PM EDT Tolerating fluids well. * Harry Goncalves RN - 03/17/2021 3:15 PM EDT 1445- PACU care completed. Transferred to DA notes while waiting bed in DA. 1310- Patinet now continues SRDA care in DA * Kamar Estrada RN - 03/17/2021 3:14 PM EDT Fluids given to patient. Kamar Estrada RN * Harry Goncalves RN - 03/17/2021 3:[address] Vallecillo here to talk with patient. Patient relieved after talking with doctor. states post bronch chest X ray is not needed. * Davon Graves MD - 03/17/2021 1:05 PM EDT INTRAOPERATIVE CONSULTATION (with FROZEN SECTION) Right base of tongue lesion, biopsy: Benign squamous mucosa showing sub epithelial lymphoid proliferation.. * Susan Chinchilla RN - 03/17/2021 11:34 AM EDT COVID testing not done. Patient is fully vaccinated Results of the test: na The patient verbally confirms that they did adhere to the self-quarantine guidelines. No signs or symptoms expressed or observed. * Kristine Jennings RN - 03/16/2021 8:52 AM EDT [facility] PRE-ADMISSION TESTING GENERAL INSTRUCTIONS- PAT-phone number:[phone] GENERAL INSTRUCTIONS [x] Antibacterial Soap shower Night before and/or AM of Surgery [] Jani wipe instruction sheet and wipes given. [x] Nothing by mouth after midnight, including gum, candy, mints, or water. [x] You may brush your teeth, gargle, but do NOT swallow water. []Hibiclens shower the night before and the morning of surgery. Do not use Hibiclens on your face or head. [x]No smoking, chewing tobacco, illegal drugs, or alcohol within 24 hours of your surgery. [x] Jewelry, valuables or body piercing's should not be brought to the hospital. All body and/or tongue piercing's must be removed prior to arriving to hospital. ALL hair pins must be removed. [] Do not wear makeup, lotions, powders, deodorant. Nail czech as directed by the nurse. [x] Arrange transportation with a responsible adult firmware manager to and from the hospital. If you do not have a responsible adult firmware manager to transport you, you will need to make arrangements with a medical transportation company (i.e. [employer] A Uber/taxi/bus is not appropriate unless you are accompanied by a responsible adult firmware manager). Arrange for someone to be with you for the remainder of the day and for 24 hours after your procedure due to having had anesthesia. Who will be your firmware manager for transportation? wife____ Who will be staying with you for 24 hrs after your procedure? wife [] Bring insurance card and photo ID. [] Transfusion Bracelet: Please bring with you to hospital, day of surgery [] Bring urine specimen day of surgery. Any small container is acceptable. [] Use inhalers the morning of surgery and bring with you to hospital. [] Bring copy of living will or healthcare power of managing attorney papers to be placed in your electronicrecord. [] CPAP/BI-PAP: Please bring your machine if you are to spend the night in the hospital. PARKING INSTRUCTIONS: [x] Arrival Time:____1100 [x] Parking lot 'Ian is located on [facility] (the corner of [facility]). To enter, press the button and the gate will lift. A free token will be provided to exit the lot. One car per patient is allowed to park in this lot. All other cars are to park on [facility] either in the parking garage or the handicap lot. [] To reach the [facility] lobby from [facility], upon entering the hospital, take elevator B to the 3rd floor. EDUCATION INSTRUCTIONS: [] Knee or hip replacement booklet & exercise pamphlets given. [] [facility] Pamphlet placed in chart. [] Pre-admission Testing educational folder given [] Incentive Spirometry,coughing & deep breathing exercises reviewed. []Medication information sheet(s) []Fluoroscopy-Xray used in surgery reviewed with patient.Educational pamphlet placed in chart. []Pain: Post-op pain is normal and to be expected. You will be asked to rate your pain from 0-10(a zero is not acceptable-education is needed). Your post-op pain goal is: [] Ask your nurse for your pain medication. [] Joint camp offered. [] Joint replacement booklets given. [] Other: MEDICATION INSTRUCTIONS: []Bring a complete list of your medications, please write the last time you took the medicine, givethis list to the nurse. [x] Take the following medications the morning of surgery with 1-2 ounces of water: none [] Stop herbal supplements and vitamins 5 days before your surgery. [] DO NOT take any diabetic medicine the morning of surgery. Follow instructions for insulin the day before surgery. [] If you are diabetic and your blood sugar is low or you feel symptomatic, you may drink 1-2 ounces of apple juice or take a glucose tablet. The morning of your procedure, you may call the pre-op area if you have concerns about your blood sugar [phone]. [] Use your inhalers the morning of surgery. Bring your emergency inhaler with you day of surgery. [x] Follow physician instructions regarding any blood thinners you may be taking.excedrin not on med list pt states he has been taking a lot of med To call surgeon office WHAT TO EXPECT: [x] The day of surgery you will be greeted and checked in by the [facility] road grader. In addition, you will be registered in the [facility] by a Patient Raisin Separator Operator. Please bring your photo ID and insurance card. A nurse will greet you in accordance to the time you are needed inthe pre-op area to prepare you for surgery. Please do not be discouraged if you are not greeted in the order you arrive as there are many variables that are involved in patient preparation. Your patience is greatly appreciated as you wait for your nurse. Please bring in items such as: books, magazines, newspapers, electronics, or any other items to occupy your time in the waiting area. [] Delays may occur with surgery and staff will make a sincere effort to keep you informed of delays. If any delays occur with your procedure, we apologize ahead of time for your inconvenience as we recognize the value of your time. documented in this car[facility] centerOceana Therapeutics Phone: [phone]) 981-132906-16-2021 Hospital Discharge instructions* Instructions* Cristofer Vallecillo DO - 03/17/[address] Martinez in 1 week Oozing expected, go to ED if profuse bleeding Soft diet for the first few days, the advance as tolerated No driving while on pain medication Ok to shower documented in this [facility] Phone: 1(320) 998-980505-14-2021 History of Present illness Narrative* Ashok Paz, LOIS - 02/12/2021 8:45 AM EDT Went over discharge instructions with patient and . Both verbalized understanding of instructions. Doctor spoke with patient before discharge. * Christiane Del Rosario RN - 02/12/2021 8:11 AM EDT Abdomen soft, normal bs x4 quads. * Coral Enciso RN - 02/09/2021 9:01 AM EDT Have you been tested for COVID Yes Have you been told you were positive for COVID No Have you had any known exposure to someone that is positive for COVID No Do you have a cough No Do you have shortness of breath No Do you have a sore throat No Are you having chills No Are you having muscle aches. No Please come to the hospital wearing a mask and have your significant other wear a mask as well. Both of you should check your temperature before leaving to come here, if it is 100 or higher please call [phone] for instruction. [facility] PRE-ADMISSION TESTING INSTRUCTIONS ARRIVAL INSTRUCTIONS: [x] Parking the day of Surgery is located in the Main Entrance lot. Upon entering the main door make an immediate right to the surgery manager purchasing desk. [x] Bring photo ID and insurance card [x] Bring in a copy of Living will or Durable Power of managing attorney papers. [x] Please be sure to arrange for responsible adult to provide transportation to and from the hospital [x] Please arrange for responsible adult to be with you for the 24 hour period post procedure due to having anesthesia GENERAL INSTRUCTIONS: [x] Nothing by mouth after midnight, including gum, candy, mints or water [x] You may brush your teeth, but do not swallow any water [x] Follow bowel prep as instructed per surgeon [x] Jewelry, body piercing's, eyeglasses, contact lenses and dentures are not permitted into surgery (bring cases) [x] Please do not wear any nail czech, make up or hair products on the day of surgery [x] You can expect a call the business day prior to procedure to notify you if your arrival time changes [x] If you receive a survey after surgery we would greatly appreciate your comments [x] Please notify surgeon if you develop any illness between now and time of surgery (cold, cough, sore throat, fever, nausea, vomiting) or any signs of infections including skin, wounds, and dental. documented in this encounterLinked Restaurant Group Work Phone: [phone]) 124-729704-19-2021 History of Present illness Narrative* Shabana Bee, ARTS AND CRAFTS TEACHER - STATIONARY BOILER FIREMAN - 01/18/2021 10:00 AM EDT Images from the original note were not included. Radiation Oncology 4 Month Follow Up Note 01/18/2021 Blake Grimes Vitals: 01/18/21 0959 BP: (!) 142/74 Pulse: 82 Resp: 18 Temp: 98.1 F (36.7 C) SpO2: 98% Wt Readings from Last 1 Encounters: 01/18/21 (!) 306 lb 8 oz (139 kg) Bradley Zuñiga MD, CC: Patient is here for 4 month follow up for post-radiation completion. HPI: Blake Grimes is a pleasant 65 y.o. 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 Status post left radical orchiectomy on 02/26/2020. Treated with 6 cycles pf R-CHOP with Revlimid between the dates of 03/19/2020-07/02/2020. The patient completed 5/6 cycles intrathecal Methotrexate between the dates of 05/04/2020-07/20/[address] Tejeda, [facility] (patient did not complete 6th cycles and declined rescheduling). The patient received a course of radiation therapy directed to right testis (risk of being sanctuary site), treatment began 07/28/2020 and completed 08/17/2020. Total dose 3000 cGy/ 15 fractions. The patient seen in clinic today for a 4 month Radiation Oncology follow-up visit. The patient denies skin complaints or pain complaints to treatment site. No urinary complaints. No bowel complaints.No fevers, chills, nausea or vomiting. No hospitalization or injury since last visit. The patient reports ongoing osteoarthritis of left knee, following with orthopedic surgery Dr. Tsai. The patient informs me is walking for exercise and made dietary changes in attempt to lose weight for future left knee replacement (tentatively Jul/ Aug 2021). The patient has loss about 50 lbs and wants to loss an additional 50 lbs prior to proceeding with left TKR. The patient is following with Dr. Orozco for Medical Oncology, recent scans 01/01/2021 CT chest, abd/pelvis and soft tissue neck negative for malignancy. Official reports under media tab. Past Medical History: Diagnosis Date Anxiety Cancer (HCC) Depression Hyperlipidemia Hypertension Kidney stone Osteoarthritis PTSD (post-traumatic stress disorder) PTSD (post-traumatic stress disorder) Sleep apnea Past Surgical History: Procedure Laterality Date ANKLE SURGERY Right 2016 ANKLE SURGERY Left 2016 DOPPLER ECHOCARDIOGRAPHY JOINT REPLACEMENT Left HIP TESTICLE REMOVAL Left 02/26/2020 ORCHIECTOMY RADICAL performed by Joshua Butt MD at [facility] OR WRIST SURGERY Social History Socioeconomic History Marital status: Spouse name: Not on file Number of children: Not on file Years of education: Not on file Highest education level: Not on file Occupational History Employer: [employer] Occupation: retired Social Needs Financial resource strain: Not on file Food insecurity Worry: Not on file Inability: Not on file Transportation needs Medical: Not on file Non-medical: Not on file Tobacco Use Smoking status: Never Smoker Smokeless tobacco: Never Used Substance and Sexual Activity Alcohol use: Yes Comment: rare Drug use: No Types: Marijuana Comment: last used 2013 Sexual activity: Not Currently Lifestyle Physical activity Days per week: Not on file Minutes per session: Not on file Stress: Not on file Relationships Social connections Talks on phone: Not on file Gets together: Not on file Attends cheondoism service: Not on file Active member of club or organization: Not on file Attends meetings of clubs or organizations: Not on file Relationship status: Not on file Intimate partner violence Fear of current or ex partner: Not on file Emotionally abused: Not on file Physically abused: Not on file Forced sexual activity: Not on file Other Topics Concern Not on file Social History Narrative Not on file Family History Problem Relation Age of Onset Other Mother unknown why she Other Father did not know father well; alcoholism Diabetes Brother No Known Problems Son No Known Problems Grandchild Allergies: Chlorhexidine gluconate and Demerol hcl [meperidine] Current Outpatient Medications Medication Sig Dispense Refill lisinopril-hydroCHLOROthiazide (PRINZIDE;ZESTORETIC) 20-12.5 MG per tablet Take 1 tablet by mouth daily 90 tablet 1 simvastatin (ZOCOR) 40 MG tablet Take 1 tablet by mouth nightly 90 tablet 1 acetaminophen (TYLENOL) 500 MG tablet Take 500 mg by mouth every 6 hours as needed for Pain Handicap Placard MISC by Does not apply route Patient cannot walk 200 ft without stopping to rest. Expiration 11/10/2025 1 each 0 CPAP Machine MISC by Does not apply route No current facility-administered medications for this encounter. REVIEW OF SYSTEMS: Constitutional: No fever, chills or rigors. + intentional weight loss through dietary changes and increased physical exercise. Eyes: No changes in vision, discharge or pain ENT: No headaches, hearing loss or vertigo. No mouth sores or sore throat. No change in taste or smell. Cardiovascular: No chest discomfort, dyspnea on exertion, palpitations or loss of consciousness or phlebitis. Respiratory: No sputum productive cough, No hemoptysis. No wheezing or pleuritic pain. Gastrointestinal: No abdominal pain, appetite loss, blood in stools. No change in bowel habits. No hematemesis Genitourinary: Patient acknowledges no dysuria, trouble voiding, or hematuria. No increased frequency. Musculoskeletal: No gait disturbance or weakness. + OA left knee. Integumentary: No rash or pruritis. Neurological: No headache, diplopia, change in muscle strength, numbness or tingling. No change in gait, balance, coordination, mood, affect, memory, mentation, behavior. Psychiatric: No anxiety, or depression. Endocrine: No temperature intolerance. No excessive thirst, fluid intake, or urination. No tremor. Hematologic/Lymphatic: No abnormal bruising or bleeding, blood clots or swollen lymph nodes. Allergic/Immunologic: No nasal congestion or hives. PHYSICAL EXAMINATION: Vitals: 01/18/21 0959 BP: (!) 142/74 Site: Right Upper Arm Position: Sitting Cuff Size: Large Adult Pulse: 82 Resp: 18 Temp: 98.1 F (36.7 C) TempSrc: Temporal SpO2: 98% Weight: (!) 306 lb 8 oz (139 kg) Body mass index is 46.6 kg/m . Appearance: Well-developed, well-nourished 65 year old male. Skin: Warm, dry and intact. No rash or hives. Head: Normocephalic, atraumatic Eyes: EOMI, no conjunctival erythema ENMT: No pharyngeal erythema, MMM, no rhinorrhea. Neck: Supple, no elevated JVP Lungs: Clear to auscultation bilaterally. No wheezes, rales or rhonchi. Cardiac: Regular rate and rhythm, +S1S2, no murmurs apparent Abdomen: Soft, round and non-tender. Bowel sounds present x 4. Extremities: Moves all extremities x 4, no lower extremity edema Neurologic: Alert and oriented x 3. No focal motor deficits apparent IMAGING: Old reports/ ordering physician Dr. Shayla Orozco, Medical Oncology. 01/01/2021: CT chest: Impression: No indication for malignancy in the chest. No indication for lymphomatous involvement in the chest. No indication for acute the pulmonary process. CT Abdomen/ pelvis: Impression: No indication for recurrence of malignancy in the intraperitoneal retroperitoneal spaces of the abdomen and pelvis. CT Soft tissue neck: Impression: No indication for recurrence of malignancy in the neck. ASSESSMENT/PLAN: Patient completed a course of XRT directed to right testis on 08/17/2020. The patient is doing wellpost-radiation completion. Skin care reviewed. Recent Oncology surveillance imaging (as ordered per Primary Medical Oncologist) reviewed. Negativefor malignancy. I discussed follow up plans with Blake Grimes. See Radiation Oncology on as needed basis. OngoingOncology follow-up and surveillance per Primary Medical Oncologist Dr. Orozco. Blake Grimes instructed to follow up with other physicians involved in his care as directed (including but not limited to Medical Oncology, Primary Care and Urology). The patient was given our contact number in the event that if at any time they change their mind and would like to return to the clinic to see either myself or one of the Radiation Oncologists, they can simply call us and we would be happy to see them. Thank you for involving us in the management of this extremely pleasant patient. More than 25 min was in direct contact with pt coordinating/giving care. >50% of the visit was spent in counseling the pt on the following: Follow up care The nurses notes were reviewed and incorporated into this assessment and plan. Shabana Bee, MSN, [employer] TEACHER-[employer] Certified Nurse Practitioner for Radiation Oncology [facility]/ [facility] / FAX: [phone] * Marce Villalpando RN - 01/18/2021 10:00 AM EDT Blake Tiffanie Grimes 01/18/2021 10:05 AM Vitals: 01/18/21 0959 BP: (!) 142/74 Pulse: 82 Resp: 18 Temp: 98.1 F (36.7 C) SpO2: 98% : Wt Readings from Last 3 Encounters: 01/18/21 (!) 306 lb 8 oz (139 kg) 01/13/21 (!) 310 lb (140.6 kg) 01/05/21 (!) 312 lb 12.8 oz (141.9 kg) Current Outpatient Medications: lisinopril-hydroCHLOROthiazide (PRINZIDE;ZESTORETIC) 20-12.5 MG per tablet, Take 1 tablet by mouth daily, Disp: 90 tablet, Rfl: 1 simvastatin (ZOCOR) 40 MG tablet, Take 1 tablet by mouth nightly, Disp: 90 tablet, Rfl: 1 acetaminophen (TYLENOL) 500 MG tablet, Take 500 mg by mouth every 6 hours as needed for Pain, Disp:, Rfl: Handicap Placard MISC, by Does not apply route Patient cannot walk 200 ft without stopping to rest.Expiration 11/10/2025, Disp: 1 each, Rfl: 0 CPAP Machine MISC, by Does not apply route, Disp: , Rfl: Patient is seen today in follow up for Testis FALLS RISK SCREENING ASSESSMENT Instructions: Assess the patient and enter the appropriate indicators that are present for fall risk identification. Total the numbers entered and assign a fall risk score from Table 2. Reassess patient at a minimum every 12 weeks or with status change. Assessment Date 01/18/2021 1. Mental Ability: confusion/cognitively impaired No - 0 2. Elimination Issues: incontinence, frequency No - 0 3. Ambulatory: use of assistive devices (walker, cane, off-loading devices), attached to equipment (IV pole, oxygen) No - 0 4. Sensory Limitations: dizziness, vertigo, impaired vision Yes - 3/ very little 5. Age 65 years or greater - 1 6. Medication: diuretics, strong analgesics, hypnotics, sedatives, antihypertensive agents Yes - 3 7. Falls: recent history of falls within the last 3 months (not to include slipping or tripping) No - 0 TOTAL 7 If score of 4 or greater was education given? Yes TABLE 2 Risk Score Risk Level Plan of Care 0-3 Little or No Risk 1. Provide assistance as indicated for ambulation activities 2. Reorient confused/cognitively impaired patient 3. Call-light/flores within patient's reach 4. Chair/bed in low position, stretcher/bed with siderails up except when performing patient care activities 5. Educate patient/family/caregiver on falls prevention 6. Reassess in 12 weeks or with any noted change in patient condition which places them at a risk for a fall 4-6 Moderate Risk 1. Provide assistance as indicated for ambulation activities 2. Reorient confused/cognitively impaired patient 3. Call-light/flores within patient's reach 4. Chair/bed in low position, stretcher/bed with siderails up except when performing patient care activities 5. Educate patient/family/caregiver on falls prevention 6. Falls risk precaution (Yellow sticker Level II) placed on patient chart 7 or Higher High Risk 1. Place patient in easily observable treatment room 2. Patient attended at all times by family member or staff 3. Provide assistance as indicated for ambulation activities 4. Reorient confused/cognitively impaired patient 5. Call-light/flores within patient's reach 6. Chair/bed in low position, stretcher/bed with siderails up except when performing patient care activities 7. Educate patient/family/caregiver on falls prevention 8. Falls risk precaution (Yellow sticker Level III) placed on patient chart MALNUTRITION RISK SCREENING ASSESSMENT 01/18/2021 Patient: Blake Grimes Sex: male Instructions: Assess the patient and enter the appropriate indicators that are present for nutrition risk identification. Total the numbers entered and assign a risk score. Follow the appropriate action for total score listed below. Assessment Date 01/18/2021 1. Have you lost weight without trying? 0- No/ lost weight but he is trying 2. Have you been eating poorly because of a decreased appetite? 0- No 3. Do you have a diagnosis of head and neck cancer? 0- No TOTAL 0 Score of 0-1: No action Score 2 or greater: For Non-Diabetic Patient: Recommend adding Ensure Complete 2 x daily and provide patient with Ensure wellness bag with coupons For Diabetic Patient: Recommend adding Glucerna Shake 2 x daily and provide patient with Glucerna Wellness bag with coupons Route to the dietitian via [employer] Blake is a very pleasant 65 years old male, he is here today for a 4 month follow up after completed radiation therapy to right testis 15 fractions; 3000 cGy from 07/28/20 to 08/17/2020R/T Malignant neoplasm toTestis. He is alert and oriented x 4, ambulatory without any assistance and denies pain, no skin issues. He is losing weight, through diet and exercise preparing for knee surgery. He had CTof abdomen/pelvis/chest and soft tissue neck completed 01/01/21 which showed no recurrence of malignancy. He follows with Dr. Leo at [facility], his last appointment was 12/03/20. I will update WILLEM Donald. gave him a handout re: fall safety prevention, he verbalizes undersanding. Marce Villalpando documented in this [facility] [employer] Work Phone: consult note Author Osei Casanova [facility] Note Date/Time May 07, 2025 11: 48am [facility] Medical Records Department [address] [place] [address] Anesthesia Postop Eval I 05/07/25 1147 MR#: [id number] Acct: [id number] Name: BLAKE GRIMES Rep #:[id number] 6 : 1955 69 From: Osei Casanova CRNA PCP: BRADLEY ZUÑIGA Status:REG SDC Y Race: C Location: [place] [address] Anesthesia: Postop Eval I Current Vital Signs Temperature: 96.8 F Pulse Rate: 64 Blood Pressure: 132/67 Respiratory Rate: 16 Pulse Ox: 98 Oxygen Delivery Method: Nasal Cannula Oxygen Flow Rate (L/min): 2 Assessment Airway patent: Yes Spontaneous unlabored respirations: Yes Mental status: Awake and Calm nausea: No Vomiting: No Anesthesia Complication: No Fluid Hydration Crystalloid volume administer (ml): 500 Total IV fluid infused: 500 Progress Note Anesthesia document: Postop Eval 1 completed: Yes 05/07/25 1148 <Electronically signed by Osei killian CRNA> Date _ Osei Jocelyne Eid Signature: Date CC: ~ Signed [facility] Work Phone: Evaluation note* Diagnosis 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 S/P radiation therapy > 12 wks ago Personal history of irradiation, presenting hazards to health documented in this encounter [employer] Phone: [email or web address] note* Diagnosis Preop testing- Primary Preoperative examination, unspecified Preop testing Preoperative examination, unspecified documented in this encounter [employer] Phone: [email or web address] note* Diagnosis Preop testing- Primary Preoperative examination, unspecified documented in this encounter [employer] Phone: [email or web address] note* Diagnosis Gingival abscess- Primary Aggressive periodontitis, unspecified documented in this encounter [employer] Phone: evalzqascu note* Diagnosis Neck pain Cervicalgia Jaw pain Oropharyngeal mass Swelling, mass, or lump in head and neck Tongue mass Swelling, mass, or lump in head and neck documented in this encounter [employer] Phone: evaliqdhza note* Diagnosis Preop testing- Primary Preoperative examination, unspecified Post-op pain Other acute postoperative pain documented in this encounter [employer] Phone: [email or web address] note* Diagnosis 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 documented in this encounter [employer] Phone: evalklgbth note* 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 documented in this encounter [employer] Phone: evaluation note* Diagnosis Dizziness- Primary Dizziness and giddiness Bradycardia Other specified cardiac dysrhythmias documented in this encounter [employer] Phone: evalxcehwb note* Diagnosis Frequent PVCs Other premature beats RBBB Right bundle branch block documented in this encounter [employer] Phone: evaliibend note* Diagnosis Class 3 severe obesity due to excess calories with serious comorbidity and body mass index (BMI) of 45.0 to 49.9 in adult (HCC) Frequent PVCs Other premature beats Sleep apnea, unspecified type documented in this encounter [employer] Phone: [email or web address] note* Diagnosis H/O autologous stem cell transplant (HCC)- Primary Peripheral stem cells replaced by transplant Need for vaccination Need for prophylactic vaccination and inoculation against unspecified single disease [facility]* Diagnosis Need for prophylactic vaccination with combined vaccine- Primary Need for prophylactic vaccination with unspecified combined vaccine documented in this encounter [facility] note* Diagnosis Abnormal EKG Nonspecific abnormal electrocardiogram (ECG) (EKG) documented in this encounter [facility] [employer] Phone: evalclobqu note* Diagnosis Abrasion of left forearm, initial encounter- Primary documented [facility] noteNo assessment information available [facility] Work Phone: Evaluation note* Diagnosis Osteoarthritis of both knees- Primary Osteoarthrosis, unspecified whether generalized or localized, lower leg documented [facility] this encounter [facility]* Diagnosis Pain management Other specified rehabilitation procedure documented [facility] instructions* Instructions* Anh Torres MD - 02/12/2021 [facility] Colonoscopy PROCEDURE DISCHARGE INSTRUCTIONS You may be drowsy or lightheaded after receiving sedation or anesthesia. A responsible person should be with you for the next 24 hours. Please follow the instructions checked below: DIET INSTRUCTIONS: [x]Start with light diet and progress to your normal diet as you feel like eating. If you experience nausea or repeated episodes of vomiting which persist beyond 12-24 hours, notify your doctor. []Other ACTIVITY INSTRUCTIONS: [x]Rest today. Increase activity as tolerated []No heavy lifting or strenuous activity [x]No driving for today []Other MEDICATION INSTRUCTIONS: []Prescriptions sent with you. Use as directed. When taking pain medications, you may experience dizziness or drowsiness. Do not drink alcohol or drive when taking these medications. [x]Continue preop medications Post-procedure Care If any tissue was removed: It will be sent to a lab to be examined. It may take 1-2 weeks for results. The doctor will usuallygive an initial report after the scope is removed. Other tests may be recommended. A small amount of bleeding may occur during the first few days after the procedure. When you return home after the procedure, be sure to follow your doctor's instructions, which may include: Resume medicines as instructed by your doctor. Resume normal diet, unless directed otherwise by your doctor. The sedative will make you drowsy. Avoid driving, operating machinery, or making important decisions for the rest of the day. Rest for the remainder of the day. After arriving home, contact your doctor if any of the following occurs: Bleeding from your rectum, notify your doctor if you pass a teaspoonful of blood or more. Black, tarry stools Severe abdominal pain Hard, swollen abdomen Signs of infection, including fever or chills Inability to pass gas or stool Coughing, shortness of breath, chest pain, severe nausea or vomiting In case of an emergency, CALL 911 . FOLLOW-UP CARE: [x]Call the office at [phone] for follow-up appointment as needed Repeat colonoscopy in 7-10 years. documented in this [employer] Phone: Hospital Discharge instructions* Attachments The following attachments cannot be sent through Care Everywhere. * Periodontal Abscess (Filipino) documented in this [email or web address] Work Phone: Hospital Discharge instructions* Attachments The following attachments cannot be sent through Care Everywhere. * Holter Monitoring (Filipino) documented in this [employer] Phone: reason for referral (narrative)No [facility] for [facility] Work Phone: Reason for visit Narrative* Auth/Cert Specialty Diagnoses / Procedures Referred By Sebas waite Referred To Contact Diagnoses Osteoarthritis of both knees, unspecified osteoarthritis type Procedures NC INJECTION AA&/STRD GENICULAR NRV BRANCHES W/IMG Bilateral Genicular nerves Block under fluoroscopic guidance George Sebastian MD [address] [place] [address] Phone: tel: fax: [facility] [address] [place] [address] Referral ID Status Reason Start Date Expiration Date Visits Re quested Visits Authorized [id number] 1 1 [facility] Narrative* Auth/Cert Specialty Diagnoses / Procedures Referred By Sebas t Referred To Contact Diagnoses Osteoarthritis of both knees, unspecified osteoarthritis type Procedures NC INJECTION AA&/STRD GENICULAR NRV BRANCHES W/IMG Bilateral Genicular nerves Block under fluoroscopic guidance George Sebastian MD [address] [place] [address] Phone: tel: fax: [facility] [address] [place] [address] Referral ID Status Reason Start Date Expiration Date Visits Re quested Visits Authorized [id number] 1 1 [facility] Hospital Course Discharge Summary No Discharge Summary Informa tion Discharge Instructions Discharge Instructions No Discharge Instructions Summary Purpose Family History No Family History Records FoundNo Family History Records FoundNo Family History Records FoundNo Family History Records FoundNo Family History Records FoundNo Family History Records FoundNo Family History Records FoundNo Family History Records FoundNo Family History Records FoundNo Family History Records FoundNo Family History Records FoundNo Family History Records FoundNo Family History Records Found Advance Directives No Advanced Directives Records Found Date Activated Date Inactivated Comments 07/18/2025 12:22 PM 07/18/2025 6:16 PM Date Activated Date Inactivated Comments 03/17/2021 11:28 AM 03/17/2021 6:43 PM Date Activated Date Inactivated Comments 02/12/2021 7:10 AM 02/12/2021 10:55 AM Date Activated Date Inactivated Comments 02/25/2020 2:50 PM 02/27/2020 2:02 PM Healthcare Agents on File Name Relationship Healthcare Agent [facility] Communication Maribel Cornelio Spouse Primary Decision Maker Documents on File Type Date Recorded Patient Cancer Spec Expl anation ACP-Advance Directive ACP-Power of Salesperson [employer] Latest Code Status on File Code Status Date Activated Date Inactivated Comments Full Code 02/25/2020 2:50 PM 02/27/2020 2:02 PM Documents on File Type Date Recorded Patient Cancer Spec Expl anation Advance Directives and Living Will Power of Salesperson [employer] Documents on File Type Date Recorded Patient Cancer Spec Expl anation Advance Directives and Living Will Power of Salesperson [employer] Latest Code Status on File Code Status Date Activated Date Inactivated Comments Full Code 02/25/2020 2:50 PM 02/27/2020 2:02 PM Latest Code Status on File Code Status Date Activated Date Inactivated Comments Full Code 02/25/2020 2:50 PM Documents on File Type Date Recorded Patient Cancer Spec Expl anation ACP-Advance Directive ACP-Power of Salesperson [employer] Latest Code Status on File Code Status Date Activated Date Inactivated Comments Full Code 02/12/2021 7:10 AM Full Code 02/25/2020 2:50 PM 02/27/2020 2:02 PM Latest Code Status on File Code Status Date Activated Date Inactivated Comments Full Code 02/12/2021 7:10 AM 02/12/2021 10:55 AM Full Code 02/25/2020 2:50 PM 02/27/2020 2:02 PM Latest Code Status on File Code Status Date Activated Date Inactivated Comments Full Code 02/12/2021 7:10 AM 02/12/2021 10:55 AM Latest Code Status on File Code Status Date Activated Date Inactivated Comments Full Code 03/17/2021 11:28 AM Full Code 02/12/2021 7:10 AM 02/12/2021 10:55 AM Latest Code Status on File Code Status Date Activated Date Inactivated Comments Full Code 03/17/2021 11:28 AM 03/17/2021 6:43 PM Latest Code Status on File Code Status Date Activated Date Inactivated Comments Full Code 03/17/2021 11:28 AM 03/17/2021 6:43 PM Full Code 02/12/2021 7:10 AM 02/12/2021 10:55 AM Healthcare Agents on File Name Relationship Healthcare Agent Relationshi p Communication Maribeltiffani Grimes Spouse Primary Decision Maker Fantasma Grimes Child Secondary Decision Maker Latest Code Status on File Code Status Date Activated Date Inactivated Comments Full Code 03/17/2021 11:28 AM 03/17/2021 6:43 PM Code Status History Code Status Date Activated Date Inactivated Comments Full Code 02/12/2021 7:10 AM 02/12/2021 10:55 AM Full Code 02/25/2020 2:50 PM 02/27/2020 2:02 PM Healthcare Agents on File Name Relationship Healthcare Agent [facility] Communication Maribel Grimes Spouse Primary Decision Maker Fantasma Grimes Child Secondary Decision Maker Advance Directive Response Recorded Date/ Time Do you have a Healthcare Power of Salesperson [employer]? No April 23, 2025 11:09am Date Activated Date Inactivated Comments 07/18/2025 12:22 PM Healthcare Agents on File Name Relationship Healthcare Agent [facility] p Communication Maribel Grimes Spouse Primary Decision Maker History of Present Illness * Mark Pickering MD - 07/29/2020 10:00 AM EDT DEPARTMENT OF RADIATION ONCOLOGY ON TREATMENT VISIT 07/29/2020 NAME: Blake Grimes DATE OF : 1955 Diagnosis: 1. Diffuse non-Hodgkin's lymphoma of testis (HCC) SUBJECTIVE: Blake Grimes status post 400 cGy/2 fractions to the scrotum, mainly to the right testis. Setup checked. Aquaphor given Physical Examination: Wt Readings from Last 3 Encounters: 07/29/20 (!) 346 lb (156.9 kg) 07/17/20 (!) 349 lb (158.3 kg) 02/27/20 (!) 368 lb 3.2 oz (167 kg) Labs: Lab Results Component Value Date WBC 10.8 02/26/2020 RBC 4.44 02/26/2020 HGB 13.5 02/26/2020 HCT 41.8 02/26/2020 MCV 94.1 02/26/2020 MCH 30.4 02/26/2020 MCHC 32.3 02/26/2020 RDW 12.6 02/26/2020 PLT 250 02/26/2020 MPV 9.8 02/26/2020 ASSESSMENT/PLAN: Questions answered Continue treatment as planned Mark Pickering M.D. Radiation Oncologist [place]: [phone] (FAX: [phone]) [place]: [phone] (FAX: [phone]) * Marce Villalpando RN - 07/29/2020 10:00 AM EDT Blake Grimes 07/29/2020 Wt Readings from Last 3 Encounters: 07/29/20 (!) 346 lb (156.9 kg) 07/17/20 (!) 349 lb (158.3 kg) 02/27/20 (!) 368 lb 3.2 oz (167 kg) Body mass index is 52.61 kg/m . Treatment Area: Right Testis Patient was seen today for weekly visit. Comfort Alteration KPS:90% Fatigue: None Nutritional Alteration Anorexia: No Nausea: No Vomiting: No Elimination Alterations Constipation: no Diarrhea: no Urinary Frequency/Urgency: No Urinary Retention: No Dysuria: No Urinary Incontinence: No Proctitis: No Nocturia: No #/night: 1 Skin Alteration Sensation:na Radiation Dermatitis: Na, educated to start moisturizing his skin to RT area, he verbalizes understanding Emotional Coping: effective Sexuality Alteration na Injury, potential bleeding or infection: na Lab Results Component Value Date WBC 10.8 02/26/2020 PLT 250 02/26/2020 BP (!) 152/76 Pulse 64 Temp 97.9 F (36.6 C) (Temporal) Resp 18 Wt (!) 346 lb (156.9 kg) SpO2 99% BMI 52.61 kg/m BP within normal range? yes -if no, manually recheck in 5-10 min NEW BP readin/76 taken manually, denies headache, he states I'm just a little nervous I almostfall earlier in the treatment room BP within normal range? no -if no, notify attending provider for further instruction Assessment/Plan: Completed 215 fractions; 400/3000 cGy. Marce Villalpando documented in this encounter* Marce Villalpando RN - 08/14/2020 10:00 AM EST Blake Grimes 08/14/2020 3:25 PM Current Outpatient Medications Medication Sig Dispense Refill ondansetron (ZOFRAN) 8 MG tablet Take 8 mg by mouth every 8 hours as needed for Nausea or Vomiting pantoprazole (PROTONIX) 40 MG tablet Take 40 mg by mouth daily CPAP Machine MISC by Does not apply route simvastatin (ZOCOR) 40 MG tablet TAKE 1 TABLET NIGHTLY 90 tablet 3 meloxicam (MOBIC) 15 MG tablet Take 1 tablet by mouth daily 90 tablet 3 No current facility-administered medications for this encounter. This is an up-to-date medication list. Please take this list to your next care provider, and discard any previous medication lists. documented in this encounter* Shabana Bee APRN - [facility] - 09/22/2020 9:00 AM EST RADIATION ONCOLOGY 6 week follow up 09/22/2020 NAME: Blake Grimes DATE OF : 1955 CC: Pt returns today for re-assessment of radiation treatment area. Diagnosis: Diffuse large B-cell lymphoma left testis, with RP and left cervical lymphadenopathy. Subjective: Blake Grimes is a 64 year old male with diagnosis of diffuse large B-cell lymphoma ofthe left testis with RP and left cervical lymphadenopathy. Status post left radical orchiectomy, 02/26/2020. Treated with 6 cycles of R- CHOP with Revlimid 03/19/2020-07/02/2020. The patient received intrathecal Methotrexate with Dr. [facility]. IT began 05/04/2020 and completed 07/20/2020. The patient had been scheduled to receive 6th treatment on 09/01/2020, patient cancelled on site day of treatment due to pandemic visitor restrictions at [facility] (his no longer allowed inside hospital), he declined rescheduling. The patient received XRT to right testis (risk of being sanctuary site), XRT started 07/28/2020 andcompleted 08/17/2020, Total dose 3000 cGy/ 15 fractions. The patient seen today in 6 week post radiation completion symptom management visit. He reports skin irritation post XRT completion, now resolved. He reports mild hyperpigmentation changes to treatment site skin. He continues to apply Aquaphor daily as needed. No pain complaints, no swelling. No urinary complaints, no bowel complaints. He has began to exercise walking 2- 2.25 miles 3 days per week. He complains of osteoarthritis to left knee and reports left knee pain and stiffness decreased since he started walking for exercise. Patient is following with: Medical Oncology- Dr. Orozco. Most recent office visit 09/08/2020, next OV scheduled 11/03/2020. Hematology [facility]- Dr. Moody Tejeda. Follow-up visit scheduled 12/28/2020 Family Medicine- Dr. Bradley Zuñiga. Office visit scheduled 11/10/2020. Pain: No pain complaints. Past medical, surgical, social and family histories reviewed and updated as indicated. ALLERGIES: Chlorhexidine gluconate and Demerol hcl [meperidine] Current Outpatient Medications Medication Sig Dispense Refill CPAP Machine MISC by Does not apply route simvastatin (ZOCOR) 40 MG tablet TAKE 1 TABLET NIGHTLY 90 tablet 3 meloxicam (MOBIC) 15 MG tablet Take 1 tablet by mouth daily 90 tablet 3 No current facility-administered medications for this encounter. Physical Examination: Vitals: 09/22/20 0857 BP: (!) 146/80 Pulse: 68 Resp: 18 Temp: 97.1 F (36.2 C) SpO2: 97% Wt Readings from Last 3 Encounters: 09/22/20 (!) 343 lb (155.6 kg) 08/11/20 (!) 348 lb 6 oz (158 kg) 08/04/20 (!) 348 lb (157.9 kg) Alert and fully ambulatory. Pleasant and conversant. Lung sounds clear to ausculation bilaterally. No wheezes, rhonchi or crackles. Heart regular rate and rhythm. Abdomen, soft, rounded with active BS x 4. BLE with no edema noted. ASSESSMENT/PLAN: Patient completed XRT to right testis on 08/17/2020. No skin irritation complaints. Skin care reviewed. Imaging per Medical oncology. I discussed follow up plans with Blake Grimes. Radiation Oncology follow-up visits 4 months. Blake Grimes is to follow up with other physicians/ APPs involved in his care as directed (including but not limited to Medical Oncology, Hematology [facility], Surgery and Family Medicine). The patient was given our contact number in the event that if at any time they change their mind and would like to return to the clinic to see either myself or one of the Radiation Oncologists, they can simply call us and we would be happy to see them sooner. Thank you for involving us in the management of this extremely pleasant patient. More than 15 min was in direct contact with pt coordinating/giving care. >50% of the visit was spent in counseling the pt on the following: Follow up care The nurses notes were reviewed and incorporated into this assessment and plan. Questions answered to apparent satisfaction. Shabana Bee, MSN, [employer] TEACHER-[employer]ATION[employer]ER [employer] Certified Nurse Practitioner for Radiation Oncology [facility] / FAX: [phone] * Marce Villalpando RN - 09/22/2020 9:00 AM EST Blake Grimes 09/22/2020 9:04 AM Vitals: 09/22/20 0857 BP: (!) 146/80 Pulse: 68 Resp: 18 Temp: 97.1 F (36.2 C) SpO2: 97% : Wt Readings from Last 3 Encounters: 09/22/20 (!) 343 lb (155.6 kg) 08/11/20 (!) 348 lb 6 oz (158 kg) 08/04/20 (!) 348 lb (157.9 kg) Current Outpatient Medications: CPAP Machine MISC, by Does not apply route, Disp: , Rfl: simvastatin (ZOCOR) 40 MG tablet, TAKE 1 TABLET NIGHTLY, Disp: 90 tablet, Rfl: 3 meloxicam (MOBIC) 15 MG tablet, Take 1 tablet by mouth daily, Disp: 90 tablet, Rfl: 3 Patient is seen today in follow up for Cancer of the testis FALLS RISK SCREENING ASSESSMENT Instructions: Assess the patient and enter the appropriate indicators that are present for fall risk identification. Total the numbers entered and assign a fall risk score from Table 2. Reassess patient at a minimum every 12 weeks or with status change. Assessment Date 09/22/2020 1. Mental Ability: confusion/cognitively impaired No - 0 2. Elimination Issues: incontinence, frequency No - 0 3. Ambulatory: use of assistive devices (walker, cane, off-loading devices), attached to equipment (IV pole, oxygen) No - 0 4. Sensory Limitations: dizziness, vertigo, impaired vision No - 0 5. Age Less than 65 years - 0 6. Medication: diuretics, strong analgesics, hypnotics, sedatives, antihypertensive agents No - 0 7. Falls: recent history of falls within the last 3 months (not to include slipping or tripping) No - 0 TOTAL 0 If score of 4 or greater was education given? No TABLE 2 Risk Score Risk Level Plan of Care 0-3 Little or No Risk 1. Provide assistance as indicated for ambulation activities 2. Reorient confused/cognitively impaired patient 3. Call-light/flores within patient's reach 4. Chair/bed in low position, stretcher/bed with siderails up except when performing patient care activities 5. Educate patient/family/caregiver on falls prevention 6. Reassess in 12 weeks or with any noted change in patient condition which places them at a risk for a fall 4-6 Moderate Risk 1. Provide assistance as indicated for ambulation activities 2. Reorient confused/cognitively impaired patient 3. Call-light/flores within patient's reach 4. Chair/bed in low position, stretcher/bed with siderails up except when performing patient care activities 5. Educate patient/family/caregiver on falls prevention 6. Falls risk precaution (Yellow sticker Level II) placed on patient chart 7 or Higher High Risk 1. Place patient in easily observable treatment room 2. Patient attended at all times by family member or staff 3. Provide assistance as indicated for ambulation activities 4. Reorient confused/cognitively impaired patient 5. Call-light/flores within patient's reach 6. Chair/bed in low position, stretcher/bed with siderails up except when performing patient care activities 7. Educate patient/family/caregiver on falls prevention 8. Falls risk precaution (Yellow sticker Level III) placed on patient chart MALNUTRITION RISK SCREENING ASSESSMENT 09/22/2020 Patient: Blake Grimes Sex: male Instructions: Assess the patient and enter the appropriate indicators that are present for nutrition risk identification. Total the numbers entered and assign a risk score. Follow the appropriate action for total score listed below. Assessment Date 09/22/2020 1. Have you lost weight without trying? 0- No 2. Have you been eating poorly because of a decreased appetite? 0- No 3. Do you have a diagnosis of head and neck cancer? 0- No TOTAL 0 Score of 0-1: No action Score 2 or greater: For Non-Diabetic Patient: Recommend adding Ensure Complete 2 x daily and provide patient with Ensure wellness bag with coupons For Diabetic Patient: Recommend adding Glucerna Shake 2 x daily and provide patient with Glucerna Wellness bag with coupons Route to the dietitian via Epic Blake is a very pleasant 64 years old male, he is here today for a 6 week follow up after completedRadiation Therapy to Right testis R/T prophylactic XRT to the contralateral sanctuary site testis. He completed 15 fractions; 3000 cGy from 07/28/2020 to 08/17/2020. 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 He is a S/P left orchiectomy and chemotherapy. He is alert and oriented x 3, ambulatory and denies pain. He states his skin issues to RT area is resolved with aquaphor. He follows with Dr. Orozco at [facility], his last appointment was 09/08/2020. He is scheduled to see him again 11/03/2020. Patient states during that appointment Dr. Orozco will order scans. His BP is slightly elevated, he is asymptomatic, denies headache. He has no complaints today. Marce Villalpando documented in this encounter* Chaitanya Ariza III, MD - 08/11/2020 11:45 AM EST DEPARTMENT OF RADIATION ONCOLOGY ON TREATMENT VISIT 08/11/2020 NAME: Blake Grimes DATE OF : 1955 Diagnosis: testicular lymphoma SUBJECTIVE: Blake Grimes has now received fractionated external beam radiation therapy - ongoing. Past medical, surgical, social and family histories reviewed and updated as indicated. Pain: controlled ALLERGIES: Demerol hcl [meperidine] Current Outpatient Medications Medication Sig Dispense Refill ondansetron (ZOFRAN) 8 MG tablet Take 8 mg by mouth every 8 hours as needed for Nausea or Vomiting pantoprazole (PROTONIX) 40 MG tablet Take 40 mg by mouth daily CPAP Machine MISC by Does not apply route simvastatin (ZOCOR) 40 MG tablet TAKE 1 TABLET NIGHTLY 90 tablet 3 meloxicam (MOBIC) 15 MG tablet Take 1 tablet by mouth daily 90 tablet 3 No current facility-administered medications for this encounter. OBJECTIVE: Alert and fully ambulatory. Pleasant and conversant. Physical Examination: General appearance - alert, well appearing, and in no distress. Wt Readings from Last 3 Encounters: 08/11/20 (!) 348 lb 6 oz (158 kg) 08/04/20 (!) 348 lb (157.9 kg) 07/29/20 (!) 346 lb (156.9 kg) ASSESSMENT/PLAN: Patient is tolerating treatments well with expected toxicities. RBA were reviewed prior to first fraction and PRN. Current and planned dose reviewed. Goals of treatment and potential side effects were reviewed withthe patient PRN. Treatment imaging has been personally reviewed for accuracy and precision. Questions answered to apparent satisfaction. Treatments will continue as planned. Chaitanya Ariza III, MD MS DABR Radiation Oncologist [facility] ([facility]): [phone] /// FAX: [phone] [facility] ([place]): [phone] /// FAX: [phone] [facility] ([place]): [phone] /// FAX: [phone] * Marce Villalpando RN - 08/11/2020 11:45 AM EST Blake Grimes 08/11/2020 Wt Readings from Last 3 Encounters: 08/04/20 (!) 348 lb (157.9 kg) 07/29/20 (!) 346 lb (156.9 kg) 07/17/20 (!) 349 lb (158.3 kg) There is no height or weight on file to calculate BMI. Treatment Area:Right testis Patient was seen today for weekly visit. Comfort Alteration KPS:90% Fatigue: None Nutritional Alteration Anorexia: No Nausea: No Vomiting: No Elimination Alterations Constipation: no Diarrhea: no Urinary Frequency/Urgency: No Urinary Retention: No Dysuria: No Urinary Incontinence: No Proctitis: No Nocturia: No #/night: 1 Skin Alteration Sensation:slight itching Radiation Dermatitis: redness Emotional Coping: effective Sexuality Alteration na Injury, potential bleeding or infection: yes Lab Results Component Value Date WBC 10.8 02/26/2020 PLT 250 02/26/2020 There were no vitals taken for this visit. BP within normal range? no -if no, manually recheck in 5-10 min NEW BP readin/78 BP within normal range? no -if no, notify attending provider for further instruction Assessment/Plan: Completed 08/16 fractions; 2200/3000 cGy Marce Villalpando documented in this encounter* Mark Pickering MD - 07/17/2020 9:00 AM EDT Radiation Oncology Consult Note 07/17/2020 Blake Grimes 64 y.o. 1955 Referring Physician: Shayla Orozco MD PCP: JOIE HARP MD DIAGNOSIS: Diffuse large B-cell lymphoma left testis, with RP and left cervical lymphadenopathy. Status post left orchiectomy and chemotherapy. Stage III E1 Reason for consult prophylactic XRT to the contralateral sanctuary site testis History of Present Illness: Mr. Blake Grimes is a 64 y.o. year old male, who was seen in the ER at [facility] on 02/25/2020, with a short history of left testicular swelling. He admits to some night sweats prior to that. Imaging studies were done and left orchiectomy including the left spermatic cord as noted below, showing high-grade diffuse large B-cell lymphoma of the left testis. PET/CTalso showed an avid left RP lymph node and left cervical PET avid lymph node. Subsequently started R CHOP chemotherapy (Revlimid) status post 6 cycles will be complete today and intrathecal methotrexate completing early next. Reimaging with PET/CT 06/24/2020, after possibly 4 cycles of chemotherapy, shows complete response with no abnormal PET avid areas. The abdomen pelvis 02/25/20 Impression 1. Soft tissue masses in the left retroperitoneum, along the left spermatic cord, and with abnormal left periaortic lymphadenopathy. This raises the question of metastatic testicular cancer. 2. Slightly prominent left testicle and a very small right testicle. No hydrocele. 3. 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 Left left inguinal orchiectomy plus excision of the spermatic cord 02/26/2020 Diagnosis: Left testicle, tumor, radical orchiectomy: Diffuse large B-cell lymphoma, non-GCB type, see comment. Comment: Sections of the testicle show a proliferation of atypical lymphoid cells and completely effaced testicular architecture. The atypical lymphoid cells are remarkable for large vesicular nuclei with prominent nucleoli. Mitotic figures are easily seen. The histologic changes seen are suggestive of a high-grade large B cell lymphoma. PET/CT Impression 1. 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 2. Focal intense uptake within the oral cavity adjacent to the left maxillary molar is nonspecific but could be due to periodontal disease. A borderline enlarged left level 2 cervical lymph node is intensely hypermetabolic. While this could be due to lymphoma, it could also be metastatic from a head/neck malignancy. Suggest contrast-enhanced neck CT to further evaluate these findings. Repeat PET/CT 06/24/2020 Impression No evidence of recurrent lymphoma or other FDG avid disease. Past Medical History: Diagnosis Date Anxiety Cancer (HCC) Depression Hyperlipidemia Kidney stone Osteoarthritis PTSD (post-traumatic stress disorder) PTSD (post-traumatic stress disorder) Sleep apnea Past Surgical History: Procedure Laterality Date ANKLE SURGERY Right 2016 ANKLE SURGERY Left 2015 DOPPLER ECHOCARDIOGRAPHY JOINT REPLACEMENT TESTICLE REMOVAL Left 02/26/2020 ORCHIECTOMY RADICAL performed by Joshua Butt MD at [facility] OR WRIST SURGERY Allergies Allergen Reactions Demerol Hcl [Meperidine] Medications: Medications reviewed and reconciled. Current Outpatient Medications Medication Sig Dispense Refill ondansetron (ZOFRAN) 8 MG tablet Take 8 mg by mouth every 8 hours as needed for Nausea or Vomiting pantoprazole (PROTONIX) 40 MG tablet Take 40 mg by mouth daily CPAP Machine MISC by Does not apply route simvastatin (ZOCOR) 40 MG tablet TAKE 1 TABLET NIGHTLY 90 tablet 3 meloxicam (MOBIC) 15 MG tablet Take 1 tablet by mouth daily 90 tablet 3 No current facility-administered medications for this encounter. Family History: Family History Problem Relation Age of Onset Other Mother unknown why she Other Father did not know father well; alcoholism Diabetes Brother No Known Problems Son No Known Problems Grandchild Social History: reports that he has never smoked. He has never used smokeless tobacco.. reports current alcohol use.. reports no history of drug use. Review of Systems: Obtained from the patient, chart review and nursing assessment. No B symptoms now (Not contributory) ? Constitutional: No fever, chills or night sweats. Denies recent weight loss. ? Eyes: No blurred or changes in vision. Denies discharge or pain. ? ENT: No headaches, hearing loss or vertigo. No mouth sores or sore throat. No change in taste or smell. ? Cardiovascular: No chest discomfort, dyspnea on exertion or palpitations. ? Respiratory: Has no cough or wheezing. Has no sputum production or hemoptysis. Has no pleuritic pain. ? Gastrointestinal: No abdominal pain, appetite loss or nausea. No change in bowel habits. No hematochezia or melena. ? Genitourinary: Patient acknowledges no dysuria, trouble voiding, urgency or hematuria. No nocturia or increased frequency. ? Musculoskeletal: No gait disturbance, weakness or joint complaints. ? Integumentary: No rash or pruritis. ? Neurological: No headache, diplopia, syncope, change in muscle strength, numbness or tingling. Nochange in gait, balance, coordination, mood, affect, memory, mentation, behavior. ? Psychiatric: No anxiety, or depression. ? Endocrine: No temperature intolerance. No excessive thirst, fluid intake, or urination. No tremor. ? Hematologic/Lymphatic: No abnormal bruising or bleeding, blood clots or swollen lymph nodes. ? Allergic/Immunologic: No nasal congestion or hives. Physical examination: Vitals: 07/17/20 0859 BP: (!) 154/56 Pulse: 78 Resp: 18 Temp: 97.7 F (36.5 C) TempSrc: Temporal SpO2: 97% Weight: (!) 349 lb (158.3 kg) ECOG Performance Status: 0. Constitutional: Obese. Lymphatic: No peripheral lymphedema Respiratory: Lungs clear bilaterally Cardiovascular:. S1-S2 RRR Abdomen: Soft nontender no organomegaly External genitalia: Left inguinal scar. No abnormal nodularity. Right testis normal to palpation. Left scrotum empty with no abnormal nodularity Musculoskeletal:Extremities: . 2+ bipedal edema SPIRITUAL CARE COORDINATOR: Grossly nonfocal Radiation safety and oncologic treatment support: - Previous radiation history: No - History of autoimmune or connective tissue disease: No - Nutritional support/ PEG: Not applicable - Dental evaluation: Not applicable - wind up worker requested: Not asked for. - Oncology Nurse navigator requested: - Transportation for daily treatment: Self Other Investigations/Laboratory Data: Lab Results Component Value Date WBC 10.8 02/26/2020 HGB 13.5 02/26/2020 HCT 41.8 02/26/2020 MCV 94.1 02/26/2020 PLT 250 02/26/2020 Lab Results Component Value Date NA 140 02/26/2020 K 4.1 02/26/2020 K 4.0 02/25/2020 CL 105 02/26/2020 CO2 24 02/26/2020 BUN 17 02/26/2020 CREATININE 0.9 02/26/2020 GLUCOSE 140 02/26/2020 CALCIUM 8.9 02/26/2020 Tumor markers: No results found for: PSA, CEA, CA125, UL7177, CA199 Impression: High-grade testicular lymphoma, status post left orchiectomy. Discussion/Plan: Status post multiple cycles of R CHOP chemotherapy. The role of prophylactic XRT to the contralateral, sanctuary site, right testis, is to decrease the risk of recurrence, with the assumption that chemotherapy is poorly penetrated into the testis.. Recurrence is 30 to 35%, which with XRT can decrease to less than 10%. Short course XRT fractionated over 3 weeks suffices. Side effects are generally mild, enumerated. All questions answered. He is aware that it is to decrease localrisk of recurrence, without impact on survival. NCCN guidelines, version 2020 is used to help review treatment recommendations. Procedures and process involved with CT simulation and daily radiation treatments were explained. Toxicities, both expected and less common, were reviewed in detail. Questions were answered to their apparent satisfaction. Thank you, for allowing us to participate in the care of your patient. Mark Pickering MD [facility] Radiation Oncology [place]: [phone] FAX: [phone] [place]: [phone] FAX: [phone] CC: JOIE HARP MD , Elda Hamilton, [employer] TEACHER - [employer] [address] [place] [address] * Marce Villalpando RN - 07/17/2020 9:00 AM EDT Blake Grimes 1955 64 y.o. Referring Physician: Pam PCP: JOIE HARP MD Vitals: 07/17/20 0859 BP: (!) 154/56 Pulse: 78 Resp: 18 Temp: 97.7 F (36.5 C) SpO2: 97% Wt Readings from Last 3 Encounters: 07/17/20 (!) 349 lb (158.3 kg) 02/27/20 (!) 368 lb 3.2 oz (167 kg) 08/27/19 (!) 355 lb (161 kg) Body mass index is 53.07 kg/m . Chief Complaint: No chief complaint on file. Cancer Staging No matching staging information was found for the patient. Prior Radiation Therapy? NO Concurrent Chemo/radiation? NO Prior Chemotherapy? YES: Site Treated: left testicle Facility: [facility] Date: 07/17/2020 last dose of Revelimid Prior Hormonal Therapy? NO Head and Neck Cancer? No, patient does NOT have HN cancer. Current Outpatient Medications Medication Sig Dispense Refill ondansetron (ZOFRAN) 8 MG tablet Take 8 mg by mouth every 8 hours as needed for Nausea or Vomiting pantoprazole (PROTONIX) 40 MG tablet Take 40 mg by mouth daily CPAP Machine MISC by Does not apply route simvastatin (ZOCOR) 40 MG tablet TAKE 1 TABLET NIGHTLY 90 tablet 3 meloxicam (MOBIC) 15 MG tablet Take 1 tablet by mouth daily 90 tablet 3 No current facility-administered medications for this encounter. Past Medical History: Diagnosis Date Anxiety Cancer (HCC) Depression Hyperlipidemia Kidney stone Osteoarthritis PTSD (post-traumatic stress disorder) PTSD (post-traumatic stress disorder) Sleep apnea Past Surgical History: Procedure Laterality Date ANKLE SURGERY Right 2016 ANKLE SURGERY Left 2016 DOPPLER ECHOCARDIOGRAPHY JOINT REPLACEMENT 06/05/2018 L hip; [place] TESTICLE REMOVAL Left 02/26/2020 ORCHIECTOMY RADICAL performed by Joshua Butt MD at [facility] OR WRIST SURGERY Family History Problem Relation Age of Onset Other Mother unknown why she Other Father did not know father well; alcoholism Diabetes Brother No Known Problems Son No Known Problems Grandchild Social History Socioeconomic History Marital status: Spouse name: Not on file Number of children: Not on file Years of education: Not on file Highest education level: Not on file Occupational History Not on file Social Needs Financial resource strain: Not on file Food insecurity Worry: Not on file Inability: Not on file Transportation needs Medical: Not on file Non-medical: Not on file Tobacco Use Smoking status: Never Smoker Smokeless tobacco: Never Used Substance and Sexual Activity Alcohol use: Yes Comment: rare Drug use: No Types: Marijuana Comment: last used 2013 Sexual activity: Not Currently Lifestyle Physical activity Days per week: Not on file Minutes per session: Not on file Stress: Not on file Relationships Social connections Talks on phone: Not on file Gets together: Not on file Attends cheondoism service: Not on file Active member of club or organization: Not on file Attends meetings of clubs or organizations: Not on file Relationship status: Not on file Intimate partner violence Fear of current or ex partner: Not on file Emotionally abused: Not on file Physically abused: Not on file Forced sexual activity: Not on file Other Topics Concern Not on file Social History Narrative Not on file 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. REVIEW OF SYSTEMS: Blake is a very pleasant 64 years old male, he is alert and oriented x 3, ambulatory without any assistance and denies any pain today. He is here today to discuss Radiation Therapyand possible side effects specifically prohylactic RT to right testes R/T Diffuse large B-cell lymphoma, on-GCB type. Sometime in December he develop a gradual swelling in his left testes with discomfort, he went to ER at [facility] and he underwent CT of the abdomen 02/25/2020. CT revealed soft tissue mass in the left retro-peritonium along the left spermatic cord measuring 2.4 x 2.4 x 2.7 cm andabnormal left periaortic LAD measuring 2 x 2.6 x 2 cm and several smaller LNs. 02/26/2020 Patient underwent Left testicle tumor radical orchiectomy with biopsy, pathology showed ; Diffuse large B-celllymphoma non-GCB type. Mitotic figures are easily seen. The histologic changes seen are suggestive of a high-grade large B cell lymphoma. 04/16/[address] of the soft tissue which revealed ; Compared to the previous PET/CT there is a LN in the left neck seen 0.6 x 0.5 cm. This does not meet the criteria for adenopathy, however is FDG avid on the previous study. 06/24/2020 He underwent PET scan which showed no evidence of recurrent lymphoma or other FDG avid disease. He is following with Dr. Orozco medical oncology at the [facility], his last visit was 07/02/2020. He receiving chemotherapy, he states his last Revlimid is today. He is also receiving IT Methotrexate, his next dose is on Monday07/20/2020. Approximately spent >20 minutes with patient, answered all questions based on nursing perspective pt verbalizes understanding. I will contact him sometime today for simulation date and time. <<For Level 5, 10 or more systems>> Pacemaker/Defibulator/ICD: No Mediport: Yes/ left chest FALLS RISK SCREENING ASSESSMENT Instructions: Assess the patient and enter the appropriate indicators that are present for fall risk identification. Total the numbers entered and assign a fall risk score from Table 2. Reassess patient at a minimum every 12 weeks or with status change. Assessment Date 07/17/2020 1. Mental Ability: confusion/cognitively impaired No - 0 2. Elimination Issues: incontinence, frequency No - 0 3. Ambulatory: use of assistive devices (walker, cane, off-loading devices), attached to equipment (IV pole, oxygen) No - 0 4. Sensory Limitations: dizziness, vertigo, impaired vision Yes - 3 5. Age Less than 65 years - 0 6. Medication: diuretics, strong analgesics, hypnotics, sedatives, antihypertensive agents No - 0 7. Falls: recent history of falls within the last 3 months (not to include slipping or tripping) No - 0 TOTAL 3 If score of 4 or greater was education given? No TABLE 2 Risk Score Risk Level Plan of Care 0-3 Little or No Risk 1. Provide assistance as indicated for ambulation activities 2. Reorient confused/cognitively impaired patient 3. Call-light/flores within patient's reach 4. Chair/bed in low position, stretcher/bed with siderails up except when performing patient care activities 5. Educate patient/family/caregiver on falls prevention 6. Reassess in 12 weeks or with any noted change in patient condition which places them at a risk for a fall 4-6 Moderate Risk 1. Provide assistance as indicated for ambulation activities 2. Reorient confused/cognitively impaired patient 3. Call-light/flores within patient's reach 4. Chair/bed in low position, stretcher/bed with siderails up except when performing patient care activities 5. Educate patient/family/caregiver on falls prevention 6. Falls risk precaution (Yellow sticker Level II) placed on patient chart 7 or Higher High Risk 1. Place patient in easily observable treatment room 2. Patient attended at all times by family member or staff 3. Provide assistance as indicated for ambulation activities 4. Reorient confused/cognitively impaired patient 5. Call-light/flores within patient's reach 6. Chair/bed in low position, stretcher/bed with siderails up except when performing patient care activities 7. Educate patient/family/caregiver on falls prevention 8. Falls risk precaution (Yellow sticker Level III) placed on patient chart MALNUTRITION RISK SCREENING ASSESSMENT Instructions: Assess the patient and enter the appropriate indicators that are present for nutrition risk identification. Total the numbers entered and assign a risk score. Follow the appropriate action for total score listed below. Assessment Date 07/17/2020 1. Have you lost weight without trying? 0- No 2. Have you been eating poorly because of a decreased appetite? 0- No 3. Do you have a diagnosis of head and neck cancer? 0- No TOTAL 0 Score of 0-1: No action Score 2 or greater: For Non-Diabetic Patient: Recommend adding Ensure Complete 2 x daily and provide patient with Ensure wellness bag with coupons For Diabetic Patient: Recommend adding Glucerna Shake 2 x daily and provide patient with Glucerna Wellness bag with coupons Route to the dietitian via [facility] OT ASSESSMENT FOR REFERRAL Are you having difficulty performing daily routine tasks due to fatigue or weakness (ie: bathing/showering, dressing, housework, meal prep, work, children's librarian ): No Do you have any arm flexibility/ROM restrictions, swelling or pain that limit activity: No Any changes in memory, attention/focus that impact daily activities: No Do you avoid participation in leisure/social activity due weakness, fatigue or pain: No ARE ANY OF THE ABOVE ARE ANSWERED YES: No PT ASSESSMENT FOR REFERRAL Have you had any recent falls in past 2 months: No Do you have difficulty going up/down stairs: No Are you having difficulty walking: No Do you often hold onto furniture/environmental supports or feel off balance when you are walking: No Do you need to take rest breaks when you are walking: No Any pain on scale of 1-10 that limits your mobility: No 0/10 ARE ANY OF THE ABOVE ARE ANSWERED YES: No PREHAB AUDIOLOGY REFERRAL - Is patient planned to receive Cisplatin? No. This patient is not planned to start Cisplatin. - Is patient planned to receive radiation therapy that may be directed toward auditory canals or nerves? No. Patient is not planned to start radiation therapy to auditory canals or nerves. - Is patient complaining of new onset hearing loss? No. Patient is not complaining of new onset hearing loss. Patient education given on Radiation Therapy, side effects and fall safety prevention utilizing slides and handouts. The patient expresses understanding and acceptance of instructions. Marce Villalpando 07/17/2020 9:06 AM Marce Villalpando documented in this encounter* Steven Ramirez MD - 08/04/2020 10:00 AM EST Blake Grimes 08/04/2020 10:34 AM No chief complaint on file. Wt Readings from Last 3 Encounters: 08/04/20 (!) 348 lb (157.9 kg) 07/29/20 (!) 346 lb (156.9 kg) 07/17/20 (!) 349 lb (158.3 kg) Comments: Dose 1200 cGy to the right testicle. Patient is doing well without any complaints. He denies any pain. He has no nausea or vomiting. The skin over the treated area looks good. Patient is tolerating treatment well Plan: Radiation to continue as planned * Marce Villalpando RN - 08/04/2020 10:00 AM EST Blake Grimes 08/04/2020 Wt Readings from Last 3 Encounters: 08/04/20 (!) 348 lb (157.9 kg) 07/29/20 (!) 346 lb (156.9 kg) 07/17/20 (!) 349 lb (158.3 kg) Body mass index is 52.91 kg/m . Treatment Area:Right testis Patient was seen today for weekly visit. Comfort Alteration KPS:90% Fatigue: None Nutritional Alteration Anorexia: No Nausea: No Vomiting: No Elimination Alterations Constipation: no Diarrhea: no Urinary Frequency/Urgency: No Urinary Retention: No Dysuria: No Urinary Incontinence: No Proctitis: No Nocturia: No #/night: 1 Skin Alteration Sensation:na Radiation Dermatitis: na Emotional Coping: effective Sexuality Alteration na Injury, potential bleeding or infection: na Lab Results Component Value Date WBC 10.8 02/26/2020 PLT 250 02/26/2020 BP (!) 148/78 Pulse 76 Temp 97.8 F (36.6 C) (Temporal) Resp 18 Wt (!) 348 lb (157.9 kg) SpO2 98% BMI 52.91 kg/m BP within normal range? yes Assessment/Plan: Completed 03/16 fractions; 1200/3000 cGy Marce Villalpando documented in this encounter* Elvira Barksdale - 02/27/2020 11:46 AM EDT CLINICAL PHARMACY NOTE: MEDS TO [facility] Select Patient?: No Total # of Prescriptions Filled: 1 The following medications were delivered to the patient: HYDROCODONE 5-325 MG Total # of Interventions Completed: 6 Time Spent (min): 60 Additional Documentation: * Joy Gan RN - 02/27/2020 10:04 AM EDT [facility]P Quality Flow/Interdisciplinary Rounds Progress Note Quality Flow Rounds held on February 27, 2020 Disciplines Attending: Bedside Nurse, Hris Analyst, Wet Machine Cutter and Nursing Unit Leadership Blake Grimes was admitted on 02/25/2020 9:12 AM Anticipated Discharge Date: Expected Discharge Date: 02/28/20 Disposition: Elio Score: Elio Scale Score: 22 Readmission Risk Risk of Unplanned Readmission: 5 Discussed patient goal for the day, patient clinical progression, and barriers to discharge. The following Goal(s) of the Day/Commitment(s) have been identified: Diagnostics - Report Results and Labs- Report Results Joy Gan February 27, 2020 * Joshua Butt MD - 02/27/2020 9:34 AM EDT 02/27/2020 9:34 AM Service: Urology Group: [facility] ([facility]) Blake Grimes [id number] Subjective: Patient says he is voiding better since his surgery that we did no urinary instrumentation He has had no pain since the surgery He is ambulatory He is afebrile Review of Systems Respiratory: negative Cardiovascular: negative Gastrointestinal: negative Hematologic/lymphatic: negative Musculoskeletal:negative Neurological: negative Endocrine: negative Scheduled Meds: meloxicam 15 mg Oral Daily sodium chloride flush 10 mL Intravenous 2 times per day enoxaparin 40 mg Subcutaneous Daily atorvastatin 20 mg Oral Daily Objective: Vitals: 02/27/20 0735 BP: (!) 142/64 Pulse: 76 Resp: 18 Temp: 97.6 F (36.4 C) SpO2: 97% Allergies: Demerol hcl [meperidine] General Appearance: alert and oriented to person, place and time and in no acute distress Skin: no rash or erythema Head: normocephalic and atraumatic Pulmonary/Chest: clear to auscultation bilaterally- no wheezes, rales or rhonchi, normal air movement, no respiratory distress and no chest wall tenderness Abdomen: soft, non-tender, non-distended, normal bowel sounds, no masses or organomegaly and no inguinal adenopathy His incision site is intact Genitalia: The penis is recessed the left hemiscrotum is empty and there is no significant edema atthis time extremities: no cyanosis, clubbing or edema and Olman's sign negative bilaterally Labs: Recent Labs 02/26/20 1138 NA 140 K 4.1 CL 105 CO2 24 BUN 17 CREATININE 0.9 GLUCOSE 140* CALCIUM 8.9 Lab Results Component Value Date HGB 13.5 02/26/2020 HCT 41.8 02/26/2020 Assessment: Blake Grimes 64 y.o. male Active Problems: Testicular mass Enlarged lymph nodes Hyperlipidemia Sleep apnea Resolved Problems: * No resolved hospital problems. * We rediscussed the patient the options of management depending on the presence or absence of a germcell tumor or non-germ cell tumor etiology. I did advise him there is still possibility this all could be benign until we get the path report we can make further decisions Plan: He could be discharged today We will follow him in the office in a week we will call him as soon as we see definitive path report We will make arrangements for him to see an oncologist once we have the definitive path report Joshua Butt MD [facility] * Kit Negron DO - 02/26/2020 6:20 PM [facility]T [facility] Ad[facility] Date and Time: 02/25/2020 9:12 AM Admit Dx: Testicular mass [N50.89] Testicular mass [N50.89] Subjective: Patient was admitted with Testicular mass [N50.89] Testicular mass [N50.89]. Patient denies fever, chills, cp, sob, n/v. meloxicam 15 mg Oral Daily sodium chloride flush 10 mL Intravenous 2 times per day enoxaparin 40 mg Subcutaneous Daily atorvastatin 20 mg Oral Daily sodium chloride flush, 10 mL, PRN sodium chloride flush, 10 mL, PRN acetaminophen, 650 mg, Q6H PRN Or acetaminophen, 650 mg, Q6H PRN polyethylene glycol, 17 g, Daily PRN promethazine, 12.5 mg, Q6H PRN Or ondansetron, 4 mg, Q6H PRN Objective: BP (!) 150/69 Pulse 109 Temp 99.3 F (37.4 C) (Oral) Resp 18 Ht 5' 8 (1.727 m) Wt (!) 371lb (168.3 kg) SpO2 94% BMI 56.41 kg/m Skin: warm and dry, no rash or erythema Pulmonary/Chest: clear to auscultation bilaterally- no wheezes, rales or rhonchi, normal air movement, no respiratory distress Cardiovascular: rhythm reg at rate of 104 Abdomen: soft, non-tender, non-distended, normal bowel sounds, no masses or organomegaly Extremities: no cyanosis, no clubbing and no edema Recent Labs 02/25/20 0956 02/26/20 1138 NA 139 140 K 4.0 4.1 CL 106 105 CO2 24 24 BUN 26* 17 CREATININE 1.0 0.9 GLUCOSE 135* 140* CALCIUM 9.3 8.9 Recent Labs 02/25/20 0956 02/26/20 1138 WBC 5.8 10.8 RBC 4.41 4.44 HGB 13.1 13.5 HCT 41.1 41.8 MCV 93.2 94.1 MCH 29.7 30.4 MCHC 31.9* 32.3 RDW 12.7 12.6 PLT 251 250 MPV 10.0 9.8 CBC with Differential: Lab Results Component Value Date WBC 10.8 02/26/2020 RBC 4.44 02/26/2020 HGB 13.5 02/26/2020 HCT 41.8 02/26/2020 PLT 250 02/26/2020 MCV 94.1 02/26/2020 MCH 30.4 02/26/2020 MCHC 32.3 02/26/2020 RDW 12.6 02/26/2020 LYMPHOPCT 4.0 02/26/2020 MONOPCT 1.8 02/26/2020 BASOPCT 0.3 02/26/2020 MONOSABS 0.19 02/26/2020 LYMPHSABS 0.43 02/26/2020 EOSABS 0.01 02/26/2020 BASOSABS 0.03 02/26/2020 BMP: Lab Results Component Value Date NA 140 02/26/2020 K 4.1 02/26/2020 K 4.0 02/25/2020 CL 105 02/26/2020 CO2 24 02/26/2020 BUN 17 02/26/2020 LABALBU 4.4 02/25/2020 CREATININE 0.9 02/26/2020 CALCIUM 8.9 02/26/2020 GFRAA >60 02/26/2020 LABGLOM >60 02/26/2020 GLUCOSE 140 02/26/2020 Radiology: US SCROTUM AND TESTICLES Final Result The left testes enlarged and has a masslike appearance with color flow Doppler. This is suspicion for possible underlying malignancy. There is associated left inguinal lymph node which appears to be abnormal in appearance measuring 2.8 x 2.7 x 2.4 cm.. US DUP ABD PEL RETRO SCROT COMPLETE Final Result The left testes enlarged and has a masslike appearance with color flow Doppler. This is suspicion for possible underlying malignancy. There is associated left inguinal lymph node which appears to be abnormal in appearance measuring 2.8 x 2.[address] ABDOMEN PELVIS W IV CONTRAST Additional Contrast? None Final Result 1. Soft tissue masses in the left retroperitoneum, along the left spermatic cord, and with abnormal left periaortic lymphadenopathy. This raises the question of metastatic testicular cancer. 2. Slightly prominent left testicle and a very small right testicle. No hydrocele. 3. 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 Assessment: Active Problems: Testicular mass Resolved Problems: * No resolved hospital problems. * Plan: 1. Left testicular mass, possibly cancer s/p left radical orchiectomy urology following 2. Enlarged lymph nodes, consider possible mets monitor 3. Hyperlipidemia continue med 4. Sleep apnea monitor * Bridget Adorno RN - 02/26/2020 10:04 AM EDT Report to LOIS Larry. 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 Testicular mass Other specified disorder of male genital organs Intraabdominal mass Abdominal or pelvic swelling, mass or lump, unspecified site Abdominal pain, unspecified abdominal location Enlarged lymph nodes Enlargement of lymph nodes Hyperlipidemia Other and unspecified hyperlipidemia Sleep apnea Unspecified sleep apnea Diagnosis Non-Hodgkin's lymphoma, unspecified body region, unspecified non-Hodgkin lymphoma type (HCC) 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 Reason for Referral Status Reason Specialty Diagnoses / Procedures Referred By Contact Referred To Contact Pending Review Radiology Diagnoses Nodular lymphocyte predominant Hodgkin lymphoma, unspecified body region (HCC) Procedures PET CT SKULL BASE TO MID THIGH Edmund Orozco MD [address] [place], [place] [id number] Status Reason Specialty Diagnoses / Procedures Referred By Contact Referred To Contact Open Radiology Diagnoses 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) Procedures CT SOFT TISSUE NECK W CONTRAST Edmund Orozco MD [address] [place] [address] Status Reason Specialty Diagnoses / Procedures Referred By Contact Referred To Contact Closed Radiology Diagnoses Non-Hodgkin's lymphoma, unspecified body region, unspecified non-Hodgkin lymphoma type (HCC) 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) Procedures PET CT SKULL BASE TO MID THIGH Edmund Orozco MD [address] [place] [phone] Status Reason Specialty Diagnoses / Procedures Referred By Contact Referred To Contact Closed Radiology Diagnoses Diffuse large B-cell lymphoma of lymph nodes of multiple regions (HCC) Procedures MRI BRAIN W WO CONTRAST Edmund Orozco MD [address] [place] [phone] Specialty Diagnoses / Procedures Referred By Contac t Referred To Contact Cardiology Diagnoses Frequent PVCs RBBB Procedures ECHO LIMITED Boom Bee MD [address] [place] [address] Referral ID Status Reason Start Date Expiration Date Visits Re quested Visits Authorized [id number] Closed 03/17/2022 03/17/2023 1 1 Specialty Diagnoses / Procedures Referred By Contac t Referred To Contact Sleep Center Diagnoses Class 3 severe obesity due to excess calories with serious comorbidity and body mass index (BMI) of 45.0 to 49.9 in adult (HCC) Frequent PVCs Sleep apnea, unspecified type Procedures Baseline Diagnostic Sleep Study Bradley Zuñiga MD [address] [place] [address] Referral ID Status Reason Start Date Expiration Date Visits Re quested Visits Authorized [id number] Closed 03/11/2022 03/11/2023 1 1 Specialty Diagnoses / Procedures Referred By Contac t Referred To Contact Cardiology Diagnoses Abnormal EKG R94.31 (ICD-10-CM) - Abnormal EKG Procedures Cardiac Stress Test Exercise - Treadmill NC CV STRS TST XERS&/OR RX CONT ECG W/O I&R [id number] - NC CV STRS TST XERS&/OR RX CONT ECG W/O I&R Hilary Crenshaw MD [address] [facility] [address] [place] [id number] Referral ID Status Reason Start Date Expiration Date Visits Re quested Visits Authorized [id number] Closed 12/05/2022 12/05/2023 1 1 Chief Complaint and Reason for Visit Chief Complaint Admit Date Cysto,Ureteroscopy,Retro,Laser,Stent Aug ust 2024 9:14am Additional Source Comments (unrecognized sect ion and content) No Status Records FoundNo Status Records FoundNo Status Records FoundNo Status Records FoundNo Status Records FoundNo Status Records FoundNo Status Records FoundNo Status Records FoundNo Status Records FoundNo Status Records FoundNo Status Records FoundNo Status Records FoundNo Status Records Found INFORMATION SOURCE (unrecogn ized section and content) DATE CREATED AUTHOR 03/21/2018 [facility] DATE CREATED AUTHOR AUTHOR'S ORGANIZ ATION 03/21/2018 [facility] DATE CREATED AUTHOR AUTHOR'S ORGANIZ ATION 08/29/2018 [facility] ([place]) DATE CREATED AUTHOR AUTHOR'S ORGANIZ ATION 10/02/2018 [facility] DATE CREATED AUTHOR AUTHOR'S ORGANIZ ATION 02/23/2019 [facility] ([place]) DATE CREATED AUTHOR AUTHOR'S ORGANIZ ATION 12/15/2022 [facility] DATE CREATED AUTHOR AUTHOR'S ORGANIZ ATION 05/05/2024 [facility] DATE CREATED AUTHOR AUTHOR'S ORGANIZ ATION 04/22/2025 [facility] DATE CREATED AUTHOR AUTHOR'S ORGANIZ ATION 04/23/2025 [facility] DATE CREATED AUTHOR AUTHOR'S ORGANIZ ATION 05/15/2025 [facility] DATE CREATED AUTHOR AUTHOR'S ORGANIZ ATION 06/18/2025 [facility] DATE CREATED AUTHOR AUTHOR'S ORGANIZ ATION 07/07/2025 [facility] DATE CREATED AUTHOR AUTHOR'S ORGANIZ ATION 08/05/2025 [facility] Reason for Visit (unrecogniz ed section and content) Reason Comments Cancer Status Reason Specialty Diagnoses / Procedures Referred By Contact Referred To Contact Closed Radiology Diagnoses Diffuse large b-cell lymphoma, lymph nodes of multiple sites Procedures MRI BRAIN W WO CONTRAST Edmund Orozco MD [address] [place] [phone] Status Reason Specialty Diagnoses / Procedures Referred By Contact Referred To Contact Closed Diagnoses Diffuse large b-cell lymphoma, lymph nodes of multiple sites Procedures CT SOFT TISSUE NECK W CONTRAST Edmund Orozco MD [address] [place] [phone] Reason Comments Groin Swelling onset 4 wks ago, L s delgado. 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) Procedures CT CHEST W CONTRAST Edmund Orozco MD [address] [place] [address] Status Reason Specialty Diagnoses / Procedures Referre d By Contact Referred To Contact Diagnoses Screening for malignant neoplasm of colon SCREENING Procedures NC COLONOSCOPY FLX DX W/COLLJ SPEC WHEN PFRMD COLORECTAL CANCER SCREENING, NOT HIGH RISK Anh Torres MD [address] [address] [facility] Reason Comments Dental Pain tooth extraction rig ht lower side 01/03/21 Otalgia right sided Jaw Pain right sided for past 2 weeks Headache Status Reason Specialty Diagnoses / Procedures Referre d By Contact Referred To Contact Closed Radiology Diagnoses Neck pain Jaw pain Oropharyngeal mass Tongue mass Procedures MRI NECK SOFT TISSUE W WO CONTRAST MRI NECK SOFT TISSUE W CONTRAST Sayra Bah, [address] [place] [address] Status Reason Specialty Diagnoses / Procedures Referre d By Contact Referred To Contact Diagnoses Tongue mass TONGUE MASS Procedures NC LARYNGOSCOPY,DIRCT,OP SCOPE,BIOPSY BRONCHOSCOPY , DIRECT LARYNGOSCOPY, ESOPHAGOSCOPY Chon Martinez MD [address] [place] [address] [facility] Status Reason Specialty Diagnoses / Procedures Referred By Contact Referred To Contact Closed Radiology Diagnoses 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) Procedures PET CT SKULL BASE TO MID THIGH Edmund Orozco MD [address] [place] [address] Reason Comments Dizziness sent in by pcp for l ow HR, 79 at triage, denies cardiac hx Specialty Diagnoses / Procedures Referred By Contac t Referred To Contact Cardiology Diagnoses Frequent PVCs RBBB Procedures ECHO LIMITED Boom Bee MD [address] [place] [address] Referral ID Status Reason Start Date Expiration Date Visits Re quested Visits Authorized [id number] Closed 03/17/2022 03/17/2023 1 1 Specialty Diagnoses / Procedures Referred By Contac t Referred To Contact Sleep Center Diagnoses Class 3 severe obesity due to excess calories with serious comorbidity and body mass index (BMI) of 45.0 to 49.9 in adult (HCC) Frequent PVCs Sleep apnea, unspecified type Procedures Baseline Diagnostic Sleep Study Bradley Zuñiga MD [address] [place] [address] Referral ID Status Reason Start Date Expiration Date Visits Re quested Visits Authorized [id number] Closed 03/11/2022 03/11/2023 1 1 Reason Comments Immunizations Specialty Diagnoses / Procedures Referred By Contac t Referred To Contact Cardiology Diagnoses Abnormal EKG R94.31 (ICD-10-CM) - Abnormal EKG Procedures Cardiac Stress Test Exercise - Treadmill NC CV STRS TST XERS&/OR RX CONT ECG W/O I&R 56131 - NC CV STRS TST XERS&/OR RX CONT ECG W/O I&R Hilary Crenshaw MD [address] [facility] [address] [place] [address] Referral ID Status Reason Start Date Expiration Date Visits Re quested Visits Authorized [id number] Closed 12/05/2022 12/05/2023 1 1 Reason Comments Laceration lac to left forearm, on door frame. utd on tetanus Reason Comments Radiology CT Reason Comments Radiology MRI Reason Comments Radiology NM Ordered Prescriptions (unrec ognized section and content) Prescription Sig Dispensed Refills Start Date End Da te amoxicillin-clavulanate (AUGMENTIN) 875-125 MG per tablet Take 1 tablet by mouth 2 times daily for 5 days 10 tablet 0 02/17/2021 02/22/2021 Prescription Sig Dispensed Refills Start Date End Da te HYDROcodone-acetaminophe n (NORCO) 5-325 MG per tabletIndications:Post-o p pain Take 1 tablet by mouth every 6 hours as needed for Pain for up to 7 days. Intended supply: 3 days. Take lowest dose possible to manage pain 28 tablet 0 03/17/2021 03/24/2021 PRN Active and Recently Administ ered Medications (unrecognized section and content) Medication Order 02/15/2021 02/16/2021 02/17/2021 iopamidol (ISOVUE-370) 76 % injection 75 mL (COMPLETED) 75 mL, Intravenous, IMG ONCE PRN, Other, Starting on Mon02/17/21 at 2038, For 1 dose 2049 (Given - Provid er: Chen Partida) Scheduled Medication Order 03/15/2021 03/16/2021 03/17/2021 ampicillin-sulbactam (UNASYN) 3000 mg ivpb minibag (COMPLETED) 3,000 mg, Intravenous, CHANGE COORDINATOR TO O.R., 1 dose, On Mon03/17/21 at 1145, Recommend to repeat in 2 hours after initial dose if still intra-op., Pre-op (day of surgery) 1217 (New Bag - Prov ider: Saji Choi RN) sodium chloride flush 0.9 % injection 5-40 mL 5-40 mL, Intravenous, EVERY 12 HOURS SCHEDULED (2 times per day), First dose on Mon03/17/21 at 1145, For Line Patency: Peripheral IV = 5 mL; Midline or Central Line = 10 mL/lumen. If following IV push medication, administer flush at same rate as the IV push. Flush volume is determined by type of infusion therapy being given. For non-viscous solutions use: Peripheral IV = 5 mL Midline or Central Line = 10 mL/lumen For viscous solutions (i.e. blood components, parenteral nutrition, contrast media, or after obtaining blood sample) use: Peripheral IV = 10 mL Midline or Central Line = 20 mL/lumen, Pre-op (day of surgery) 1145 (Due)2100 (Due) PRN Medication Order 03/15/2021 03/16/2021 03/17/2021 0.9 % sodium chloride infusion 25 mL, Intravenous, at 100 mL/hr, PRN, If patient receiving piggyback infusions without ordered maintenance IV fluids or with frequent/long duration piggyback infusions, Starting on Mon03/17/21 at 1128, Administer at the same rate as the piggyback being infused., Pre-op (day of surgery) EPINEPHrine (ADRENALIN) 0.1 % 3 mL, oxymetazoline (AFRIN) 0.05 % 7 mL (CANCELED) PRN, Starting on Mon03/17/21 at 1234, Intra-op 1234 (Given - Provid er: Cristofer Vallecillo, DO - Comment: op site) hydrALAZINE (APRESOLINE) injection 5 mg 5 mg, Intravenous, EVERY 10 MIN PRN, High Blood Pressure, Starting on Mon03/17/21 at 1143, PRN for SBP > 160 for 2 consecutive measurements, and if one of the following conditions is met: 1) If IV labetolol is ineffective. 2) If HR is under 60. 3) If patient has heart block, COPD or asthma. If both labetalol and hydralazine ineffective, notify anesthesiologist., PACU only HYDROmorphone (DILAUDID) injection 0.25 mg 0.25 mg, Intravenous, EVERY 5 MIN PRN, Pain Moderate (4-6), Starting on Mon03/17/21 at 1145, For 4 doses, Phase I - Initial therapy for moderate pain., PACU only HYDROmorphone (DILAUDID) injection 0.5 mg 0.5 mg, Intravenous, EVERY 5 MIN PRN, Pain Severe (7-10), Starting on Mon03/17/21 at 1145, For 4 doses, Phase I - Initial therapy for severe pain., PACU only labetalol (NORMODYNE;TRANDATE) injection 5 mg 5 mg, Intravenous, EVERY 10 MIN PRN, High Blood Pressure, Starting on Mon03/17/21 at 1143, PRN for SBP >160 for 2 consecutive measurements, if HR is 60 or greater. If beta magnus is contraindicated (HR less than 60, heart block, COPD or asthma) use hydralazine IV order., PACU only 1521 (Given - Provid er: Kamar Estrada RN) meperidine (DEMEROL) injection 12.5 mg 12.5 mg, Intravenous, EVERY 5 MIN PRN, Shivering, , Starting on Mon03/17/21 at 1143, May give every 5 minutes to max of 50mg., PACU only oxyCODONE-acetaminophen (PERCOCET) 5-325 MG per tablet 1 tablet 1 tablet, Oral, ONCE PRN, Pain Moderate (4-6), Starting on Mon03/17/21 at 1145, For 1 dose, PHASE II, PACU only promethazine (PHENERGAN) injection 6.25 mg 6.25 mg, Intravenous, ONCE PRN, Nausea, Vomiting, Starting on Mon03/17/21 at 1143, For 1 dose, Recommended route is IM. Caution if used IV:Check IV site for infiltrate prior to and during administration. For IV administration, dilute to 10ml with normal saline. Must be administered over at least 10 minutes., PACU only sodium chloride flush 0.9 % injection 5-40 mL 5-40 mL, Intravenous, PRN, Line Care, Starting on Mon03/17/21 at 1128, For Line Patency: Peripheral IV = 5 mL; Midline or Central Line = 10 mL/lumen. If following IV push medication, administer flush at same rate as the IV push. Flush volume is determined by type of infusion therapy being given. For non-viscous solutions use: Peripheral IV = 5 mL Midline or Central Line = 10 mL/lumen For viscous solutions (i.e. blood components, parenteral nutrition, contrast media, or after obtaining blood sample) use: Peripheral IV = 10 mL Midline or Central Line = 20 mL/lumen, Pre-op (day of surgery) PRN Medication Order 07/16/2025 07/17/2025 07/18/2025 lidocaine PF 0.5 % injection (CANCELED) PRN, Starting on Mon07/18/25 at 1333, Until Mon07/18/25 at 1341, Intra-op 1333 (Given - Provid er: George Sebastian MD) methylPREDNISolone acetate (DEPO-MEDROL) injection (CANCELED) PRN, Starting on Mon07/18/25 at 1333, Until Mon07/18/25 at 1341, Intra-op 1333 (Given - Provid er: George Sebastian MD) ROPivacaine (NAROPIN) 0.5% injection (CANCELED) PRN, Starting on Mon07/18/25 at 1333, Until Mon07/18/25 at 1341, Intra-op 1333 (Given - Provid er: George Sebastian MD) Care Teams (unrecognized sec tion and content) Food Safety Technician Relationship Specialty Start Date End Date Bradley Zuñiga MD [address] [place] [phone] PCP - General Family Medicine 11/10/20 Food Safety Technician Relationship Specialty Start Date End Date Bradley Zuñiga MD [address] [place] [phone] PCP - General Family Medicine 11/10/20 Food Safety Technician Relationship Specialty Start Date End Date Bradley Zuñiga MD [address] [place] [phone] PCP - General Family Medicine 11/10/20 Food Safety Technician Relationship Specialty Start Date End Date Bradley Zuñ[place] [address] [place] [address] PCP - General Family Medicine 07/19/21 [place] [address] [place], [place] [phone] Specialty Change Coordinator Blood and Marrow Transplant 07/05/[address] [address] Physician Hematology/Oncology 11/01/21 Food Safety Technician Relationship Specialty Start Date End Date Bradley Zuñiga MD [address] [place] [id number] PCP - General Family Medicine 07/19/21 Boom Webb MD [address] [place] [address] Specialty Change Coordinator Blood and Marrow Transplant 07/05/[address] [address] Physician Hematology/Oncology 11/01/21 Food Safety Technician Relationship Specialty Start Date End Date Bradley Zuñiga MD [address] [phone] PCP - General Family Medicine 11/10/20 Food Safety Technician Relationship Specialty Start Date End Date Bradley Zuñiga MD PCP - General Family Medicine 11/10/20 Food Safety Technician Relationship Specialty Start Date End Date Bradley Zuñiga MD [address] [place] [id number] PCP - General Family Medicine 07/19/21 Boom Webb MD [address] [place] [address] Specialty Change Coordinator Blood and Marrow Transplant 07/05/21 Edmund Orozco MD [address] [place], [place] [phone] Physician Hematology/Oncology 11/01/21 Food Safety Technician Relationship Specialty Start Date End Date Bradley Zuñiga MD [address] [place] [id number] PCP - General Family Medicine 07/19/21 Boom Webb MD [address] [place], [place] [phone] Specialty Change Coordinator Blood and Marrow Transplant 07/05/21 Edmund Orozco MD [address] [place] [address] Physician Hematology/Oncology 11/01/21 Food Safety Technician Relationship Specialty Start Date End Date Bradley Zuñiga MD [address] [place], [place] [phone] PCP - General Family Medicine 07/19/21 Boom Webb MD [address] [place] [address] Specialty Change Coordinator Blood and Marrow Transplant 07/05/21 Edmund Orozco MD [address] [place], [place] [phone] Physician Hematology/Oncology 11/01/21 Food Safety Technician Relationship Specialty Start Date End Date Bradley Zuñiga MD [address] [place] [phone] PCP - General Family Medicine 07/19/21 Boom Webb MD [address] [place] [phone] Specialty Change Coordinator Blood and Marrow Transplant 07/05/21 Edmund Orozco MD [address] [place], [place] [phone] Physician Hematology/Oncology 11/01/21 Food Safety Technician Relationship Specialty Start Date End Date Bradley Zuñiga MD [address] [place], [place] [phone] PCP - General Family Medicine 07/19/21 Boom Webb MD [address] [place], [place] [phone] Specialty Change Coordinator Blood and Marrow Transplant 07/05/21 Edmund Orozco MD [address] [place] [address] Physician Hematology/Oncology 11/01/21 Food Safety Technician Relationship Specialty Start Date End Date Bradley Zuñiga MD [address] [place], [place] [phone] PCP - General Family Medicine 07/19/21 Boom Webb MD [address] [place] [address] Specialty Change Coordinator Blood and Marrow Transplant 07/05/21 Edmund Orozco MD [address] [place], [place] [phone] Physician Hematology/Oncology 11/01/21 Food Safety Technician Relationship Specialty Start Date End Date Bradley Zuñiga MD [address] [place] [phone] PCP - General Family Medicine 07/19/21 Boom Webb MD [address] [place], [place] [phone] Specialty Change Coordinator Blood and Marrow Transplant 07/05/21 Edmund Orozco MD [address] [place], [place] [phone] Physician Hematology/Oncology 11/01/21 Food Safety Technician Relationship Specialty Start Date End Date Bradley Zuñiga MD [address] [place], [place] [phone] PCP - General Family Medicine 07/19/21 Little Villafana RN [address] [place] [phone] Blood and Marrow Transplant 07/05/21 11/30/21 Boom Webb MD [address] [place], [place] [phone] Specialty Change Coordinator Blood and Marrow Transplant 07/05/21 Rhonda Tran LISW [phone] [place] [address] Hris Analyst Blood and Marrow Transplant 07/14/21 10/04/21 Team Status: Active Member Role/Relationship Status Dates BRADLEY ZUÑIGA Primary Care Provider Active Team Status: Inactive Member Role/Relationship Status Dates YOGESH SINGH Primary Care Provider Active Start: April 22, 2025 End: April 22, 2025 Dr. Jaxson Justin MD Attending Provider Active Start: April 22, 2025 End: April 22, 2025 Dr. Jaxson Justin MD Referring Provider Active Start: April 22, 2025 End: April 22, 2025 Team Status: Inactive Member Role/Relationship Status Dates YOGESH SINGH Primary Care Provider Active Start: May 07, 2025 End: May 07, 2025 Dr. Jaxson Justin MD Attending Provider Active Start: May 07, 2025 End: May 07, 2025 Dr. Jaxson Justin MD Referring Provider Active Start: May 07, 2025 End: May 07, 2025 Food Safety Technician Relationship Specialty Start Date End Date Bradley Zuñiga MD PCP - General Family Medicine 11/10/20 Food Safety Technician Relationship Specialty Start Date End Date Bradley Zuñiga MD PCP - General Family Medicine 11/10/20 Source Comments (unrecognize d section and content) In the event this informatio n is protected by the Federal Confidentiality of Alcohol and Drug Abuse Patient Records regulations: The Federal rules restrict any use of the information to criminally investigate or prosecute any alcohol or drug abuse patient.[facility] CenterIn the event this information is protected by the Federal Confidentiality of Alcohol and Drug Abuse Patient Records regulations: The Federal rules restrict any use of the information to criminally investigate or prosecute any alcohol or drug abuse patient.[facility] CenterIn the event this information is protected by the Federal Confidentiality of Alcohol and Drug Abuse Patient Records regulations: The Federal rules restrict any use of the information to criminally investigate or prosecute any alcohol or drug abuse patient.[facility] CenterIn the event this information is protected by the Federal Confidentiality of Alcohol and Drug Abuse Patient Records regulations: The Federal rules restrict any use of the information to criminally investigate or prosecute any alcohol or drug abuse patient.[facility] CenterIn the event this information is protected by the Federal Confidentiality of Alcohol and Drug Abuse Patient Records regulations: The Federal rules restrict any use of the information to criminally investigate or prosecute any alcohol or drug abuse patient.[facility] CenterIn the event this information is protected by the Federal Confidentiality of Alcohol and Drug Abuse Patient Records regulations: The Federal rules restrict any use of the information to criminally investigate or prosecute any alcohol or drug abuse patient.[facility] CenterIn the event this information is protected by the Federal Confidentiality of Alcohol and Drug Abuse Patient Records regulations: The Federal rules restrict any use of the information to criminally investigate or prosecute any alcohol or drug abuse patient.[facility] CenterIn the event this information is protected by the Federal Confidentiality of Alcohol and Drug Abuse Patient Records regulations: The Federal rules restrict any use of the information to criminally investigate or prosecute any alcohol or drug abuse patient.[facility] CenterIn the event this information is protected by the Federal Confidentiality of Alcohol and Drug Abuse Patient Records regulations: The Federal rules restrict any use of the information to criminally investigate or prosecute any alcohol or drug abuse patient.[facility] CenterIn the event this information is protected by the Federal Confidentiality of Alcohol and Drug Abuse Patient Records regulations: The Federal rules restrict any use of the information to criminally investigate or prosecute any alcohol or drug abuse patient.[facility] Goals (unrecognized section and content) Goals may be documented in a n alternate sectionGoals may be documented in an alternate section FOR RECORDS PERTAINING TO PATIENTS WHO ARE OR HAVE BEEN ENROLLED IN A CHEMICAL DEPENDENCY/SUBSTANCEABUSE PROGRAM, SOME INFORMATION MAY BE OMITTED. This clinical summary was aggregated from multiple sources. Caution should be exercised in using it in the provision of clinical care. This summary normalizes information from multiple sources, and as a consequence, information in this document may materially change the coding, format and clinical context of patient data. In addition, data may be omitted in some cases. CLINICAL DECISIONS SHOULD BE BASED ON THE PRIMARY CLINICAL RECORDS. [facility] [employer] provides no warranty or guarantee of the accuracy or completeness of information in this document.
--- NOTE | 2025-08-23 12:02 | CT_ITS ---
PROCEDURE: ABDOMEN/PELVIS WITHOUT CONT 08/23/2025 REASON FOR EXAM: RIGHT FLANK PAIN TECHNIQUE: Procedure Code: CTABDPEL Modality: CT Procedure: ABDOMEN/PELVIS WITHOUT CONT Noncontrast technique limits evaluation of the abdominal and pelvic viscera. Coronal and Sagittal reconstruction series were provided. One or more dose reduction techniques were used (e.g., Automated exposure control, adjustment of the mA and/or kV according to patient size, use of iterative reconstruction technique). RADIATION DOSE SUMMARY: CTDlvol: 24.18 mGy DLP: 1208.07 mGycm COMPARISON: None. FINDINGS: LUNG BASES: No basilar airspace consolidation or pleural effusion. Mild cardiomegaly. LIVER: Unremarkable. GALLBLADDER: Unremarkable. No calcified stone. BILE DUCTS: No ductal dilation. PANCREAS: Unremarkable. SPLEEN: Unremarkable. ADRENAL GLANDS: The adrenal glands demonstrate diffuse atrophy, suggestive of exogenous production or administration of adrenal cortical steroids adrenal atrophy KIDNEYS/URETERS Multiple right renal stones, the largest is 3.5 mm. Left renal stone measuring 3.0 mm. Mild right hydroureteronephrosis with ureteral distention to the level of the urinary bladder. Associated right perinephric and periureteral stranding. No ureteral or bladder stones seen. STOMACH AND BOWEL: No obstruction or perforation. No wall thickening. Scattered colonic diverticula. No CT evidence of colitis or acute diverticulitis. APPENDIX: Normal-appearing appendix. No CT evidence for appendicitis. RETRO/PERITONEUM: No free fluid. No free air. LYMPH NODES: No lymphadenopathy. PELVIC ORGANS: Unremarkable as visualized. VASCULATURE: No aortic aneurysm. Mild scattered calcified atherosclerosis. ABDOMINAL WALL AND SOFT TISSUES: Unremarkable. BONES: No fracture or suspicious osseous abnormality. Degenerative changes of the spine. Left hip prosthesis. CT/Abdomen/Pelvis without Cont IMPRESSION: 1. Bilateral nephrolithiasis. 2. Mild right hydroureteronephrosis, without an obstructing lesion seen. Find ings may represent a recently passed stone, too small to visualized ureteral stone or ascending UTI. If the patient's symptoms persist, a follow-up renal protocol CT is recommended to further evaluate. 3. Colonic diverticulosis without signs of diverticulitis. Reading Location: [id number]
[2025-08-23] MEDS: 0.9% Normal Saline (1000mL) 1,000 ML 999 ML IV (12:07)
[2025-08-23 12:09] LABS: Mucous, Urine 0 SEEN /hpf (<or=2+)
[2025-08-23 12:12] LABS: Color, Urine Amber (Yellow); Glucose, Dipstick Normal (Normal); Ketone-Dipstick Negative (Negative); Leukocyte Esterase-Dipstick 25 /ul (Negative); Nitrite-Dipstick Positive (Negative); Occult Blood-Urine 50 /ul (Negative); Protein-Dipstick 15 mg/dl (Negative); Specific Gravity, Urine 1.010 (1.002-1.030)
[2025-08-23 12:13] LABS: Hematocrit 38.1 % (40-54); Hemoglobin 12.6 g/dL (13.0-16.5); Immature Granulocytes Count 0.050 X10^3/uL (0.0-0.0); Mean Corp Hgb Conc 33.1 g/dL (32-36); Mean Corpuscular Volume 95.7 fL (80-94); Mean Platelet Vol. 10.2 fl (6.2-12.0); NRBC Flagged by Analyzer 0 % (0-5); Platelet Count 193 K/mm3 (150-450); RBC Distribution Width CV 13.1 % (11.6-14.6); RBC Distribution Width SD 46.0 fl (35.1-43.9); Red Blood Count 3.98 M/mm3 (4.6-6.2); White Blood Count 12.8 K/mm3 (4.4-11.0)
[2025-08-23 12:13] LABS: Urine Bilirubin Dipstick 3 mg/dL (Negative)
[2025-08-23 12:22] LABS: Red Blood Cells-Urine 0-5 SEEN /hpf (0-5); Squamous Epithelial Cells - UA 0-5 SEEN /hpf (0-5)
[2025-08-23 12:30] LABS: Anion Gap 12 (5-15); BUN 21 mg/dL (4-19); BUN/Creat Ratio 19.9 RATIO (10-20); Calcium,Total 9.0 mg/dL (7.6-11.0); Carbon Dioxide 23.3 mmol/L (21.0-32.0); Chloride 106 mmol/L (98-108); Estimated Creatinine Clearance 96.60 ml/min (50-250); Glucose 93 mg/dL (70-99); Potassium 4.3 mmol/L (3.3-5.1)
--- NOTE | 2025-08-23 12:37 | EX.ED.DYSGE1 ---
HPI History of Present Illness Chief Complaint: Flank Pain Narrative Narrative: Chief complaint and HPI: 69-year-old male with past medical history of anxiety, depression, HTN, HLD, urolithiasis presents for evaluation of right flank pain. Patient states he has a history of urolithiasis in which he has required lithotripsy in the past. On chart review on 05/07/2025. Dr. Justin performed cystoscopy with balloon dilation left ureter, left ureteroscopic laser lithotripsy of the stone and stent, left retrograde pyelogram. Patient states since then he had had passage of left kidney stones. He states for the past several days he has been having right flank pain with associated dysuria and nausea. Patient states while using the bathroom here in the emergency department, he did pass a stone. Also endorses that his right ear has been clogged but denies any pain. Denies any fever, chills, diarrhea. Review of systems: See HPI Medications: As listed on the chart Allergies: As listed on the chart PFSH: Per chart Vital signs: As listed on the chart. Reviewed. Physical exam: Gen: A&O x3, NAD Head: Normocephalic, atraumatic Eyes: No sclera icterus, conjunctiva clear, PERRL, EOMI ENT: TMs clear BL, moist mucous membranes, posterior oropharynx unremarkable, uvula midline, tonsils not enlarged Neck: Trachea midline, full range of motion CV: RRR, no murmurs Resp: Lungs CTA BL, no w/r/c GI: Abd soft, non-distended, non-tender, no r/r/g : No CVA tenderness Musc: Full ROM, no deformity Skin: Warm, dry Neuro: Alert, oriented, grossly intact, sensation intact Psych: Cooperative, appropriate mood and affect [facility] Medical History Wears glasses Cancer Depression Anxiety Alcohol use Arthritis Back pain History of diverticulitis CPAP (continuous positive airway pressure) dependence Shortness of breath on exertion Non-smoker History of pain when walking History of edema Non-Hodgkin lymphoma History of stress test Cardiology follow-up encounter Hypertension Home Medications ?Medication ?Instructions ?Recorded ?Last Taken ?Type furosemide 20 mg tablet 20 mg PO DAILY PRN edema 04/23/25 05/05/25 History ketorolac 10 mg tablet 10 mg PO Q8H PRN PRN pain 04/23/25 05/06/25 History metoprolol succinate 50 mg 50 mg PO QHS 04/23/25 05/06/25 History tablet,extended release 24 hr semaglutide 0.25 mg or 0.5 mg (2 0.25 mg subcut TU 04/23/25 04/15/25 History mg/1.5 mL) subcutaneous pen injector (Ozempic) simvastatin 40 mg tablet 40 mg PO QHS 04/23/25 05/06/25 History oxycodone 5 mg tablet 5 mg PO Q6H PRN pain 7 days #20 05/07/25 Unknown Rx tabs levofloxacin 750 mg tablet 750 mg PO DAILY 5 days #5 tabs 08/23/25 Unknown Rx ondansetron 4 mg disintegrating 4 mg PO Q8H PRN PRN Nausea #10 tabs 08/23/25 Unknown Rx tablet tamsulosin 0.4 mg capsule (Flomax) 0.4 mg PO DAILY 14 days #14 caps 08/23/25 Unknown Rx Allergy/AdvReac Type Severity Reaction Status Date / Time chlorhexidine Allergy Intermediate Rash Verified 08/23/25 11:02 meperidine (From Demerol) AdvReac Severe Nausea Verified 08/23/25 11:02 lisinopril AdvReac Intermediate COUGH Verified 08/23/25 11:02 Surgical History Hx of oral surgery Hx of eye surgery Hx of colonoscopy History of surgery on wrist History of orchiectomy, unilateral Hx of total hip arthroplasty History of ankle surgery History of ankle surgery Social History (Updated 08/23/25 @ 11:17 by Yvonne Bojorquez) housing: house Smoking Status: Never smoker EXAM Physical Exam Const Vital Signs: 08/23/25 11:02 08/23/25 13:00 Temperature 97.3 F L Temperature Source Temporal Pulse Rate 73 77 Respiratory Rate 14 16 Blood Pressure 126/73 H 132/70 H Blood Pressure Mean 90 90 Pulse Ox 98 99 Oxygen Delivery Method Room Air MDM MDM MDM Narrative Medical decision making narrative: 69-year-old male with past medical history of anxiety, depression, HTN, HLD, urolithiasis presents for evaluation of right flank pain. Patient states he has a history of urolithiasis in which he has required lithotripsy in the past. History taken by patient as well as medical record. On chart review, on 05/07/2025, Dr. Justin performed cystoscopy with balloon dilation left ureter, left ureteroscopic laser lithotripsy of the stone and stent, left retrograde pyelogram. He states for the past several days he has been having right flank pain with associated dysuria and nausea. Patient states while using the bathroom here in the emergency department, he did pass a stone. Patient states his pain has improved since passage of the stone. Differential diagnosis includes but is not limited to urolithiasis, UTI, pyelonephritis, otitis media, otitis externa, eustachian tube dysfunction. No clear etiology for patient's right clogged ear. Suspect eustachian tube dysfunction as physical exam is unremarkable. Recommended [id number] allergy medicine and follow-up with primary care physician. NS bolus, Zofran, pain medicine ordered for abdominal pain. Laboratory workup ordered including CT abdomen pelvis without contrast. CBC with mild leukocytosis of 12.8. Anemia of 12.6. I do not have previous labs to compare to. Platelet count unremarkable. BMP unremarkable. UA positive for UTI. Urine culture sent. Will place patient on Levaquin, first dose given here in the emergency department.CT abdomen pelvis shows bilateral nephrolithiasis. Mild right hydroureteronephrosis without obstructing lesion seen. Findings may represent a recently passed stone which patient passed in the ED. Also confirmed for ascending UTI. Patient has no CVA tenderness. No systemic symptoms. No concern for pyelonephritis., Diverticulosis without diverticulitis. Patient was updated of all the results. He has remained asymptomatic. Patient stable to discharge home. Follow-up with urology. Placed him back on Flomax in case there is a small lesion still in his ureter. Antibiotics written. Zofran as needed for nausea and vomiting. Patient offered narcotics but declined. Tylenol and ibuprofen as needed for pain. Return precautions explained. Impression: 1. Urolithiasis, passed 2. UTI 3. History of kidney stone 4. Anemia Lab Data Labs: Laboratory Results - last 24 hr 08/23/25 08/23/25 11:15 11:30 WBC 12.8 H RBC 3.98 L Hgb 12.6 L Hct 38.1 L MCV 95.7 H MCH 31.7 MCHC 33.1 RDW Std Deviation 46.0 H RDW Coeff of Adriana 13.1 Plt Count 193 MPV 10.2 Immature Gran % (Auto) 0.400 Neut % (Auto) 77.9 H Lymph % (Auto) 11.8 L Sebastian % (Auto) 9.2 Eos % (Auto) 0.3 Baso % (Auto) 0.4 Absolute Neuts (auto) 9.9 H Absolute Lymphs (auto) 1.51 Nucleated RBC % 0 Sodium 141 Potassium 4.3 Chloride 106 Carbon Dioxide 23.3 Anion Gap 12 BUN 21 H Creatinine 1.04 Estim Creat Clear Calc 96.60 Est GFR (MDRD) Non-Af 78 BUN/Creatinine Ratio 19.9 Glucose 93 Calcium 9.0 Urine Color Tasia Urine Clarity Clear Urine pH 6.0 Ur Specific [place] 1.010 Urine Protein 15 H Urine Glucose (UA) Normal Urine Ketones Negative Urine Occult Blood 50 H Urine Nitrite Positive H Urine Bilirubin 3 H Urine Urobilinogen 4 H Ur Leukocyte Esterase 25 H Urine RBC 0-5 SEEN Urine WBC 0-5 SEEN Ur Squamous Epith Cells 0-5 SEEN Urine Bacteria 0 SEEN Urine Mucus 0 SEEN Radiography Diagnostic Testing: Clinical Impression(s) from Imaging Studies Abdomen/Pelvis CT 08/23/25 12:02 IMPRESSION: 1. Bilateral nephrolithiasis. 2. Mild right hydroureteronephrosis, without an obstructing lesion seen. Findings may represent a recently passed stone, too small to visualized ureteral stone or ascending UTI. If the patient's symptoms persist, a follow-up renal protocol CT is recommended to further evaluate. 3. Colonic diverticulosis without signs of diverticulitis. Reading Location: [facility] Discharge Plan Triage Chief Complaint: Flank Pain ED Provider: Michele Gaston Dx/Rx/DC Orders Clinical Impression: Urolithiasis Instructions: ED Kidney Stone, Passed Prescriptions: New levofloxacin 750 mg tablet 750 mg PO DAILY 5 Days Qty: 5 0RF tamsulosin [Flomax] 0.4 mg capsule 0.4 mg PO DAILY 14 Days Qty: 14 0RF ondansetron 4 mg tablet,disintegrating 4 mg PO Q8H PRN PRN (Reason: Nausea) Qty: 10 0RF Discontinued tamsulosin 0.4 mg capsule 0.4 mg PO QHS ciprofloxacin HCl 500 mg tablet 500 mg PO BID Qty: 6 0RF No Action metoprolol succinate 50 mg tablet extended release 24 hr 50 mg PO QHS simvastatin 40 mg tablet 40 mg PO QHS Ozempic 0.25 mg or 0.5 mg(2 mg/1.5 mL) pen injector 0.25 mg subcut TU Rx Instructions: for 4 weeks furosemide 20 mg tablet 20 mg PO DAILY PRN (Reason: edema) ketorolac 10 mg tablet 10 mg PO Q8H PRN PRN (Reason: pain) oxycodone 5 mg tablet 5 mg PO Q6H PRN (Reason: pain) 7 Days Qty: 20 0RF Primary Care Provider: FRANCISCO RUTHERFORD Referrals: FRANCISCO RUTHERFORD [Other] - 3-5 Days Jaxson Justin MD [Med Staff - Active Staff, Urology] - 3-5 Days Activity Restrictions/Additional Instructions: Follow-up with urology. Take all of your antibiotics, you received your first dose here in the emergency department. Next dose tomorrow. Follow-up with primary care physician. Antinausea medicine as needed. Tylenol Motrin as needed for pain. Print Language: Macedonian Disposition Disposition: Home, Self Care
[2025-08-23 13:00] VITALS: BP 132/70; PULSE 77; RESP 16; O2SAT 99
[2025-08-23 13:54] VITALS: BP 132/70; PULSE 77; RESP 16; TEMP 36.8; O2SAT 99
== END 2025-08-23 13:54 | disposition home or self-care (01) ==
PROVIDERS: Emergency Provider Surgery; Visit Provider Surgery
DX: N13.6 Pyonephrosis (principal); F41.9 Anxiety disorder, unspecified; I10 Essential (primary) hypertension; E78.5 Hyperlipidemia, unspecified; K57.30 Diverticulosis of large intestine without perforation or abscess without bleeding; D64.9 Anemia, unspecified; F32.A Depression, unspecified; Z87.442 Personal history of urinary calculi
CPT/HCPCS: 74176; 80048; 81001; 85025; 87086; 96361; 96374; 96375; 99282; J2405